=== PATIENT | female | born 1935 | race Caucasian/White ===

== ENCOUNTER → 2019-03-08 16:42 | Outpatient (CLI) | payer OTHER, SELFPAY ==
--- NOTE | ~2019-03-08 | XR_ITS ---
EXAMINATION: XR chest 2V EXAM DATE: 03/08/2019 17:31 INDICATION: Cough. TECHNIQUE: Frontal and lateral projections of the chest obtained and reviewed. Comparison is made to prior examination from 07/03/18. FINDINGS: Moderate hyperinflation. The lungs are clear. There are no pleural effusions. The cardiom ediastinal silhouette is within normal limits. There is no pneumothorax suspected. The bones and so ft tissues are unremarkable. Left breast mastectomy, implant, axillary surgical clips. There is aor tic arterial sclerosis. IMPRESSION: No acute cardiopulmonary findings. Reviewed, dictated and finalized at location A. CTOR OF MARKET ANALYSIS
== END ==
PROVIDERS: PCP Physician Assistant; Visit Provider Family Medicine
DX: J40 Bronchitis, not specified as acute or chronic (principal)
CPT/HCPCS: 71046

== ENCOUNTER 2019-05-09 11:09 | Emergency (ER) | payer OTHER, SELFPAY ==
--- NOTE | ~2019-05-09 | XR_ITS ---
XR shoulder LT min 2V 05/09/2019 13:07 Indication: Left shoulder pain post reduction Procedure: 2 views left shoulder Comparison: 05/09/2019 Findings: There is anatomic alignment of the left shoulder post reduction. No acute fracture. Mild de generative changes. There are surgical clips in the left axilla. Osteopenia. Impression: 1: Normal anatomic alignment post reduction. No fracture. Reviewed, dictated and finalized at location B. 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 No fracture.
--- NOTE | ~2019-05-09 | XR_ITS ---
XR shoulder LT min 2V 05/09/2019 12:24 Indication: Left shoulder pain. Patient unable to tolerate standard views due to pain. Procedure: 3 nonstandard views of the left shoulder Comparison: Chest dated 03/08/2019 Findings: There is a probable left anterior shoulder dislocation. No definite fractures identified. A cromioclavicular joint intact. Impression: 1: Probable left anterior shoulder dislocation. Reviewed, dictated and finalized at location B. H RUNNER Impression: 1: Probable left anterior shoulder dislocation.
[2019-05-09 11:22] VITALS: BP 117/65; PULSE 75; RESP 18; TEMP 35.9; O2SAT 99
[2019-05-09] MEDS: ONDANSETRON INJ 4 MG/2 ML VIAL IV PUSH (11:57)
[2019-05-09] MEDS: MORPHINE SULFATE 4 MG/ML INJ IV PUSH ×2 (11:57→12:51)
[2019-05-09] MEDS: SODIUM CHLORIDE 0.9% IV 1,000 ML 999 ML IV CONT (11:58)
--- NOTE | 2019-05-09 12:53 | ED.GENADULT ---
HPI - General Adult General Chief complaint: Fall Stated complaint: fall/shoulder pain Time Seen by Provider: 05/09/19 11:37 Source: patient Mode of arrival: ambulatory Limitations: no limitations History of Present Illness HPI narrative: Patient is an 83-year-old female who was brought in by EMS after a ground-level fall slipped on the stairs falling injuring the left shoulder patient notes aching pain to the left shoulder with deformity patient on arrival complains of moderate aching pain to the shoulder only denies other injuries or complaints has not had anything for her pain specifically denies syncope loss of consciousness or headache Related Data Allergies Allergy/AdvReac Type Severity Reaction Status Date / Time Penicillins Allergy Mild Unknown Verified 05/09/19 12:00 red dye Allergy Mild Unknown Verified 05/09/19 12:00 Sulfa (Sulfonamide Allergy Mild Unknown Verified 05/09/19 12:00 Antibiotics) codeine AdvReac Mild FUNNY Verified 05/09/19 12:00 FEELING meperidine AdvReac Mild Nausea and Verified 05/09/19 12:00 Vomiting Contrast Media Allergy Mild Unknown Uncoded 05/09/19 12:00 Review of Systems Review of Systems: All systems reviewed & are unremarkable except as noted in HPI and below PMFSH Social History Social History Gender identity (if verbalized by the patient): Female Exam Narrative: Exam Narrative: GENERAL: Well-appearing, well-nourished, and in no acute distress. HEAD: Normocephalic, atraumatic. EYES: PERRLA and EOMI. ENT: Nares clear, no rhinorrhea or epistaxis. Mucous membranes moist. Oropharynx without tonsillar hypertrophy exudate or other lesions. CHEST: Clear to auscultation. No respiratory distress. No wheezes rales or rhonchi HEART: Regular rate and rhythm. No murmur heard. EXTREMITIES: Deformity of the left shoulder joint with tenderness. No cervical thoracic or lumbar tenderness SKIN: Warm, dry, no rash. NEURO: No focal deficits. Alert and oriented x3. Cranial nerves II through XII grossly intact. Neurovascularly intact PSYCH: Normal mood and affect. Course Course Emergency Course: Patient in the room in no distress aware of case findings treatment plan and diagnosis agreeing to follow-up as directed or to return if symptoms worsen or concerns Vital Signs Vital signs: Vital Signs Temperature 96.7 F L 05/09/19 11:22 Pulse Rate 75 05/09/19 11:22 Respiratory Rate 18 05/09/19 11:22 Blood Pressure 117/65 05/09/19 11:22 Pulse Oximetry 99 05/09/19 11:22 Temperature 96.7 F L 05/09/19 11:22 Pulse Rate 75 05/09/19 11:22 Respiratory Rate 18 05/09/19 11:22 Blood Pressure 117/65 05/09/19 11:22 Pulse Oximetry 99 05/09/19 11:22 Procedures Orthopedic Joint Reduction Joint #1: Orthopedic Joint Reduction Date: 05/09/19 Orthopedic Joint Reduction Time: 12:58 Time Out Performed: Yes Side: left Joint Reduction Location: shoulder Analgesia: other Pre-Procedure Neuro Vascular Exam: normal Shoulder Technique Used (if applicable): external rotation Technique used: direct manipulation Post-reduction neuro exam: intact Post-reduction vascular: intact Post Reduction X-Ray Obtained: Yes Post Reduction X-Ray Results: reduced Patient Tolerated Procedure: well Medical Decision Making MDM Narrative Medical decision making narrative: Patients injury or pain is consistent with musculoskeletal etiology. No signs of neurological or vascular compromise on exam. Compartments and tisues are soft without signs of compartment syndrome. Pain is felt appropriate for further evaluation on an outpatient basis. Vital Signs Vital Signs: Vital Signs Temperature 96.7 F L 05/09/19 11:22 Pulse Rate 75 05/09/19 11:22 Respiratory Rate 18 05/09/19 11:22 Blood Pressure 117/65 05/09/19 11:22 Pulse Oximetry 99 05/09/19 11:2
== END 2019-05-09 14:30 | disposition home or self-care (01) ==
PROVIDERS: Emergency Provider Emergency Medicine; PCP Family Medicine
DX: S43.015A Anterior dislocation of left humerus, initial encounter (principal); W10.9XXA Fall (on) (from) unspecified stairs and steps, initial encounter
CPT/HCPCS: 23655; 73030; 96374; 96375; 96376; 99285; J2270; J2405; J7030

== ENCOUNTER → 2019-05-17 07:51 | Outpatient (CLI) | payer OTHER, SELFPAY ==
--- NOTE | ~2019-05-17 | XR_ITS ---
XR shoulder LT min 2V DATE: 05/17/2019 08:58 INDICATION: Left shoulder and arm pain TECHNIQUE: 4 views COMPARISON: 05/08/2022 pre-and post-reduction left shoulder FINDINGS: Surgical clips are noted in the left axillary area. Diffuse osteopenia. No fracture, dislocation, periosteal reaction or bone destruction of the left shoulder. There is an inferior acromial bony prominence. IMPRESSION: No fracture or dislocation Osteopenia Prominent inferior protuberance of acromion process Reviewed, dictated and finalized at location A.
--- NOTE | ~2019-05-17 | MR_ITS ---
EXAMINATION: MR shoulder LT wo con DATE: 05/17/2019 08:57 INDICATION: Left shoulder pain. TECHNIQUE: Magnetic resonance imaging (MRI) of the left shoulder was performed without intravenous co ntrast. Sequences included axial PD-weighted FS FSE, coronal oblique PD-weighted FS FSE and T2-weight ed FS FSE, and sagittal oblique T2-weighted FS FSE and T1-weighted FSE. COMPARISON: Left shoulder radiographs 05/17/2019 FINDINGS: Coracoacromial arch: The acromion undersurface is curved in morphology (type II). Subacromial spurring is noted. 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 There is moderate subacromial/subdeltoid bursitis. Rotator cuff: There is a full-thickness tear of supraspinatus tendon measuring 11 mm anterior to posterior by 1.8 c m proximal to distal. There is a partial thickness articular-sided tear of infraspinatus tendon. Karo s minor tendon is normal. There is severe subscapularis tendinopathy. There is a full-thickness tear of subscapularis tendon inferiorly. There are articular sided and bursal sided partial tears of subsc apularis tendon superiorly. There is mild fatty atrophy of all of the rotator cuff muscle bellies. Biceps tendon and glenoid labrum: There is a partial tear of biceps tendon, which is medially subluxed from the bicipital groove into t he subscapularis tendon tear. There is degenerative tearing of the glenoid labrum. Fluid: There is a moderate-sized glenohumeral joint effusion. Bones/cartilage: There is cartilage surface irregularity of glenoid and humeral head. There is subchondral edema of th e inferior glenoid. IMPRESSION: 1. Full-thickness rotator cuff tear and severe rotator cuff tendinopathy. 2. Mild glenohumeral joint chondrosis. 3. Moderate subacromial/subdeltoid bursitis and moderate-sized glenohumeral joint effusion. 4. Partial tear of biceps tendon, which is medially subluxed into the subscapularis tendon tear. Reviewed, dictated and finalized at location A. IMPRESSION: 1. Full-thickness rotator cuff tear and severe rotator cuff tendinopathy. 2. Mild glenohumeral joint chondrosis. 3. Moderate subacromial/subdeltoid bursitis and moderate-sized glenohumeral galdino nt effusion. 4. Partial tear of biceps tendon, which is medially subluxed into the subscapul brynn tendon tear.
== END ==
PROVIDERS: PCP Family Medicine; Visit Provider Orthopaedic Surgery
DX: M25.412 Effusion, left shoulder (principal); M85.812 Other specified disorders of bone density and structure, left shoulder
CPT/HCPCS: 73030; 73221

== ENCOUNTER → 2020-01-17 15:33 | Outpatient (CLI) | payer OTHER, SELFPAY ==
--- NOTE | ~2020-01-17 | MM_ITS ---
EXAMINATION: MM screening aarti RT w sera HISTORY: Screening right mammogram, history of left breast cancer TECHNIQUE: Craniocaudal and mediolateral oblique 3-D tomosynthesis images were obtained and synthetic 2-D images were generated. CAD analysis was submitted and interpreted. COMPARISON: 03/20/2018, 01/11/2017, 11/17/2015 BREAST PARENCHYMAL COMPOSITION: The breasts are heterogeneously dense, which may obscure small masses . FINDINGS: Scattered benign-appearing calcifications are present. There is no evidence of suspicious m ass, calcification, or architectural distortion to suggest malignancy. There has been no suspicious i nterval change. IMPRESSION: 1. No mammographic evidence of malignancy. 2. Recommend routine screening mammography while the patient remains in good health. BI-RADS Category 2: Benign finding(s). Reviewed, dictated and finalized at location A. BUILDER APPRENTICE WOOD IMPRESSION: 1. No mammographic evidence of malignancy. 2. Recommend routine screening mammography while the patient remains in good he alth. BI-RADS Category 2: Benign finding(s).
== END ==
PROVIDERS: PCP Family Medicine; Visit Provider Student in an Organized Health Care Education/Training Program
DX: Z12.31 Encounter for screening mammogram for malignant neoplasm of breast (principal)
CPT/HCPCS: 77063; 77067

== ENCOUNTER 2020-03-13 12:40 | Outpatient (CLI) | payer OTHER, SELFPAY ==
--- NOTE | 2020-03-13 17:28 | WPDPFTINT ---
PFT Interpretation This is a pulmonary function test with pre and post-bronchodilator spirometry, plethysmography and diffusing capacity. The test was performed and results interpreted in accordance with the 2019 and 2005 ATS/ERS Task Force guidelines respectively using the Tariq/Polladarius reference equations. Of note the patient had persistent coughing on the pre-bronchodilator spirometry. Findings: Spirometry: There is decreased maximal expiratory airflow at all lung volumes with a concave expiratory flow tracing. The pre-bronchodilator FVC is 1.48 L, 72% predicted. The pre-bronchodilator FEV1 is 0.78 L, 58% predicted. The FEV1:FVC ratio is 53%. The post-bronchodilator FVC is 2.04 L, representing a 39% increase. The post-bronchodilator FEV1 is 1.09 L, representing a 41% increase. Plethysmography: The total lung capacity is 5.03 L, 129% predicted. The functional residual capacity is 3.30 L, 155% predicted. The residual volume is 3.22 L, 187% predicted. Diffusing capacity: The absolute diffusing capacity is 11.6, 68% predicted. The diffusing capacity corrected for alveolar volume is 3.50, 106% predicted. Impression: There is a moderately severe obstructive abnormality with significant improvement after inhaling a single dose of albuterol. The increase in residual volume is consistent with air trapping from an obstructive abnormality. Hyperinflation is present is demonstrated by the increase in functional residual capacity and total lung capacity and is consistent with an obstructive abnormality. The absolute diffusing capacity is mildly decreased but normalizes when corrected for alveolar volume. There are no prior studies for comparison.
== END 2020-03-13 12:41 | disposition home or self-care (01) ==
LOC: ANHPFT 12:41
PROVIDERS: PCP Internal Medicine; Visit Provider Internal Medicine Critical Care Medicine
DX: J45.909 Unspecified asthma, uncomplicated (principal); R94.2 Abnormal results of pulmonary function studies
CPT/HCPCS: 94060; 94726; 94729

== ENCOUNTER 2020-03-27 10:35 | Outpatient (CLI) | payer OTHER, SELFPAY ==
[2020-03-27 11:22] LABS: Alanine Aminotransferase 17 U/L (4-35); Albumin Level 4.2 g/dL (3.5-5.1); Alkaline Phosphatase 99 U/L (38-126); Anion Gap 6 mmol/L (8-16); Aspartate Amino Transferase 31 U/L (14-36); Bilirubin,Total 0.4 mg/dL (0.2-1.3); Blood Urea Nitrogen 25 mg/dL (7-17); Calcium 9.3 mg/dL (8.4-10.2); Carbon Dioxide 27 mmol/L (22-30); Chloride 108 mmol/L (98-107); Cholesterol 208 mg/dL (0-200); Estimated Glomerular Filt Rate 47; Glucose 106 mg/dL (65-105); HDL Direct 51 mg/dL; Potassium 4.1 mmol/L (3.4-5.0); Sodium 141 mmol/L (137-145); Triglycerides 156 mg/dL (<150)
[2020-03-27 11:33] LABS: LDL Cholesterol Direct 114 mg/dL
== END 2020-03-27 10:36 | disposition home or self-care (01) ==
LOC: ANHLAB 10:36
PROVIDERS: Family Provider Family Medicine; PCP Internal Medicine; Visit Provider Nurse Practitioner
DX: E78.5 Hyperlipidemia, unspecified (principal)
CPT/HCPCS: 36415; 80053; 80061

== ENCOUNTER 2020-03-28 10:44 | Outpatient (RCR) | payer OTHER, SELFPAY ==
[2020-03-31 07:13] LABS: Alpha-1-Antitrypsin, QN 114 mg/dL (83-199)
== END 2020-06-24 23:59 | disposition home or self-care (01) ==
LOC: ANHLAB 10:44
PROVIDERS: Family Provider Family Medicine; PCP Internal Medicine; Visit Provider Nurse Practitioner Family
DX: J44.9 Chronic obstructive pulmonary disease, unspecified (principal); R09.3 Abnormal sputum
CPT/HCPCS: 36415; 82103; 82104; 87015; 87070; 87077; 87102; 87107; 87116; 87147; 87181; 87184; 87186; 87205; 87206

== ENCOUNTER → 2020-04-08 13:52 | Outpatient (CLI) | payer OTHER, SELFPAY ==
--- NOTE | ~2020-04-08 | XR_ITS ---
EXAMINATION: XR chest 2V EXAM DATE: 04/08/2020 14:12 INDICATION: R06.02 - Shortness of breath, cough, asthma, COPD. TECHNIQUE: Frontal and lateral projections of the chest obtained and reviewed. Comparison is made to prior examination from 03/08/2019. FINDINGS: Right upper lobe granuloma. The lungs are otherwise clear. There are no pleural effusions. The cardiomediastinal silhouette is within normal limits. There is no pneumothorax suspected. The bones and soft tissues are unremarkable. IMPRESSION: No acute cardiopulmonary findings. Reviewed, dictated and finalized at location B. CUTTING MACHINE SET UP OPERATOR
== END ==
PROVIDERS: PCP Internal Medicine; Visit Provider Nurse Practitioner Family
DX: R05 Cough (principal); R06.02 Shortness of breath; J45.909 Unspecified asthma, uncomplicated; J44.9 Chronic obstructive pulmonary disease, unspecified
CPT/HCPCS: 71046

== ENCOUNTER 2020-09-23 00:22 | Day surgery (SDC) | payer OTHER, SELFPAY ==
[2020-07-21 11:34] VITALS: BMI 32.7
[2020-09-10 08:55] VITALS: BMI 31.4
[2020-09-23 06:20] VITALS: BP 145/94; PULSE 50; RESP 18; TEMP 35.9; O2SAT 98
[2020-09-23] MEDS: LACTATED RINGERS 1,000 ML 150 ML IV CONT (06:26)
--- NOTE | 2020-09-23 07:17 | WPDANESEPPF ---
Anes - Initial Pre Proc Eval Procedure: Operation Date: 09/23/20 07:30 Proposed Procedures p Esophagogastroduodenoscopy & Colonoscopy - Júnior Bah MD Date/Time: 09/23/20 07:17 Surgeon: Júnior Bah MD Pre Op Diagnosis: Diarrhea, hx of colon polyps, dysphagia Patient Data Age: 84 Gender: F Height: 1.52 m Weight: 76.3 kg Last Vital Signs Temp 96.6 F L 09/23/20 06:20 Pulse 50 L 09/23/20 06:20 Resp 18 09/23/20 06:20 BP 145/94 H 09/23/20 06:20 Pulse Ox 98 09/23/20 06:20 Allergies Allergy/AdvReac Type Severity Reaction Status Date / Time red dye Allergy Severe Swelling Verified 09/23/20 06:18 of Lip/Tongue/Throat meperidine Allergy Intermediate Unknown Verified 09/23/20 06:18 Penicillins Allergy Intermediate Rash Verified 09/23/20 06:18 codeine AdvReac Mild Jittery Verified 09/23/20 06:18 Sulfa (Sulfonamide AdvReac Mild Nausea and Verified 09/23/20 06:18 Antibiotics) Vomiting Contrast Media Allergy Severe Swelling Uncoded 09/23/20 06:18 of Lip/Tongue/Throat Home Medications Medication Instructions Recorded Confirmed Type apple cider vinegar 300 mg tablet 600 mg PO BID 01/28/20 09/23/20 History aspirin 81 mg tablet,delayed 81 mg PO DAILY 01/28/20 09/23/20 History release geriatric [id number] 1 tablet PO DAILY 01/28/20 09/23/20 History mometasone-formoterol HFA 200 2 puff INHALATION BID 03/26/20 09/23/20 History mcg-5 mcg/actuation aerosol inhaler metoprolol succinate 25 mg 12.5 mg PO DAILY tablet 03/27/20 09/23/20 History tablet,extended release 24 hr albuterol sulfate 90 mcg/actuation 1 inh INHALATION Q4-6H PRN #8.5 g 07/07/20 09/23/20 Rx aerosol inhaler Cinnamon 600 mg PO BID 07/21/20 09/23/20 History Hair,Skin and Nails 6,000 unit PO DAILY 07/21/20 09/23/20 History calcium carbonate [Calcium 600] 600 mg PO DAILY 07/21/20 09/23/20 History cholecalciferol (vitamin D3) 25 mcg PO DAILY 07/21/20 09/23/20 History [Vitamin D3] furosemide 20 mg PO EVERY OTHER DAY 07/21/20 09/23/20 History montelukast 10 mg PO DAILY 07/21/20 09/23/20 History potassium chloride 10 meq PO EVERY OTHER DAY 07/21/20 09/23/20 History sertraline 50 mg PO QAM 07/21/20 09/23/20 History sertraline 100 mg PO DAILY 07/21/20 09/23/20 History vitamin A-vitamin C-vit E-min 2 tablet PO DAILY 07/21/20 09/23/20 History [Ocuvite] ezetimibe 10 mg tablet 10 mg PO DAILY #90 tablet 08/18/20 09/23/20 Rx Patient hx anesthesia problems: none Family hx anesthesia problems: none PMFSH Past Medical History Medical History (Updated 07/16/20 @ 11:28 by David Chavez DO) Adenomatous colon polyp Arthritis Asthma Chronic diarrhea Hearing loss History of colon polyps History of left breast cancer Other and unspecified hyperlipidemia Shoulder dislocation Vision loss Surgical History Surgical History History of appendectomy History of bilateral knee replacement History of cholecystectomy History of hysterectomy History of left mastectomy History of reduction surgery of right breast History of surgical removal of ganglion cyst Family History Family History Mother Rectal cancer Father Heart disease Emphysema lung Sibling COPD (chronic obstructive pulmonary disease) Social History Social History Smoking status: Never smoker Alcohol intake: current Substance use: never Substance use type: does not use Living arrangements: with family Gender identity (if verbalized by the patient): Female Spiritual care concerns: No Anes - Eval Final PreProcedure Day of Procedure 09/23/20 07:17 Patient weight: obese Heart: regular rate and rhythm Lungs: clear to auscultation Airway: Mallampati scale class II Neurological: alert and oriented Last
--- NOTE | 2020-09-23 07:40 | PM.HPGS ---
History of Present Illness History of Present Illness Consent: Risks, benefits, and alternatives have been discussed and questions answered. Patient agrees to proceed with procedure. Chief complaint: Diarrhea, hx of colon polyps, dysphagia Narrative: Randi Rodriguez is a 84 year old female with colon polyp 2016, also dysphagia Review of Systems Constitutional: Constitutional: Denies headache(s) and Denies weakness Eyes: Eyes: Denies blurry vision ENT: Reports Normal hearing present, Denies headache(s) and Denies neck pain Cardiovascular: Cardiovascular: Denies chest pain and Denies dyspnea Respiratory: Respiratory: Denies dyspnea Gastrointestinal: Gastrointestinal: Reports no additional gastrointestinal complaints Genitourinary: Genitourinary: Denies dysuria Musculoskeletal: Musculoskeletal: Denies neck pain Integumentary/Breasts: Skin/Breast: Denies dry skin Neurologic: Reports Normal hearing present, Denies headache(s) and Denies weakness Psychiatric: Psychiatric: Denies anxiety Endocrine: Endocrine: Denies change in body appearance Hematologic/Lymphatic: Hematologic/Lymphatic: Denies easy bleeding Allergic/Immunologic: Allergic/Immunologic: Denies urticaria PMFSH Past Medical History Medical History (Updated 07/16/20 @ 11:28 by David Chavez DO) Adenomatous colon polyp Arthritis Asthma Chronic diarrhea Hearing loss History of colon polyps History of left breast cancer Other and unspecified hyperlipidemia Shoulder dislocation Vision loss Surgical History Surgical History History of appendectomy History of bilateral knee replacement History of cholecystectomy History of hysterectomy History of left mastectomy History of reduction surgery of right breast History of surgical removal of ganglion cyst Family History Family History Mother Rectal cancer Father Heart disease Emphysema lung Sibling COPD (chronic obstructive pulmonary disease) Social History Social History Smoking status: Never smoker Alcohol intake: current Substance use: never Substance use type: does not use Living arrangements: with family Gender identity (if verbalized by the patient): Female Spiritual care concerns: No Meds Home Medications and Allergies Home Medications Medication Instructions Recorded Confirmed Type apple cider vinegar 300 mg tablet 600 mg PO BID 01/28/20 09/23/20 History aspirin 81 mg tablet,delayed 81 mg PO DAILY 01/28/20 09/23/20 History release geriatric [id number] 1 tablet PO DAILY 01/28/20 09/23/20 History mometasone-formoterol HFA 200 2 puff INHALATION BID 03/26/20 09/23/20 History mcg-5 mcg/actuation aerosol inhaler metoprolol succinate 25 mg 12.5 mg PO DAILY tablet 03/27/20 09/23/20 History tablet,extended release 24 hr albuterol sulfate 90 mcg/actuation 1 inh INHALATION Q4-6H PRN #8.5 g 07/07/20 09/23/20 Rx aerosol inhaler Cinnamon 600 mg PO BID 07/21/20 09/23/20 History Hair,Skin and Nails 6,000 unit PO DAILY 07/21/20 09/23/20 History calcium carbonate [Calcium 600] 600 mg PO DAILY 07/21/20 09/23/20 History cholecalciferol (vitamin D3) 25 mcg PO DAILY 07/21/20 09/23/20 History [Vitamin D3] furosemide 20 mg PO EVERY OTHER DAY 07/21/20 09/23/20 History montelukast 10 mg PO DAILY 07/21/20 09/23/20 History potassium chloride 10 meq PO EVERY OTHER DAY 07/21/20 09/23/20 History sertraline 50 mg PO QAM 07/21/20 09/23/20 History sertraline 100 mg PO DAILY 07/21/20 09/23/20 History vitamin A-vitamin C-vit E-min 2 tablet PO DAILY 07/21/20 09/23/20 History [Ocuvite] ezetimibe 10 mg tablet 10 mg PO DAILY #90 tablet 08/18/20 09/23/20 Rx Allergies Allergy/AdvReac Type Severity Reaction Status Date / Time red dye Allergy Severe Swelling Verified 09/23/20 06:
[2020-09-23 08:18] VITALS: BP 108/53; PULSE 83; RESP 22; O2SAT 99
[2020-09-23 08:28] VITALS: BP 116/65; PULSE 80; RESP 22; O2SAT 96
[2020-09-23 08:38] VITALS: BP 109/54; PULSE 77; RESP 20; O2SAT 98
== END 2020-09-23 08:57 | disposition home or self-care (01) ==
PROVIDERS: PCP Internal Medicine; Visit Provider Internal Medicine Gastroenterology
PROC: 0DJ08ZZ Inspection of Upper Intestinal Tract, Via Natural or Artificial Opening Endoscopic (ICD-10-PCS; CPT 43235; principal; 2020-09-23 07:30)
DX: Z12.11 Encounter for screening for malignant neoplasm of colon (principal); D12.2 Benign neoplasm of ascending colon; K57.30 Diverticulosis of large intestine without perforation or abscess without bleeding; K64.4 Residual hemorrhoidal skin tags; K62.89 Other specified diseases of anus and rectum; K29.50 Unspecified chronic gastritis without bleeding; K44.9 Diaphragmatic hernia without obstruction or gangrene; K21.00 Gastro-esophageal reflux disease with esophagitis, without bleeding; K22.2 Esophageal obstruction; R19.7 Diarrhea, unspecified; I10 Essential (primary) hypertension; J45.909 Unspecified asthma, uncomplicated; F41.9 Anxiety disorder, unspecified; E78.49 Other hyperlipidemia; Z85.3 Personal history of malignant neoplasm of breast; Z90.12 Acquired absence of left breast and nipple; Z96.653 Presence of artificial knee joint, bilateral; Z90.710 Acquired absence of both cervix and uterus; Z88.0 Allergy status to penicillin; Z88.2 Allergy status to sulfonamides; Z91.041 Radiographic dye allergy status; Z79.51 Long term (current) use of inhaled steroids; Z79.899 Other long term (current) drug therapy
CPT/HCPCS: 45380; 43239; 43249; 88305; 88342; C1726; J2704; J7120

== ENCOUNTER → 2021-05-18 13:58 | Outpatient (CLI) | payer OTHER, SELFPAY ==
--- NOTE | ~2021-05-18 | XR_ITS ---
EXAMINATION: XR chest 2V 05/18/2021 14:16 INDICATION: Dyspnea PROCEDURE: 2 view chest COMPARISON: 04/08/2020 FINDINGS: The lungs are clear. The cardiomediastinal silhouette is within normal limits. There are no pleural effusions. There is no pneumothorax suspected. There is a left breast implant. There are surgical clips in the left axilla. IMPRESSION: 1: NO ACUTE CARDIOPULMONARY DISEASE. Reviewed, dictated and finalized at location B.
== END ==
PROVIDERS: PCP Internal Medicine; Visit Provider Internal Medicine
DX: R06.00 Dyspnea, unspecified (principal)
CPT/HCPCS: 71046

== ENCOUNTER → 2021-06-01 13:04 | Outpatient (CLI) | payer OTHER, SELFPAY ==
--- NOTE | ~2021-06-01 | DEXA_ITS ---
Bone Density Report Name: KEVIN DOUGLASS Age: 85 Sex: Female Ethnicity: White Date of : 1935 Indication: postmenopausal; screening for osteoporosis; height loss; prior fracture; asthma or emphysema; hysterectomy; Referring Provider: Clair Montero Study: Bone densitometry was performed. Exam Date: June 01, 2021 Accession number: [id number] Bone Density: Region BMD T-score Z-score Classification AP Spine (L3, L4) 1.078 -0.2 2.8 Normal Femoral Neck (Left) 0.661 -1.7 0.8 Osteopenia Total Hip (Left) 0.875 -0.6 1.8 Normal Femoral Neck (Right) 0.707 -1.3 1.2 Osteopenia Total Hip (Right) 0.880 -0.5 1.8 Normal Total Hip Mean 0.878 -0.6 1.8 Normal World Health Organization criteria for BMD impression classify patients as: Normal (T-score at or above -1.0), Osteopenia (T-score between -1.0 and -2.5), or Osteoporosis (T-score at or below -2.5). 10-year Fracture Risk(1): Major Osteoporotic Fracture 19% Hip Fracture 4.6% Reported Risk Factors: [place] (), Neck BMD=0.661, BMI=34.2, previous fracture (1) FRAX(R) Version 3.08. Fracture probability calculated for an untreated patient. Fracture probability may be lower if the patient has received treatment. Clinical Information Provided by Patient: Has had a low trauma fracture Has used the following medications: Vitamin D, Calcium Has the following medical conditions: Asthma or Emphysema, Hysterectomy Patient maximum height was 63 Menopause Age: 43 No regular weight bearing exercise Does not regularly consume dairy products Onset of menses at age 12 Number of children 2 Impression: The patient has low bone mass, based on the Left Femoral Neck T-score. The patient has an estimated ten-year risk of hip fracture of 4.6% and an estimated ten-year risk of major fracture of 19%, based on the WHO FRAX algorithm. The patient has risk factors, including: previous fracture. Discussion: BONE DENSITY IS LOW AT ONE OR MORE SKELETAL SITES. THE PATIENT'S BMD AND CLINICAL RISK FACTORS CONTRIBUTE TO THIS PATIENT'S INCREASED RISK OF FRACTURE. This patient's lowest T-score is low at one or more skeletal sites. It meets the World Health Organization's (WHO) criteria for ?low bone mass? (T-score between -1.0 and -2.5). The patient's 10-year risk of hip fracture as calculated by FRAX exceeds the threshold where pharmacological therapy is recommended by the National Osteoporosis Foundation (NOF). However, all treatment decisions require clinical judgment and consideration of individual patient factors, including patient preferences, comorbidities, previous drug use, risk factors not captured in the FRAX model (e.g., frailty, falls, vitamin D deficiency, increased bone turnover, interval significant decline in bone density) and possible under or overestimation of
--- NOTE | ~2021-06-01 | MMUS_ITS ---
EXAMINATION: MM diagnostic aarti RT w sera, US breast RT limited HISTORY: Palpable lump in the subareolar aspect of the right breast, history of left mastectomy TECHNIQUE: Craniocaudal, mediolateral, and mediolateral oblique 3-D tomosynthesis images of the right breast were performed and synthetic 2-D images were generated. Spot compression views are also obtai jocelyne. CAD analysis was submitted and interpreted. High resolution limited right breast ultrasound was performed. COMPARISON: 01/17/2020, 03/20/2018, 01/11/2017 BREAST PARENCHYMAL COMPOSITION: The breasts are heterogeneously dense, which may obscure small masses . FINDINGS: MAMMOGRAPHIC FINDINGS: Scattered benign-appearing calcifications are present. There is no suspicious mass, calcification, or architectural distortion to suggest malignancy. There has been no suspicious interval change. No ma mmographic correlate is identified for the reported palpable abnormality of the right breast. ULTRASOUND: There is no evidence of focal abnormal solid or cystic mass in the vicinity of the reported palpable abnormality of the right breast. IMPRESSION: 1. No specific mammographic or sonographic correlate is identified for the reported palpable abnormal ity of concern. Further evaluation at this time should be based on clinical assessment. Continued fol low-up physical examination is recommended. 2. Recommend annual screening mammography while the patient remains in good health. BI-RADS Category 2: Benign finding(s). Reviewed, dictated and finalized at location A. IMPRESSION: 1. No specific mammographic or sonographic correlate is identified for the repo rted palpable abnormality of concern. Further evaluation at this time should be based on clinical assessment. Continued follow-up physical examination is nga mmended. 2. Recommend annual screening mammography while the patient remains in good hea lth. BI-RADS Category 2: Benign finding(s).
== END ==
PROVIDERS: PCP Internal Medicine; Visit Provider Nurse Practitioner
DX: Z78.0 Asymptomatic menopausal state (principal); R92.2 Inconclusive mammogram; N63.10 Unspecified lump in the right breast, unspecified quadrant; M85.852 Other specified disorders of bone density and structure, left thigh; M85.851 Other specified disorders of bone density and structure, right thigh
CPT/HCPCS: 76642; 77061; 77065; 77080; G0279

== ENCOUNTER 2021-06-15 08:18 | Inpatient (IN) | payer OTHER, SELFPAY ==
[2021-06-15] VITALS (41 sets, daily range): BP systolic 82–131; BP diastolic 53–76; PULSE 87–128; RESP 14–100; TEMP 36.1–36.9; O2SAT 20–100; BMI 34.9
--- NOTE | ~2021-06-15 | XR_ITS ---
EXAMINATION: XR chest 2V EXAM DATE: 06/15/2021 08:52 INDICATION: Cough, Wheezing,Sob, Black [id number], Hx Asthma. TECHNIQUE: Frontal and lateral projections of the chest obtained and reviewed. Comparison is made to prior examination from 05/18/2021. FINDINGS: The cardiomediastinal silhouette is prominent but magnified on this AP technique. There is patchy left basilar segmental and right basilar subsegmental atelectasis or pneumonia. Prominent pulm onary arteries, possible pulmonary arterial hypertension. There is no pneumothorax suspected. Probabl e small left pleural effusion. There are bony degenerative changes. Left-sided breast implant, axilla ry lymph node dissection. IMPRESSION: 1. Moderate amount of left basilar, smaller right basilar pneumonia and/or atelectasis. 2. Small left pleural effusion. Reviewed, dictated and finalized at location B. IMPRESSION: 1. Moderate amount of left basilar, smaller right basilar pneumonia and/or ate lectasis. 2. Small left pleural effusion.
--- NOTE | ~2021-06-15 | XR_ITS ---
EXAMINATION: XR foot RT 2V DATE: 06/18/2021 13:49 INDICATION: Right foot pain. TECHNIQUE: 2 views of right foot were obtained. COMPARISON: None. FINDINGS: There is moderate hallux valgus. No fracture. There is moderate osteoarthritis of first met atarsophalangeal joint and second proximal interphalangeal joint and mild osteoarthritis of some of t he midfoot joints and interphalangeal joints. There are is an enthesophyte at plantar aspect of calca prashant tuberosity. IMPRESSION: 1. Polyarticular osteoarthritis. 2. Moderate hallux valgus. Reviewed, dictated and finalized at location A.
--- NOTE | ~2021-06-15 | XR_ITS ---
EXAMINATION: XR chest 1V portable INDICATION: Shortness of breath TECHNIQUE: Portable AP chest at 0549 hours COMPARISON: 06/15/2021 FINDINGS: Airspace opacities of the left mid and lower lung zones persist without significant change. There is slightly improved right basilar airspace opacities. The cardiomediastinal silhouette is sta ble. There is no pleural effusion or pneumothorax. Changes of left mastectomy with implant reconstruc tion and left axillary lymph node dissection are noted. IMPRESSION: 1. Stable airspace opacities of the left mid and lower lung zones and improving right basilar airspac e opacities, consistent with pneumonia. Reviewed, dictated and finalized at location A. IMPRESSION: 1. Stable airspace opacities of the left mid and lower lung zones and improving right basilar airspace opacities, consistent with pneumonia.
--- NOTE | ~2021-06-15 | CT_ITS ---
EXAMINATION: CTA chest PE protocol DATE: 06/15/2021 10:44 INDICATION: Shortness of breath, history of breast cancer TECHNIQUE: Computed tomography angiography (CTA) of the chest was performed with 100 mL Omnipaque-350 intravenous contrast timed to evaluate the pulmonary arteries. Coronal maximum intensity projection 3D-reconstructions were created by the technologist. The dose-length product (DLP) was 575.19 mGy-cm. Automated exposure control and iterative reconstruction technique were employed. COMPARISON: 08/21/2012 FINDINGS: The pulmonary arteries are well-opacified. No pulmonary embolism is identified. There are a irspace opacities of the lower lobes, left greater than right, the lingula, and the upper lobes. Ther e is no pleural effusion or pneumothorax. The heart size is normal. There are changes of left mastect yvonne with implant reconstruction and left axillary lymph node dissection. There are no pathologically enlarged thoracic lymph nodes. There is severe thoracic spondylosis. . IMPRESSION: 1. Bilateral airspace opacities, worst in the lower lobes, consistent with pneumonia. No pulmonary em bolus identified. Reviewed, dictated and finalized at location A. IMPRESSION: 1. Bilateral airspace opacities, worst in the lower lobes, consistent with pneu monia. No pulmonary embolus identified.
--- NOTE | ~2021-06-15 | XR_ITS ---
EXAMINATION: XR chest 1V portable Exam Date/Time: 06/21/2021 14:30 CDT CLINICAL HISTORY: pneumonia SOB DYSPNEA Comparison: 06/16/2021.. RESULT: Lines, tubes, and devices: Left axillary clips. Left breast prosthesis. Lungs and pleura: Linear scar/atelectasis in the right lung base. Left angle blunting, with graded o pacity in the left mid and lower lung. Increased retrocardiac opacity. Cardiomediastinal silhouette: Stable cardiomediastinal silhouette. Other: No acute osseous or upper abdominal finding. IMPRESSION: Likely small left pleural effusion. Increasing left basilar atelectasis/consolidation. Reviewed, dictated and finalized at location K. IMPRESSION: Likely small left pleural effusion. Increasing left basilar atelectasis/consoli dation.
--- NOTE | ~2021-06-15 | XR_ITS ---
EXAMINATION: XR chest 1V portable DATE: 06/16/2021 11:56 INDICATION: Increased work of breathing. TECHNIQUE: A single frontal view of the chest was obtained. COMPARISON: Chest single view at 5:49 AM, chest CT 06/15/2021 FINDINGS: There are airspace opacities in the lower lung zones. No pleural effusion or pneumothorax. Cardiomegaly is noted. There is a left breast implant. IMPRESSION: 1. Stable airspace opacities in the lower lung zones, consistent with pneumonia. 2. Cardiomegaly. Reviewed, dictated and finalized at location A. IMPRESSION: 1. Stable airspace opacities in the lower lung zones, consistent with pneumonia . 2. Cardiomegaly.
--- NOTE | ~2021-06-15 | US_ITS ---
EXAMINATION: US renal BI EXAM DATE: 06/16/2021 09:49 INDICATION: Worsening renal function. TECHNIQUE: Multiple grayscale and Doppler images of the kidneys were obtained (by a technologist who performed the scan) and subsequently reviewed. There is no prior study for comparison. FINDINGS: Right kidney: There is normal contour and echogenicity. It measures 10.5 x 3.7 x 4.3 centimeters. T here are no focal renal lesions identified. There is no hydronephrosis. Left kidney: There is normal contour and echogenicity. It measures 11.0 x 3.8 x 5.2 centimeters. Sev eral anechoic lesions consistent with cysts measuring up to 3 cm. There is no hydronephrosis. Woody catheter within collapsed bladder. IMPRESSION: 1. Left renal cysts. Otherwise unremarkable exam. Reviewed, dictated and finalized at location B.
--- NOTE | ~2021-06-15 | NM_ITS ---
EXAMINATION: NM mora stress w perfusion DATE: 06/19/2021 10:01 INDICATION: Chest pain. Cardiomyopathy. TECHNIQUE: Rest images were obtained following intravenous administration of 11.1 mCi Tc99m tetrofosm in (Myoview). The patient was infused intravenously with Lexiscan (regadenoson). Then, 33 mCi Tc99m t etrofosmin (Myoview) was administered intravenously, and stress images were obtained. Data was recons tructed into short axis and horizontal and vertical long axis SPECT images. Gated SPECT images were a lso obtained. COMPARISON: Chest CT 06/15/2021 FINDINGS: There is a small, mild, reversible perfusion defect involving apical lateral segment of lef t ventricle, consistent with ischemia. There is no segmental wall motion abnormality. Left ventricu lar ejection fraction measures 40%. IMPRESSION: 1. Small area of mild ischemia involving apical lateral segment of left ventricle. 2. Decreased left ventricular ejection fraction measuring 40%. Reviewed, dictated and finalized at location A. IMPRESSION: 1. Small area of mild ischemia involving apical lateral segment of left ventric le. 2. Decreased left ventricular ejection fraction measuring 40%.
--- NOTE | 2021-06-15 08:23 | ECG_ITS ---
Measurements Intervals [place] Rate: 131 P: -77 NC: 153 QRS: 37 QRSD: 162 T: 81 QT: 306 QTc: 452 Interpretive Statements ATYPICAL ATRIAL FLUTTER WITH OCCASIONAL VENTRICULAR PREMATURE COMPLEXES INTRAVENTRICULAR CONDUCTION DELAY [130+ ms QRS DURATION] COMPARED TO ECG 06/03/2018 12:34:55 ATYPICAL ATRIAL FLUTTER REPLACES SINUS RHYTHM Electronically Signed On 06-15-2021 15:32:07 CDT by Gurinder Sevilla M.D.
--- NOTE | 2021-06-15 08:26 | ED.SOB ---
HPI - SOB/Dyspnea General Chief Complaint: Shortness of Breath/Dyspnea Stated Complaint: SOB Time Seen by Provider: 06/15/21 08:19 Source: patient and EMS Mode of arrival: EMS Limitations: no limitations History of Present Illness HPI Narrative: Pt presents with worsening SOB and productive cough over the last two days. Pt denies swelling or fever or CP MD elicited complaint: shortness of breath Pertinent past history: COPD Onset (ago): day(s) (2d) Timing: constant Severity: moderate Exacerbating factors: lying flat and coughing Relieving factors: rest Known history of: COPD Associated symptoms: denies other symptoms Treatment prior to arrival: oxygen Related Data Home oxygen amount: none Home Medications Medication Instructions Recorded Confirmed apple cider vinegar 300 mg tablet 600 mg PO BID 01/28/20 05/18/21 aspirin 81 mg tablet,delayed 81 mg PO DAILY 01/28/20 05/18/21 release geriatric [id number] 1 tablet PO DAILY 01/28/20 05/18/21 mometasone-formoterol HFA 200 2 puff INHALATION BID 03/26/20 05/18/21 mcg-5 mcg/actuation aerosol inhaler metoprolol succinate 25 mg 12.5 mg PO DAILY tablet 03/27/20 05/18/21 tablet,extended release 24 hr Cinnamon 600 mg PO BID 07/21/20 05/18/21 Hair,Skin and Nails 6,000 unit PO DAILY 07/21/20 05/18/21 calcium carbonate [Calcium 600] 600 mg PO DAILY 07/21/20 05/18/21 cholecalciferol (vitamin D3) 25 mcg PO DAILY 07/21/20 05/18/21 [Vitamin D3] vitamin A-vitamin C-vit E-min 2 tablet PO DAILY 07/21/20 05/18/21 [Ocuvite] Allergies Allergy/AdvReac Type Severity Reaction Status Date / Time red dye Allergy Severe Swelling Verified 05/18/21 13:02 of Lip/Tongue/Throat meperidine Allergy Intermediate Unknown Verified 05/18/21 13:02 Penicillins Allergy Intermediate Rash Verified 05/18/21 13:02 codeine AdvReac Mild Jittery Verified 05/18/21 13:02 Sulfa (Sulfonamide AdvReac Mild Nausea and Verified 05/18/21 13:02 Antibiotics) Vomiting Contrast Media Allergy Severe Swelling Uncoded 05/18/21 13:02 of Lip/Tongue/Throat Review of Systems Review of Systems: All systems reviewed & are unremarkable except as noted in HPI and below PMFSH Past Medical History Medical History Adenomatous colon polyp Arthritis Asthma Chronic diarrhea Hearing loss History of colon polyps History of left breast cancer Hx of breast cancer Obese Other and unspecified hyperlipidemia Shoulder dislocation Vision loss Surgical History Surgical History History of appendectomy History of bilateral knee replacement History of cholecystectomy History of hysterectomy History of left mastectomy History of reduction surgery of right breast History of surgical removal of ganglion cyst Family History Family History Mother Rectal cancer Father Heart disease Emphysema lung Sibling COPD (chronic obstructive pulmonary disease) Social History Social History Smoking status: Never smoker Alcohol intake: never Substance use: never Substance use type: does not use Gender identity (if verbalized by the patient): Female Spiritual care concerns: No Exam Const: General: healthy appearing, no acute distress and alert Nutritional Appearance: well nourished Orientation/consciousness: patient oriented x3 Limitations: no limitations HENMT: Head: normal to inspection Eyes: Conjunctivae: conjunctivae normal EOM: EOMs intact bilaterally Neck: Neck: normal visual inspection, no lymphadenopathy and no meningeal signs Chest: Chest palpation & inspection: normal inspection of the chest Resp: Effort & Inspection: normal respiratory effort Auscultation: clear to auscultation bilaterally Cardio: Rate: tachycardic GI:
[2021-06-15] MEDS: ALBUTEROL SULFATE NEB 2.5 MG/0.5 ML INH 5 MG INHALATION (08:31)
[2021-06-15] MEDS: IPRATROPIUM BR 0.02% INH SOLN 0.5 MG/2.5 ML VIAL INHALATION (08:31)
[2021-06-15 08:33] LABS: Basophils Percent Auto 0.2 % (0.2-1.2); Eosinophils Absolute Auto 0.1 K/mm3 (0-0.3); Eosinophils Percent Auto 0.5 % (0-4.4); Hemoglobin 11.3 g/dL (12.0-15.0); Immature Granulocyte Absolute 0.14 K/mm3 (0.00-0.031); Immature Granulocyte Percent A 0.9 % (0-0.5); Lymphocytes Absolute Auto 1.14 K/mm3 (0.9-3.2); Lymphocytes Percent Auto 7.4 % (18.3-44.2); Mean Corpuscular HGB Conc 29.7 g/dl (32-36); Mean Corpuscular Hemoglobin 26.3 pg (26-34); Mean Corpuscular Volume 88.4 fl (80-100); Mean Platelet Volume 11.6 fl (7.4-10.4); Monocytes Absolute Auto 0.5 K/mm3 (0.1-0.6); Monocytes Percent Auto 3.4 % (2.6-8.5); Neutrophils Absolute Auto 13.4 K/mm3 (1.3-6.7); Neutrophils Percent Auto 87.6 % (45.5-73.1); Platelet Count Result 163 k/mm3 (150-375); Red Cell Distribution Width 17.2 % (11.5-14.5); White Blood Count 15.3 K/mm3 (4.5-10.0)
--- NOTE | 2021-06-15 08:33 | PC.NURSE ---
RT at bedside to administer breathing treatment.
[2021-06-15 08:42] LABS: Magnesium 2.2 mg/dL (1.6-2.3)
[2021-06-15 08:43] LABS: Alanine Aminotransferase 23 U/L (4-35); Albumin Level 4.3 g/dL (3.5-5.1); Alkaline Phosphatase 89 U/L (38-126); Anion Gap 8 mmol/L (8-16); Aspartate Amino Transferase 45 U/L (14-36); Bilirubin,Total 0.8 mg/dL (0.2-1.3); Blood Urea Nitrogen 38 mg/dL (7-17); Calcium 8.6 mg/dL (8.4-10.2); Carbon Dioxide 28 mmol/L (22-30); Chloride 104 mmol/L (98-107); Estimated Glomerular Filt Rate 33; Glucose 93 mg/dL (65-110); INR 1.3; Potassium 4.2 mmol/L (3.4-5.0); Prothrombin Time 15.5 Seconds (11.1-14.7); Sodium 140 mmol/L (137-145)
[2021-06-15 08:44] LABS: Partial Thromboplastin Time 39.1 SECONDS (22.3-36.8)
--- NOTE | 2021-06-15 08:47 | PC.NURSE ---
Patient off unit to Radiology.
[2021-06-15 09:01] LABS: NT Pro B Type Natriuretic Pept 14500 pg/mL (5-100); Troponin I 0.035 ng/mL (0.000-0.034)
--- NOTE | 2021-06-15 10:38 | PC.NURSE ---
Patient off unit to Radiology for CT.
--- NOTE | 2021-06-15 11:09 | PC.NURSE ---
Patient report given to OLEGARIO Moe. All questions answered and care of patient transferred.
[2021-06-15] MEDS: cefTRIAXone 2 GM in SODIUM CHLORIDE 0.9% IV 100 ML 200 ML IVPB (11:13)
--- NOTE | 2021-06-15 11:39 | PM.IMHP ---
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 She presented to [facility] due to shortness of breath, orthopnea and a productive cough for the past 2 days. Upon arrival to the emergency department labs and imaging were obtained. Patient had a WBC of 15.3, hemoglobin 11.3, hematocrit 38.0 and platelet of 163, creatinine 1.5 (this is slightly elevated from the patient's baseline is 1.1), sodium 140, potassium 4.2 and mildly elevated troponin at 0.035, [place] [address]. Chest x-ray performed which revealed left pleural effusion and small right basilar pneumonia. CTA was performed to rule out a pulmonary embolism, no acute findings. Patient received a dose of Rocephin she has a throw myself as well as a breathing treatment. Patient will be admitted to the hospitalist service Cardiology will be consulted. Patient will be treated for community-acquired pneumonia and acute on chronic CHF exacerbation. Chief Complaint: Acute respiratory failure with hypoxia Community-acquired pneumonia Acute on chronic systolic heart failure Review of Systems Review of Systems: All systems reviewed & are unremarkable except as noted in HPI and below PMFSH Past Medical History Medical History Adenomatous colon polyp Arthritis Asthma Chronic diarrhea Hearing loss History of colon polyps History of left breast cancer Hx of breast cancer Obese Other and unspecified hyperlipidemia Shoulder dislocation Vision loss Surgical History Surgical History History of appendectomy History of bilateral knee replacement History of cholecystectomy History of hysterectomy History of left mastectomy History of reduction surgery of right breast History of surgical removal of ganglion cyst Family History Family History Mother Rectal cancer Father Heart disease Emphysema lung Sibling COPD (chronic obstructive pulmonary disease) Social History Social History Smoking status: Never smoker Alcohol intake: never Substance use: never Substance use type: does not use Gender identity (if verbalized by the patient): Female Spiritual care concerns: No Meds Home Medications and Allergies Home Medications Medication Instructions Recorded Confirmed Type apple cider vinegar 300 mg tablet 600 mg PO BID 01/28/20 05/18/21 History aspirin 81 mg tablet,delayed 81 mg PO DAILY 01/28/20 05/18/21 History release geriatric hwbbhrqv-pzxw-iwgt 1 tablet PO DAILY 01/28/20 05/18/21 History mometasone-formoterol HFA 200 2 puff INHALATION BID 03/26/20 05/18/21 History mcg-5 mcg/actuation aerosol inhaler metoprolol succinate 25 mg 12.5 mg PO DAILY tablet 03/27/20 05/18/21 History tablet,extended release 24 hr Cinnamon 600 mg PO BID 07/21/20 05/18/21 History Hair,Skin and Nails 6,000 unit PO DAILY 07/21/20 05/18/21 History calcium carbonate [Calcium 600] 600 mg PO DAILY 07/21/20 05/18/21 History cholecalciferol (vitamin D3) 25 mcg PO DAILY 07/21/20 05/18/21 History [Vitamin D3] vitamin A-vitamin C-vit E-min 2 tablet PO DAILY 07/21/20 05/18/21 History [Ocuvite] hydrocortisone 1 % topical cream 1 applic TOPICAL BID PRN #28.35 g 09/23/20 05/18/21 Rx albuterol sulfate 90 mcg/actuation 1 - 2 inh INHALATION Q4-6H PRN 10/03/20 05/18/21 Rx aerosol inhaler #8.5 g furosemide 20 mg tablet 20 mg PO EVERY OTHER DAY #90 tablet 10/13/20 05/18/21 Rx potassium chloride 10 mEq 10 meq PO EVERY OTHER DAY #90 10/13/20 05/18/21 Rx tablet,extended release tablet ez
--- NOTE | 2021-06-15 12:08 | PC.NURSE ---
patient transferred to the floor with azithromycin infusing
--- NOTE | 2021-06-15 13:08 | ADMGEN ---
This patient, Randi Rodriguez, was admitted to IMU Room 201-01. Patient/family oriented to hospital policies and general routines including ID bracelet, bed and alarms, visiting hours, pain management, procedures, bathroom and other care routines, personal items, smoking policy, room service/diet, and visiting hours. Information on how to activate the Rapid Response Team has been discussed. Patient/Family are encouraged to report perceived risks to care and to ask questions if they do not understand what they are told or what they should do.
[2021-06-15 14:44] LABS: Troponin I 0.026 ng/mL (0.000-0.034)
--- NOTE | 2021-06-15 15:11 | PM.CNCAR ---
Assessment and Plan Assessment and plan (1) Systolic and diastolic CHF, acute on chronic: Code(s): I50.43 - Acute on chronic combined systolic (congestive) and diastolic (congestive) heart failure Status: Acute Assessment and Plan: Echocardiogram 06/08/2021 showing moderate LV systolic dysfunction, EF 40% grade 1 diastolic noncompliance. Her BNP is elevated but she does not appear to be significantly volume overloaded on physical exam. Agree with IV furosemide this evening - will shift her to oral furosemide starting tomorrow. She was recently started on Entresto in addition to her metoprolol for medical therapy for her cardiomyopathy. Will hold these for now as she is somewhat hypotensive and did experience a syncopal episode earlier after getting up with therapy. Will order orthostatics-sounds like she may have orthostatic hypotension. Accurate intake and output, low-sodium diet, daily weight. (2) Pneumonia: Qualifiers: Laterality: bilateral Lung location: lower lobe of lung Pneumonia type: due to unspecified organism Qualified Code(s): J18.9 - Pneumonia, unspecified organism Code(s): J18.9 - Pneumonia, unspecified organism Status: Acute Assessment and Plan: Being treated with antibiotics. Management per hospitalist. (3) Acute and chronic respiratory failure with hypoxia: Code(s): J96.21 - Acute and chronic respiratory failure with hypoxia Status: Acute Assessment and Plan: Secondary to pneumonia, mild CHF exacerbation. Improved. Saturating well on 2 L of oxygen. (4) Aortic stenosis: Code(s): I35.0 - Nonrheumatic aortic (valve) stenosis Status: Acute Assessment and Plan: Moderate History of Present Illness History of Present Illness Consult date/time: 06/15/21 15:11 Requesting physician: Beena Oneill APRN Consult reason: congestive heart failure Reason For Visit: Pneumonia Narrative: Ms. Rodriguez is an 85 year old female who is an established patient of Dr. Ashley with a history of a mild cardiomyopathy, mild MR, and PSVT. This is a patient who was seen recently in our office because of complaints of worsening dyspnea on exertion. At that time, her complaints of dyspnea had improved with addition of a new inhaler to her medical regimen. Her primary care doctor had requested that she be seen in our office to rule out a cardiac cause of her shortness of breath. An echocardiogram was performed at that time that revealed moderate left ventricular systolic dysfunction with an EF of 40%. She also has grade 1 diastolic noncompliance. Her MR is moderate by this echocardiogram. Also has moderate aortic stenosis. She enters the hospital with complaints of ?feeling funny? since Tuesday. She explains that she has been feeling dizzy and has been having worsening shortness of breath over the past several days. She has not had any chest pain, palpitations. She does endorse orthopnea. No swelling. Her workup has been significant for WBC 15.3, creatinine 1.5, [place] [address]. Her chest x-ray does show a small left pleural effusion as well as moderate left basilar and small right basilar pneumonia and/or atelectasis. Chest CTA was negative for PE. She is currently comfortable on 2 L of oxygen per nasal cannula. Review of Systems Review of Systems: All systems reviewed & are unremarkable except as noted in HPI and below Constitutional: Constitutional: Denies fatigue, Denies lethargy and Denies weakness Eyes: Eyes: Denies blurry vision and Denies change in vision ENT: Reports Normal hearing present, Denies nasal congestion and Denies nasal discharge Cardiovascular: Cardiovascular: Denies chest pain, Denies pedal edema, Denies leg edema, Reports lightheadedness and Denies palpitations Respiratory: Respiratory: Denies chest congestion, Reports cough, Denies hemoptysis, Reports dyspnea, Reports dyspnea on exertion and Reports wheezing Gastroin
--- NOTE | 2021-06-15 15:49 | ECG_ITS ---
Measurements Intervals [place] Rate: 105 P: 62 IA: 146 QRS: 30 QRSD: 99 T: 77 QT: 362 QTc: 480 Interpretive Statements SINUS TACHYCARDIA WITH OCCASIONAL VENTRICULAR PREMATURE COMPLEXES NONSPECIFIC ST AND T-WAVE ABNORMALITY ABNORMAL ECG COMPARED TO ECG 06/15/2021 08:21:25 SINUS TACHYCARDIA NOW PRESENT Electronically Signed On 06-16-2021 17:57:25 CDT by Chris Cohen M.D.
[2021-06-15] MEDS: FUROSEMIDE INJ 40 MG/4 ML VIAL IV PUSH (17:35)
[2021-06-16] VITALS (28 sets, daily range): BP systolic 97–135; BP diastolic 50–87; PULSE 86–121; RESP 18–100; TEMP 36.5–37.2; O2SAT 20–100
[2021-06-16 06:11] LABS: Basophils Percent Auto 0.2 % (0.2-1.2); Eosinophils Absolute Auto 0.1 K/mm3 (0-0.3); Eosinophils Percent Auto 0.4 % (0-4.4); Hematocrit 31.9 % (37.0-47.0); Hemoglobin 9.7 g/dL (12.0-15.0); Immature Granulocyte Absolute 0.19 K/mm3 (0.00-0.031); Immature Granulocyte Percent A 1.6 % (0-0.5); Lymphocytes Percent Auto 7.8 % (18.3-44.2); Mean Corpuscular HGB Conc 30.4 g/dl (32-36); Mean Corpuscular Hemoglobin 26.4 pg (26-34); Mean Corpuscular Volume 86.7 fl (80-100); Monocytes Absolute Auto 0.5 K/mm3 (0.1-0.6); Monocytes Percent Auto 4.5 % (2.6-8.5); Neutrophils Absolute Auto 9.8 K/mm3 (1.3-6.7); Neutrophils Percent Auto 85.5 % (45.5-73.1); Platelet Count Result 136 k/mm3 (150-375); Red Blood Count 3.68 M/mm3 (4.2-5.4); Red Cell Distribution Width 16.8 % (11.5-14.5); White Blood Count 11.5 K/mm3 (4.5-10.0)
[2021-06-16 06:16] LABS: Alanine Aminotransferase 16 U/L (4-35); Albumin Level 3.3 g/dL (3.5-5.1); Alkaline Phosphatase 84 U/L (38-126); Anion Gap 9 mmol/L (8-16); Aspartate Amino Transferase 26 U/L (14-36); Bilirubin,Total 0.5 mg/dL (0.2-1.3); Blood Urea Nitrogen 35 mg/dL (7-17); Calcium 8.1 mg/dL (8.4-10.2); Carbon Dioxide 25 mmol/L (22-30); Chloride 102 mmol/L (98-107); Estimated Glomerular Filt Rate 29; Glucose 99 mg/dL (65-110); Potassium 3.6 mmol/L (3.4-5.0); Sodium 136 mmol/L (137-145)
[2021-06-16 08:19] LABS: NT Pro B Type Natriuretic Pept 7130 pg/mL (5-100)
[2021-06-16] MEDS: FLUTICASONE/UMECLIDIN/VILANTER 200-62.5-25 MCG ELLIPTA 1 PUFF INHALATION (08:41)
[2021-06-16] MEDS: SERTRALINE HCL 50 MG TABLET 150 MG PO (08:46)
[2021-06-16] MEDS: MONTELUKAST SODIUM 10 MG TABLET PO (08:47)
[2021-06-16] MEDS: POTASSIUM CHLORIDE 10 MEQ TABLET.ER PO (08:47)
[2021-06-16] MEDS: ASPIRIN 81 MG ENTERIC TABLET PO (08:47)
[2021-06-16] MEDS: PANTOPRAZOLE 40 MG TABLET PO (08:47)
[2021-06-16] MEDS: FUROSEMIDE 40 MG TABLET PO ×2 (08:56→18:18)
--- NOTE | 2021-06-16 09:05 | PM.PNCARD ---
Progress Note: A&P Assessment and Plan (1) Systolic and diastolic CHF, acute on chronic: Code(s): I50.43 - Acute on chronic combined systolic (congestive) and diastolic (congestive) heart failure Status: Acute Assessment and Plan: Echocardiogram 06/08/2021 showing moderate LV systolic dysfunction, EF 40% grade 1 diastolic noncompliance. Her BNP was elevated on admission but she does not appear to be significantly volume overloaded on physical exam. Her creatinine is increasing...d/c IV furosemide in favor of oral furosemide 40mg b.i.d for now. She was recently started on Entresto in addition to her metoprolol for medical therapy for her cardiomyopathy. Will hold these for now in light of her HAY and relative hypotension with syncopal episode yesterday. These should be restarted before discharge. Also consider addition of spironolactone Accurate intake and output, low-sodium diet, daily weight. Check BMP in a.m. (2) Pneumonia: Qualifiers: Laterality: bilateral Lung location: lower lobe of lung Pneumonia type: due to unspecified organism Qualified Code(s): J18.9 - Pneumonia, unspecified organism Code(s): J18.9 - Pneumonia, unspecified organism Status: Acute Assessment and Plan: Being treated with antibiotics. Management per hospitalist. (3) Acute and chronic respiratory failure with hypoxia: Code(s): J96.21 - Acute and chronic respiratory failure with hypoxia Status: Acute Assessment and Plan: Secondary to pneumonia, mild CHF exacerbation. Improved. Saturating well on 1L L of oxygen. (4) Aortic stenosis: Code(s): I35.0 - Nonrheumatic aortic (valve) stenosis Status: Acute Assessment and Plan: Moderate Subjective Date/time seen: 06/16/21 09:05 Cardiology follow up for CHF She's feeling better today. States that the heavy feeling in her chest has resolved. Very tired today - has not been sleeping well. Complaining of productive cough. Review of Systems Review of Systems: All systems reviewed & are unremarkable except as noted in HPI and below Constitutional: Constitutional: Denies excessive sweating, Denies fatigue, Denies lethargy and Denies weakness Eyes: Eyes: Denies blurry vision and Denies change in vision ENT: Reports Normal hearing present, Reports dizziness, Denies nasal congestion and Denies nasal discharge Cardiovascular: Cardiovascular: Denies chest pain, Denies pedal edema, Denies leg edema, Reports lightheadedness, Denies palpitations, Reports dyspnea and Reports dyspnea on exertion Respiratory: Respiratory: Denies chest congestion, Reports cough, Denies hemoptysis, Reports dyspnea, Reports dyspnea on exertion and Reports wheezing Gastrointestinal: Gastrointestinal: Denies nausea and Denies vomiting Genitourinary: Genitourinary: Denies dysuria, Denies urinary incontinence and Denies urinary urgency Musculoskeletal: Musculoskeletal: Denies back pain, Denies arthralgias and Denies joint swelling Integumentary/Breasts: Skin/Breast: Denies unusual bruising Neurologic: Reports Normal hearing present, Denies confusion, Reports dizziness and Denies weakness Psychiatric: Psychiatric: Denies anxiety, Denies confusion and Denies depression Endocrine: Endocrine: Denies excessive sweating, Denies fatigue, Denies flushing and Denies palpitations Hematologic/Lymphatic: Hematologic/Lymphatic: Denies easy bleeding and Denies easy bruising Allergic/Immunologic: Allergic/Immunologic: Denies no additional allergic/immunologic complaints, Denies GI upset with certain foods and Reports wheezing Exam Const: General: comfortable and no acute distress; No confusion Orientation/consciousness: No confusion HENMT: Mouth: Yes moist mucous membranes Eyes: General: appearance normal, both eyes and all related structures Pupils: Equal, round and reactive pupils present Neck: Neck: supple and no JVD Resp: Auscultation: not elizabeth
--- NOTE | 2021-06-16 09:18 | PCPTNOTE ---
physical therapy on hold today due to HR at 133 bpm at rest. RN aware and agreeable.
--- NOTE | 2021-06-16 10:14 | PM.IMPN ---
Progress Note: A&P Assessment and Plan (1) Pneumonia: Qualifiers: Laterality: bilateral Lung location: lower lobe of lung Pneumonia type: due to unspecified organism Qualified Code(s): J18.9 - Pneumonia, unspecified organism Code(s): J18.9 - Pneumonia, unspecified organism Status: Acute Assessment and Plan: Monitor vital signs, I&Os, neuro status and patient is a fall risk Follow WBC, serum electrolytes, temperature curves and cultures Send sputum cultures Oxygen via NC; wean as tolerated. Keep SpO2 greater than 88% Avoid Gentle IV fluid resuscitation, monitor patient's fluid volume status. May need to reconsider IV fluids pending patient's clinical course Levaquin 750 mg Q 48 hours, patient has a history of a penicillin allergy DuoNeb q6H and Albuterol q2H PRN P.r.n. Tylenol, Zofran, and melatonin (2) Chronic kidney disease, stage 3: Code(s): N18.30 - Chronic kidney disease, stage 3 unspecified Status: Acute Assessment and Plan: Continue to monitor renal function (3) Obese: Code(s): E66.9 - Obesity, unspecified Status: Acute Assessment and Plan: Dietary education (4) Systolic and diastolic CHF, acute on chronic: Code(s): I50.43 - Acute on chronic combined systolic (congestive) and diastolic (congestive) heart failure Status: Acute Assessment and Plan: Echocardiogram performed on 06/08/2021 revealed an LVEF of 40% with systolic and diastolic dysfunction, diastolic relaxation grade 1. Monitor vital signs, I&Os, BUN/creatinine, daily weights, neuro status and patient is a fall risk Monitor serum electrolytes, Keep serum Potassium>4 and serum Magnesium>2 and CBC Lasix 40 mg IV [id number] to cardiology Consult cardiology for further management, appreciate assistance and recommendations Insert Woody catheter for accurate I&Os (5) Acute and chronic respiratory failure with hypoxia: Code(s): J96.21 - Acute and chronic respiratory failure with hypoxia Status: Acute Assessment and Plan: Patient's SpO2 was in the 80s in the emergency department, required supplemental oxygen. Patient does not wear oxygen at baseline. Tachypnea (6) Sepsis: Code(s): A41.9 - Sepsis, unspecified organism Status: Acute Assessment and Plan: 2/2 community-acquired pneumonia Tachypnea, elevated WBC, hypotension and end-organ dysfunction (HAY ) (7) Acute kidney injury superimposed on CKD: Code(s): N17.9 - Acute kidney failure, unspecified; N18.9 - Chronic kidney disease, unspecified Status: Acute Assessment and Plan: Avoid Gentle IV fluid resuscitation, monitor patient's fluid volume status. May need to reconsider IV fluids pending patient's clinical course monitor renal function Continues to receive Lasix --- defer to cardiology Subjective Date/time seen: 06/16/21 10:14 Patient is alert and oriented this morning. Discussed patient's hemoglobin dropping and she reported that she has intermittent loose stools. She did have a minimal hemoglobin dropped during this hospitalization. Order occult stool. Patient continues to receive IV antibiotics for community-acquired pneumonia, WBC improved. Will transition to oral antibiotics on 06/17/2021. Cardiology saw the patient yesterday and suggested holding metoprolol as well as Entresto and continue furosemide IV for yesterday. Of note the patient did experience a syncopal episode in the evening on 06/15/2021. Apparently the patient stood up to use the commode in her heart rate jumped up to 140s to 150s. The patient reported she felt dizzy and lightheaded and stated that she was going to pass out and proceeded to do so. Patient was able to arouse easily without significant stimulation or a rapid response involvement. Patient had significant diuresis when administered furosemide on 06/15/21. Continue to monitor I&Os and weight. Review of Systems Review of Systems: Desmond
[2021-06-16 11:54] LABS: Alveolar/Arterial O2 Gradient 53.9 mmHg; Base Excess ABG 2.4 mEq/l (+/-2.0); Carboxyhemoglobin 0.3 % THb (0-2.0); Fractional Inspired Oxygen 28 %; HCO3 ABG 26.4 mEq/l (22.0-26.0); Methemoglobin ABG 0.2 %THb (0-1.5); Oxygen Content ABG 14.5 %vol (16.0-22.0); Oxygen Saturation ABG 97.9 % (95.0-100.0); Oxyhemoglobin 96.2 % THb (90.0-100.0); PCO2 ABG 38.4 mmHg (35.0-45.0); PO2 ABG 100.4 mmHg (80.0-100.0); PO2 FiO2 Ratio Arterial Blood 3.59 %; Reduced Hemoglobin 3.3 %THb (0-5.0); Total Hemoglobin 10.6 g/dL (12.0-18.0); pH ABG 7.455 (7.350-7.450)
[2021-06-16 11:55] LABS: Device ROOM AIR; Site Drawn RIGHT BRACHIAL
[2021-06-16 12:02] LABS: Glucose Point of Care 160 mg/dl (65-105)
--- NOTE | 2021-06-16 12:51 | PCOTNOTE ---
Supervising OT advised not to see patient this date due to increased resting HR (130).
[2021-06-16] MEDS: MELATONIN 5 MG TABLET PO (22:45)
[2021-06-17] VITALS (25 sets, daily range): BP systolic 89–118; BP diastolic 47–76; PULSE 10–124; RESP 16–20; TEMP 36.2–37.6; O2SAT 95–99
[2021-06-17] MEDS: diphenhydrAMINE HCl CAP 25 MG CAPSULE PO ×2 (02:15→23:52)
[2021-06-17] MEDS: ZOLPIDEM TARTRATE (*CRX) 5 MG TABLET PO ×2 (02:15→23:52)
[2021-06-17 05:01] LABS: Basophils Percent Auto 0.2 % (0.2-1.2); Eosinophils Absolute Auto 0.1 K/mm3 (0-0.3); Eosinophils Percent Auto 1.1 % (0-4.4); Hematocrit 32.6 % (37.0-47.0); Hemoglobin 9.7 g/dL (12.0-15.0); Immature Granulocyte Absolute 0.05 K/mm3 (0.00-0.031); Immature Granulocyte Percent A 0.6 % (0-0.5); Lymphocytes Absolute Auto 0.84 K/mm3 (0.9-3.2); Lymphocytes Percent Auto 10.1 % (18.3-44.2); Mean Corpuscular HGB Conc 29.8 g/dl (32-36); Mean Corpuscular Hemoglobin 26.3 pg (26-34); Mean Corpuscular Volume 88.3 fl (80-100); Mean Platelet Volume 11.6 fl (7.4-10.4); Monocytes Absolute Auto 0.5 K/mm3 (0.1-0.6); Monocytes Percent Auto 5.8 % (2.6-8.5); Neutrophils Absolute Auto 6.8 K/mm3 (1.3-6.7); Neutrophils Percent Auto 82.2 % (45.5-73.1); Platelet Count Result 153 k/mm3 (150-375); Red Blood Count 3.69 M/mm3 (4.2-5.4); Red Cell Distribution Width 16.7 % (11.5-14.5); White Blood Count 8.3 K/mm3 (4.5-10.0)
[2021-06-17 05:22] LABS: Alanine Aminotransferase 17 U/L (4-35); Albumin Level 3.5 g/dL (3.5-5.1); Alkaline Phosphatase 86 U/L (38-126); Anion Gap 8 mmol/L (8-16); Aspartate Amino Transferase 25 U/L (14-36); Bilirubin,Total 0.5 mg/dL (0.2-1.3); Blood Urea Nitrogen 33 mg/dL (7-17); Calcium 8.3 mg/dL (8.4-10.2); Carbon Dioxide 27 mmol/L (22-30); Chloride 104 mmol/L (98-107); Estimated Glomerular Filt Rate 31; Glucose 116 mg/dL (65-110); Potassium 3.4 mmol/L (3.4-5.0); Sodium 139 mmol/L (137-145)
[2021-06-17] MEDS: FLUTICASONE/UMECLIDIN/VILANTER 200-62.5-25 MCG ELLIPTA 1 PUFF INHALATION (07:55)
--- NOTE | 2021-06-17 09:06 | PM.IMPN ---
Progress Note: A&P Assessment and Plan (1) Pneumonia: Qualifiers: Laterality: bilateral Lung location: lower lobe of lung Pneumonia type: due to unspecified organism Qualified Code(s): J18.9 - Pneumonia, unspecified organism Code(s): J18.9 - Pneumonia, unspecified organism Status: Acute Assessment and Plan: Monitor vital signs, I&Os, neuro status and patient is a fall risk Follow WBC, serum electrolytes, temperature curves and cultures PENDING sputum cultures. no urine cultures noted. 06/15/21 Positive Blood Culture Gram Stain - ANAEROBIC bottle - Staphylococcus epidermis Staphylococcus epidermidis , from anaerobic bottle only, susceptibility test report pending. Avoid IV fluid resuscitation, monitor patient's fluid volume status, tolerating PO well, fluid restriction. Levaquin 750 mg Q 48 hours, patient has a history of a penicillin allergy Levaquin IV, started on 06/15, she has received 2 doses. 06/17/21 - WBC 8.3, no fevers or chills or cough noted. DuoNeb q6H and Albuterol q2H PRN P.r.n. Tylenol, Zofran, and melatonin encouraged her to use her incentive spirometer. Pneumonia being treated with Her hypoxia, secondary to pneumonia and mild CHF exacerbation, is slowly improving. She continues to rely on 2 L of supplemental oxygen. She does not use any home oxygen prior to this admission. Oxygen via NC; wean as tolerated, on 2 L O2 NC today 06/17. (2) Chronic kidney disease, stage 3: Code(s): N18.30 - Chronic kidney disease, stage 3 unspecified Status: Acute Assessment and Plan: Continue to monitor renal function see acute kidney injury on CKD plan noted below. (3) Obese: Code(s): E66.9 - Obesity, unspecified Status: Acute Assessment and Plan: Dietary education (4) Systolic and diastolic CHF, acute on chronic: Code(s): I50.43 - Acute on chronic combined systolic (congestive) and diastolic (congestive) heart failure Status: Acute Assessment and Plan: Echocardiogram performed on 06/08/2021 revealed LVEF=40% with systolic and diastolic dysfunction, diastolic relaxation grade 1. Monitor vital signs, I&Os, BUN/creatinine, daily weights, neuro status and patient is a fall risk Monitor serum electrolytes, Keep serum Potassium>4 and serum Magnesium>2 and CBC Lasix 40 mg IV q12H weaned by cardiology to PO lasix. Consult cardiology for further management, appreciate assistance and recommendations Insert Woody catheter for accurate I&Os Echocardiogram 06/08/2021 showing moderate LV systolic dysfunction, EF 40% grade 1 diastolic noncompliance. Her BNP was elevated on admission but she does not appear to be significantly volume overloaded on physical exam. Her creatinine is increasing...d/c IV furosemide in favor of oral furosemide 40mg b.i.d for now. She was recently started on Entresto in addition to her metoprolol for medical therapy for her cardiomyopathy. Will hold these for now in light of her HAY and relative hypotension with syncopal episode yesterday. These should be restarted before discharge. Also consider addition of spironolactone Accurate intake and output, low-sodium diet, daily weight. (5) Acute and chronic respiratory failure with hypoxia: Code(s): J96.21 - Acute and chronic respiratory failure with hypoxia Status: Acute Assessment and Plan: Patient's SpO2 was in the 80s in the emergency department, required supplemental oxygen. Patient does not wear oxygen at baseline. Saturating now well on 2L of oxygen. Tachycardic and Tachypnea with exertion and activity, such as ADLs and PT/OT sessions. Secondary to pneumonia, mild CHF exacerbation. Improving slowly. (6) Sepsis: Code(s): A41.9 - Sepsis, unspecified organism Status: Acute Assessment and Plan: 2/2 community-acquired pneumonia Tachypnea, elevated WBC, hypotension and end-organ dysfunction (HAY ) WBC 8.3 today, no fevers, no chills, improv
[2021-06-17] MEDS: MONTELUKAST SODIUM 10 MG TABLET PO (09:19)
[2021-06-17] MEDS: FUROSEMIDE 40 MG TABLET PO (09:19)
[2021-06-17] MEDS: ASPIRIN 81 MG ENTERIC TABLET PO (09:19)
[2021-06-17] MEDS: PANTOPRAZOLE 40 MG TABLET PO (09:19)
[2021-06-17] MEDS: SERTRALINE HCL 50 MG TABLET 150 MG PO (09:19)
[2021-06-17] MEDS: POTASSIUM CHLORIDE 10 MEQ TABLET.ER 20 MEQ PO (11:31)
--- NOTE | 2021-06-17 13:15 | PM.PNCARD ---
Progress Note: A&P Assessment and Plan (1) Systolic and diastolic CHF, acute on chronic: Code(s): I50.43 - Acute on chronic combined systolic (congestive) and diastolic (congestive) heart failure Status: Acute Assessment and Plan: Echocardiogram 06/08/2021 showing moderate LV systolic dysfunction, EF 40% grade 1 diastolic noncompliance. Her BNP was elevated on admission but she does not appear to be significantly volume overloaded on physical exam. Her creatinine is increasing...d/c IV furosemide. Will reduce furosemide to 40 mg p.o. daily She was recently started on Entresto in addition to her metoprolol for medical therapy for her cardiomyopathy. Will hold these for now in light of her HAY and relative hypotension with syncopal episode yesterday. These should be restarted before discharge. Also consider addition of spironolactone Accurate intake and output, low-sodium diet, daily weight. Check BMP in a.m. (2) Pneumonia: Qualifiers: Laterality: bilateral Lung location: lower lobe of lung Pneumonia type: due to unspecified organism Qualified Code(s): J18.9 - Pneumonia, unspecified organism Code(s): J18.9 - Pneumonia, unspecified organism Status: Acute Assessment and Plan: Being treated with antibiotics. Management per hospitalist. (3) Acute and chronic respiratory failure with hypoxia: Code(s): J96.21 - Acute and chronic respiratory failure with hypoxia Status: Acute Assessment and Plan: Secondary to pneumonia, mild CHF exacerbation. Improved. Saturating well on 1L L of oxygen. (4) Aortic stenosis: Code(s): I35.0 - Nonrheumatic aortic (valve) stenosis Status: Acute Assessment and Plan: Moderate (5) Hypokalemia: Code(s): E87.6 - Hypokalemia Status: Acute Assessment and Plan: KCL 40 mg p.o. x1 Subjective Date/time seen: 06/17/21 13:15 Interval history: 85-year-old admitted for CHF Date of service 06/17/2021: No chest pain. Shortness breath is better. Had sharp poking sensation earlier today while sitting in the chair which has since resolved Review of Systems Review of Systems: All systems reviewed & are unremarkable except as noted in HPI and below Constitutional: Constitutional: Denies excessive sweating, Denies fatigue, Denies lethargy and Denies weakness Eyes: Eyes: Denies blurry vision and Denies change in vision ENT: Reports Normal hearing present, Reports dizziness, Denies nasal congestion and Denies nasal discharge Cardiovascular: Cardiovascular: Denies chest pain, Denies pedal edema, Denies leg edema, Reports lightheadedness, Denies palpitations, Reports dyspnea and Reports dyspnea on exertion Respiratory: Respiratory: Denies chest congestion, Reports cough, Denies hemoptysis, Reports dyspnea, Reports dyspnea on exertion and Reports wheezing Gastrointestinal: Gastrointestinal: Denies nausea and Denies vomiting Genitourinary: Genitourinary: Denies dysuria, Denies urinary incontinence and Denies urinary urgency Musculoskeletal: Musculoskeletal: Denies back pain, Denies arthralgias and Denies joint swelling Integumentary/Breasts: Skin/Breast: Denies unusual bruising Neurologic: Reports Normal hearing present, Denies confusion, Reports dizziness and Denies weakness Psychiatric: Psychiatric: Denies anxiety, Denies confusion and Denies depression Endocrine: Endocrine: Denies excessive sweating, Denies fatigue, Denies flushing and Denies palpitations Hematologic/Lymphatic: Hematologic/Lymphatic: Denies easy bleeding and Denies easy bruising Allergic/Immunologic: Allergic/Immunologic: Denies no additional allergic/immunologic complaints, Denies GI upset with certain foods and Reports wheezing Exam Const: General: comfortable and no acute distress; No confusion Orientation/consciousness: No confusion HENMT: Mouth: Yes moist mucous membranes Eyes: General: appearance normal, both eyes and al
[2021-06-17] MEDS: POLYSACCHARIDE IRON COMPLEX 150 MG CAPSULE PO (17:31)
[2021-06-18] VITALS (23 sets, daily range): BP systolic 97–123; BP diastolic 49–84; PULSE 80–135; RESP 16–20; TEMP 36.1–37.1; O2SAT 93–99
[2021-06-18 05:00] LABS: Basophils Percent Auto 0.4 % (0.2-1.2); Eosinophils Absolute Auto 0.1 K/mm3 (0-0.3); Eosinophils Percent Auto 1.9 % (0-4.4); Hematocrit 31.1 % (37.0-47.0); Hemoglobin 9.7 g/dL (12.0-15.0); Immature Granulocyte Absolute 0.04 K/mm3 (0.00-0.031); Immature Granulocyte Percent A 0.5 % (0-0.5); Lymphocytes Absolute Auto 1.04 K/mm3 (0.9-3.2); Lymphocytes Percent Auto 14.2 % (18.3-44.2); Mean Corpuscular HGB Conc 31.2 g/dl (32-36); Mean Corpuscular Hemoglobin 26.8 pg (26-34); Mean Corpuscular Volume 85.9 fl (80-100); Mean Platelet Volume 11.3 fl (7.4-10.4); Monocytes Absolute Auto 0.6 K/mm3 (0.1-0.6); Monocytes Percent Auto 8.5 % (2.6-8.5); Neutrophils Absolute Auto 5.4 K/mm3 (1.3-6.7); Neutrophils Percent Auto 74.5 % (45.5-73.1); Platelet Count Result 170 k/mm3 (150-375); Red Blood Count 3.62 M/mm3 (4.2-5.4); Red Cell Distribution Width 16.5 % (11.5-14.5); White Blood Count 7.3 K/mm3 (4.5-10.0)
[2021-06-18 05:26] LABS: Alanine Aminotransferase 23 U/L (4-35); Albumin Level 3.5 g/dL (3.5-5.1); Alkaline Phosphatase 84 U/L (38-126); Anion Gap 8 mmol/L (8-16); Aspartate Amino Transferase 32 U/L (14-36); Bilirubin,Total 0.3 mg/dL (0.2-1.3); Blood Urea Nitrogen 43 mg/dL (7-17); Calcium 8.4 mg/dL (8.4-10.2); Carbon Dioxide 27 mmol/L (22-30); Chloride 101 mmol/L (98-107); Estimated Glomerular Filt Rate 29; Glucose 126 mg/dL (65-110); Potassium 3.8 mmol/L (3.4-5.0); Sodium 136 mmol/L (137-145)
[2021-06-18 05:51] LABS: Iron 24 ug/dL (37-170)
[2021-06-18 06:00] LABS: Percent Iron Saturation 14 % (20-50)
[2021-06-18 07:05] LABS: Appearance Urine Clear (Clear); Bilirubin Urine Negative (Negative); Blood Urine 2+ (Negative); Color Urine Yellow (Yellow); Glucose Urine UA Negative (Negative); Ketones Urine Negative (Negative); Leukocyte Esterase Ur Negative LEU/UL (NEGATIVE); Nitrate Urine Negative (Negative); Protein Urine Negative (Negative); Specific Grav Ur 1.015 (1.001-1.035); Urobilinogen Urine 0.2 mg/dL (<2.0)
[2021-06-18 07:16] LABS: Add Urine Microscopic? YES
[2021-06-18 07:26] LABS: Mucus Urine Rare /lpf; Squamous Epithelial Cell Urine Rare /hpf (Few)
--- NOTE | 2021-06-18 07:26 | PM.IMPN ---
Progress Note: A&P Assessment and Plan (1) Pneumonia: Qualifiers: Laterality: bilateral Lung location: lower lobe of lung Pneumonia type: due to unspecified organism Qualified Code(s): J18.9 - Pneumonia, unspecified organism Code(s): J18.9 - Pneumonia, unspecified organism Status: Acute Assessment and Plan: 06/15 Positive Blood Culture Gram Stain, Staphylococcus epidermis from the anaerobic bottle, which was flagged as abnormal and potentially contamination. Called lab today, who reported no results in sensitivity thus far, so we will continue with levaquin for now. 06/16 CXR showed stable airspace opacities in the lower lung zones, consistent with pneumonia, and Cardiomegaly. 06/17 preliminary sputum culture showed no organisms. WBC count has normalized, patient is afebrile, sufficient intake and output of urine. Lung physical exam was normal, with no wheezing, crackles, rales. She continues to endorse some pleuritic chest pain only with deep inspiration and coughing, orthopnea (normal for her), and shortness of breath with activity. Of note, her O2 requirements have increased to 3L, with O2 saturations 93%. - DuoNeb q6H and Albuterol q2H PRN. - Continue supplemental O2. - Continue Levaquin. - Mucinex to help with sputum. (2) Chronic kidney disease, stage 3: Code(s): N18.30 - Chronic kidney disease, stage 3 unspecified Status: Acute Assessment and Plan: Baseline Cr 1.0, currently 1.7. Renal US showed left renal cysts. Continue to monitor renal function see acute kidney injury on CKD plan noted below. (3) Systolic and diastolic CHF, acute on chronic: Code(s): I50.43 - Acute on chronic combined systolic (congestive) and diastolic (congestive) heart failure Status: Acute Assessment and Plan: Woody catheter is in place now for accurate I&Os, urine output 900mL yesterday, already 2000mL today. No weight gain today. Creatinine (1.7) incrs today from baseline of (1.0) likely due to IV lasix. Cardiology dcrs'd oral furosemide to 40mg daily for now. Exam today showed patient is euvolemic. Entresto is being held due to hypotension/ syncope. Cardiology recommended restarting carvedilol to help with sinus tachycardia that is being observed on telemetry. - Restart carvedilol 3.25mg - Vital signs/ Telemetry - I&Os - BUN/creatinine - Daily weights. - Monitor serum electrolytes (4) Acute and chronic respiratory failure with hypoxia: Code(s): J96.21 - Acute and chronic respiratory failure with hypoxia Status: Acute Assessment and Plan: Saturating at 93% on 3L O2, supplemental O2 requirements have increased today. She continues to be tachycardic and SOB with exertion and activity, such as ADLs and PT/OT sessions. - Plan as above (5) Sepsis: Code(s): A41.9 - Sepsis, unspecified organism Status: Acute Assessment and Plan: 2/ community-acquired pneumonia. WBC normalized today. Urine culture pending, UA showed 2+ blood, 6-10 RBCs and 4-6WBCs, negative leuk esterase and nitrites. - Urine culture pending (6) Acute kidney injury superimposed on CKD: Code(s): N17.9 - Acute kidney failure, unspecified; N18.9 - Chronic kidney disease, unspecified Status: Acute Assessment and Plan: Cr incrs to 1.7 today. Continues to receive Lasix, cardiology reduced Lasix from IV to 40 mg lasix p.o.daily, may need to consider further reduction. (7) Aortic stenosis: Code(s): I35.0 - Nonrheumatic aortic (valve) stenosis Status: Acute Assessment and Plan: AV area 1.09cm, Peak gradient 10.0mmHg. Moderate aortic stenosis. Patient paces herself when doing activity, does small bits of activity and pauses to rest often. Denies syncopal episodes. (8) Delirium: Code(s): R41.0 - Disorientation, unspecified Status: Acute Assessment and Plan: Nursing staff reports pa
[2021-06-18] MEDS: FLUTICASONE/UMECLIDIN/VILANTER 200-62.5-25 MCG ELLIPTA 1 PUFF INHALATION (08:16)
[2021-06-18] MEDS: PANTOPRAZOLE 40 MG TABLET PO (09:40)
[2021-06-18] MEDS: MONTELUKAST SODIUM 10 MG TABLET PO (09:40)
[2021-06-18] MEDS: FUROSEMIDE 40 MG TABLET PO (09:40)
[2021-06-18] MEDS: POTASSIUM CHLORIDE 10 MEQ TABLET.ER 20 MEQ PO (09:40)
[2021-06-18] MEDS: ASPIRIN 81 MG ENTERIC TABLET PO (09:40)
[2021-06-18] MEDS: SERTRALINE HCL 50 MG TABLET 150 MG PO (09:40)
[2021-06-18] MEDS: POLYSACCHARIDE IRON COMPLEX 150 MG CAPSULE PO ×2 (09:41→17:11)
--- NOTE | 2021-06-18 10:27 | PM.PNCARD ---
Progress Note: A&P Assessment and Plan (1) Systolic and diastolic CHF, acute on chronic: Code(s): I50.43 - Acute on chronic combined systolic (congestive) and diastolic (congestive) heart failure Status: Acute Assessment and Plan: Echocardiogram 06/08/2021 showing moderate LV systolic dysfunction, EF 40% grade 1 diastolic noncompliance. Continue furosemide 40mg p.o. daily Restart low dose coreg 3.125mg b.i.d with holding parameters Low sodium diet Daily weights Daily BMP Optimization of GDMT when able depending on BP, renal function (2) Pneumonia: Qualifiers: Laterality: bilateral Lung location: lower lobe of lung Pneumonia type: due to unspecified organism Qualified Code(s): J18.9 - Pneumonia, unspecified organism Code(s): J18.9 - Pneumonia, unspecified organism Status: Acute Assessment and Plan: Being treated with antibiotics. Management per hospitalist. (3) Acute and chronic respiratory failure with hypoxia: Code(s): J96.21 - Acute and chronic respiratory failure with hypoxia Status: Acute Assessment and Plan: Secondary to pneumonia, mild CHF exacerbation. Improved. Saturating well on 1L L of oxygen. (4) Aortic stenosis: Code(s): I35.0 - Nonrheumatic aortic (valve) stenosis Status: Acute Assessment and Plan: Moderate (5) Hypokalemia: Code(s): E87.6 - Hypokalemia Status: Acute Assessment and Plan: KCL 40 mg p.o. x1 (6) Chest pain: Code(s): R07.9 - Chest pain, unspecified Status: Acute Assessment and Plan: She is complaining of occasional episodes of sharp, stabbing pain on her left side. Does not sound like cardiac chest pain, it sounds pleuritic by her description. Nevertheless, she did have plans for an outpatient stress test due to recent complaints of worsening dyspnea and mild reduction in her EF from previous echo (50% in 2020 to 40% June 2021). Will order a lexiscan stress test for tomorrow to look for evidence of ischemia or prior infarct. Subjective Date/time seen: 06/18/21 10:27 Interval history: 85-year-old admitted for CHF Date of service 06/17/2021: No chest pain. Shortness breath is better. Had sharp poking sensation earlier today while sitting in the chair which has since resolved Date of service 06/18/2021: Feeling better today. She is complaining of a sharp, stabbing pain on her left chest that happened when she leaned forward in the chair. Resolved quickly with change in position. Denies any other chest pain. No other complaints. Review of Systems Review of Systems: All systems reviewed & are unremarkable except as noted in HPI and below Constitutional: Constitutional: Denies excessive sweating, Denies fatigue, Denies lethargy and Denies weakness Eyes: Eyes: Denies blurry vision and Denies change in vision ENT: Reports Normal hearing present, Reports dizziness, Denies nasal congestion and Denies nasal discharge Cardiovascular: Cardiovascular: Denies chest pain, Denies pedal edema, Denies leg edema, Reports lightheadedness, Denies palpitations, Reports dyspnea and Reports dyspnea on exertion Respiratory: Respiratory: Denies chest congestion, Reports cough, Denies hemoptysis, Reports dyspnea, Reports dyspnea on exertion and Reports wheezing Gastrointestinal: Gastrointestinal: Denies nausea and Denies vomiting Genitourinary: Genitourinary: Denies dysuria, Denies urinary incontinence and Denies urinary urgency Musculoskeletal: Musculoskeletal: Denies back pain, Denies arthralgias and Denies joint swelling Integumentary/Breasts: Skin/Breast: Denies unusual bruising Neurologic: Reports Normal hearing present, Denies confusion, Reports dizziness and Denies weakness Psychiatric: Psychiatric: Denies anxiety, Denies confusion and Denies depression Endocrine: Endocrine: Denies excessive sweating, Denies fatigue, Denies flushing and Denies palpitations
[2021-06-18 10:59] LABS: Folic Acid > 20.0 ng/mL (2.76->20)
[2021-06-18] MEDS: ACETAMINOPHEN 325 MG TABLET 650 MG PO (14:27)
[2021-06-18] MEDS: METOPROLOL TARTRATE 12.5 MG TABLET PO (20:48)
[2021-06-18] MEDS: diphenhydrAMINE HCl CAP 25 MG CAPSULE PO (20:49)
[2021-06-18] MEDS: guaiFENesin 12 HR 600 MG TABCR PO (20:49)
[2021-06-18] MEDS: MELATONIN 5 MG TABLET PO (20:49)
[2021-06-19] VITALS (28 sets, daily range): BP systolic 90–118; BP diastolic 46–68; PULSE 61–124; RESP 18–93; TEMP 35.8–37; O2SAT 20–100
--- NOTE | 2021-06-19 | EST_ITS ---
Patient Info Name: Randi Rodriguez Age: 85 years : 1935 Gender: Female Ht: 59 in Wt: 166 lbs BSA: 1.81 m2 Exam Date: 06/19/2021 8:31 AM Exam Location: [facility] ([place]) Stress Patient Status: Inpatient Admit Date: 06/15/2021 Staff Ordering Physician: Johana Antonio Attending Provider: Gayle Lei PA-C Exercise Technologist: Jody Foss RDCS Nurse: JOHANA ANTONIO Exam Type: CA stress mora w NM Study Info Indications - CHEST PAIN A regadenoson stress test was performed. Summary 1. Please correlate with nuclear medicine images, reported separately. 2. No abnormal ST-T wave changes with lexiscan. Protocol: Lexiscan Stress ECG Details Stage: REST Duration (min): 1 min : 49 sec HR (bpm): 92 SBP (mmHg): 105 DBP (mmHg): 59 Stage: REST Duration (min): 14 min : 57 sec HR (bpm): 94 SBP (mmHg): 105 DBP (mmHg): 59 Stage: STAGE 1 Duration (min): 1 min : 0 sec HR (bpm): 101 SBP (mmHg): 105 DBP (mmHg): 59 Stage: RECOVERY Duration (min): 1 min : 0 sec HR (bpm): 100 SBP (mmHg): 91 DBP (mmHg): 50 Stage: RECOVERY Duration (min): 2 min : 0 sec HR (bpm): 106 SBP (mmHg): 95 DBP (mmHg): 52 Stage: RECOVERY Duration (min): 3 min : 0 sec HR (bpm): 99 SBP (mmHg): 98 DBP (mmHg): 53 Stage: RECOVERY Duration (min): 4 min : 0 sec HR (bpm): 105 SBP (mmHg): 98 DBP (mmHg): 53 Stage: RECOVERY Duration (min): 5 min : 0 sec HR (bpm): 104 SBP (mmHg): 96 DBP (mmHg): 54 Stage: RECOVERY Duration (min): 6 min : 0 sec HR (bpm): 101 SBP (mmHg): 96 DBP (mmHg): 54 Stage: RECOVERY Duration (min): 6 min : 35 sec HR (bpm): 97 SBP (mmHg): 108 DBP (mmHg): 62 Rest HR: 94 bpm Peak HR: 110 bpm Rest Sys BP: 105 mmHg Peak Sys BP: 108 mmHg Max Pred HR: 136 bpm % Max Pred HR: 81 % Target HR: 116 bpm Max RPP: 11,880 bpm*mmHg BP Response: Normal blood pressure response Termination Reason: Completed protocol Cardiac Symptoms: Shortness of breath Total Time: 1 min : 0 sec Rest Mcghee BP: 59 mmHg Peak Mcghee BP: 62 mmHg Total Dose: 0.4 mg Resting ECG Sinus tachycardia. LAFB, PACs. Stress ECG No abnormal ST/T wave changes with exercise. Arrhythmias Frequent PVCs. Occasional PACs. Ventricular couplets. Report Signatures
[2021-06-19] MEDS: ACETAMINOPHEN 325 MG TABLET 650 MG PO (00:02)
[2021-06-19 06:01] LABS: Magnesium 2.2 mg/dL (1.6-2.3)
[2021-06-19 07:56] LABS: Basophils Absolute Auto 0.1 K/mm3 (0.0-0.1); Basophils Percent Auto 0.5 % (0.2-1.2); Eosinophils Absolute Auto 0.1 K/mm3 (0-0.3); Eosinophils Percent Auto 1.5 % (0-4.4); Hemoglobin 9.7 g/dL (12.0-15.0); Immature Granulocyte Absolute 0.08 K/mm3 (0.00-0.031); Immature Granulocyte Percent A 0.9 % (0-0.5); Lymphocytes Absolute Auto 0.97 K/mm3 (0.9-3.2); Lymphocytes Percent Auto 10.5 % (18.3-44.2); Mean Corpuscular HGB Conc 30.3 g/dl (32-36); Mean Corpuscular Hemoglobin 26.4 pg (26-34); Mean Corpuscular Volume 87.2 fl (80-100); Mean Platelet Volume 10.8 fl (7.4-10.4); Monocytes Absolute Auto 0.7 K/mm3 (0.1-0.6); Monocytes Percent Auto 7.5 % (2.6-8.5); Neutrophils Absolute Auto 7.3 K/mm3 (1.3-6.7); Neutrophils Percent Auto 79.1 % (45.5-73.1); Platelet Count Result 193 k/mm3 (150-375); Red Blood Count 3.67 M/mm3 (4.2-5.4); Red Cell Distribution Width 16.4 % (11.5-14.5); White Blood Count 9.2 K/mm3 (4.5-10.0)
[2021-06-19 08:09] LABS: Alanine Aminotransferase 31 U/L (4-35); Albumin Level 3.6 g/dL (3.5-5.1); Alkaline Phosphatase 101 U/L (38-126); Anion Gap 8 mmol/L (8-16); Aspartate Amino Transferase 38 U/L (14-36); Bilirubin,Total 0.3 mg/dL (0.2-1.3); Blood Urea Nitrogen 51 mg/dL (7-17); Calcium 8.8 mg/dL (8.4-10.2); Carbon Dioxide 27 mmol/L (22-30); Chloride 104 mmol/L (98-107); Estimated Glomerular Filt Rate 29; Glucose 120 mg/dL (65-110); Potassium 3.8 mmol/L (3.4-5.0); Sodium 139 mmol/L (137-145)
[2021-06-19] MEDS: FLUTICASONE/UMECLIDIN/VILANTER 200-62.5-25 MCG ELLIPTA 1 PUFF INHALATION (09:25)
[2021-06-19] MEDS: POLYSACCHARIDE IRON COMPLEX 150 MG CAPSULE PO ×2 (10:04→17:51)
[2021-06-19] MEDS: SERTRALINE HCL 50 MG TABLET 150 MG PO (10:04)
[2021-06-19] MEDS: MONTELUKAST SODIUM 10 MG TABLET PO (10:04)
[2021-06-19] MEDS: FUROSEMIDE 40 MG TABLET PO (10:04)
[2021-06-19] MEDS: ASPIRIN 81 MG ENTERIC TABLET PO (10:04)
[2021-06-19] MEDS: PANTOPRAZOLE 40 MG TABLET PO (10:04)
[2021-06-19] MEDS: POTASSIUM CHLORIDE 10 MEQ TABLET.ER 20 MEQ PO (10:05)
[2021-06-19] MEDS: guaiFENesin 12 HR 600 MG TABCR PO ×2 (10:05→21:15)
[2021-06-19 10:14] LABS: D Dimer 4.03 ug/mL (<0.48)
--- NOTE | 2021-06-19 11:51 | PM.PNCARD ---
Progress Note: A&P Assessment and Plan (1) Systolic and diastolic CHF, acute on chronic: Code(s): I50.43 - Acute on chronic combined systolic (congestive) and diastolic (congestive) heart failure Status: Acute Assessment and Plan: Echocardiogram 06/08/2021 showing moderate LV systolic dysfunction, EF 40% grade 1 diastolic noncompliance. Continue furosemide 40mg p.o. daily Restart low dose coreg 3.125mg b.i.d with holding parameters Low sodium diet Daily weights Daily BMP Optimization of GDMT when able depending on BP, renal function (2) Pneumonia: Qualifiers: Laterality: bilateral Lung location: lower lobe of lung Pneumonia type: due to unspecified organism Qualified Code(s): J18.9 - Pneumonia, unspecified organism Code(s): J18.9 - Pneumonia, unspecified organism Status: Acute Assessment and Plan: Being treated with antibiotics. Management per hospitalist. (3) Acute and chronic respiratory failure with hypoxia: Code(s): J96.21 - Acute and chronic respiratory failure with hypoxia Status: Acute Assessment and Plan: Secondary to pneumonia, mild CHF exacerbation. Improved. Saturating well on RA. (4) Aortic stenosis: Code(s): I35.0 - Nonrheumatic aortic (valve) stenosis Status: Acute Assessment and Plan: Moderate (5) Hypokalemia: Code(s): E87.6 - Hypokalemia Status: Acute Assessment and Plan: Replaced. Daily KCL supplementation. (6) Chest pain: Code(s): R07.9 - Chest pain, unspecified Status: Acute Assessment and Plan: She is complaining of occasional episodes of sharp, stabbing pain on her left side. Does not sound like cardiac chest pain, it sounds pleuritic by her description. Nevertheless, she did have plans for an outpatient stress test due to recent complaints of worsening dyspnea and mild reduction in her EF from previous echo (50% in 2020 to 40% June 2021). Underwent lexiscan stress test today that did show a small, mild, reversible perfusion defect involving apical lateral segment of left ventricle. She will need to have a LHC at some point - tentatively plan for Tuesday if her creatinine has trended down by that time. Subjective Date/time seen: 06/19/21 11:51 Interval history: 85-year-old admitted for CHF Date of service 06/17/2021: No chest pain. Shortness breath is better. Had sharp poking sensation earlier today while sitting in the chair which has since resolved Date of service 06/18/2021: Feeling better today. She is complaining of a sharp, stabbing pain on her left chest that happened when she leaned forward in the chair. Resolved quickly with change in position. Denies any other chest pain. No other complaints. Date of service 06/19/2021: Still complaining of productive cough and some shortness of breath. Otherwise feels pretty good. No chest pain or palpitations. Review of Systems Review of Systems: All systems reviewed & are unremarkable except as noted in HPI and below Constitutional: Constitutional: Denies excessive sweating, Denies fatigue, Denies lethargy and Denies weakness Eyes: Eyes: Denies blurry vision and Denies change in vision ENT: Reports Normal hearing present, Reports dizziness, Denies nasal congestion and Denies nasal discharge Cardiovascular: Cardiovascular: Denies chest pain, Denies pedal edema, Denies leg edema, Reports lightheadedness, Denies palpitations, Reports dyspnea and Reports dyspnea on exertion Respiratory: Respiratory: Denies chest congestion, Reports cough, Denies hemoptysis, Reports dyspnea, Reports dyspnea on exertion and Reports wheezing Gastrointestinal: Gastrointestinal: Denies nausea and Denies vomiting Genitourinary: Genitourinary: Denies dysuria, Denies urinary incontinence and Denies urinary urgency Musculoskeletal: Musculoskeletal: Denies back pain, Denies arthralgias and Denies joint swelling Integumentary/
--- NOTE | 2021-06-19 14:40 | PM.IMPN ---
Progress Note: A&P Assessment and Plan (1) Pneumonia: Qualifiers: Laterality: bilateral Lung location: lower lobe of lung Pneumonia type: due to unspecified organism Qualified Code(s): J18.9 - Pneumonia, unspecified organism Code(s): J18.9 - Pneumonia, unspecified organism Status: Acute Assessment and Plan: 06/15 Positive Blood Culture Gram Stain, Staphylococcus epidermis & staph hominis, likely contamination. 06/16 CXR showed stable airspace opacities in the lower lung zones, consistent with pneumonia, and Cardiomegaly. 06/17 preliminary sputum culture showed no organisms. WBC count has normalized, patient is afebrile, sufficient intake and output of urine. Lung physical exam was normal, with no wheezing, crackles, rales. She continues to endorse some pleuritic chest pain only with deep inspiration and coughing, orthopnea (normal for her), and shortness of breath with activity. She has been tapered off of oxygen and is saturating well on room air. - New blood cultures drawn today. Prior contained likely contamination. - DuoNeb q6H and Albuterol q2H PRN. - Continue to monitor O2 saturations. - Continue Levaquin, last dose this Tuesday. - Mucinex to help with sputum. (2) Chronic kidney disease, stage 3: Code(s): N18.30 - Chronic kidney disease, stage 3 unspecified Status: Acute Assessment and Plan: Baseline Cr 1.0, currently 1.7. Renal US showed left renal cysts. Continue to monitor renal function see acute kidney injury plan noted below. (3) Systolic and diastolic CHF, acute on chronic: Code(s): I50.43 - Acute on chronic combined systolic (congestive) and diastolic (congestive) heart failure Status: Acute Assessment and Plan: Exam today showed patient is euvolemic. 7 lb weight loss today. Creatinine (1.7) incrs today from baseline of (1.0) likely lasix and contrast admin in the ER w/ CTA. Cardiology recommended restarting carvedilol low-dose to help with sinus tachycardia that is being observed on telemetry. Abnormal stress test today with an area of lateral, apical reversible ischemia without wall motion abnormality. Cardiology will discuss left heart catheterization with the patient, tentatively planned for Tuesday pending renal function. - Restart carvedilol 3.25mg with holding parameters. - Vital signs/ Telemetry - I&Os - Stop furosemide - Daily weights. - Monitor serum electrolytes (4) Acute and chronic respiratory failure with hypoxia: Code(s): J96.21 - Acute and chronic respiratory failure with hypoxia Status: Acute Assessment and Plan: patient denies shortness of breaths, outside of her Lexiscan stress test today, during which she experienced significant dyspnea. She has been tapered off of supplemental O2, and is saturating well. -continue to monitor and provide supplemental O2 as needed. (5) Sepsis: Code(s): A41.9 - Sepsis, unspecified organism Status: Acute Assessment and Plan: / community-acquired pneumonia. WBC normalized. She denies fevers, chills. Urine culture showed no growth. Prior blood cultures likely contaminated, have redrawn. Pending blood cultures. -continue empiric treatment with Levaquin, last dose Tuesday. (6) Acute kidney injury superimposed on CKD: Code(s): N17.9 - Acute kidney failure, unspecified; N18.9 - Chronic kidney disease, unspecified Status: Acute Assessment and Plan: Cr incrs to 1.7 today, BUN 51. After discussion with Cardiology we are discontinuing Lasix, and removing her fluid restriction. Gentle IV fluid resuscitation if creatinine continues to trend upward over the weekend. Goal is for creatinine under 1.4 by Tuesday for possible left heart catheterization. -continue strict I&Os - DC lasix - DC fluid restriction. -Continue to trend renal functions (7) Aortic stenosis: Code(s): I35.0 - Nonrheum
--- NOTE | 2021-06-19 15:05 | PCPTNOTE ---
The patient treatment was not able to be completed on 06/19/21 due to patient refusing due to level of fatigue. RN updated on patient's complaints of pain in foot. Will plan to continue treatment per plan of care.
[2021-06-19] MEDS: carvediloL 3.125 MG TABLET PO (22:18)
[2021-06-19] MEDS: diphenhydrAMINE HCl CAP 25 MG CAPSULE PO (22:18)
[2021-06-19] MEDS: MELATONIN 5 MG TABLET PO (22:18)
[2021-06-20] VITALS (30 sets, daily range): BP systolic 101–125; BP diastolic 41–96; PULSE 61–97; RESP 14–24; TEMP 36–36.6; O2SAT 92–100
[2021-06-20 02:52] LABS: Legionella pneumophila Ag Ur Not Detected (Not Detected)
[2021-06-20 05:16] LABS: Basophils Percent Auto 0.6 % (0.2-1.2); Eosinophils Absolute Auto 0.1 K/mm3 (0-0.3); Eosinophils Percent Auto 1.7 % (0-4.4); Hematocrit 32.5 % (37.0-47.0); Hemoglobin 9.5 g/dL (12.0-15.0); Immature Granulocyte Absolute 0.09 K/mm3 (0.00-0.031); Immature Granulocyte Percent A 1.3 % (0-0.5); Lymphocytes Absolute Auto 0.98 K/mm3 (0.9-3.2); Lymphocytes Percent Auto 13.9 % (18.3-44.2); Mean Corpuscular HGB Conc 29.2 g/dl (32-36); Mean Corpuscular Hemoglobin 26.2 pg (26-34); Mean Corpuscular Volume 89.5 fl (80-100); Mean Platelet Volume 10.6 fl (7.4-10.4); Monocytes Absolute Auto 0.6 K/mm3 (0.1-0.6); Monocytes Percent Auto 7.8 % (2.6-8.5); Neutrophils Absolute Auto 5.3 K/mm3 (1.3-6.7); Neutrophils Percent Auto 74.7 % (45.5-73.1); Platelet Count Result 175 k/mm3 (150-375); Red Blood Count 3.63 M/mm3 (4.2-5.4); Red Cell Distribution Width 16.4 % (11.5-14.5)
[2021-06-20 05:30] LABS: Alanine Aminotransferase 44 U/L (4-35); Albumin Level 3.3 g/dL (3.5-5.1); Alkaline Phosphatase 93 U/L (38-126); Anion Gap 6 mmol/L (8-16); Aspartate Amino Transferase 55 U/L (14-36); Bilirubin,Total 0.3 mg/dL (0.2-1.3); Blood Urea Nitrogen 56 mg/dL (7-17); Calcium 8.6 mg/dL (8.4-10.2); Carbon Dioxide 28 mmol/L (22-30); Chloride 103 mmol/L (98-107); Estimated Glomerular Filt Rate 29; Glucose 105 mg/dL (65-110); Magnesium 2.1 mg/dL (1.6-2.3); Potassium 4.1 mmol/L (3.4-5.0); Sodium 137 mmol/L (137-145)
[2021-06-20] MEDS: FLUTICASONE/UMECLIDIN/VILANTER 200-62.5-25 MCG ELLIPTA 1 PUFF INHALATION (08:25)
--- NOTE | 2021-06-20 08:54 | PM.PNCARD ---
Progress Note: A&P Assessment and Plan (1) Systolic and diastolic CHF, acute on chronic: Code(s): I50.43 - Acute on chronic combined systolic (congestive) and diastolic (congestive) heart failure Status: Acute Assessment and Plan: Echocardiogram 06/08/2021 showing moderate LV systolic dysfunction, EF 40% grade 1 diastolic noncompliance. Continue furosemide 40mg p.o. daily Continue carvedilol. Patient is on carvedilol and metoprolol. Will DC metoprolol Low sodium diet Daily weights Daily BMP Optimization of GDMT when able depending on BP, renal function (2) Pneumonia: Qualifiers: Laterality: bilateral Lung location: lower lobe of lung Pneumonia type: due to unspecified organism Qualified Code(s): J18.9 - Pneumonia, unspecified organism Code(s): J18.9 - Pneumonia, unspecified organism Status: Acute Assessment and Plan: Being treated with antibiotics. Management per hospitalist. (3) Acute and chronic respiratory failure with hypoxia: Code(s): J96.21 - Acute and chronic respiratory failure with hypoxia Status: Acute Assessment and Plan: Secondary to pneumonia, mild CHF exacerbation. Improved. Saturating well on RA. (4) Aortic stenosis: Code(s): I35.0 - Nonrheumatic aortic (valve) stenosis Status: Acute Assessment and Plan: Moderate (5) Hypokalemia: Code(s): E87.6 - Hypokalemia Status: Acute Assessment and Plan: Replaced. Daily KCL supplementation. (6) Chest pain: Code(s): R07.9 - Chest pain, unspecified Status: Acute Assessment and Plan: She is complaining of occasional episodes of sharp, stabbing pain on her left side. Does not sound like cardiac chest pain, it sounds pleuritic by her description. Nevertheless, she did have plans for an outpatient stress test due to recent complaints of worsening dyspnea and mild reduction in her EF from previous echo (50% in 2020 to 40% June 2021). Underwent lexiscan stress test today that did show a small, mild, reversible perfusion defect involving apical lateral segment of left ventricle. She will need to have a LHC at some point - tentatively plan for Tuesday if her creatinine has trended down by that time. Subjective Date/time seen: 06/20/21 08:54 Interval history: 85-year-old admitted for CHF Date of service 06/17/2021: No chest pain. Shortness breath is better. Had sharp poking sensation earlier today while sitting in the chair which has since resolved Date of service 06/18/2021: Feeling better today. She is complaining of a sharp, stabbing pain on her left chest that happened when she leaned forward in the chair. Resolved quickly with change in position. Denies any other chest pain. No other complaints. Date of service 06/19/2021: Still complaining of productive cough and some shortness of breath. Otherwise feels pretty good. No chest pain or palpitations. Date of service 06/20/2021: Resting comfortably in bed. No chest pain or shortness of breath Review of Systems Review of Systems: All systems reviewed & are unremarkable except as noted in HPI and below Constitutional: Constitutional: Denies excessive sweating, Denies fatigue, Denies lethargy and Denies weakness Eyes: Eyes: Denies blurry vision and Denies change in vision ENT: Reports Normal hearing present, Reports dizziness, Denies nasal congestion and Denies nasal discharge Cardiovascular: Cardiovascular: Denies chest pain, Denies pedal edema, Denies leg edema, Reports lightheadedness, Denies palpitations, Reports dyspnea and Reports dyspnea on exertion Respiratory: Respiratory: Denies chest congestion, Reports cough, Denies hemoptysis, Reports dyspnea, Reports dyspnea on exertion and Reports wheezing Gastrointestinal: Gastrointestinal: Denies nausea and Denies vomiting Genitourinary: Genitourinary: Denies dysuria, Denies urinary incontinence and Denies urinary urge
[2021-06-20] MEDS: MONTELUKAST SODIUM 10 MG TABLET PO (08:59)
[2021-06-20] MEDS: ASPIRIN 81 MG ENTERIC TABLET PO (08:59)
[2021-06-20] MEDS: guaiFENesin 12 HR 600 MG TABCR PO ×2 (08:59→21:11)
[2021-06-20] MEDS: carvediloL 3.125 MG TABLET PO ×2 (08:59→21:11)
[2021-06-20] MEDS: POTASSIUM CHLORIDE 10 MEQ TABLET.ER 20 MEQ PO (08:59)
[2021-06-20] MEDS: PANTOPRAZOLE 40 MG TABLET PO (08:59)
[2021-06-20] MEDS: SERTRALINE HCL 50 MG TABLET 150 MG PO (09:00)
[2021-06-20] MEDS: POLYSACCHARIDE IRON COMPLEX 150 MG CAPSULE PO ×2 (09:54→17:35)
--- NOTE | 2021-06-20 14:19 | PM.IMPN ---
Progress Note: A&P Assessment and Plan (1) Pneumonia: Qualifiers: Laterality: bilateral Lung location: lower lobe of lung Pneumonia type: due to unspecified organism Qualified Code(s): J18.9 - Pneumonia, unspecified organism Code(s): J18.9 - Pneumonia, unspecified organism Status: Acute Assessment and Plan: 06/15 Positive Blood Culture Gram Stain, Staphylococcus epidermis & staph hominis, likely contamination. 06/16 CXR showed stable airspace opacities in the lower lung zones, consistent with pneumonia, and Cardiomegaly. 06/17 preliminary sputum culture showed no organisms. WBC count has normalized, patient is afebrile, sufficient intake and output of urine. Lung physical exam was normal, with no wheezing, crackles, rales. She does have some bronchial breath sounds. She continues to endorse orthopnea (normal for her), and shortness of breath with activity. She has been tapered off of oxygen and is saturating well on room air. She only wears oxygen at night. - New blood cultures show no growth - DuoNeb q6H and Albuterol q2H PRN. - Continue to monitor O2 saturations. - Continue empiric Levaquin therapy. - Mucinex to help with sputum. (2) Systolic and diastolic CHF, acute on chronic: Code(s): I50.43 - Acute on chronic combined systolic (congestive) and diastolic (congestive) heart failure Status: Acute Assessment and Plan: Exam today showed patient is euvolemic. No weight loss today. Creatinine remains stable at (1.7) today after discontinuing Lasix and fluid restriction. Her BUN did worsen to 56 from 51 today. Cardiology restarted carvedilol low-dose and she has been able to tolerate this, which has resolved her tachycardia. Abnormal stress test yesterday with an area of lateral, apical reversible ischemia without wall motion abnormality. Cardiology planning left heart catheterization for Tuesday pending creatinine of approximately 1.4 or less. -continue carvedilol 3.25mg with holding parameters. -begin gentle IV fluid rehydration, monitoring closely for signs of fluid overload. -continue Vital signs/ Telemetry - I&Os - Daily weights. - Monitor serum electrolytes (3) Chronic kidney disease, stage 3: Code(s): N18.30 - Chronic kidney disease, stage 3 unspecified Status: Acute Assessment and Plan: Baseline Cr 1.0, currently 1.7. Renal US showed left renal cysts. Continue to monitor renal function see acute kidney injury plan noted below. (4) Acute and chronic respiratory failure with hypoxia: Code(s): J96.21 - Acute and chronic respiratory failure with hypoxia Status: Acute Assessment and Plan: Patient denies shortness of breath, She has been tapered off of supplemental O2, and is saturating well on room air. She does report what sounds like PND or apneic episodes at night. Discussed ApneaLink test, she is willing to do that tonight. -continue to monitor and provide supplemental O2 as needed. -ApneaLink tonight (5) Sepsis: Code(s): A41.9 - Sepsis, unspecified organism Status: Acute Assessment and Plan: Blood cultures showed no growth. WBC normalized. She denies fevers, chills. Urine culture showed no growth. -continue empiric pneumonia treatment with Levaquin (6) Acute kidney injury superimposed on CKD: Code(s): N17.9 - Acute kidney failure, unspecified; N18.9 - Chronic kidney disease, unspecified Status: Acute Assessment and Plan: Cr incrs to 1.7 today, BUN 56. After discussion with Cardiology we are discontinuing Lasix, and removing her fluid restriction. Gentle IV fluid resuscitation started today. Goal is for creatinine under 1.4 by Tuesday for possible left heart catheterization. -Continue strict I&Os -Initiate gentle IV fluid rehydration -Continue to trend renal functions (7) Aortic stenosis: Code(s): I35.0 - Nonrheumatic aortic
[2021-06-20] MEDS: SODIUM CHLORIDE 0.9% IV 1,000 ML 75 ML IV CONT (17:34)
[2021-06-20] MEDS: diphenhydrAMINE HCl CAP 25 MG CAPSULE PO (21:11)
[2021-06-20] MEDS: MELATONIN 5 MG TABLET PO (21:11)
[2021-06-21] VITALS (28 sets, daily range): BP systolic 103–135; BP diastolic 54–91; PULSE 80–95; RESP 16–20; TEMP 35.7–36.7; O2SAT 91–95
[2021-06-21] MEDS: rOPINIRole HCL 1 MG TABLET PO (00:16)
[2021-06-21] MEDS: SODIUM CHLORIDE 0.9% IV 1,000 ML 75 ML IV CONT (06:35)
[2021-06-21 07:45] LABS: Basophils Percent Auto 0.3 % (0.2-1.2); Eosinophils Absolute Auto 0.1 K/mm3 (0-0.3); Eosinophils Percent Auto 1.5 % (0-4.4); Hematocrit 29.9 % (37.0-47.0); Hemoglobin 9.3 g/dL (12.0-15.0); Immature Granulocyte Absolute 0.07 K/mm3 (0.00-0.031); Immature Granulocyte Percent A 0.9 % (0-0.5); Lymphocytes Absolute Auto 1.14 K/mm3 (0.9-3.2); Lymphocytes Percent Auto 15.3 % (18.3-44.2); Mean Corpuscular HGB Conc 31.1 g/dl (32-36); Mean Corpuscular Hemoglobin 26.6 pg (26-34); Mean Corpuscular Volume 85.7 fl (80-100); Mean Platelet Volume 10.2 fl (7.4-10.4); Monocytes Absolute Auto 0.5 K/mm3 (0.1-0.6); Monocytes Percent Auto 6.9 % (2.6-8.5); Neutrophils Absolute Auto 5.6 K/mm3 (1.3-6.7); Neutrophils Percent Auto 75.1 % (45.5-73.1); Platelet Count Result 198 k/mm3 (150-375); Red Blood Count 3.49 M/mm3 (4.2-5.4); Red Cell Distribution Width 16.3 % (11.5-14.5); White Blood Count 7.4 K/mm3 (4.5-10.0)
[2021-06-21 08:10] LABS: Alanine Aminotransferase 58 U/L (4-35); Albumin Level 3.3 g/dL (3.5-5.1); Alkaline Phosphatase 101 U/L (38-126); Anion Gap 4 mmol/L (8-16); Aspartate Amino Transferase 67 U/L (14-36); Bilirubin,Total 0.2 mg/dL (0.2-1.3); Blood Urea Nitrogen 45 mg/dL (7-17); Calcium 8.8 mg/dL (8.4-10.2); Carbon Dioxide 27 mmol/L (22-30); Chloride 107 mmol/L (98-107); Estimated Glomerular Filt Rate 39; Glucose 111 mg/dL (65-110); Potassium 4.2 mmol/L (3.4-5.0); Sodium 138 mmol/L (137-145)
[2021-06-21] MEDS: FLUTICASONE/UMECLIDIN/VILANTER 200-62.5-25 MCG ELLIPTA 1 PUFF INHALATION (09:07)
--- NOTE | 2021-06-21 09:42 | PM.IMPN ---
Progress Note: A&P Assessment and Plan (1) Pneumonia: Qualifiers: Laterality: bilateral Lung location: lower lobe of lung Pneumonia type: due to unspecified organism Qualified Code(s): J18.9 - Pneumonia, unspecified organism Code(s): J18.9 - Pneumonia, unspecified organism Status: Acute Assessment and Plan: 06/15 Positive Blood Culture Gram Stain, Staphylococcus epidermis & staph hominis, likely contamination. 06/16 CXR showed stable airspace opacities in the lower lung zones, consistent with pneumonia, and Cardiomegaly. 06/17 preliminary sputum culture showed no organisms. WBC count has normalized, patient is afebrile, sufficient intake and output of urine. She had increased wheezing today on exam. She continues to endorse orthopnea (normal for her), and shortness of breath with activity. She has been tapered off of oxygen and is saturating well on room air. She felt well enough today to skip 1 of her breathing treatments. She only wears oxygen at night. - CXR - DuoNeb q6H and Albuterol q2H PRN. - Continue to monitor O2 saturations. - Continue empiric Levaquin therapy. - Mucinex to help with sputum. (2) Systolic and diastolic CHF, acute on chronic: Code(s): I50.43 - Acute on chronic combined systolic (congestive) and diastolic (congestive) heart failure Status: Acute Assessment and Plan: Exam today showed patient is euvolemic. 6 lb weight gain today. Creatinine has improved today today after discontinuing Lasix and fluid restriction. Telemetry shows normal sinus rhythm with few PVCs, Abnormal stress test. Cardiology planning left heart catheterization for tomorrow as her creatinine has improved. -continue carvedilol 3.25mg with holding parameters. - Discontinue IV fluids bowel -continue Vital signs/ Telemetry - I&Os - Daily weights. - Monitor serum electrolytes (3) Chronic kidney disease, stage 3: Code(s): N18.30 - Chronic kidney disease, stage 3 unspecified Status: Acute Assessment and Plan: Creatinine has improved to 1.3. Renal US showed left renal cysts. Continue to monitor renal function see acute kidney injury plan noted below. (4) Acute and chronic respiratory failure with hypoxia: Code(s): J96.21 - Acute and chronic respiratory failure with hypoxia Status: Acute Assessment and Plan: Patient denies shortness of breath, The she is having increased coughing today. She is saturating well on room air. apnea link test was normal. -continue to monitor and provide supplemental O2 as needed. (5) Sepsis: Code(s): A41.9 - Sepsis, unspecified organism Status: Acute Assessment and Plan: Blood cultures showed no growth. WBC normalized. She denies fevers, chills. Urine culture showed no growth. -continue empiric pneumonia treatment with Levaquin (6) Acute kidney injury superimposed on CKD: Code(s): N17.9 - Acute kidney failure, unspecified; N18.9 - Chronic kidney disease, unspecified Status: Acute Assessment and Plan: Cr Improved to 1.3 today, BUN 45. patient says she is making a concerted effort to drink her fluids. -Continue strict I&Os - discontinue IV fluids. - Continue to encourage oral rehydration -Continue to trend renal functions (7) Aortic stenosis: Code(s): I35.0 - Nonrheumatic aortic (valve) stenosis Status: Acute Assessment and Plan: AV area 1.09cm, Peak gradient 10.0mmHg. Moderate aortic stenosis. Patient paces herself when doing activity, does small bits of activity and pauses to rest often. Denies syncopal episodes. (8) Delirium: Code(s): R41.0 - Disorientation, unspecified Status: Acute Assessment and Plan: Nursing staff reports patient was becoming agitated in the evening and was not sleeping well. No further reports of evening agitation. -Continue prashant
[2021-06-21] MEDS: SERTRALINE HCL 50 MG TABLET 150 MG PO (09:46)
[2021-06-21] MEDS: carvediloL 3.125 MG TABLET PO ×2 (09:46→20:15)
[2021-06-21] MEDS: POTASSIUM CHLORIDE 10 MEQ TABLET.ER 20 MEQ PO (09:47)
[2021-06-21] MEDS: POLYSACCHARIDE IRON COMPLEX 150 MG CAPSULE PO ×2 (09:47→17:47)
[2021-06-21] MEDS: PANTOPRAZOLE 40 MG TABLET PO (09:47)
[2021-06-21] MEDS: ASPIRIN 81 MG ENTERIC TABLET PO (09:47)
[2021-06-21] MEDS: MONTELUKAST SODIUM 10 MG TABLET PO (09:47)
[2021-06-21] MEDS: guaiFENesin 12 HR 600 MG TABCR PO ×2 (09:47→20:15)
--- NOTE | 2021-06-21 10:23 | PCPTNOTE ---
Addendum entered by Rupa Escudero, SENIOR INFORMATION SECURITY CONSULTANT 06/21/21 10:32: RN notified. Original Note: The patient treatment was not able to be completed this date due to patient and her family requesting for patient not to be seen for therapy today.. Will plan to continue treatment per plan of care.
--- NOTE | 2021-06-21 11:00 | PM.PNCARD ---
Progress Note: A&P Assessment and Plan (1) Systolic and diastolic CHF, acute on chronic: Code(s): I50.43 - Acute on chronic combined systolic (congestive) and diastolic (congestive) heart failure Status: Acute Assessment and Plan: Echocardiogram 06/08/2021 showing moderate LV systolic dysfunction, EF 40% grade 1 diastolic noncompliance. Continue furosemide 40mg p.o. daily Continue carvedilol. Patient is on carvedilol and metoprolol. Low sodium diet Daily weights Daily BMP Optimization of GDMT when able depending on BP, renal function (2) Pneumonia: Qualifiers: Laterality: bilateral Lung location: lower lobe of lung Pneumonia type: due to unspecified organism Qualified Code(s): J18.9 - Pneumonia, unspecified organism Code(s): J18.9 - Pneumonia, unspecified organism Status: Acute Assessment and Plan: Being treated with antibiotics. Management per hospitalist. (3) Acute and chronic respiratory failure with hypoxia: Code(s): J96.21 - Acute and chronic respiratory failure with hypoxia Status: Acute Assessment and Plan: Secondary to pneumonia, mild CHF exacerbation. Improved. Saturating well on RA. (4) Aortic stenosis: Code(s): I35.0 - Nonrheumatic aortic (valve) stenosis Status: Acute Assessment and Plan: Moderate (5) Hypokalemia: Code(s): E87.6 - Hypokalemia Status: Acute Assessment and Plan: Replaced. Daily KCL supplementation. (6) Chest pain: Code(s): R07.9 - Chest pain, unspecified Status: Acute Assessment and Plan: She is complaining of occasional episodes of sharp, stabbing pain on her left side. Does not sound like cardiac chest pain, it sounds pleuritic by her description. Nevertheless, she did have plans for an outpatient stress test due to recent complaints of worsening dyspnea and mild reduction in her EF from previous echo (50% in 2020 to 40% June 2021). Underwent lexiscan stress test Tuesday that did show a small, mild, reversible perfusion defect involving apical lateral segment of left ventricle. Plan for coronary angiogram tomorrow. She will be kept NPO after midnight. Kidney function is better. Will give her dose of prednisone 50 mg p.o. x1 tonight because of her iodine allergy Subjective Date/time seen: 04/17/22 11:00 Interval history: 85-year-old admitted for CHF Date of service 06/17/2021: No chest pain. Shortness breath is better. Had sharp poking sensation earlier today while sitting in the chair which has since resolved Date of service 06/18/2021: Feeling better today. She is complaining of a sharp, stabbing pain on her left chest that happened when she leaned forward in the chair. Resolved quickly with change in position. Denies any other chest pain. No other complaints. Date of service 06/19/2021: Still complaining of productive cough and some shortness of breath. Otherwise feels pretty good. No chest pain or palpitations. Date of service 06/20/2021: Resting comfortably in bed. No chest pain or shortness of breath Date of service 06/21/2021: Has some left lateral mid rib pain to breathe and cough. No shortness of breath Review of Systems Review of Systems: All systems reviewed & are unremarkable except as noted in HPI and below Constitutional: Constitutional: Denies excessive sweating, Denies fatigue, Denies lethargy and Denies weakness Eyes: Eyes: Denies blurry vision and Denies change in vision ENT: Reports Normal hearing present, Reports dizziness, Denies nasal congestion and Denies nasal discharge Cardiovascular: Cardiovascular: Denies chest pain, Denies pedal edema, Denies leg edema, Reports lightheadedness, Denies palpitations, Reports dyspnea and Reports dyspnea on exertion Respiratory: Respiratory: Denies chest congestion, Reports cough, Denies hemoptysis, Reports dyspnea, Reports dyspnea on exertion and Reports wheezing Gastrointest
[2021-06-21] MEDS: predniSONE 10 MG TABLET 50 MG PO (20:14)
[2021-06-21] MEDS: diphenhydrAMINE HCl CAP 25 MG CAPSULE PO (20:14)
[2021-06-21] MEDS: MELATONIN 5 MG TABLET PO (20:14)
[2021-06-22] VITALS (32 sets, daily range): BP systolic 92–129; BP diastolic 51–105; PULSE 63–103; RESP 14–22; TEMP 36–36.7; O2SAT 88–100
[2021-06-22 05:50] LABS: Basophils Percent Auto 0.2 % (0.2-1.2); Eosinophils Percent Auto 0.1 % (0-4.4); Hematocrit 34.7 % (37.0-47.0); Hemoglobin 9.8 g/dL (12.0-15.0); Immature Granulocyte Absolute 0.11 K/mm3 (0.00-0.031); Immature Granulocyte Percent A 1.2 % (0-0.5); Lymphocytes Absolute Auto 0.72 K/mm3 (0.9-3.2); Mean Corpuscular HGB Conc 28.2 g/dl (32-36); Mean Corpuscular Hemoglobin 25.9 pg (26-34); Mean Corpuscular Volume 91.6 fl (80-100); Mean Platelet Volume 10.5 fl (7.4-10.4); Monocytes Absolute Auto 0.1 K/mm3 (0.1-0.6); Monocytes Percent Auto 1.2 % (2.6-8.5); Neutrophils Percent Auto 89.3 % (45.5-73.1); Platelet Count Result 241 k/mm3 (150-375); Red Blood Count 3.79 M/mm3 (4.2-5.4); Red Cell Distribution Width 16.4 % (11.5-14.5)
[2021-06-22 06:02] LABS: Alanine Aminotransferase 59 U/L (4-35); Albumin Level 3.4 g/dL (3.5-5.1); Alkaline Phosphatase 107 U/L (38-126); Anion Gap 6 mmol/L (8-16); Aspartate Amino Transferase 60 U/L (14-36); Bilirubin,Total 0.2 mg/dL (0.2-1.3); Blood Urea Nitrogen 37 mg/dL (7-17); Calcium 9.2 mg/dL (8.4-10.2); Carbon Dioxide 25 mmol/L (22-30); Chloride 107 mmol/L (98-107); Estimated Glomerular Filt Rate 43; Glucose 163 mg/dL (65-110); Potassium 4.9 mmol/L (3.4-5.0); Sodium 138 mmol/L (137-145)
[2021-06-22] MEDS: carvediloL 3.125 MG TABLET PO ×2 (09:48→20:19)
[2021-06-22] MEDS: POLYSACCHARIDE IRON COMPLEX 150 MG CAPSULE PO ×2 (09:48→15:55)
[2021-06-22] MEDS: PANTOPRAZOLE 40 MG TABLET PO (09:49)
[2021-06-22] MEDS: ASPIRIN 81 MG ENTERIC TABLET PO (09:49)
[2021-06-22] MEDS: SERTRALINE HCL 50 MG TABLET 150 MG PO (09:49)
[2021-06-22] MEDS: guaiFENesin 12 HR 600 MG TABCR PO ×2 (09:49→20:19)
[2021-06-22] MEDS: POTASSIUM CHLORIDE 10 MEQ TABLET.ER 20 MEQ PO (09:50)
[2021-06-22] MEDS: MONTELUKAST SODIUM 10 MG TABLET PO (09:50)
[2021-06-22] MEDS: predniSONE 10 MG TABLET 50 MG PO (10:48)
--- NOTE | 2021-06-22 12:50 | PM.IMPN ---
Progress Note: A&P Assessment and Plan (1) Pneumonia: Qualifiers: Laterality: bilateral Lung location: lower lobe of lung Pneumonia type: due to unspecified organism Qualified Code(s): J18.9 - Pneumonia, unspecified organism Code(s): J18.9 - Pneumonia, unspecified organism Status: Acute Assessment and Plan: Patient started on supplemental O2 2L after O2 saturations 88% on RA. CXR showed Likely small left pleural effusion & increasing left basilar atelectasis/consolidation. - DuoNeb q6H and Albuterol q2H PRN. - Continue to monitor O2 saturations. - Continue empiric Levaquin therapy. - Mucinex to help with sputum. - Lasix 20mg daily w/ holding parameters. - Consider CXR tomorrow. (2) Acute and chronic respiratory failure with hypoxia: Code(s): J96.21 - Acute and chronic respiratory failure with hypoxia Status: Acute Assessment and Plan: Patient is on supplemental O2 today (2L) and saturating at 98%. -Continue to monitor and provide supplemental O2 as needed. - Attempt to wean off O2 as able. - Consider repeat CXR tomorrow. (3) Systolic and diastolic CHF, acute on chronic: Code(s): I50.43 - Acute on chronic combined systolic (congestive) and diastolic (congestive) heart failure Status: Acute Assessment and Plan: Patient's CXR showed worsening atelectasis/ consolidation, which I suspect is more from her CHF than infectious etiology. Weight loss of 4 lb today. Telemetry shows normal sinus rhythm. LHCath today without any significant stenosis or intervention. Report is pending. RACHAEL protocols followed. - continue carvedilol 3.25mg with holding parameters. - Restart 20mg furosemide with holding parameters. - continue Vital signs/ Telemetry - I&Os - Daily weights. (4) Acute kidney injury superimposed on CKD: Code(s): N17.9 - Acute kidney failure, unspecified; N18.9 - Chronic kidney disease, unspecified Status: Acute Assessment and Plan: Cr improved today, though she did undergo LHC. -Continue strict I&Os -Discontinue IV fluids. -Continue to trend renal functions. (5) Chronic kidney disease, stage 3: Code(s): N18.30 - Chronic kidney disease, stage 3 unspecified Status: Acute Assessment and Plan: Creatinine has improved again today. Renal US showed left renal cysts. Continue to monitor renal function see acute kidney injury plan noted below. (6) Aortic stenosis: Code(s): I35.0 - Nonrheumatic aortic (valve) stenosis Status: Acute Assessment and Plan: AV area 1.09cm, Peak gradient 10.0mmHg. Moderate aortic stenosis. Patient paces herself when doing activity, does small bits of activity and pauses to rest often. Denies syncopal episodes. Subjective Date/time seen: 06/22/21 12:50 Examined patient at the bedside today with her daughter and granddaughter. She states this is the best she has felt all week. She denies chest pain. She endorses worsening cough, and notes they had to put her on oxygen again last night. She said her heart rate got elevated when doing her walking today in the room. She denies syncope, nausea/ vomiting. She tolerated her cath well. Review of Systems Review of Systems: All systems reviewed & are unremarkable except as noted in HPI and below Exam Narrative: GENERAL APPEARANCE: Alert and oriented x 3, in no apparent distress. Lying recumbant as she is still recovering from her [facility]. HEENT: PERRL, EOMI. Sclerae anicteric. Moist mucous membranes. NECK: Supple. No JVD or obvious carotid bruits. RESPIRATORY: Respirations are nonlabored. Significant rales throughout. Productive cough. CARDIOVASCULAR: Regular rate and rhythm with normal S1-S2. No murmurs, gallops, or rubs. GASTROINTESTINAL: Soft, flat, and benign. No mass, tenderness, guarding, or rebound. No organomegaly or hernia. Bowel sounds are prese
--- NOTE | 2021-06-22 12:58 | WPDMODSED ---
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 Present Complaint: none Procedure to be performed/Plan: Left heart catheterization and selective left and right coronary angiography with left ventriculography and hemodynamics and possible percutaneous intervention and stent implantation Allergies Allergy/AdvReac Type Severity Reaction Status Date / Time meperidine Allergy Intermediate Unknown Verified 05/18/21 13:02 Penicillins Allergy Intermediate Rash Verified 05/18/21 13:02 codeine AdvReac Mild Jittery Verified 05/18/21 13:02 Sulfa (Sulfonamide AdvReac Mild Nausea and Verified 05/18/21 13:02 Antibiotics) Vomiting Contrast Media Allergy Severe Swelling Uncoded 06/17/21 11:51 of Lip/Tongue/Throat Home Medications Medication Instructions Recorded Confirmed Type apple cider vinegar 300 mg tablet 600 mg PO BID 01/28/20 06/15/21 History aspirin 81 mg tablet,delayed 81 mg PO DAILY 01/28/20 06/15/21 History release geriatric [id number]-[id number] 1 tablet PO DAILY 01/28/20 06/15/21 History mometasone-formoterol HFA 200 2 puff INHALATION BID 03/26/20 06/15/21 History mcg-5 mcg/actuation aerosol inhaler metoprolol succinate 25 mg 12.5 mg PO DAILY tablet 03/27/20 06/15/21 History tablet,extended release 24 hr Cinnamon 600 mg PO BID 07/21/20 06/15/21 History Hair,Skin and Nails 6,000 unit PO DAILY 07/21/20 06/15/21 History calcium carbonate [Calcium 600] 600 mg PO DAILY 07/21/20 06/15/21 History cholecalciferol (vitamin D3) 25 mcg PO DAILY 07/21/20 06/15/21 History [Vitamin D3] vitamin A-vitamin C-vit E-min 2 tablet PO DAILY 07/21/20 06/15/21 History [Ocuvite] hydrocortisone 1 % topical cream 1 applic TOPICAL BID PRN #28.35 g 09/23/20 06/15/21 Rx furosemide 20 mg tablet 20 mg PO EVERY OTHER DAY #90 tablet 10/13/20 06/15/21 Rx potassium chloride 10 mEq 10 meq PO EVERY OTHER DAY #90 10/13/20 06/15/21 Rx tablet,extended release tablet ezetimibe 10 mg tablet 10 mg PO DAILY #90 tablet 02/12/21 06/15/21 Rx omeprazole 40 mg capsule,delayed 40 mg PO DAILY #30 cap 03/12/21 06/15/21 Rx release montelukast 10 mg tablet 10 mg PO DAILY #90 tablet 04/03/21 06/15/21 Rx sertraline 50 mg tablet 50 mg PO QAM #90 tablet 04/08/21 06/15/21 Rx sertraline 100 mg tablet 100 mg PO DAILY #90 tablet 04/17/21 06/15/21 Rx fluticasone fur. 200 mcg-umeclid 1 inh INHALATION DAILY #28 ea 05/18/21 06/15/21 Rx 62.5 mcg-vilant 25 mcg inhalat.powder dtvagpdwvjt-xvpqwubbw-lsccpazo 1 inh INHALATION DAILY 06/15/21 06/15/21 History [Trefaisal Velasco] Current Medications: Active Medications Acetaminophen (Acetaminophen 325 Mg Tablet) 650 mg PO Q4H PRN PRN Reason: Breakthrough Pain Last Admin: 06/19/21 00:02 Dose: 650 mg Documented by: Albuterol (Albuterol Sulfate Neb 2.5 Mg/0.5 Ml Inh) 5 mg INHALATION Q4HRT PRN PRN Reason: Shortness Of Breath Or Wheezing Aspirin (Aspirin 81 Mg Enteric Tablet) 81 mg PO DAILY [facility] Last Admin: 06/22/21 09:49 Dose: 81 mg Documented by: Carvedilol (Carvedilol 3.125 Mg Tablet) 3.125 mg PO Q12HR [facility] Last Admin: 06/22/21 09:48 Dose: 3.125 mg Documented by: Diphenhydramine HCl (Diphenhydramine Hcl Cap 25 Mg Capsule) 25 mg PO Q6H PRN PRN Reason: Itching Last Admin: 06/21/21 20:14 Dose: 25 mg Documented by: Fluticasone/Umeclidinium/Vilanterol (Fluticasone/Umeclidin/Vilanter 200-62.5-25 Mcg Ellipta) 1 puff INHALATION DAILYRT [facility] Last Admin: 06/22/21 11:51 Dose: Not Given Documented by: Guaifenesin (Guaifenesin 12 Hr 600 Mg Tabcr) 600 mg PO Q12HR [facility] Last Admin: 06/22/21 09:49 Dose: 600 mg Documented by: Levofloxacin/Dextrose (Levaquin 750 Mg/D5w 150 Ml) 750 mg in 150 mls @ 100 mls/hr IVPB Q48H [facility] Last Infusion: 06/21/21 20:32 Dose: Infused Documented by: Levalbuterol HCl (Levalbuterol Neb 1.25 Mg/0.5 Ml) 1.25 mg INHALATION Q6HRT [facility] Last Admin: 06/22/21 08:42 Dose: 1.25 mg Documented by: Melatonin (Melatonin 5 Mg Tablet)
--- NOTE | 2021-06-22 13:02 | PM.OP ---
Procedure Note - Brief Procedure Note - Brief Date of procedure: 06/22/21 Pre-op diagnosis: Pneumonia new cardiomyopathy, abnormal stress test Post-op diagnosis: Same Procedure performed: Left heart catheterization and selective left and right coronary angiography with left ventriculography and hemodynamics Description of procedure: BRIEF HISTORY OF PRESENT ILLNESS: Patient is a pleasant 85-year-old female with a past medical history significant for cardiomyopathy, aortic stenosis and mitral regurgitation, hypertension, hyperlipidemia, asthma who was admitted with worsening shortness of breath found to have community-acquired pneumonia, echocardiogram June 08, 2021 EF 40% declined from 50% 2020 and mild acute decompensated systolic and diastolic heart failure who underwent noninvasive ischemic evaluation which revealed an EF of 40% and mild apical lateral ischemia referred for coronary angiography for delineation of her coronary anatomy. Patient was pretreated with prednisone 50 mg last night and earlier today for history of contrast allergy. PROCEDURES PERFORMED: 1. Left heart catheterization 2. Selective left and right coronary angiography 3. Left ventricular hemodynamics 4. Selective Right femoral angiography 5. Moderate/conscious sedation administration CATHETERS UTILIZED: Left coronary system- 5 [place] JL4 catheter Right coronary system- 5 [place] JR4 catheter Left ventriculography and hemodynamics- 5 [place] angled pigtail catheter PROCEDURE IN DETAIL: After verbal and written informed consent was obtained the patient, risks, benefits, and alternatives explained in detail the patient agreed to proceed with the plan of care as outlined above. The patient was subsequently brought to the cardiac catheterization lab, placed on the cardiac catheterization table, and prepped and draped in the usual sterile fashion. Utilizing approximately 18cc of 1% subcutaneous Lidocaine, the right groin was then locally anesthetized. Utilizing the modified Seldinger technique, a 5 [place] arterial vascular access sheath was inserted in the right common femoral artery easily and without complications. Through this access, coronary angiography was subsequently obtained in multiple standard re-projections. Following this, a 5 [place] angled pigtail catheter was advanced retrograde across aortic valve into the cavity of the left ventricle. Left ventriculography was performed and pullback across aortic valve was subsequently recorded. The vascular access sheath and angiographic catheters were flushed before and after catheter exchanges. At the conclusion of the diagnostic portion of the procedure, all angiographic guidewires and catheters were removed and the 5 [place] arterial vascular access sheath was then pulled and satisfactory hemostasis was achieved using manual compression. There no complications noted at the conclusion of the diagnostic portion of the study. MODERATE SEDATION/ANESTHESIA ADMINISTRATION: Patient reports no prior problems with sedation/anesthesia. Please see pre-sedation noted for physical examination documentation. Sedation start time was 1328 and end time was 1357 for a total intra-service/procedure face-face time of 29 minutes. A total of 2 mg intravenous Versed and a total of 50 mcg intravenous Fentanyl in multiple divided doses was administered for moderate sedation. In in addition to patient's pre treatment regimen which included prednisone she received 50 mg intravenous Benadryl dental laboratory technician. Moderate sedation was administered by qualified/certified observer Alvarez Hensley RN under my supervision with intra-procedure [id number] observation and management throughout the entirety of the procedure. There were no other issues or complications and patient tolerated the procedure well. See post-anesthesia documentation. Anesthesia: local and other (moderate/conscious sedatoin) Surgeon: Claudio Ashley MD Estimated blood loss (mL): 10 Drains:
--- NOTE | 2021-06-22 14:02 | PCNWS ---
Weekly nutritional screen. Patient screened in for 7 day length of stay. Patient is tolerating current diet with adequate intake. No nutritional needs at this time. No nutritional interventions at this time. Agree with diet orders at this time. Will follow up in 7 days if pt has not been discharged.
--- NOTE | 2021-06-22 15:31 | SUR.PHASEII ---
report called to phil franklin rn at 1500.
[2021-06-22] MEDS: SODIUM CHLORIDE 0.9% IV 1,000 ML 150 ML IV CONT (15:53)
[2021-06-23] VITALS (27 sets, daily range): BP systolic 99–135; BP diastolic 36–77; PULSE 59–119; RESP 12–16; TEMP 36.2–36.6; O2SAT 94–100
[2021-06-23] MEDS: diphenhydrAMINE HCl CAP 25 MG CAPSULE PO (00:07)
[2021-06-23] MEDS: MELATONIN 5 MG TABLET PO ×2 (00:07→22:22)
[2021-06-23 05:10] LABS: Basophils Percent Auto 0.2 % (0.2-1.2); Eosinophils Percent Auto 0.1 % (0-4.4); Hematocrit 29.7 % (37.0-47.0); Hemoglobin 8.7 g/dL (12.0-15.0); Immature Granulocyte Absolute 0.12 K/mm3 (0.00-0.031); Immature Granulocyte Percent A 1.4 % (0-0.5); Lymphocytes Absolute Auto 1.12 K/mm3 (0.9-3.2); Lymphocytes Percent Auto 13.2 % (18.3-44.2); Mean Corpuscular HGB Conc 29.3 g/dl (32-36); Mean Corpuscular Volume 88.7 fl (80-100); Mean Platelet Volume 10.2 fl (7.4-10.4); Monocytes Absolute Auto 0.5 K/mm3 (0.1-0.6); Monocytes Percent Auto 5.5 % (2.6-8.5); Neutrophils Absolute Auto 6.8 K/mm3 (1.3-6.7); Neutrophils Percent Auto 79.6 % (45.5-73.1); Platelet Count Result 224 k/mm3 (150-375); Red Blood Count 3.35 M/mm3 (4.2-5.4); Red Cell Distribution Width 16.3 % (11.5-14.5); White Blood Count 8.5 K/mm3 (4.5-10.0)
[2021-06-23 05:20] LABS: Alanine Aminotransferase 46 U/L (4-35); Albumin Level 3.1 g/dL (3.5-5.1); Alkaline Phosphatase 88 U/L (38-126); Anion Gap 3 mmol/L (8-16); Aspartate Amino Transferase 44 U/L (14-36); Bilirubin,Total 0.2 mg/dL (0.2-1.3); Blood Urea Nitrogen 43 mg/dL (7-17); Calcium 8.8 mg/dL (8.4-10.2); Carbon Dioxide 26 mmol/L (22-30); Chloride 107 mmol/L (98-107); Estimated Glomerular Filt Rate 47; Glucose 108 mg/dL (65-110); Potassium 4.6 mmol/L (3.4-5.0); Sodium 136 mmol/L (137-145)
[2021-06-23] MEDS: FLUTICASONE/UMECLIDIN/VILANTER 200-62.5-25 MCG ELLIPTA 1 PUFF INHALATION (07:46)
[2021-06-23] MEDS: POLYSACCHARIDE IRON COMPLEX 150 MG CAPSULE PO (08:00)
[2021-06-23] MEDS: ASPIRIN 81 MG ENTERIC TABLET PO (08:32)
[2021-06-23] MEDS: carvediloL 3.125 MG TABLET PO ×2 (08:33→20:22)
[2021-06-23] MEDS: MONTELUKAST SODIUM 10 MG TABLET PO (08:34)
[2021-06-23] MEDS: PANTOPRAZOLE 40 MG TABLET PO (08:34)
[2021-06-23] MEDS: SERTRALINE HCL 50 MG TABLET 150 MG PO (08:35)
[2021-06-23] MEDS: guaiFENesin 12 HR 600 MG TABCR PO ×2 (08:36→20:22)
--- NOTE | 2021-06-23 10:21 | PM.PNCARD ---
Progress Note: A&P Assessment and Plan (1) Systolic and diastolic CHF, acute on chronic: Code(s): I50.43 - Acute on chronic combined systolic (congestive) and diastolic (congestive) heart failure Status: Acute Assessment and Plan: Echocardiogram 06/08/2021 showing moderate LV systolic dysfunction, EF 40% grade 1 diastolic noncompliance. Continue furosemide 40mg p.o. daily Continue carvedilol. Low sodium diet Daily weights Daily BMP Optimization of GDMT when able depending on BP, renal function. I would add low-dose ARB as renal function permits for supportive cardiomyopathy. Monitor BP closely. Outpatient BMP in 1 week after discharge. (2) CAD (coronary artery disease): Qualifiers: Coronary Disease-Associated Artery/Lesion type: [place] artery [place] vs. transplanted heart: [place] heart Associated angina: without angina Qualified Code(s): I25.10 - Atherosclerotic heart disease of [place] coronary artery without angina pectoris Code(s): I25.10 - Atherosclerotic heart disease of [place] coronary artery without angina pectoris Status: Acute Assessment and Plan: New diagnosis on left heart catheterization mild nonobstructive disease in circumflex and diagonal branch. LV dysfunction out of proportion to CAD. Optimize medical therapy. Continue aspirin 81 mg daily. Add rosuvastatin 10 mg daily, goal LDL less than 70. LDL May 2021 118. Counseled on side effects, risks and benefits. Patient in agreement. (3) Pneumonia: Qualifiers: Laterality: bilateral Lung location: lower lobe of lung Pneumonia type: due to unspecified organism Qualified Code(s): J18.9 - Pneumonia, unspecified organism Code(s): J18.9 - Pneumonia, unspecified organism Status: Acute Assessment and Plan: Being treated with antibiotics. Management per hospitalist. (4) Acute and chronic respiratory failure with hypoxia: Code(s): J96.21 - Acute and chronic respiratory failure with hypoxia Status: Acute Assessment and Plan: Secondary to pneumonia, mild CHF exacerbation. Improved. Saturating well on RA. (5) Aortic stenosis: Qualifiers: Cardiac valve disease etiology: nonrheumatic Qualified Code(s): I35.0 - Nonrheumatic aortic (valve) stenosis Code(s): I35.0 - Nonrheumatic aortic (valve) stenosis Status: Acute Assessment and Plan: Moderate by noninvasive evaluation, but by cardiac catheterization no evidence for hemodynamically significant aortic stenosis. (6) Hypokalemia: Code(s): E87.6 - Hypokalemia Status: Acute Assessment and Plan: Stable. Reduce potassium chloride to 10 mEq daily, Lasix 20 mg daily. May be able to discontinue potassium if ARB added. (7) Chest pain: Qualifiers: Chest pain type: other chest pain Qualified Code(s): R07.89 - Other chest pain Code(s): R07.9 - Chest pain, unspecified Status: Acute Assessment and Plan: Atypical. Nonobstructive CAD on left heart catheterization. Subjective Date/time seen: Date of service: 06/23/21 10:21 Interval history: 85-year-old seen in follow-up for CHF, cardiomyopathy, abnormal stress test, pneumonia. Date of service 06/17/2021: No chest pain. Shortness breath is better. Had sharp poking sensation earlier today while sitting in the chair which has since resolved Date of service 06/18/2021: Feeling better today. She is complaining of a sharp, stabbing pain on her left chest that happened when she leaned forward in the chair. Resolved quickly with change in position. Denies any other chest pain. No other complaints. Date of service 06/19/2021: Still complaining of productive cough and some shortness of breath. Otherwise feels pretty good. No chest pain or palpitations. Date of service 06/20/2021: Resting comfortably in bed. No chest pain or shortness of breath Date of service 06/21/2021: Has some lef
[2021-06-23] MEDS: ROSUVASTATIN 10 MG TABLET PO (10:48)
[2021-06-23] MEDS: FUROSEMIDE 20 MG TABLET PO (10:50)
[2021-06-23 12:30] LABS: Hemoglobin 10.1 g/dL (12.0-15.0)
--- NOTE | 2021-06-23 13:03 | PCOTNOTE ---
Attempted to see patient this PM again, patient refused activity out of bed. Will continue plan of care tomorrow for OT.
--- NOTE | 2021-06-23 13:47 | PM.IMPN ---
Progress Note: A&P Assessment and Plan (1) Pneumonia: Qualifiers: Laterality: bilateral Lung location: lower lobe of lung Pneumonia type: due to unspecified organism Qualified Code(s): J18.9 - Pneumonia, unspecified organism Code(s): J18.9 - Pneumonia, unspecified organism Status: Acute Assessment and Plan: Patient hypoxic on RA. CXR showed likely small left pleural effusion & increasing left basilar atelectasis/consolidation. CTA chest showing bilateral airspace opacities, worst in the lower lobes, consistent with pneumonia. She was started on Levaquin and has completed 9 day course. Weaned to room air. Change Xopenex to p.r.n. Discontinue Levaquin (2) Acute and chronic respiratory failure with hypoxia: Code(s): J96.21 - Acute and chronic respiratory failure with hypoxia Status: Acute Assessment and Plan: Patient was on supplemental O2 but able to be weaned off. [place] multifactorial from CHF and PNA. Apnea link showing AHI 4.6 and RI 5.1. Did spend 25 minutes with SpO2<88% but JENY only mildly elevated. -Continue to monitor and provide supplemental O2 as needed. (3) Systolic and diastolic CHF, acute on chronic: Code(s): I50.43 - Acute on chronic combined systolic (congestive) and diastolic (congestive) heart failure Status: Acute Assessment and Plan: Patient's CXR showed worsening atelectasis/consolidation. [facility] 06/22 showing mild nonobstructive CAD with 40-50% ostial nondominant circumflex stenosis and 40-50% proximal diagonal branch stenosis. Continue carvedilol, cozaar. Lasix resumed at 20mg daily (she takes 20mg QOD at home). Follow (4) Acute kidney injury superimposed on CKD: Code(s): N17.9 - Acute kidney failure, unspecified; N18.9 - Chronic kidney disease, unspecified Status: Acute Assessment and Plan: Cr improved today to 1.1. Continue to trend renal functions. (5) Chronic kidney disease, stage 3: Code(s): N18.30 - Chronic kidney disease, stage 3 unspecified Status: Acute Assessment and Plan: Creatinine was 1.1-1.3 prioor to admission. Renal US showed left renal cysts. Continue to monitor renal function. As above (6) Aortic stenosis: Qualifiers: Cardiac valve disease etiology: nonrheumatic Qualified Code(s): I35.0 - Nonrheumatic aortic (valve) stenosis Code(s): I35.0 - Nonrheumatic aortic (valve) stenosis Status: Acute Assessment and Plan: AV area 1.09cm, Peak gradient 10.0mmHg. Echo consistent with Moderate aortic stenosis. Denies syncopal episodes. Follow up with Cardiology for continued monitoring. Subjective Date/time seen: 06/23/21 13:47 Interval history: 85yo female with CMP, breast cancer and PSVT here for SOB. Resuming care. Chart reviewed. Patient slept poorly due to noise. She is irritated today. She denies any chest pain or shortness of breath. She is walking the room with a walker with therapy. She eating well. She denies any nausea or vomiting. Exam Narrative: AF 97.5 121/40 71 16 100% RA Gen - NARD sitting up in bed Chest - CTA bilaterally, nml RR CV - RRR S1/S2. Tele showing no significant dysrhythmias Abd - Soft, NT/ND, Positive BS Ext - Nonpitting edema Psych - Nml mood and affect Skin - Warm and dry Objective Data Vital Signs Vital Signs: Vital Signs - 24 hr 06/22/21 14:10 06/22/21 14:18 06/22/21 14:57 Temperature Pulse Rate 79 78 75 Respiratory Rate 17 19 20 Blood Pressure 122/82 119/67 120/77 Pulse Oximetry 99 98 99 06/22/21 15:00 06/22/21 15:15 06/22/21 15:30 Temperature Pulse Rate 70 71 70 Respiratory Rate 21 H 14 16 Blood Pressure 121/81 125/62 124/78 Pulse Oximetry 100 98 100 06/22/21 16:00 06/22/21 16:30 06/22/21 17:30 Temperature 97.6 F 97.8 F Pulse Rate 63 77 74 Respiratory Rate 20 22 H 20 Blood Pressure 95/73 L 126/67 111/53 L Pulse Oximetry 100 96 98 06/22/21 18:00 06/22/21
[2021-06-23] MEDS: rOPINIRole HCL 0.5 MG TABLET PO (22:22)
[2021-06-24] VITALS (11 sets, daily range): BP systolic 119–134; BP diastolic 67–83; PULSE 66–115; RESP 16; TEMP 36.2; O2SAT 96–98
[2021-06-24 04:36] LABS: Hematocrit 30.3 % (37.0-47.0); Hemoglobin 9.1 g/dL (12.0-15.0); Mean Corpuscular Hemoglobin 25.9 pg (26-34); Mean Corpuscular Volume 86.1 fl (80-100); Mean Platelet Volume 10.2 fl (7.4-10.4); Platelet Count Result 226 k/mm3 (150-375); Red Blood Count 3.52 M/mm3 (4.2-5.4); Red Cell Distribution Width 16.6 % (11.5-14.5); White Blood Count 6.9 K/mm3 (4.5-10.0)
[2021-06-24 04:42] LABS: Anion Gap 6 mmol/L (8-16); Blood Urea Nitrogen 50 mg/dL (7-17); Calcium 8.3 mg/dL (8.4-10.2); Carbon Dioxide 24 mmol/L (22-30); Chloride 107 mmol/L (98-107); Estimated Glomerular Filt Rate 39; Glucose 98 mg/dL (65-110); Magnesium 2.1 mg/dL (1.6-2.3); Potassium 4.4 mmol/L (3.4-5.0); Sodium 137 mmol/L (137-145)
[2021-06-24] MEDS: SERTRALINE HCL 50 MG TABLET 150 MG PO (07:39)
[2021-06-24] MEDS: guaiFENesin 12 HR 600 MG TABCR PO (07:40)
[2021-06-24] MEDS: carvediloL 3.125 MG TABLET PO (07:40)
[2021-06-24] MEDS: MONTELUKAST SODIUM 10 MG TABLET PO (07:40)
[2021-06-24] MEDS: POTASSIUM CHLORIDE 10 MEQ TABLET.ER PO (07:40)
[2021-06-24] MEDS: POLYSACCHARIDE IRON COMPLEX 150 MG CAPSULE PO (07:41)
[2021-06-24] MEDS: LOSARTAN POTASSIUM 12.5 MG TABLET PO (07:41)
[2021-06-24] MEDS: PANTOPRAZOLE 40 MG TABLET PO (07:41)
[2021-06-24] MEDS: FUROSEMIDE 20 MG TABLET PO (07:41)
[2021-06-24] MEDS: ASPIRIN 81 MG ENTERIC TABLET PO (07:41)
[2021-06-24] MEDS: ROSUVASTATIN 10 MG TABLET PO (07:42)
[2021-06-24] MEDS: FLUTICASONE/UMECLIDIN/VILANTER 200-62.5-25 MCG ELLIPTA 1 PUFF INHALATION (09:23)
--- NOTE | 2021-06-24 09:42 | PCPTNOTE ---
Patient refused treatment this session due to wanting to rest at this time. Patient reported she didn't get much sleep last night and would like PT to check back later.
--- NOTE | 2021-06-24 12:05 | PM.PNCARD ---
Progress Note: A&P Assessment and Plan (1) Systolic and diastolic CHF, acute on chronic: Code(s): I50.43 - Acute on chronic combined systolic (congestive) and diastolic (congestive) heart failure Status: Acute Assessment and Plan: Echocardiogram 06/08/2021 showing moderate LV systolic dysfunction, EF 40% grade 1 diastolic noncompliance. Continue furosemide 20mg p.o. daily Continue carvedilol. Low sodium diet Daily weights Daily BMP Optimization of GDMT when able depending on BP, renal function. Stable, tolerating medications. Continue losartan 12.5 mg daily. Outpatient BMP in 1 week after discharge. Stable for discharge from cardiac perspective. Outpatient follow-up within 2 weeks. (2) CAD (coronary artery disease): Qualifiers: Associated angina: without angina Coronary Disease-Associated Artery/Lesion type: [place] artery [place] vs. transplanted heart: [place] heart Qualified Code(s): I25.10 - Atherosclerotic heart disease of [place] coronary artery without angina pectoris Code(s): I25.10 - Atherosclerotic heart disease of [place] coronary artery without angina pectoris Status: Acute Assessment and Plan: New diagnosis on left heart catheterization mild nonobstructive disease in circumflex and diagonal branch. LV dysfunction out of proportion to CAD. Optimize medical therapy. Continue aspirin 81 mg daily. Add rosuvastatin 10 mg daily, goal LDL less than 70. LDL May 2021 118. Counseled on side effects, risks and benefits. Patient in agreement. (3) Pneumonia: Qualifiers: Laterality: bilateral Lung location: lower lobe of lung Pneumonia type: due to unspecified organism Qualified Code(s): J18.9 - Pneumonia, unspecified organism Code(s): J18.9 - Pneumonia, unspecified organism Status: Acute Assessment and Plan: Being treated with antibiotics. Management per hospitalist. (4) Acute and chronic respiratory failure with hypoxia: Code(s): J96.21 - Acute and chronic respiratory failure with hypoxia Status: Acute Assessment and Plan: Secondary to pneumonia, mild CHF exacerbation. Improved. Saturating well on RA. (5) Aortic stenosis: Qualifiers: Cardiac valve disease etiology: nonrheumatic Qualified Code(s): I35.0 - Nonrheumatic aortic (valve) stenosis Code(s): I35.0 - Nonrheumatic aortic (valve) stenosis Status: Acute Assessment and Plan: Moderate by noninvasive evaluation, but by cardiac catheterization no evidence for hemodynamically significant aortic stenosis. (6) Hypokalemia: Code(s): E87.6 - Hypokalemia Status: Acute Assessment and Plan: Stable. Reduce potassium chloride to 10 mEq daily, Lasix 20 mg daily. May be able to discontinue potassium if ARB added. (7) Chest pain: Qualifiers: Chest pain type: other chest pain Qualified Code(s): R07.89 - Other chest pain Code(s): R07.9 - Chest pain, unspecified Status: Acute Assessment and Plan: Atypical. Nonobstructive CAD on left heart catheterization. Subjective Date/time seen: Date of service: 06/24/21 12:05 Interval history: 85-year-old seen in follow-up for CHF, cardiomyopathy, abnormal stress test, pneumonia. Date of service 06/17/2021: No chest pain. Shortness breath is better. Had sharp poking sensation earlier today while sitting in the chair which has since resolved Date of service 06/18/2021: Feeling better today. She is complaining of a sharp, stabbing pain on her left chest that happened when she leaned forward in the chair. Resolved quickly with change in position. Denies any other chest pain. No other complaints. Date of service 06/19/2021: Still complaining of productive cough and some shortness of breath. Otherwise feels pretty good. No chest pain or palpitations. Date of service 06/20/2021: Resting comfortably in bed. No chest pain or shortness of
--- NOTE | 2021-06-24 12:07 | PM.DS ---
DS: Admitting Diagnosis Discharge Date 06/24/21 Admitting Diagnosis Shortness of breath DS: Discharge Diagnosis Discharge Diagnosis (1) Pneumonia: Qualifiers: Laterality: bilateral Lung location: lower lobe of lung Pneumonia type: due to unspecified organism Qualified Code(s): J18.9 - Pneumonia, unspecified organism Code(s): J18.9 - Pneumonia, unspecified organism Status: Acute Assessment and Plan: Patient was hypoxic on RA on admission. CXR showed likely small left pleural effusion & increasing left basilar atelectasis/consolidation. CTA chest showing bilateral airspace opacities, worst in the lower lobes, consistent with pneumonia. She was started on Levaquin and has completed a 9 day course. Cultures as mentioned below. She was weaned to room air. Resolved. Will repeat CXR in 1 month to ensure clearance. (2) Bacteremia: Code(s): R78.81 - Bacteremia Status: Acute Assessment and Plan: Blood cultures on admission grew Staph epidermidis in anaerobic bottle only and Staph hominis from anaerobic bottle only. Antibiotics were adjusted initially and blood cultures were repeated. But when final results were known and repeat blood cultures remain negative, antibiotics were adjusted just to complete treatment for pneumonia. Overall felt the initial blood culture results were contaminant and not true infection. Sputum culture was negative. Urine culture was negative. (3) Hypoxia: Code(s): R09.02 - Hypoxemia Status: Acute Assessment and Plan: Patient's SpO2 was in the 80s in the emergency department, requiring supplemental oxygen. Patient does not wear oxygen at baseline. Patient did not appear to be in respiratory distress on admission, just hypoxic. acute and chronic resp failure ruled out (4) Chest pain: Qualifiers: Chest pain type: other chest pain Qualified Code(s): R07.89 - Other chest pain Code(s): R07.9 - Chest pain, unspecified Status: Acute Assessment and Plan: Patient was complaining of occasional episodes of sharp, stabbing left sided chest pain. Troponin essentially negative. EKG showing tachycardia to 131 with sinus tach vs atypical flutter. Repeat EKG showed sinus tachycardia with nonspecific ST and T wave changes. There was plans for an outpatient stress test due to recent complaints of worsening dyspnea and mild reduction in her EF from previous echo (50% in 2020 to 40% June 2021). Lexiscan stress test performed here showing small area of mild ischemia involving apical lateral segment of left ventricle. [facility] recommended. LHCat 06/22 showing mild nonobstructive CAD with 40-50% ostial nondominant circumflex stenosis and 40-50% proximal diagonal branch stenosis. Medications adjusted. LFTs were mildly elevated but did trend down. We continued ASA, carvedilol and crestor. (5) Systolic and diastolic CHF, acute on chronic: Code(s): I50.43 - Acute on chronic combined systolic (congestive) and diastolic (congestive) heart failure Status: Acute Assessment and Plan: Patient's CXR showed worsening atelectasis/consolidation. Echo from 06/08/21 result reviewed showing EF 39% with Grade I diastolic dysfunction. BNP 18907. She was treated with Lasix IV as tolerated. We continued carvedilol and Cozaar added. She was weaned to room air and exam improved. Cumulative fluid balance was negative 4.45L. She was transitioned to oral Lasix at 20mg daily (she takes 20mg QOD at home). Discussed with Cardiology. (6) Acute kidney injury superimposed on CKD: Code(s): N17.9 - Acute kidney failure, unspecified; N18.9 - Chronic kidney disease, unspecified Status: Acute Assessment and Plan: Cr was 1.7 on admission and this improved back to her baseline values. BUN range was 30-50. Hgb mostly in the 9 range and stable. For the anemia, iron studies consistent with anemia of chronic disease. Continue to trend r
[2021-06-24 14:04] LABS: EDCOVIDSCREEN Negative (Negative)
--- NOTE | 2021-06-24 14:50 | PC.NURSE ---
1435-discharge instructions given to patient and friend. Questions answered. discharge packet for [facility] with pt upon discharge.
--- NOTE | 2021-06-24 15:08 | PC.NURSE ---
1508-pt discharged via wheelchair with family friend. discharge Information given to pt for [place]. pt belongings with pt during discharge
== END 2021-06-24 15:08 | DRG 871 ==
LOC: ANHED 11:10 → ANHIMU 11:22
PROVIDERS: Internal Medicine Cardiovascular Disease; Nurse Practitioner; Nurse Practitioner Family; Student in an Organized Health Care Education/Training Program; Admitting Provider Internal Medicine; Emergency Provider Emergency Medicine; PCP Internal Medicine; Visit Provider Internal Medicine
PROC: 4A023N7 Measurement of Cardiac Sampling and Pressure, Left Heart, Percutaneous Approach (ICD-10-PCS; CPT 93452; principal; 2021-06-22 13:00)
DX: A41.9 Sepsis, unspecified organism (principal); J18.9 Pneumonia, unspecified organism; I50.43 Acute on chronic combined systolic (congestive) and diastolic (congestive) heart failure; J96.21 Acute and chronic respiratory failure with hypoxia; N17.9 Acute kidney failure, unspecified; I42.9 Cardiomyopathy, unspecified; N18.30 Chronic kidney disease, stage 3 unspecified; E66.9 Obesity, unspecified; Z82.49 Family history of ischemic heart disease and other diseases of the circulatory system; Z83.6 Family history of other diseases of the respiratory system; Z85.3 Personal history of malignant neoplasm of breast; J45.909 Unspecified asthma, uncomplicated; Z79.899 Other long term (current) drug therapy; Z79.82 Long term (current) use of aspirin; I35.0 Nonrheumatic aortic (valve) stenosis; R41.0 Disorientation, unspecified; E87.6 Hypokalemia; I25.10 Atherosclerotic heart disease of native coronary artery without angina pectoris; R07.89 Other chest pain
CPT/HCPCS: 36415; 36600; 71045; 71046; 71275; 73620; 76775; 78452; 80048; 80053; 81001; 82375; 82746; 82805; 82948; 83050; 83540; 83550; 83735; 83880; 84100; 84443; 84484; 85014; 85018; 85025; 85027; 85380; 85610; 85730; 87040; 87070; 87077; 87086; 87186; 87205; 87426; 87449; 93005; 93017; 93458; 94640; 94762; 97110; 97162; 97165; 97530; 97535; 99285; A9270; A9502; C1887; C1894; C9803; J0456; J0696; J1200; J1644; J1940; J1956; J2250; J2785; J3010; J3370; J7030; J7040; J7512; Q9967

== ENCOUNTER 2021-07-14 09:55 | Outpatient (CLI) | payer OTHER, SELFPAY ==
[2021-07-14 10:40] LABS: Anion Gap 10 mmol/L (8-16); Blood Urea Nitrogen 45 mg/dL (7-17); Calcium 9.5 mg/dL (8.4-10.2); Carbon Dioxide 22 mmol/L (22-30); Chloride 106 mmol/L (98-107); Estimated Glomerular Filt Rate 47; Glucose 113 mg/dL (65-110); Potassium 4.4 mmol/L (3.4-5.0); Sodium 138 mmol/L (137-145)
== END 2021-07-14 09:56 | disposition home or self-care (01) ==
PROVIDERS: PCP Internal Medicine; Visit Provider Nurse Practitioner Adult Health
DX: I42.8 Other cardiomyopathies (principal)
CPT/HCPCS: 36415; 80048

== ENCOUNTER 2021-10-04 07:27 | Emergency (ER) | payer OTHER, SELFPAY ==
[2021-10-04] VITALS (21 sets, daily range): BP systolic 99–155; BP diastolic 54–103; PULSE 73–95; RESP 12–27; TEMP 36.6; O2SAT 95–100
--- NOTE | ~2021-10-04 | CT_ITS ---
EXAMINATION: CT abdomen pelvis wo con DATE: 10/04/2021 08:25 INDICATION: Abdominal pain TECHNIQUE: Computed tomography (CT) of the abdomen and pelvis was performed without intravenous contr ast. Automated exposure control and iterative reconstruction technique were employed. The dose-length product was 792.42 mGy-cm. COMPARISON: 11/03/2018 FINDINGS: Calcified right lower lobe nodule consistent with old granulomatous disease. Mild discoid atelectasis in the bilateral lower lung zones. Heart size is normal. Small amount of atherosclerotic coronary ar miguel calcific lesion. No pericardial or pleural effusion. Left breast implant likely postmastectomy. Small sliding-type hiatal hernia. 1.5 cm hepatic cyst. The common bile duct is dilated to 12 mm with mild intrahepatic biliary ductal d ilation. Gallbladder is not visualized and likely surgically absent. Pancreas, spleen, bilateral adre nal glands and right kidney are normal. A few left renal cysts the largest measuring 2.6 cm. Prominen t diverticulosis with sigmoid predominance there is focal wall thickening along the mid sigmoid colon with inflammatory stranding surrounding a diverticulum consistent with acute diverticulitis. No absc ess or free intraperitoneal gas or fluid. Small bowel and appendix are normal. Bladder is normal. The uterus is not identified and has likely been surgically resected. No free intraperitoneal gas or flu id. No pathologically enlarged abdominal or pelvic lymphadenopathy. Severe lumbar and lower thoracic spondylosis. IMPRESSION: 1. Radiographically uncomplicated sigmoid diverticulitis. 2. Mild intra and extra hepatic biliary ductal dilation likely related to prior cholecystectomy but w ould correlate with liver function tests. Reviewed, dictated and finalized at location A. IMPRESSION: 1. Radiographically uncomplicated sigmoid diverticulitis. 2. Mild intra and extra hepatic biliary ductal dilation likely related to prior cholecystectomy but would correlate with liver function tests.
--- NOTE | 2021-10-04 07:37 | ED.GENADULT ---
HPI - General Adult General Chief complaint: Abdominal Pain Stated complaint: LOWER ABD PAIN AND PAIN WITH URINATION Time Seen by Provider: 10/04/21 07:27 Source: RN notes reviewed History of Present Illness HPI narrative: Patient presents emergency department from home via EMS for abdominal pain. Patient states that symptoms began yesterday afternoon when she was shopping at [employer] she had an episode of watery diarrhea states she began to have lower abdominal pain at that time that is continued the pain is located in the bilateral lower abdomen worse on the right and described as aching in nature states she also had gone to the restroom in the middle of the night and had increased pain she denies any fever chills chest pain shortness of breath nausea vomiting or any other symptoms states she is not take anything for the pain Related Data Home Medications Medication Instructions Recorded Confirmed apple cider vinegar 300 mg tablet 600 mg PO BID 01/28/20 08/06/21 aspirin 81 mg tablet,delayed 81 mg PO DAILY 01/28/20 08/06/21 release geriatric [id number] 1 tablet PO DAILY 01/28/20 08/06/21 Cinnamon 600 mg PO BID 07/21/20 08/06/21 Hair,Skin and Nails 6,000 unit PO DAILY 07/21/20 08/06/21 calcium carbonate 600 mg calcium 600 mg PO DAILY 07/21/20 08/06/21 (1,500 mg) tablet (Calcium) cholecalciferol (vitamin D3) 25 25 mcg PO DAILY 07/21/20 08/06/21 mcg (1,000 unit) tablet (Vitamin D3) vitamin A-vitamin C-vit E-min 2 tablet PO DAILY 07/21/20 08/06/21 tablet Allergies Allergy/AdvReac Type Severity Reaction Status Date / Time Iodinated Contrast Media Allergy Severe Swelling Verified 10/04/21 07:29 of Lip/Tongue/Throat meperidine Allergy Intermediate Unknown Verified 10/04/21 07:29 Penicillins Allergy Intermediate Rash Verified 10/04/21 07:29 codeine AdvReac Mild Jittery Verified 10/04/21 07:29 Sulfa (Sulfonamide AdvReac Mild Nausea and Verified 10/04/21 07:29 Antibiotics) Vomiting Contrast Media Allergy Severe Swelling Uncoded 10/04/21 07:29 of Lip/Tongue/Throat Review of Systems Review of Systems: Gen.: Denies fevers or chills ENT: Denies congestion Respiratory: Denies shortness of breath or cough CV: Denies chest pain or palpitations GI: See HPI reports dysuria Musculoskeletal: Denies back pain or muscle pain Neuro: Denies numbness, tingling, weakness or focal weakness Skin: Denies rash Except as documented, all other systems reviewed and negative PMFSH Past Medical History Medical History Adenomatous colon polyp Arthritis Asthma Chronic diarrhea Hearing loss History of colon polyps History of left breast cancer Hx of breast cancer Obese Other and unspecified hyperlipidemia Shoulder dislocation Vision loss Surgical History Surgical History History of appendectomy History of bilateral knee replacement History of cholecystectomy History of hysterectomy History of left mastectomy History of reduction surgery of right breast History of surgical removal of ganglion cyst Family History Family History Mother Rectal cancer Father Heart disease Emphysema lung Sibling COPD (chronic obstructive pulmonary disease) Social History Social History Smoking status: Never smoker Second hand tobacco smoke exposure: No Alcohol intake: never Substance use: never Substance use type: does not use Gender identity (if verbalized by the patient): Female Spiritual care concerns: No Exam Narrative: APPEARANCE: No acute distress, nontoxic, resting in bed HEENT: Normocephalic, atraumatic, OMM RESPIRATORY: No respiratory distress, clear to auscultation bilaterally with no rhonchi wheezing or rales CARDIOVASCULAR: RRR
[2021-10-04 07:55] LABS: Basophils Absolute Auto 0.1 K/mm3 (0.0-0.1); Basophils Percent Auto 0.5 % (0.2-1.2); Eosinophils Absolute Auto 0.1 K/mm3 (0-0.3); Eosinophils Percent Auto 1.4 % (0-4.4); Hemoglobin 10.9 g/dL (12.0-15.0); Immature Granulocyte Absolute 0.04 K/mm3 (0.00-0.031); Immature Granulocyte Percent A 0.4 % (0-0.5); Lymphocytes Absolute Auto 1.61 K/mm3 (0.9-3.2); Lymphocytes Percent Auto 16.3 % (18.3-44.2); Mean Corpuscular HGB Conc 30.3 g/dl (32-36); Mean Corpuscular Hemoglobin 27.5 pg (26-34); Mean Corpuscular Volume 90.7 fl (80-100); Mean Platelet Volume 11.1 fl (7.4-10.4); Monocytes Absolute Auto 0.8 K/mm3 (0.1-0.6); Monocytes Percent Auto 8.4 % (2.6-8.5); Neutrophils Absolute Auto 7.2 K/mm3 (1.3-6.7); Platelet Count Result 149 k/mm3 (150-375); Red Blood Count 3.97 M/mm3 (4.2-5.4); Red Cell Distribution Width 16.1 % (11.5-14.5); White Blood Count 9.9 K/mm3 (4.5-10.0)
[2021-10-04 08:04] LABS: Alanine Aminotransferase 17 U/L (6-35); Albumin Level 4.7 g/dL (3.5-5.1); Alkaline Phosphatase 93 U/L (38-126); Anion Gap 7 mmol/L (8-16); Aspartate Amino Transferase 26 U/L (14-36); Bilirubin,Total 0.5 mg/dL (0.2-1.3); Blood Urea Nitrogen 36 mg/dL (7-17); Calcium 9.2 mg/dL (8.4-10.2); Carbon Dioxide 28 mmol/L (22-30); Chloride 108 mmol/L (98-107); Estimated Glomerular Filt Rate 43; Glucose 102 mg/dL (65-110); Lipase 64 U/L (23-300); Potassium 5.2 mmol/L (3.4-5.0); Sodium 143 mmol/L (137-145)
[2021-10-04 08:42] LABS: Appearance Urine Clear (Clear); Bilirubin Urine Negative (Negative); Blood Urine 1+ (Negative); Glucose Urine UA Negative (Negative); Ketones Urine Negative (Negative); Leukocyte Esterase Ur Negative LEU/UL (Negative); Nitrate Urine Negative (Negative); Protein Urine Negative (Negative); Urobilinogen Urine 0.2 mg/dL (<2.0); pH Urine 5.5 (5.0-9.0)
[2021-10-04 08:54] LABS: Add Urine Microscopic? YES; Bacteria Urine Trace /hpf; Color Urine Light Yellow (Yellow); Mucus Urine Rare /lpf; RBC Urine 0-2 /hpf (0-2)
[2021-10-04] MEDS: metroNIDAZOLE 250 MG TABLET 500 MG PO (09:12)
[2021-10-04] MEDS: CIPROFLOXACIN 500 MG TAB PO (09:12)
== END 2021-10-04 10:12 | disposition home or self-care (01) ==
PROVIDERS: Emergency Provider Emergency Medicine; PCP Internal Medicine
DX: K57.32 Diverticulitis of large intestine without perforation or abscess without bleeding (principal); J45.909 Unspecified asthma, uncomplicated; E78.5 Hyperlipidemia, unspecified; E66.9 Obesity, unspecified; Z68.33 Body mass index [BMI] 33.0-33.9, adult; Z85.3 Personal history of malignant neoplasm of breast; Z86.010 Personal history of colon polyps; Z79.84 Long term (current) use of oral hypoglycemic drugs; Z96.653 Presence of artificial knee joint, bilateral; Z90.710 Acquired absence of both cervix and uterus; Z90.12 Acquired absence of left breast and nipple
CPT/HCPCS: 36415; 51701; 74176; 80053; 81001; 83605; 83690; 85025; 96365; 99284; A9270; J0131

== ENCOUNTER 2021-10-06 09:55 | Outpatient (CLI) | payer OTHER, SELFPAY ==
--- NOTE | ~2021-10-06 | US_ITS ---
EXAMINATION: US carotid duplex BI DATE: 10/06/2021 10:30 INDICATION: Dysarthria. TECHNIQUE: Grayscale, color Doppler, and pulsed Doppler images of the cervical carotid arteries were obtained. The degree of vessel stenosis is placed in one of the following categories: normal, <50%, 5 0-69%, >=70% but less than near-occlusion, near-occlusion, or total occlusion. Note that percent sten osis relative to normal distal artery lumen diameter is indirectly measured from velocity measurement s as described by Osvaldo, et al. Radiology 2003; 229:340-346. Notes: Normal: Peak systolic velocity <125 centimeters/sec and no plaque <50%. Peak systolic velocity <125 ( EDV <40; ICA/CCA PSV ratio <2.0; used these factors only a tandem lesions or low cardiac output or co ntralateral disease) 50-69 %: PSV 125-230 (EDV 40-100; ratio 2-4) >= 70% but less than near occlusion: PSV greater than 230 (EDV > 100; ratio> 4.0) Near Occlusion: PSV that is variable; markedly narrowed lumen Occlusion: Absent flow on color/spectral Doppler and no lumen on mcdonald scale. COMPARISON: None. FINDINGS: RIGHT: The right common carotid artery (CCA) peak systolic velocity (PSV) is 59 cm/s. The right internal car otid artery (ICA) PSV is 60 cm/s. The right ICA end-diastolic velocity (EDV) is 24 cm/s. The right IC A/CCA PSV ratio is 1.0. The external carotid artery (ECA) PSV is 46 cm/s. There is antegrade flow in the right vertebral artery. LEFT: The left CCA PSV is 55 cm/s. The left ICA PSV is 89 cm/s. The left ICA EDV is 31 cm/s. The left ICA/C CA PSV ratio is 1.6. The ECA PSV is 59 cm/s. There is antegrade flow in the left vertebral artery. IMPRESSION: 1. Less than 50% stenosis in the right internal carotid artery by sonographic criteria. 2. Less than 50% stenosis in the left internal carotid artery by sonographic criteria. Reviewed, dictated and finalized at location A. IMPRESSION: 1. Less than 50% stenosis in the right internal carotid artery by sonographic c louis. 2. Less than 50% stenosis in the left internal carotid artery by sonographic rolo gordon.
== END 2021-10-06 09:56 | disposition home or self-care (01) ==
PROVIDERS: PCP Internal Medicine; Visit Provider Nurse Practitioner Adult Health
DX: R47.1 Dysarthria and anarthria (principal); I65.23 Occlusion and stenosis of bilateral carotid arteries
CPT/HCPCS: 93880

== ENCOUNTER 2021-10-07 14:14 | Outpatient (CLI) | payer OTHER, SELFPAY ==
[2021-10-07 15:38] LABS: Alanine Aminotransferase 27 U/L (6-35); Albumin Level 4.5 g/dL (3.5-5.1); Alkaline Phosphatase 105 U/L (38-126); Anion Gap 11 mmol/L (8-16); Aspartate Amino Transferase 59 U/L (14-36); Bilirubin,Total 0.4 mg/dL (0.2-1.3); Blood Urea Nitrogen 31 mg/dL (7-17); Calcium 9.5 mg/dL (8.4-10.2); Carbon Dioxide 21 mmol/L (22-30); Chloride 106 mmol/L (98-107); Estimated Glomerular Filt Rate 43; Glucose 111 mg/dL (65-110); Potassium 4.3 mmol/L (3.4-5.0); Sodium 138 mmol/L (137-145)
== END 2021-10-07 14:15 | disposition home or self-care (01) ==
LOC: ANHLAB 14:17
PROVIDERS: PCP Internal Medicine; Visit Provider Nurse Practitioner
DX: E87.5 Hyperkalemia (principal)
CPT/HCPCS: 36415; 80053

== ENCOUNTER 2021-10-21 13:16 | Outpatient (CLI) | payer OTHER, SELFPAY ==
[2021-10-21 14:01] LABS: Anion Gap 10 mmol/L (8-16); Blood Urea Nitrogen 30 mg/dL (7-17); Calcium 9.3 mg/dL (8.4-10.2); Carbon Dioxide 19 mmol/L (22-30); Chloride 106 mmol/L (98-107); Estimated Glomerular Filt Rate 53; Glucose 99 mg/dL (65-110); Potassium 5.1 mmol/L (3.4-5.0); Sodium 135 mmol/L (137-145)
== END 2021-10-21 13:17 | disposition home or self-care (01) ==
LOC: ANHLAB 13:19
PROVIDERS: PCP Internal Medicine; Visit Provider Nurse Practitioner
DX: E87.5 Hyperkalemia (principal)
CPT/HCPCS: 36415; 80048

== ENCOUNTER 2022-02-17 08:45 | Inpatient (IN) | payer OTHER, SELFPAY ==
[2022-02-17] VITALS (33 sets, daily range): BP systolic 97–128; BP diastolic 46–93; PULSE 74–102; RESP 10–200; TEMP 36.3–37.1; O2SAT 93–100; BMI 32.3
--- NOTE | ~2022-02-17 | XR_ITS ---
EXAMINATION: XR chest 1V portable DATE: 02/17/2022 09:25 INDICATION: Weakness. TECHNIQUE: A single frontal view of the chest was obtained. COMPARISON: Chest single view 06/21/2021, CT abdomen and pelvis 10/04/2021 FINDINGS: There is a mass in right upper lobe. There is mild atelectasis in the lower lung zones. No pleural effusion or pneumothorax. The heart size is normal. There is a left breast implant. IMPRESSION: 1. Mass in right upper lobe suspicious for pneumonia or malignancy. Chest CT with contrast is recomme nded. Reviewed, dictated and finalized at location A. TER OPERATOR IMPRESSION: 1. Mass in right upper lobe suspicious for pneumonia or malignancy. Chest CT wi th contrast is recommended.
--- NOTE | ~2022-02-17 | CT_ITS ---
EXAMINATION: CTA chest DATE: 02/18/2022 10:45 INDICATION: Lung mass. Syncope. TECHNIQUE: Computed tomographic angiography (CTA) of the chest was performed with 75 mL Omnipaque-350 intravenous contrast. Automated exposure control and iterative reconstruction technique were employe d. The dose-length product was 478.47 mGy-cm. Maximum intensity projection 3D-reconstructions of the aorta and other arteries were constructed by the technologist on a separate workstation. COMPARISON: Chest CT 06/15/2021, chest radiograph 02/17/2022 FINDINGS: A calcified right lung nodule is consistent with old granulomatous disease. There is mild a telectasis in the lungs. There is mucous plugging in right lower lobe. No pleural effusion. Cardiomeg dafne is noted. There are coronary artery calcifications. No pericardial effusion. There is mild aortic atherosclerosis. No aneurysm or dissection. There is no pulmonary embolus. Partially visualized is a 2.6 cm cyst in left kidney. There is a left breast implant. There is severe cervical and thoracic sp ondylosis. IMPRESSION: 1. No abnormal correlate for the chest radiograph finding. 2. Mild aortic atherosclerosis. No aneurysm or dissection. 3. No pulmonary embolus. 4. Cardiomegaly. Reviewed, dictated and finalized at location A. PROCESSING OPERATOR
--- NOTE | ~2022-02-17 | CT_ITS ---
EXAMINATION: CTA brain carotid DATE: 02/18/2022 10:45 INDICATION: Syncope. TECHNIQUE: Computed tomographic angiography (CTA) of the head was performed without and with 100 mL O mnipaque-350 intravenous contrast. CTA of the neck was performed with intravenous contrast. Automated exposure control and iterative reconstruction technique were employed. The dose-length product was 1 574.68 mGy-cm. Maximum intensity projection and volume rendered 3D-reconstructions were created by marietta galarza technologist on a separate workstation. COMPARISON: Head CT 08/24/2012, cervical spine CT 03/07/12 FINDINGS: HEAD CTA: There is no intracranial hemorrhage, acute infarction, or abnormal intracranial mass lesion . There are scattered areas of low attenuation in the cerebral white matter, which is within normal l imits for the patient's age. The ventricles are normal in size. There is mucosal thickening in the pa ranasal sinuses. The mastoid air cells are normal. The vertebral arteries are codominant. There is no significant stenosis of basilar artery or the posterior cerebral arteries. There is no significant s tenosis of the intracranial internal carotid arteries or anterior or middle cerebral arteries. Anteri or communicating artery is normal. 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 Posterior communicating arteries are not identified. NECK CTA: Partially visualized is a left breast implant. There are no pathologically enlarged lymph n odes. There is an 11 mm hyperenhancing mass in right mandibular gland. There is no significant stenos is of the vertebral arteries. There is plaque in the proximal internal carotid arteries. There is 0% stenosis of the proximal right internal carotid artery relative to normal distal artery lumen diamete r (NASCET criteria). There is 0% stenosis of the proximal left internal carotid artery relative to no rmal distal artery lumen diameter. There is severe cervical spondylosis. IMPRESSION: 1. Normal aging brain. 2. 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 3. 0% stenosis of the proximal internal carotid arteries relative to normal distal artery lumen diame ters (NASCET criteria). 4. 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 Reviewed, dictated and finalized at location A. GER ECONOMIC IMPRESSION: 1. Normal aging brain. 2. 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 3. 0% stenosis of the proximal internal carotid arteries relative to normal dis leon artery lumen diameters (NASCET criteria). 4. 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
--- NOTE | 2022-02-17 09:00 | ECG_ITS ---
Measurements Intervals Errol Rate: 80 P: 70 UT: 156 QRS: 5 QRSD: 94 T: 79 QT: 392 QTc: 455 Interpretive Statements SINUS RHYTHM COMPARED TO ECG 06/15/2021 15:58:40 SINUS RHYTHM NOW PRESENT Electronically Signed On 02-17-2022 13:21:15 SENIOR SYSTEMS ADMINISTRATOR by Litzy Zazueta M.D.
[2022-02-17 09:18] LABS: Basophils Percent Auto 0.3 % (0.2-1.2); Eosinophils Absolute Auto 0.1 K/mm3 (0-0.3); Eosinophils Percent Auto 0.9 % (0-4.4); Hematocrit 38.5 % (37.0-47.0); Hemoglobin 11.7 g/dL (12.0-15.0); Immature Granulocyte Absolute 0.01 K/mm3 (0.00-0.031); Immature Granulocyte Percent A 0.2 % (0-0.5); Lymphocytes Percent Auto 22.9 % (18.3-44.2); Mean Corpuscular HGB Conc 30.4 g/dl (32-36); Mean Corpuscular Hemoglobin 27.9 pg (26-34); Mean Corpuscular Volume 91.9 fl (80-100); Mean Platelet Volume 10.9 fl (7.4-10.4); Monocytes Absolute Auto 0.6 K/mm3 (0.1-0.6); Monocytes Percent Auto 9.3 % (2.6-8.5); Neutrophils Absolute Auto 4.3 K/mm3 (1.3-6.7); Neutrophils Percent Auto 66.4 % (45.5-73.1); Platelet Count Result 139 k/mm3 (150-375); Red Blood Count 4.19 M/mm3 (4.2-5.4); Red Cell Distribution Width 14.7 % (11.5-14.5); White Blood Count 6.5 K/mm3 (4.5-10.0)
[2022-02-17 09:26] LABS: Lactic Acid Reflex 1.5 mmol/L (0.7-2.0)
[2022-02-17 09:28] LABS: Alanine Aminotransferase 27 U/L (6-35); Albumin Level 4.3 g/dL (3.5-5.1); Alkaline Phosphatase 94 U/L (38-126); Anion Gap 6 mmol/L (8-16); Aspartate Amino Transferase 41 U/L (14-36); Bilirubin,Total 0.4 mg/dL (0.2-1.3); Blood Urea Nitrogen 29 mg/dL (7-17); Calcium 8.6 mg/dL (8.4-10.2); Carbon Dioxide 25 mmol/L (22-30); Chloride 105 mmol/L (98-107); Estimated CRCL calculation 31 ml/min; Estimated Glomerular Filt Rate 47; Glucose 109 mg/dL (65-110); Potassium 4.7 mmol/L (3.4-5.0); Sodium 136 mmol/L (137-145)
--- NOTE | 2022-02-17 09:51 | ED.GENADULT ---
HPI - General Adult General Chief complaint: Weakness Stated complaint: weakness Time Seen by Provider: 02/17/22 08:47 History of Present Illness HPI narrative: 86-year-old female presenting to the emergency department for evaluation of generalized weakness that has been worsening over the course of the past week. Patient states she was at breakfast today and had a near syncopal episode during which she needed to lay down. Patient states she has had decreased p.o. intake due to decreased appetite. Patient does have history of asthma, high cholesterol and congestive heart failure. Patient lives at home on her own and feels she cannot take care of herself. Related Data Home Medications Medication Instructions Recorded Confirmed apple cider vinegar 300 mg tablet 600 mg PO BID 01/28/20 02/17/22 aspirin 81 mg tablet,delayed 81 mg PO DAILY 01/28/20 02/17/22 release geriatric [id number] 1 tablet PO DAILY 01/28/20 02/17/22 Hair,Skin and Nails 6,000 unit PO DAILY 07/21/20 02/17/22 cholecalciferol (vitamin D3) 25 25 mcg PO DAILY 07/21/20 02/17/22 mcg (1,000 unit) tablet (Vitamin D3) vitamins A,C,K-jxll-iprcwv 14,320 1 cap PO BID 10/07/21 02/17/22 unit-226 mg-200 unit capsule (PreserVision AREDS) buspirone 7.5 mg tablet 7.5 mg 02/17/22 Allergies Allergy/AdvReac Type Severity Reaction Status Date / Time Iodinated Contrast Media Allergy Severe Swelling Verified 02/17/22 09:00 of Lip/Tongue/Throat meperidine Allergy Intermediate Unknown Verified 02/17/22 09:00 Penicillins Allergy Intermediate Rash Verified 02/17/22 09:00 codeine AdvReac Mild Jittery Verified 02/17/22 09:00 Sulfa (Sulfonamide AdvReac Mild Nausea and Verified 02/17/22 09:00 Antibiotics) Vomiting Contrast Media Allergy Severe Swelling Uncoded 12/31/21 07:51 of Lip/Tongue/Throat Review of Systems Review of Systems: CONSTITUTIONAL: Near syncopal episode EYES: Denies visual changes, redness, or discharge. ENT: Denies rhinorrhea, congestion, sore throat, or otalgia. CARDIOVASCULAR: Denies chest pain, palpitations, or edema. RESPIRATORY: Shortness of breath GASTROINTESTINAL: Denies abdominal pain, nausea, vomiting, or diarrhea. GENITOURINARY: Denies dysuria or hematuria. SKIN: Denies rash or itching. MUSCULOSKELETAL: Denies back pain, joint pain, or myalgia. NEUROLOGIC: Denies headache, numbness, or weakness. [facility] Past Medical History Medical History Acute and chronic respiratory failure with hypoxia Acute kidney injury superimposed on CKD Acute respiratory failure Adenomatous colon polyp Aortic stenosis Arthritis Bacteremia CAD (coronary artery disease) Chronic diarrhea Depression Diverticulitis GERD with esophagitis Hx of breast cancer Macular degeneration Obese Pneumonia Sepsis Systolic and diastolic CHF, chronic Vitamin D deficiency, unspecified Surgical History Surgical History History of appendectomy History of bilateral knee replacement History of cholecystectomy History of hysterectomy History of left mastectomy History of reduction surgery of right breast History of surgical removal of ganglion cyst Family History Family History Mother Rectal cancer Father Heart disease Emphysema lung Sibling COPD (chronic obstructive pulmonary disease) Social History Social History Social History: Patient lives by herself and is very active in the community. She does lots of volunteer work and likes to green party with her friends. She wants to be a full code, and her POA is her granddaughter Cori Encarnacion. Smoking status: Never smoker Second hand tobacco smoke exposure: No Alcohol intake: never Substance use: never Substance use type: does not use
[2022-02-17 09:54] LABS: Influenza A QL RT-PCR Negative (Negative); Influenza B QL RT-PCR Negative (Negative); RSV RNA, RT-PCR Negative (Negative); SARS-CoV-2 RNA PCR Positive
--- NOTE | 2022-02-17 11:13 | PC.NURSE ---
unable to obtain labs for blood culture, awaiting phlebotomy for help
--- NOTE | 2022-02-17 11:15 | PC.NURSE ---
antibx delayed due to delay in blood cx not being drawn
--- NOTE | 2022-02-17 11:18 | PC.NURSE ---
Patient report received from OLEGARIO Acuna. All questions answered and care of patient assumed. Patient resting comfortably in stretcher with call-light in reach. NAD noted. VSS. Awaiting phlebotomy to assist with blood cultures so antibiotics delayed. Awaiting available inpatient bed assignment. Will continue to address needs as they arise.
[2022-02-17 11:29] LABS: Add Urine Microscopic? YES; Appearance Urine Clear (Clear); Bilirubin Urine Negative (Negative); Blood Urine Negative (Negative); Color Urine Yellow (Yellow); Glucose Urine UA Negative (Negative); Ketones Urine Negative (Negative); Leukocyte Esterase Ur Negative LEU/UL (Negative); Nitrate Urine Negative (Negative); Protein Urine Trace mg/dL (Negative); Specific Grav Ur 1.025 (1.001-1.035); Urobilinogen Urine 0.2 mg/dL (<2.0); pH Urine 5.5 (5.0-9.0)
[2022-02-17 11:43] LABS: Mucus Urine Rare /lpf; RBC Urine 0-2 /hpf (0-2); WBC Urine 0-3 /hpf
--- NOTE | 2022-02-17 12:07 | PC.NURSE ---
Hospitalist at bedside to see patient. States he will provide update to family.
--- NOTE | 2022-02-17 12:16 | PM.IMHP ---
H&P: HPI History of Present Illness Date/Time: 02/17/22 12:16 Chief Complaint: Weakness, syncope Narrative: Patient is an 86-year-old female with a past medical history of breast cancer with left-sided mastectomy, asthma, arthritis, hyperlipidemia who presented to the ED with complaints of weakness. Patient states that she plays bingo most days of the week and she also volunteers a lot within the community. She stated that today her and her friends decided to go to [employer] for breakfast when she got up to go and order her food she became very weak and had to lay down within the both. She stated that she does not feel like she lost any consciousness however she stated that she remembers them saying that they need to call an ambulance. She denies any dizziness or lightheadedness within the entire event. She also stated that she for the past couple days has not felt very good however she thought it was more just fatigue. She stated that she kept on going however and it was not affecting her. She denies any chest pain, sweats, fevers, chills, nausea, vomiting, abdominal pain, and urinary problems including frequency, urgency, retention, burning, pain. Patient did state that she does have some shortness of breath however she does have asthma and her shortness of breath is nothing out of the ordinary. She also stated that she has a cough however she does not feel like that is new either or worse than her normal. She did state that she feels a little weak however she states that she feels like she can get up and walk if she needs to. She is also concerned that they did find a lung mass however CT of the chest has been ordered for further investigation. She claims her last BM was today. I did speak with her daughter's who were in the waiting room and gave him an update. Patient is currently on room air. White blood cell count is 6.5. Renal function is stable at this time. Patient is being admitted to the hospitalist service under observation. Review of Systems Review of Systems: All systems reviewed & are unremarkable except as noted in HPI and below PMFSH Past Medical History Medical History Acute and chronic respiratory failure with hypoxia Acute kidney injury superimposed on CKD Acute respiratory failure Adenomatous colon polyp Aortic stenosis Arthritis Bacteremia CAD (coronary artery disease) Chronic diarrhea Depression Diverticulitis GERD with esophagitis Hx of breast cancer Macular degeneration Obese Pneumonia Sepsis Systolic and diastolic CHF, chronic Vitamin D deficiency, unspecified Surgical History Surgical History History of appendectomy History of bilateral knee replacement History of cholecystectomy History of hysterectomy History of left mastectomy History of reduction surgery of right breast History of surgical removal of ganglion cyst Family History Family History Mother Rectal cancer Father Heart disease Emphysema lung Sibling COPD (chronic obstructive pulmonary disease) Social History Social History Social History: Patient lives by herself and is very active in the community. She does lots of volunteer work and likes to libertarian with her friends. She wants to be a full code, and her POA is her granddaughter Cori Encarnacion. Smoking status: Never smoker Second hand tobacco smoke exposure: No Alcohol intake: never Substance use: never Substance use type: does not use Lack of Transportation: No Lack of Food: Never True Current Housing: I Have Housing Concerned About Future Housing: No Difficulty Paying Gas/Electric Bills: No Difficulty Paying for Meds: No Currently Unemployed: No Education: High School Diploma/GED Difficulty w/ Ch
--- NOTE | 2022-02-17 12:42 | PC.NURSE ---
This patient, Randi Rodriguez, was admitted to [facility] Surg Room 319-01. Patient/family oriented to hospital policies and general routines including ID bracelet, bed and alarms, visiting hours, pain management, procedures, bathroom and other care routines, personal items, smoking policy, room service/diet, and visiting hours. Information on how to activate the Rapid Response Team has been discussed. Patient/Family are encouraged to report perceived risks to care and to ask questions if they do not understand what they are told or what they should do.
[2022-02-17] MEDS: ESCITALOPRAM OXALATE 10 MG TABLET PO (17:02)
[2022-02-17] MEDS: predniSONE 40 MG, predniSONE 10 MG 50 MG PO (21:06)
[2022-02-17] MEDS: carvediloL 3.125 MG TABLET PO (21:06)
[2022-02-17] MEDS: busPIRone HCL 2.5 MG, busPIRone HCL 5 MG 7.5 MG PO (21:07)
[2022-02-18] VITALS: BP 151/96; PULSE 100; RESP 16; TEMP 36.6; O2SAT 94
[2022-02-18 03:45] VITALS: BP 136/45; PULSE 86; RESP 16; TEMP 36.4; O2SAT 96
[2022-02-18] MEDS: predniSONE 40 MG, predniSONE 10 MG 50 MG PO ×2 (03:45→08:40)
[2022-02-18 07:38] LABS: Hematocrit 36.2 % (37.0-47.0); Hemoglobin 11.1 g/dL (12.0-15.0); Immature Granulocyte Absolute 0.02 K/mm3 (0.00-0.031); Immature Granulocyte Percent A 0.4 % (0-0.5); Immature Platelet Fraction Pct 5.1 % (0.9-11.2); Lymphocytes Absolute Auto 0.74 K/mm3 (0.9-3.2); Mean Corpuscular HGB Conc 30.7 g/dl (32-36); Mean Corpuscular Hemoglobin 27.4 pg (26-34); Mean Corpuscular Volume 89.4 fl (80-100); Mean Platelet Volume 11.3 fl (7.4-10.4); Monocytes Absolute Auto 0.1 K/mm3 (0.1-0.6); Monocytes Percent Auto 1.3 % (2.6-8.5); Neutrophils Absolute Auto 3.8 K/mm3 (1.3-6.7); Neutrophils Percent Auto 82.3 % (45.5-73.1); Platelet Count Result 133 k/mm3 (150-375); Red Blood Count 4.05 M/mm3 (4.2-5.4); Red Cell Distribution Width 14.3 % (11.5-14.5); White Blood Count 4.6 K/mm3 (4.5-10.0)
[2022-02-18 08:09] LABS: Alanine Aminotransferase 34 U/L (6-35); Albumin Level 4.3 g/dL (3.5-5.1); Alkaline Phosphatase 111 U/L (38-126); Anion Gap 9 mmol/L (8-16); Aspartate Amino Transferase 42 U/L (14-36); Bilirubin,Total 0.3 mg/dL (0.2-1.3); Blood Urea Nitrogen 30 mg/dL (7-17); Calcium 8.8 mg/dL (8.4-10.2); Carbon Dioxide 23 mmol/L (22-30); Chloride 107 mmol/L (98-107); Cholesterol 129 mg/dL (0-200); Estimated CRCL calculation 26 ml/min; Estimated Glomerular Filt Rate 39; Glucose 161 mg/dL (65-110); HDL Direct 44 mg/dL; Potassium 4.7 mmol/L (3.4-5.0); Sodium 139 mmol/L (137-145); Triglycerides 82 mg/dL (<150)
[2022-02-18 08:20] LABS: LDL Cholesterol Direct 48 mg/dL
[2022-02-18] MEDS: diphenhydrAMINE HCl CAP 25 MG CAPSULE 50 MG PO (08:41)
[2022-02-18] MEDS: carvediloL 3.125 MG TABLET PO (08:41)
[2022-02-18] MEDS: EZETIMIBE 10 MG TABLET PO (08:42)
[2022-02-18] MEDS: ROSUVASTATIN 10 MG TABLET PO (08:42)
[2022-02-18] MEDS: FUROSEMIDE 20 MG TABLET PO (08:42)
[2022-02-18] MEDS: MONTELUKAST SODIUM 10 MG TABLET PO (08:42)
[2022-02-18] MEDS: ASPIRIN 81 MG ENTERIC TABLET PO (08:42)
[2022-02-18] MEDS: busPIRone HCL 2.5 MG, busPIRone HCL 5 MG 7.5 MG PO (08:43)
[2022-02-18] MEDS: LOSARTAN POTASSIUM 12.5 MG TABLET PO (08:43)
[2022-02-18] MEDS: ENOXAPARIN 40 MG/0.4 ML SYRINGE SUB-Q (08:43)
--- NOTE | 2022-02-18 09:45 | PM.DS ---
DS: Admitting Diagnosis Discharge Date 02/18/22 0945 Admitting Diagnosis New onset COVID 19 DS: Discharge Diagnosis Discharge Diagnosis (1) COVID: Code(s): U07.1 - COVID-19 Status: Acute Assessment and Plan: patient tested positive for COVID on 02/17/2022 chest x-ray does show suspicious mass could be pneumonia versus malignancy no complaints of shortness of breath however does have chronic shortness of breath and a cough due to asthma no oxygen supplementation needed WBC 6.5 supportive care (2) Lung mass: Code(s): R91.8 - Other nonspecific abnormal finding of lung field Status: Acute Assessment and Plan: seen on the chest x-ray will get CT of the chest, following allergy protocol CT showed old granuloma disease pneumonia versus malignancy versus COVID Continue IV Levaquin for now (3) Syncope: Code(s): R55 - Syncope and collapse Status: Acute Assessment and Plan: denies any loss of consciousness head and neck CT showed 0% stenosis bilateral carotid artery orthostatic blood pressures negative for hypotension PT and OT (4) Chronic kidney disease, stage 3: Code(s): N18.30 - Chronic kidney disease, stage 3 unspecified Status: Acute Assessment and Plan: BUN creatinine slightly elevated 29/1.10 baseline creatinine looks to be 1.1-1.3 avoid nephrotoxic medications trend labs chronic but stable within her baseline (5) Asthma: Qualifiers: Asthma complication type: unspecified Asthma persistence: unspecified Asthma severity: unspecified severity Qualified Code(s): J45.909 - Unspecified asthma, uncomplicated Code(s): J45.909 - Unspecified asthma, uncomplicated Status: Acute Assessment and Plan: continue home Trelegy albuterol inhaler p.r.n. for shortness of breath stable at this time no supplemental oxygen needs (6) Systolic and diastolic CHF, chronic: Code(s): I50.42 - Chronic combined systolic (congestive) and diastolic (congestive) heart failure Status: Acute Assessment and Plan: chronic combined systolic and diastolic heart failure not in acute exacerbation continue home furosemide trend urine output daily weights adjust therapy as indicated (7) Hyperlipemia: Code(s): E78.5 - Hyperlipidemia, unspecified Status: Acute Assessment and Plan: continue rosuvastatin lipid panel in the a.m. DS: Summary Hospital Course Hospital Course: Patient is an 86-year-old female with a past medical history of breast cancer with left-sided mastectomy, asthma, arthritis, hyperlipidemia who presented to the ED with complaints of weakness.? Patient states that she plays bingo most days of the week and she also volunteers a lot within the community.? She stated that yesterday her and her friends decided to go to [employer] for breakfast when she got up to go and order her food she became very weak and had to lay down within the both.? brain and carotid CTA did not show any abnormalities and showed 0% stenosis bilaterally. It also showed the patient had a old mass from 2012 that has not changed any size is or distribution. CT of the chest to rule out any further cancer or pneumonia of the lung mass found on the x-ray showed calcification. Labs and vital signs are stable at this time. Orthostatic blood pressures were negative. Patient denies any chest pain, shortness a breath, nausea, vomiting, diarrhea, constipation, weakness or fatigue. Patient has been upon her feet and walking around doing well. Labs and vital signs remained stable today. Patient is ready to be discharged at this time and has no further complaints. Patient did test positive for COVID and COVID precautions has been given to the patient and educated. Patient will
--- NOTE | 2022-02-18 09:45 | P.DS_ITS ---
DS: Admitting Diagnosis Discharge Date 02/18/22 0945 Admitting Diagnosis New onset COVID 19 DS: Discharge Diagnosis Discharge Diagnosis (1) COVID: Code(s): U07.1 - COVID-19 Status: Acute Assessment and Plan: * patient tested positive for COVID on 02/17/2022 * chest x-ray does show suspicious mass could be pneumonia versus malignancy * no complaints of shortness of breath however does have chronic shortness of breath and a cough due to asthma * no oxygen supplementation needed * WBC 6.5 * supportive care (2) Lung mass: Code(s): R91.8 - Other nonspecific abnormal finding of lung field Status: Acute Assessment and Plan: * seen on the chest x-ray * will get CT of the chest, following allergy protocol * CT showed old granuloma disease * pneumonia versus malignancy versus COVID * Continue IV Levaquin for now (3) Syncope: Code(s): R55 - Syncope and collapse Status: Acute Assessment and Plan: * denies any loss of consciousness * head and neck CT showed 0% stenosis bilateral carotid artery * orthostatic blood pressures negative for hypotension * PT and OT (4) Chronic kidney disease, stage 3: Code(s): N18.30 - Chronic kidney disease, stage 3 unspecified Status: Acute Assessment and Plan: * BUN creatinine slightly elevated 29/1.10 * baseline creatinine looks to be 1.1-1.3 * avoid nephrotoxic medications * trend labs * chronic but stable within her baseline (5) Asthma: Qualifiers: Asthma complication type: unspecified Asthma persistence: unspecified Asthma severity: unspecified severity Qualified Code(s): J45.909 - Unspecified asthma, uncomplicated Code(s): J45.909 - Unspecified asthma, uncomplicated Status: Acute Assessment and Plan: * continue home Trelegy * albuterol inhaler p.r.n. for shortness of breath * stable at this time * no supplemental oxygen needs (6) Systolic and diastolic CHF, chronic: Code(s): I50.42 - Chronic combined systolic (congestive) and diastolic (congestive) heart failure Status: Acute Assessment and Plan: * chronic combined systolic and diastolic heart failure not in acute exacerbation * continue home furosemide * trend urine output * daily weights * adjust therapy as indicated (7) Hyperlipemia: Code(s): E78.5 - Hyperlipidemia, unspecified Status: Acute Assessment and Plan: * continue rosuvastatin * lipid panel in the a.m. DS: Summary Hospital Course Hospital Course: Patient is an 86-year-old female with a past medical history of breast cancer with left-sided mastectomy, asthma, arthritis, hyperlipidemia who presented to the ED with complaints of weakness.? Patient states that she plays bingo most days of the week and she also volunteers a lot within the community.? She stated that yesterday her and her friends decided to go to [employer] for breakfast when she got up to go and order her food she became very weak and had to lay down within the both.? brain and carotid CTA did not show any abnormalities and showed 0% stenosis bilaterally. It also showed the patient had a old mass from 2012 that has not changed any size is or distribution. CT of the
[2022-02-18] MEDS: CHOLECALCIFEROL 1,000 UNITS TABLET 1000 UNITS PO (11:09)
== END 2022-02-18 14:50 | disposition home or self-care (01) | DRG 178 ==
LOC: ANHED 10:47 → ANH3MEDSUR 11:53
PROVIDERS: Admitting Provider Family Medicine; Emergency Provider Emergency Medicine; PCP Internal Medicine; Visit Provider Nurse Practitioner
DX: U07.1 COVID-19 (principal); I50.42 Chronic combined systolic (congestive) and diastolic (congestive) heart failure; R55 Syncope and collapse; R91.8 Other nonspecific abnormal finding of lung field; J45.909 Unspecified asthma, uncomplicated; E78.5 Hyperlipidemia, unspecified; I35.0 Nonrheumatic aortic (valve) stenosis; N18.30 Chronic kidney disease, stage 3 unspecified; I25.10 Atherosclerotic heart disease of native coronary artery without angina pectoris; M19.90 Unspecified osteoarthritis, unspecified site; F32.A Depression, unspecified; K21.00 Gastro-esophageal reflux disease with esophagitis, without bleeding; H35.30 Unspecified macular degeneration; E66.9 Obesity, unspecified; E55.9 Vitamin D deficiency, unspecified; Z96.653 Presence of artificial knee joint, bilateral; Z85.3 Personal history of malignant neoplasm of breast; Z68.33 Body mass index [BMI] 33.0-33.9, adult; Z90.49 Acquired absence of other specified parts of digestive tract; Z90.710 Acquired absence of both cervix and uterus; Z79.82 Long term (current) use of aspirin
CPT/HCPCS: 36415; 70496; 70498; 71045; 71275; 80053; 80061; 81001; 83605; 85025; 85055; 87040; 87637; 93005; 96365; 96372; 99285; A9270; G0378; J1650; J1956; J7512; Q9967

== ENCOUNTER 2022-06-10 15:10 | Observation (INO) | payer OTHER, SELFPAY ==
[2022-06-10] VITALS (48 sets, daily range): BP systolic 96–133; BP diastolic 62–103; PULSE 71–110; RESP 10–26; TEMP 36.4–37; O2SAT 86–100
--- NOTE | ~2022-06-10 | XR_ITS ---
EXAMINATION: XR chest 1V portable DATE: 06/10/2022 15:29 INDICATION: Chest pain. TECHNIQUE: A single frontal view of the chest was obtained. COMPARISON: Chest single view 02/17/2022, CT abdomen and pelvis 10/04/2021, chest CT 02/18/2022 FINDINGS: The chest demonstrates clear lungs without pneumonia, pleural effusion, or pneumothorax. Ca rdiomegaly is noted. The central pulmonary arteries are enlarged, consistent with pulmonary arterial hypertension. There is a left breast implant. IMPRESSION: 1. Cardiomegaly. Reviewed, dictated and finalized at location A. IMPRESSION: 1. Cardiomegaly.
--- NOTE | 2022-06-10 15:12 | ECG_ITS ---
Measurements Intervals [place] Rate: 81 P: 63 [place]: 154 QRS: 30 QRSD: 100 T: 78 QT: 373 QTc: 433 Interpretive Statements SINUS RHYTHM NONSPECIFIC T-WAVE ABNORMALITY BORDERLINE ECG COMPARED TO ECG 02/17/2022 09:12:43 NO SIGNIFICANT CHANGES Electronically Signed On 06-11-2022 7:41:25 CDT by Gurinder Sevilla M.D.
[2022-06-10 16:59] LABS: Basophils Percent Auto 0.3 % (0.2-1.2); Eosinophils Absolute Auto 0.1 K/mm3 (0-0.3); Eosinophils Percent Auto 0.9 % (0-4.4); Hematocrit 40.7 % (37.0-47.0); Hemoglobin 12.7 g/dL (12.0-15.0); Immature Granulocyte Absolute 0.08 K/mm3 (0.00-0.031); Immature Granulocyte Percent A 0.7 % (0-0.5); Lymphocytes Absolute Auto 2.26 K/mm3 (0.9-3.2); Lymphocytes Percent Auto 19.9 % (18.3-44.2); Mean Corpuscular HGB Conc 31.2 g/dl (32-36); Mean Corpuscular Hemoglobin 28.3 pg (26-34); Mean Corpuscular Volume 90.8 fl (80-100); Mean Platelet Volume 10.6 fl (7.4-10.4); Monocytes Absolute Auto 0.9 K/mm3 (0.1-0.6); Monocytes Percent Auto 8.1 % (2.6-8.5); Neutrophils Percent Auto 70.1 % (45.5-73.1); Platelet Count Result 201 k/mm3 (150-375); Red Blood Count 4.48 M/mm3 (4.2-5.4); Red Cell Distribution Width 14.6 % (11.5-14.5); White Blood Count 11.4 K/mm3 (4.5-10.0)
[2022-06-10 17:02] LABS: Alanine Aminotransferase 37 U/L (6-35); Alkaline Phosphatase 90 U/L (38-126); Anion Gap 5 mmol/L (8-16); Aspartate Amino Transferase 36 U/L (14-36); Bilirubin,Total 0.5 mg/dL (0.2-1.3); Blood Urea Nitrogen 49 mg/dL (7-17); Carbon Dioxide 28 mmol/L (22-30); Chloride 107 mmol/L (98-107); Estimated Glomerular Filt Rate 36; Glucose 104 mg/dL (65-110); Lipase 229 U/L (23-300); Potassium 3.9 mmol/L (3.4-5.0); Prothrombin Time 13.2 Seconds (11.1-14.7); Sodium 140 mmol/L (137-145)
[2022-06-10 17:03] LABS: Partial Thromboplastin Time 27.1 SECONDS (22.3-36.8)
[2022-06-10 17:14] LABS: Troponin I < 0.012 ng/mL (0.000-0.034)
--- NOTE | 2022-06-10 19:50 | ED.GENADULT ---
HPI - General Adult General Chief complaint: Dizziness Stated complaint: lightheadedness Time Seen by Provider: 06/10/22 19:02 History of Present Illness HPI narrative: this is a very pleasant 86-year-old female presenting ED with chief complaint of presyncope. Patient was treated for a COPD exacerbation approximately 1 week ago. After she finished her course of prednisone 2 days ago she was walking through the grocery store and started to experience an achy pain in the left side of her chest radiated to her left arm and head. It was associated with lightheadedness and she felt like she was going to pass out.It improved over the day and was better Tuesday but then became worse today. She has never experienced this before. It is worse with exertion and there are no alleviating factors. It is associated with shortness of breath. Patient was seen by her cup trimming machine operator Dr. Heard earlier today and she recommended coming to the hospital. patient denies fever, chills, nausea, vomiting or diarrhea. He does have a history of COPD and CHF. She received stress test but it was several years ago. Related Data Home Medications Medication Instructions Recorded Confirmed apple cider vinegar 300 mg tablet 600 mg PO BID 01/28/20 06/01/22 aspirin 81 mg tablet,delayed 81 mg PO DAILY 01/28/20 06/01/22 release geriatric [id number] 1 tablet PO DAILY 01/28/20 06/01/22 Hair,Skin and Nails 6,000 unit PO DAILY 07/21/20 06/01/22 cholecalciferol (vitamin D3) 25 25 mcg PO DAILY 07/21/20 06/01/22 mcg (1,000 unit) tablet (Vitamin D3) vitamins A,C,X-gisc-mfiqwx 4,296 1 cap PO BID 10/07/21 06/01/22 mcg-226 mg-90 mg capsule (PreserVision AREDS) Allergies Allergy/AdvReac Type Severity Reaction Status Date / Time Iodinated Contrast Media Allergy Severe Swelling Verified 06/10/22 16:36 of Lip/Tongue/Throat meperidine Allergy Intermediate Unknown Verified 06/10/22 16:36 Penicillins Allergy Intermediate Rash Verified 06/10/22 16:36 codeine AdvReac Mild Jittery Verified 06/10/22 16:36 Sulfa (Sulfonamide AdvReac Mild Nausea and Verified 06/10/22 16:36 Antibiotics) Vomiting Contrast Media Allergy Severe Swelling Uncoded 06/10/22 16:36 of Lip/Tongue/Throat PMFSH Past Medical History Medical History Acute and chronic respiratory failure with hypoxia Acute kidney injury superimposed on CKD Acute respiratory failure Adenomatous colon polyp Aortic stenosis Arthritis Bacteremia CAD (coronary artery disease) Chronic diarrhea Depression Diverticulitis GERD with esophagitis Hx of breast cancer Macular degeneration Obese Pneumonia Sepsis Systolic and diastolic CHF, chronic Vitamin D deficiency, unspecified Surgical History Surgical History History of appendectomy History of bilateral knee replacement History of cholecystectomy History of hysterectomy History of left mastectomy History of reduction surgery of right breast History of surgical removal of ganglion cyst Family History Family History Mother Rectal cancer Father Heart disease Emphysema lung Sibling COPD (chronic obstructive pulmonary disease) Social History Social History Social History: Patient lives by herself and is very active in the community. She does lots of volunteer work and likes to libertarian with her friends. She wants to be a full code, and her POA is her granddaughter Cori Encarnacion. Smoking status: Never smoker Second hand tobacco smoke exposure: No Alcohol intake: never Substance use: never Substance use type: does not use Lack of Transportation: No Lack of Food: Never True Current Housing: I Have Housing Concerned About Future Housing: No Difficulty Paying Gas/Electric Bills:
[2022-06-10] MEDS: ALBUTEROL SULFATE NEB 2.5 MG/3 ML INH 7.5 MG INHALATION (20:10)
[2022-06-10] MEDS: IPRATROPIUM BR 0.02% INH SOLN 0.5 MG/2.5 ML VIAL 1.5 MG INHALATION (20:10)
[2022-06-10 20:15] LABS: Troponin I < 0.012 ng/mL (0.000-0.034)
--- NOTE | 2022-06-10 20:41 | ECG_ITS ---
Measurements Intervals [place] Rate: 103 P: [place]: 0 QRS: 36 QRSD: 101 T: 78 QT: 336 QTc: 441 Interpretive Statements SINUS TACHYCARDIA WITH PACS NONSPECIFIC T-WAVE ABNORMALITY ABNORMAL RHYTHM ECG COMPARED TO ECG 06/10/2022 15:13:30 HEART RATE IS INCREASED AND ATRIAL ECTOPIC ACTIVITY IS OBSERVED Electronically Signed On 06-11-2022 7:51:35 CDT by Gurinder Sevilla M.D.
[2022-06-10 20:44] LABS: NT Pro B Type Natriuretic Pept 1600 pg/mL (19.9-100)
[2022-06-10] MEDS: methylPREDNISolone SOD SUCC 125 MG VIAL IV PUSH (20:44)
[2022-06-10] MEDS: MAGNESIUM SULF 2 GM/WATER 50ML 2 GM/50 ML BAG IVPB (20:45)
--- NOTE | 2022-06-10 21:57 | PM.IMHP ---
H&P: HPI History of Present Illness Date/Time: 06/10/22 21:57 Chief Complaint: Near-syncope Narrative: This is an 86-year-old female with past medical history significant for COPD/asthma, type 2 diabetes mellitus, hypertension, coronary artery disease, chronic diarrhea, GERD, breast CA, systolic and diastolic chronic congestive heart failure. Patient presented to the emergency room after she was advised by her aquatic facility manager due to near syncopal episode patient concluded recently course of antibiotics and oral steroids for 1 week has been having near syncopal episode, dizziness, denies diaphoresis, nausea, vomiting, abdominal pain, denies chest pain, has persistent dry cough, no palpitations, no fevers no rigors no chills. Preliminary workup was significant for BUN 49 creatinine 1.4 brain natriuretic peptide 1600 a chest x-ray was reported as: FINDINGS: The chest demonstrates clear lungs without pneumonia, pleural effusion, or pneumothorax. Cardiomegaly is noted. The central pulmonary arteries are enlarged, consistent with pulmonary arterial hypertension. There is a left breast implant. IMPRESSION: 1. Cardiomegaly. Review of Systems Review of Systems: Dizziness, near-syncope, shortness of breath at exertion. Constitutional: Constitutional: Denies chills, Denies fatigue, Denies fever(s), Denies lethargy, Denies malaise, Denies night sweats, Denies poor appetite and Denies weakness Eyes: Eyes: Denies change in vision ENT: Denies dysphagia and Denies odynophagia Cardiovascular: Cardiovascular: Denies chest pain, Reports lightheadedness, Denies radiating jaw, neck or arm pain, Denies palpitations and Reports other (Near-syncope) Respiratory: Respiratory: Denies chest congestion, Reports cough, Denies excessive phlegm production, Reports dyspnea and Denies wheezing Gastrointestinal: Gastrointestinal: Denies abdominal pain, Denies dyspepsia, Denies heartburn, Denies diarrhea, Denies nausea and Denies vomiting Genitourinary: Genitourinary: Denies dysuria Musculoskeletal: Musculoskeletal: Denies back pain, Denies myalgias and Denies muscle weakness Integumentary/Breasts: Skin/Breast: Denies rash Neurologic: Denies focal weakness and Denies Sensory deficit (Neuro) Psychiatric: Psychiatric: Reports no additional psychiatric complaints and Reports as per HPI Endocrine: Endocrine: Denies cold intolerance, Denies flushing, Denies heat intolerance, Denies polyphagia, Denies polydipsia and Denies palpitations Hematologic/Lymphatic: Hematologic/Lymphatic: Reports no additional hematologic/lymphatic complaints and Reports as per HPI Allergic/Immunologic: Allergic/Immunologic: Reports no additional allergic/immunologic complaints and Reports as per HPI PMFSH Past Medical History Medical History Acute and chronic respiratory failure with hypoxia Acute kidney injury superimposed on CKD Acute respiratory failure Adenomatous colon polyp Aortic stenosis Arthritis Bacteremia CAD (coronary artery disease) Chronic diarrhea Depression Diverticulitis GERD with esophagitis Hx of breast cancer Macular degeneration Obese Pneumonia Sepsis Systolic and diastolic CHF, chronic Vitamin D deficiency, unspecified Surgical History Surgical History History of appendectomy History of bilateral knee replacement History of cholecystectomy History of hysterectomy History of left mastectomy History of reduction surgery of right breast History of surgical removal of ganglion cyst Family History Family History (Updated 06/10/22 @ 23:10 by Melba Meade RN) Mother Rectal cancer Schizophrenia Father Heart disease Emphysema lung Sibling COPD (chronic obstructive pulmonary disease) Social History Social History Social History: Patient lives by herself and is very
[2022-06-10 22:49] LABS: Troponin I < 0.012 ng/mL (0.000-0.034)
--- NOTE | 2022-06-10 23:01 | ADMGEN ---
This patient, Randi Rodriguez, was admitted to Medical Room 243-. Patient/family oriented to hospital policies and general routines including ID bracelet, bed and alarms, visiting hours, pain management, procedures, bathroom and other care routines, personal items, smoking policy, room service/diet, and visiting hours. Information on how to activate the Rapid Response Team has been discussed. Patient/Family are encouraged to report perceived risks to care and to ask questions if they do not understand what they are told or what they should do.
[2022-06-10] MEDS: SODIUM CHLORIDE 0.9% IV 250 ML IV CONT (23:45)
[2022-06-11] VITALS (11 sets, daily range): BP systolic 115–131; BP diastolic 61–71; PULSE 77–115; RESP 16–18; TEMP 36.5–36.6; O2SAT 96–100
--- NOTE | 2022-06-11 | ECHO_ITS ---
Patient Info Name: Randi Rodriguez Age: 86 years : 1935 Gender: Female Ht: 59 in Wt: 158 lbs BSA: 1.76 m2 HR: 100 bpm BP: 115 / 64 mmHg Heart Rhythm: Sinus Rhythm Technical Quality: Fair Exam Date: 06/11/2022 9:23 AM Exam Location: [facility] Pulmonary Patient Status: Outpatient Admit Date: 06/10/2022 Staff Ordering Physician: Bebe Farmer MD Entry Level Chemist: Jeimy Jensen RDCS Attending Provider: Bebe Farmer MD Referring Physician: Darian BENNETT; Exam Type: CA echo doppler color flow Study Info Indications - dizziness Complete two-dimensional, color flow and Doppler transthoracic echocardiogram is performed. Summary 1. Complete two-dimensional, color flow and Doppler transthoracic echocardiogram is performed. 2. Mild left ventricular enlargement with systolic dysfunction ejection fraction visually estimated at 35 to 40%. 3. Left atrial enlargement. 4. Thickened mitral valve without stenosis or regurgitation. 5. Sclerotic aortic valve without stenosis. 6. Normal sinus rhythm. Left Ventricle Left ventricular chamber dimension is mildly enlarged. Left ventricular systolic function is mildly reduced, estimated at 35-40%. The left ventricular diastolic function is grade I diastolic dysfunction. Right Ventricle Right ventricular chamber dimension is normal. Left Atria Left atrial chamber dimension is moderately enlarged. Right Atria Right atrial chamber dimension is normal. Aortic Valve The aortic valve is trileaflet. There is moderate aortic valve sclerosis. There is no aortic valve stenosis. Pulmonic Valve The pulmonic valve is not well visualized. Mitral Valve The mitral valve has normal leaflets. Tricuspid Valve The tricuspid valve leaflets are normal. Pericardium/Pleural The pericardium appears normal. Aorta The aortic root size at the sinus of Valsalva is normal. Left Ventricular Outflow Tract Name Value Normal LVOT 2D LVOT Diameter 1.9 cm LVOT Doppler LVOT Peak Gradient 2 mmHg LVOT Mean Gradient 1 mmHg LVOT VTI 14 cm LVOT VTI/AV VTI Ratio 0.5 LVOT Stroke Volume 38 ml LVOT CO 2.8 l/min LVOT CI 1.6 l/min/m2 Pulmonic Valve Name Value Normal RVOT Doppler RVOT Peak Gradient 2 mmHg PV Doppler PV Peak Gradient 5 mmHg Mitral Valve Name Value Normal MV Doppler
[2022-06-11 04:56] LABS: Basophils Percent Auto 0.1 % (0.2-1.2); Hematocrit 39.2 % (37.0-47.0); Hemoglobin 12.3 g/dL (12.0-15.0); Immature Granulocyte Absolute 0.08 K/mm3 (0.00-0.031); Immature Granulocyte Percent A 0.8 % (0-0.5); Lymphocytes Absolute Auto 0.74 K/mm3 (0.9-3.2); Lymphocytes Percent Auto 7.5 % (18.3-44.2); Mean Corpuscular HGB Conc 31.4 g/dl (32-36); Mean Corpuscular Hemoglobin 28.4 pg (26-34); Mean Corpuscular Volume 90.5 fl (80-100); Mean Platelet Volume 10.8 fl (7.4-10.4); Monocytes Absolute Auto 0.1 K/mm3 (0.1-0.6); Monocytes Percent Auto 0.5 % (2.6-8.5); Neutrophils Percent Auto 91.1 % (45.5-73.1); Platelet Count Result 183 k/mm3 (150-375); Red Blood Count 4.33 M/mm3 (4.2-5.4); Red Cell Distribution Width 14.5 % (11.5-14.5); White Blood Count 9.9 K/mm3 (4.5-10.0)
[2022-06-11 05:05] LABS: Anion Gap 9 mmol/L (8-16); Blood Urea Nitrogen 43 mg/dL (7-17); Calcium 8.9 mg/dL (8.4-10.2); Carbon Dioxide 25 mmol/L (22-30); Chloride 107 mmol/L (98-107); Estimated Glomerular Filt Rate 39; Glucose 249 mg/dL (65-110); Magnesium 2.8 mg/dL (1.6-2.3); Potassium 4.6 mmol/L (3.4-5.0); Sodium 141 mmol/L (137-145)
[2022-06-11 05:46] LABS: Cortisol Random 6.95 ug/dL
[2022-06-11] MEDS: FLUTICASONE/UMECLIDIN/VILANTER 200-62.5-25 MCG ELLIPTA 1 PUFF INHALATION (08:04)
[2022-06-11] MEDS: ALBUTEROL SULFATE (*SP) AEROSOL 1 PUFF INHALATION (08:06)
[2022-06-11] MEDS: ASPIRIN 81 MG ENTERIC TABLET PO (08:37)
[2022-06-11] MEDS: carvediloL 3.125 MG TABLET PO (08:37)
[2022-06-11] MEDS: LOSARTAN POTASSIUM 12.5 MG TABLET PO (08:38)
[2022-06-11] MEDS: DORZOLAMIDE/TIMOLOL OPHTH SOL 10 ML BOTTLE 1 DROP RIGHT EYE (08:38)
[2022-06-11] MEDS: MONTELUKAST SODIUM 10 MG TABLET PO (08:38)
[2022-06-11] MEDS: OPTI-GEN TAB 1 TABLET PO (08:39)
[2022-06-11] MEDS: CHOLESTYRAMINE (W/ SUGAR) 4 GM POWD.PACK PO (10:31)
--- NOTE | 2022-06-11 11:31 | PM.IMPN ---
Progress Note: A&P Assessment and Plan (1) Near syncope: Code(s): R55 - Syncope and collapse Status: Acute Assessment and Plan: Admit to med tele Up with assistance Echocardiogram in a.m. Cardiology consult Unclear etiology Patient recently concluded 1 week of p.o. steroids Morning cortisol level in a.m. (2) Aortic stenosis: Qualifiers: Cardiac valve disease etiology: nonrheumatic Qualified Code(s): I35.0 - Nonrheumatic aortic (valve) stenosis Code(s): I35.0 - Nonrheumatic aortic (valve) stenosis Status: Acute Assessment and Plan: Will obtain echocardiogram in a.m. Continue to monitor (3) CAD (coronary artery disease): Qualifiers: Coronary Disease-Associated Artery/Lesion type: [place] artery [place] vs. transplanted heart: [place] heart Associated angina: without angina Qualified Code(s): I25.10 - Atherosclerotic heart disease of [place] coronary artery without angina pectoris Code(s): I25.10 - Atherosclerotic heart disease of [place] coronary artery without angina pectoris Status: Acute Assessment and Plan: Chest pain-free (4) Systolic and diastolic CHF, chronic: Code(s): I50.42 - Chronic combined systolic (congestive) and diastolic (congestive) heart failure Status: Acute Assessment and Plan: Patient appears euvolemic Chest x-ray is clear However elevated BNP 1600 (5) COPD (chronic obstructive pulmonary disease): Code(s): J44.9 - Chronic obstructive pulmonary disease, unspecified Status: Acute Assessment and Plan: Continue home meds Not actively wheezing Continue to monitor (6) Chronic kidney disease, stage 3: Code(s): N18.30 - Chronic kidney disease, stage 3 unspecified Status: Acute Assessment and Plan: BUN and creatinine within patient's usual Continue to monitor Daily basic metabolic profile (7) 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: Code(s): I13.0 - Hypertensive heart and chronic kidney disease with heart failure and stage 1 through stage 4 chronic kidney disease, or unspecified chronic kidney disease; N18.30 - Chronic kidney disease, stage 3 unspecified Status: Acute Assessment and Plan: Continue home meds Continue to monitor (8) Chronic diarrhea: Code(s): K52.9 - Noninfective gastroenteritis and colitis, unspecified Status: Acute Assessment and Plan: Unchanged Subjective Date/time seen: 06/11/22 11:31 No new complaints Exam Narrative: Patient is sitting semi upright position in a stretcher Const: General: comfortable, no acute distress, well developed, alert, awake and average body habitus Nutritional Appearance: average body habitus Orientation/consciousness: patient oriented x3 Other: Well-appearing HENMT: Head: normal to inspection, normocephalic and atraumatic Ears: hearing grossly normal bilaterally Face/Nose/Sinus: normal facial exam Face and sinus: normal facial exam Eyes: General: appearance normal, both eyes and all related structures Pupils: Equal, round and reactive pupils present EOM: EOMs intact bilaterally Neck: Neck: full ROM, no lymphadenopathy and no JVD Thyroid: thyroid normal Lymphatic: no lymphadenopathy noted Resp: Effort & Inspection: normal respiratory effort and able to speak in complete sentences Auscultation: clear to auscultation bilaterally Cardio: Jugular venous distension: no JVD Rate: regular rate Rhythm: regular rhythm Heart sounds: S1 normal heart sound present and S2 normal heart sound present : General: Yes deferred Skin: Rashes: no rashes Wounds: no wounds Neuro: General: patient oriented x3, CN's II-XI intact bilaterally and Unable to assess gait Cranial nerves: Yes CN's II-XII intact bilaterally and Yes Equal, round and reactive pupils present Cognition (Neuro): normal cognition Speech: normal speech Gait exam (N
--- NOTE | 2022-06-11 11:43 | PC.NURSE ---
On 06/11/22, the student, [Cassius Soliman], provided care and completed [facility] documentation on this patient. I have reviewed the student's documentation and agree with the findings.
[2022-06-11 12:04] LABS: Appearance Urine Clear (Clear); Bilirubin Urine Negative (Negative); Blood Urine Negative (Negative); Color Urine Yellow (Yellow); Glucose Urine UA Trace mg/dL (Negative); Ketones Urine Negative (Negative); Leukocyte Esterase Ur Negative LEU/UL (Negative); Nitrate Urine Negative (Negative); Protein Urine Negative (Negative); Urobilinogen Urine 0.2 mg/dL (<2.0)
[2022-06-11 12:11] LABS: Add Urine Microscopic? NO
--- NOTE | 2022-06-11 12:47 | PC.NURSE ---
On 06/11/22, the student, [Leana Galvin], provided care and completed [facility] documentation on this patient. I have reviewed the student's documentation and agree with the findings.
--- NOTE | 2022-06-11 13:56 | PM.CNCAR ---
Assessment and Plan Assessment and plan (1) Near syncope: Code(s): R55 - Syncope and collapse Status: Acute Plan 86-year-old lady who has nonischemic LV systolic dysfunction as was well worked up previously last year at this hospital and in the office. For this she has been on modest dose of carvedilol losartan and furosemide and has clinically been stable. She was sent to the hospital yesterday with extreme weakness that was noticed in the office. She does not have any obvious cardiac decompensation in terms of heart failure hypotension or arrhythmias. She had an echocardiogram this morning that does not show any sick potential changes in comparison to previous stated that is in her chart. There is no evidence of an acute coronary syndrome. At this point I would simply resume her previous regimen for LV systolic dysfunction which I believe is already been done. This included modest doses of furosemide losartan and carvedilol. From my perspective she can be discharged for follow-up with my partner/Dr. Ashley in the office. The symptoms of wheezing and generalized weakness that she has recently I do not believe are cardiac in nature. Gurinder Sevilla MD [facility] History of Present Illness History of Present Illness Consult date/time: 06/11/22 13:56 Reason For Visit: Pre-syncope Narrative: This is an 86-year-old woman who is unknown to me prior to this encounter. I am seeing at the request of the hospitalist because of near syncope. The patient has a history of mild nonischemic LV dysfunction and modest valvular heart disease and follows in a my office with my partner, Dr. Ashley. She was seen yesterday in the office have by the nurse practitioner and was sent to the emergency room because of symptoms of severe weakness and the sense that she was in danger of having a syncopal episode while she was in the office. The patient was feeling poorly with symptoms like this for the last several days. She was offered an appointment in the office to the see the nurse practitioner yesterday. According to what I was told we in the examination room in the office the patient was sitting in the chair was looking pale and reporting that she was extremely weak and unable to even stand up. With that reason she was sent to the emergency room. She was brought to the ER on a stretcher which the patient states was enjoyable and actually was smiling and having a good time while she was riding to the emergency room. This sounded very strange to me. She states that he had no specific cardiac symptoms such as chest pain air hunger palpitations shortness of breath orthopnea PND or edema. She states she was just feeling extremely weak. She reports that she recently treated by her PCP as an outpatient for will was felt to be bronchitis or some sort of seated OPD exacerbation with steroids and antibiotics. In this setting she was seen in the emergency room and admitted to the hospital. When she was in the office despite the symptoms her vital signs and cardiac rhythm as well as her oxygenation was essentially normal. There was no significant instability of her vital signs in the emergency department. This afternoon upon the floor she seems to be feeling relatively well she states she is scheduled to undergo a carotid Doppler exam after this she is hopeful that she will be able to go home. She did have an echocardiogram done earlier today which shows mild LV systolic dysfunction with an ejection fraction in the vicinity of 35-40% with mild LV enlargement. There is no significant valvular dysfunction. 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 Her coronary biomarkers are negative her electrocardiogram does not show any acute ischemic changes. This is a patient that follows in our office with Dr. Ashley with a history of mild hype
[2022-06-11 16:44] LABS: Glucose Point of Care 144 mg/dl (65-105)
--- NOTE | 2022-06-11 16:45 | PM.DS ---
DS: Admitting Diagnosis Discharge Date 06/11/22 Admitting Diagnosis TIA DS: Discharge Diagnosis Discharge Diagnosis (1) Near syncope: Code(s): R55 - Syncope and collapse Status: Acute Assessment and Plan: Admit to med tele Up with assistance Echocardiogram in a.m. Cardiology consult Unclear etiology Patient recently concluded 1 week of p.o. steroids Morning cortisol level in a.m. (2) Aortic stenosis: Qualifiers: Cardiac valve disease etiology: nonrheumatic Qualified Code(s): I35.0 - Nonrheumatic aortic (valve) stenosis Code(s): I35.0 - Nonrheumatic aortic (valve) stenosis Status: Acute Assessment and Plan: Will obtain echocardiogram in a.m. Continue to monitor (3) CAD (coronary artery disease): Qualifiers: Coronary Disease-Associated Artery/Lesion type: [place] artery [place] vs. transplanted heart: [place] heart Associated angina: without angina Qualified Code(s): I25.10 - Atherosclerotic heart disease of [place] coronary artery without angina pectoris Code(s): I25.10 - Atherosclerotic heart disease of [place] coronary artery without angina pectoris Status: Acute Assessment and Plan: Chest pain-free (4) Systolic and diastolic CHF, chronic: Code(s): I50.42 - Chronic combined systolic (congestive) and diastolic (congestive) heart failure Status: Acute Assessment and Plan: Patient appears euvolemic Chest x-ray is clear However elevated BNP 1600 (5) COPD (chronic obstructive pulmonary disease): Code(s): J44.9 - Chronic obstructive pulmonary disease, unspecified Status: Acute Assessment and Plan: Continue home meds Not actively wheezing Continue to monitor (6) Chronic kidney disease, stage 3: Code(s): N18.30 - Chronic kidney disease, stage 3 unspecified Status: Acute Assessment and Plan: BUN and creatinine within patient's usual Continue to monitor Daily basic metabolic profile (7) 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 symptoms resolved, follow up with neurology as outpatient. Time Spent with Patient Time attestation: Total time spent providing and/or coordinating discharge services: Exam Narrative: Patient is sitting semi upright position in a stretcher Const: General: comfortable, no acute distress, well developed, alert, awake and average body habitus Nutritional Appearance: average body habitus Orientation/consciousness: patient oriented x3 Other: Well-appearing HENMT: Head: normal to inspection, normocephalic and atraumatic Ears: hearing grossly normal bilaterally Face/Nose/Sinus: normal facial exam Face and sinus: normal facial exam Eyes: General: appearance normal, both eyes and all related structures Pupils: Equal, round and reactive pupils present EOM: EOMs intact bilaterally Neck: Neck: full ROM, no lymphadenopathy and no JVD Thyroid: thyroid normal Lymphatic: no lymphadenopathy noted Resp: Effort & Inspection: normal respiratory effort and able to speak in complete sentences Auscultation: clear to auscultation bilaterally Cardio: Jugular venous distension: no JVD Rate: regular rate Rhythm: regular rhythm Heart sounds: S1 normal heart sound present and S2 normal heart sound present : General: Yes deferred Skin: Rashes: no rashes Wounds: no wounds
== END 2022-06-11 18:58 | disposition home or self-care (01) ==
LOC: ANHED 21:42 → ANH2MED 06-11 10:08
PROVIDERS: Preventive Medicine Aerospace Medicine; Admitting Provider Internal Medicine; Emergency Provider Emergency Medicine; PCP Internal Medicine; Visit Provider Chiropractor
DX: R55 Syncope and collapse (principal); J44.9 Chronic obstructive pulmonary disease, unspecified; J96.21 Acute and chronic respiratory failure with hypoxia; I13.0 Hypertensive heart and chronic kidney disease with heart failure and stage 1 through stage 4 chronic kidney disease, or unspecified chronic kidney disease; I50.42 Chronic combined systolic (congestive) and diastolic (congestive) heart failure; N18.30 Chronic kidney disease, stage 3 unspecified; N17.9 Acute kidney failure, unspecified; K52.9 Noninfective gastroenteritis and colitis, unspecified; I70.0 Atherosclerosis of aorta; I25.10 Atherosclerotic heart disease of native coronary artery without angina pectoris; R07.9 Chest pain, unspecified; R94.31 Abnormal electrocardiogram [ECG] [EKG]; Z79.82 Long term (current) use of aspirin; Z79.51 Long term (current) use of inhaled steroids; Z79.899 Other long term (current) drug therapy
CPT/HCPCS: 36415; 71045; 80048; 80053; 81003; 82533; 82948; 83690; 83735; 83880; 84484; 85025; 85610; 85730; 93005; 93306; 94640; 96361; 96365; 96375; 99285; A9270; G0378; J2930; J3475; J7050

== ENCOUNTER 2022-08-13 14:25 | Outpatient (CLI) | payer OTHER, SELFPAY ==
--- NOTE | 2022-08-16 09:24 | P.PCNPFT_ITS ---
PFT Procedure Performed PFT Procedure Performed Plethysmography (Lung Vol) Diffusing Cap (DLCO) Flow Vol Loop Spirometry w/o Bronchodil PFT Interpretation Lung volumes were measured with the body plethysmography method. Lung volumes are unremarkable. Spirometry showed diminished expiratory flow rates and a d iminished FEV1 to FVC ratio of 60% consistent with obstructive airway disease. No post bronchodilator study carried out. Lung diffusion capacity is moderately reduced at 54% predicted. The flow-volume loop is consistent with obstructive airway disease. Impression: Mild obstructive airway disease. Moderately reduced lung diffusion capacity.
== END 2022-08-13 14:26 | disposition home or self-care (01) ==
PROVIDERS: PCP Family Medicine; Visit Provider Internal Medicine Pulmonary Disease
DX: R06.02 Shortness of breath (principal); R94.2 Abnormal results of pulmonary function studies
CPT/HCPCS: 94375; 94726; 94729

== ENCOUNTER 2022-12-08 01:22 | Day surgery (SDC) | payer OTHER, SELFPAY ==
[2022-12-07 16:46] VITALS: BMI 34.4
[2022-12-08] VITALS (9 sets, daily range): BP systolic 129–151; BP diastolic 87–98; PULSE 105–110; RESP 16–24; TEMP 37; O2SAT 94–97; BMI 32.9
[2022-12-08 08:01] LABS: Basophils Percent Auto 0.3 % (0.2-1.2); Eosinophils Percent Auto 0.2 % (0-4.4); Hematocrit 36.1 % (37.0-47.0); Hemoglobin 10.9 g/dL (12.0-15.0); Immature Granulocyte Absolute 0.04 K/mm3 (0.00-0.031); Immature Granulocyte Percent A 0.7 % (0-0.5); Lymphocytes Absolute Auto 1.09 K/mm3 (0.9-3.2); Lymphocytes Percent Auto 18.9 % (18.3-44.2); Mean Corpuscular HGB Conc 30.2 g/dl (32-36); Mean Corpuscular Hemoglobin 28.2 pg (26-34); Mean Corpuscular Volume 93.5 fl (80-100); Mean Platelet Volume 10.6 fl (7.4-10.4); Monocytes Percent Auto 0.5 % (2.6-8.5); Neutrophils Absolute Auto 4.6 K/mm3 (1.3-6.7); Neutrophils Percent Auto 79.4 % (45.5-73.1); Platelet Count Result 190 k/mm3 (150-375); Red Blood Count 3.86 M/mm3 (4.2-5.4); White Blood Count 5.8 K/mm3 (4.5-10.0)
[2022-12-08 08:10] LABS: Anion Gap 9 mmol/L (8-16); Blood Urea Nitrogen 24 mg/dL (7-17); Calcium 9.5 mg/dL (8.4-10.2); Carbon Dioxide 25 mmol/L (22-30); Chloride 105 mmol/L (98-107); Estimated Glomerular Filt Rate 39; Glucose 167 mg/dL (65-110); Potassium 4.2 mmol/L (3.4-5.0); Sodium 139 mmol/L (137-145)
--- NOTE | 2022-12-08 08:55 | WPDHPUPDATE1 ---
History and Physical Update Update Date/Time: 12/08/22 08:55 History and Physical has been reviewed, including an updated exam of the patient. There are NO changes in the patient's condition. Risks, benefits, and alternatives have been discussed and questions answered. Patient agrees to proceed with procedure.
--- NOTE | 2022-12-08 08:56 | WPDMODSED ---
Moderate Sedation Note-Pt Data Patient Data Diagnosis: Coronary artery disease Present Complaint: Coronary artery disease Procedure to be performed/Plan: Coronary angiography, left heart cath, +/- percutaneous coronary intervention Allergies Allergy/AdvReac Type Severity Reaction Status Date / Time Iodinated Contrast Media Allergy Severe Swelling Verified 12/08/22 07:34 of Lip/Tongue/Throat meperidine Allergy Intermediate Unknown Verified 12/08/22 07:34 Penicillins Allergy Intermediate Rash Verified 12/08/22 07:34 codeine AdvReac Mild Jittery Verified 12/08/22 07:34 Sulfa (Sulfonamide AdvReac Mild Nausea and Verified 12/08/22 07:34 Antibiotics) Vomiting Contrast Media Allergy Severe Swelling Uncoded 12/08/22 07:34 of Lip/Tongue/Throat Home Medications Medication Instructions Recorded Confirmed Type aspirin 81 mg tablet,delayed 81 mg PO DAILY 01/28/20 12/08/22 History release geriatric [id number] 1 tablet PO DAILY 01/28/20 12/07/22 History Hair,Skin and Nails 6,000 unit PO DAILY 07/21/20 12/07/22 History cholecalciferol (vitamin D3) 25 25 mcg PO DAILY 07/21/20 12/07/22 History mcg (1,000 unit) tablet (Vitamin D3) carvedilol 3.125 mg tablet (Coreg) 3.125 mg PO Q12HR #60 tabs 06/24/21 12/08/22 Rx losartan 25 mg tablet 12.5 mg PO DAILY #15 tabs 06/24/21 12/08/22 Rx potassium chloride 10 mEq 10 meq PO DAILY #90 tabs 07/09/21 12/08/22 Rx tablet,extended release vitamins A,C,E-exei-gtvxsv 4,296 1 cap PO BID 10/07/21 12/07/22 History mcg-226 mg-90 mg capsule (PreserVision AREDS) montelukast 10 mg tablet 10 mg PO DAILY #90 tabs 04/06/22 12/07/22 Rx escitalopram oxalate 10 mg tablet 10 mg PO DAILY #30 tabs 07/01/22 12/07/22 Rx (Lexapro) trazodone 50 mg tablet 50 mg PO QHS #30 tabs 07/15/22 12/07/22 Rx albuterol sulfate 90 mcg/actuation 1 inh inhalation Q8H PRN shortness 07/25/22 12/08/22 Rx aerosol inhaler (Ventolin HFA) of breath or wheezing #8.5 grams cholestyramine (with sugar) 4 gram 4 g PO DAILY 12/07/22 12/07/22 History oral powder (Questran) ezetimibe 10 mg tablet 10 mg PO DAILY 12/07/22 12/08/22 History furosemide 20 mg tablet 20 mg PO DAILY 12/07/22 12/07/22 History Current Medications: Active Medications Sodium Chloride (Normal Saline Iv) 500 mls @ 100 mls/hr IV CONT .Q5H IVONE Sedation/Anesthesia: No previous sedation/anesthesia problems (including family history). COUNT INCLUDES THE [facility] Past Medical History Medical History Acute and chronic respiratory failure with hypoxia Acute kidney injury superimposed on CKD Acute respiratory failure Adenomatous colon polyp Aortic stenosis Arthritis Bacteremia CAD (coronary artery disease) Chronic diarrhea Depression Diverticulitis GERD with esophagitis Hx of breast cancer Macular degeneration Obese Pneumonia Sepsis Systolic and diastolic CHF, chronic Vitamin D deficiency, unspecified Surgical History Surgical History History of appendectomy History of bilateral knee replacement History of cholecystectomy History of hysterectomy History of left mastectomy History of reduction surgery of right breast History of surgical removal of ganglion cyst Family History Family History Mother Rectal cancer Schizophrenia Father Heart disease Emphysema lung Sibling COPD (chronic obstructive pulmonary disease) Social History Social History Social History: Patient lives by herself and is very active in the community. She does lots of volunteer work and likes to democrat with her friends. She wants to be a full code, and her POA is her granddaughter Cori Encarnacion. Smoking status: Never smoker Second hand tobacco smoke exposure: Yes Alcohol intake: never Substance use: current Substan
--- NOTE | 2022-12-08 08:57 | WPDCARDPROC ---
Cardiac Cath Procedure Note Date of procedure:: 12/08/22 Performing physician:: CATHETERIZATION LABORATORY REPORT Procedure Date: 12/08/2022 Dairy Products Maker: Litzy Zazueta M.D., [facility]? Referring Physician: Gurinder Ashley M.D. ? Anesthesia: Versed and Fentanyl were ordered and given in my presence at 09:08, procedure ended at 09:30. Supervision of nurse monitored moderate sedation with Versed and Fentanyl was provided for 22 minutes. Total of Versed 1mg and Fentanyl 25mcg were administered by the Vacuum Applicator Operator RN Linda Bejarano. Pre-op Diagnosis: Coronary artery disease Post-op Diagnosis: 1. Mild non-obstructive coronary artery disease 2. Left ventricular end-diastolic pressure of 20mmHg Procedure(s): 1. Moderate sedation 2. Ultrasound-guided access of the right common femoral artery 3. Coronary angiography 4. Left heart cath 5. Angioseal closure of the right common femoral artery Access Site: Right common femoral artery Brief History and Clinical Indications: Patient is an 87 year old female with coronary artery disease, heart failure with reduced ejection fraction who is referred for [facility] for ischemic evaluation. All risks, benefits and alternatives to left heart catheterization with or without percutaneous coronary intervention was discussed at length with the patient. Risk of complications including but not limited to bleeding, infection, arrhythmia, stroke, worsening kidney function, blood loss, groin hematoma, limb loss, emergency coronary artery bypass grafting, and even were discussed with the patient and all questions were answered. The patient understood and wished to proceed. Time out called, patient name, date of , medical record number, allergies, procedure performed, identify Dairy Products Maker, patient and staff member concurred with accurate data, procedure carried on. Findings: LEFT HEART CATHETERIZATION FINDINGS: 1. Left main: Large caliber vessel. The proximal portion has mild 20-30% disease. The left main is patent without any significant obstructive angiographic disease. 2. Left anterior descending: Large caliber vessel. The proximal LAD has mild 10-20% disease. Remainder of the LAD has luminal irregularities without any significant obstructive angiographic disease. The first diagonal branch has mild luminal irregularities without any significant obstructive angiographic disease. 3. Left circumflex: Large caliber vessel. The ostium of the left circumflex has mild 20-30% stenosis. The AV groove circumflex is a small caliber vessel without obstructive disease. The LCX continues on into a large caliber OM vessel that has mild 20-30% disease in its mid portion. 4. Right coronary artery: Large caliber vessel. The RCA is the dominant vessel. The proximal portion has luminal irregularities. The mid portion has mild diffuse disease. The distal portion has luminal irregularities. The RDPA is a large caliber vessel with luminal irregularities. The RPLV is a medium caliber vessel with luminal irregularities. 5. Left ventricle: A. End-diastolic pressure 20mmHg. B. LV gram deferred. C. No significant gradient across aortic valve on catheter pullback. Description of Procedure: Informed consent signed and placed in the chart. Patient transferred to wood preserving plant laborer room. Prepped and draped in usual sterile fashion. 2% lidocaine in right groin area. Micropuncture needle used to access right common femoral artery under ultrasound guidance. J wire advanced, micropuncture cannula placed. Right iliofemoral angiogram performed, access confirmed and micropuncture cannula exchanged for 5-FR sheath. 5F FL 4 diagnostic catheter engaged Left Main Coronary Artery. 5F FR 4 diagnostic catheter engaged Right Coronary Artery. Multiple orthogonal angiogram obtained and reviewed 5F Pigtail diagnostic catheter crossed aortic valve to obtain LVEDP, LV angiogram deferred. Hemostasis was achieved by 6F Angioseal. ? Assessment: 1
== END 2022-12-08 12:33 | disposition home or self-care (01) ==
PROVIDERS: PCP Family Medicine; Visit Provider Internal Medicine
PROC: 4A023N7 Measurement of Cardiac Sampling and Pressure, Left Heart, Percutaneous Approach (ICD-10-PCS; CPT 93452; principal; 2022-12-08 08:30)
DX: I25.118 Atherosclerotic heart disease of native coronary artery with other forms of angina pectoris (principal); I42.9 Cardiomyopathy, unspecified; I50.42 Chronic combined systolic (congestive) and diastolic (congestive) heart failure; R94.39 Abnormal result of other cardiovascular function study; J96.21 Acute and chronic respiratory failure with hypoxia; N18.9 Chronic kidney disease, unspecified; K21.9 Gastro-esophageal reflux disease without esophagitis; J44.9 Chronic obstructive pulmonary disease, unspecified; E55.9 Vitamin D deficiency, unspecified; F32.A Depression, unspecified; Z85.3 Personal history of malignant neoplasm of breast; E66.9 Obesity, unspecified; Z68.33 Body mass index [BMI] 33.0-33.9, adult; Z79.82 Long term (current) use of aspirin; Z15.01 Genetic susceptibility to malignant neoplasm of breast; Z79.51 Long term (current) use of inhaled steroids
CPT/HCPCS: 36415; 80048; 85025; 93458; A9270; C1760; C1887; C1894; G0269; J1644; J2250; J3010; J7040

== ENCOUNTER 2023-02-14 09:49 | Outpatient (CLI) | payer OTHER, SELFPAY ==
[2023-02-14 10:37] LABS: Anion Gap 3 mmol/L (8-16); Blood Urea Nitrogen 25 mg/dL (7-17); Calcium 9.4 mg/dL (8.4-10.2); Carbon Dioxide 22 mmol/L (22-30); Chloride 115 mmol/L (98-107); Estimated Glomerular Filt Rate 39; Glucose 100 mg/dL (65-110); Potassium 5.2 mmol/L (3.4-5.0); Sodium 140 mmol/L (137-145)
== END 2023-02-14 09:50 | disposition home or self-care (01) ==
PROVIDERS: Visit Provider Nurse Practitioner Adult Health
DX: I50.20 Unspecified systolic (congestive) heart failure (principal)
CPT/HCPCS: 36415; 80048

== ENCOUNTER 2023-06-03 10:53 | Outpatient (CLI) | payer OTHER, SELFPAY ==
[2023-06-03 12:02] LABS: Anion Gap 8 mmol/L (4-12); Blood Urea Nitrogen 37 mg/dL (7-17); Calcium 9.6 mg/dL (8.4-10.2); Carbon Dioxide 24 mmol/L (22-30); Chloride 108 mmol/L (98-107); Estimated Glomerular Filt Rate 43; Glucose 98 mg/dL (65-110); Potassium 4.4 mmol/L (3.4-5.0); Sodium 140 mmol/L (137-145)
== END 2023-06-03 10:54 | disposition home or self-care (01) ==
LOC: ANHLAB 10:56
PROVIDERS: PCP Family Medicine; Visit Provider Internal Medicine Cardiovascular Disease
DX: I42.8 Other cardiomyopathies (principal)
CPT/HCPCS: 36415; 80048

== ENCOUNTER 2023-06-06 13:41 | Outpatient (CLI) | payer OTHER, SELFPAY ==
--- NOTE | ~2023-06-06 | MM_ITS ---
EXAMINATION: MM screening aarti RT w sera HISTORY: Screening TECHNIQUE: Craniocaudal and mediolateral oblique 3-D tomosynthesis images were obtained and synthetic 2-D images were generated. CAD analysis was submitted and interpreted. COMPARISON: Comparison to multiple prior studies sequentially, with oldest reviewed study dated 01/05. BREAST PARENCHYMAL COMPOSITION: Dense: The breasts are extremely dense, which lowers the sensitivity of mammography. FINDINGS: There is no evidence of suspicious mass, calcification, or architectural distortion to sugg est malignancy in right breast breast. There has been no suspicious interval change. IMPRESSION: 1. No mammographic evidence of malignancy. 2. Recommend routine screening mammography in one year. BI-RADS Category 1: Negative Reviewed, dictated and finalized at location A.
== END 2023-06-06 13:42 ==
PROVIDERS: PCP Obstetrics & Gynecology; Visit Provider Obstetrics & Gynecology
DX: Z12.31 Encounter for screening mammogram for malignant neoplasm of breast (principal)
CPT/HCPCS: 77063; 77067

== ENCOUNTER 2023-06-24 10:36 | Emergency (ER) | payer OTHER, SELFPAY ==
--- NOTE | ~2023-06-24 | XR_ITS ---
Right Knee Technique: AP, lateral, and oblique views were obtained. Clinical History: Pain Findings: No fracture or dislocation is seen. Right knee arthroplasty in place. Soft tissues are unre markable. No joint effusion is seen. Impression: No acute abnormality. Right knee arthroplasty in place. Reviewed, dictated and finalized at location . Impression: No acute abnormality. Right knee arthroplasty in place.
--- NOTE | ~2023-06-24 | CT_ITS ---
EXAMINATION: CT brain wo con DATE: 06/24/2023 11:48 INDICATION: Fall with head injury TECHNIQUE: Computed tomography (CT) of the head was performed without intravenous contrast. Sagittal and coronal reconstructions were performed. The mA was adjusted according to patient size. Iterative reconstruction technique was employed. The dose-length product was 681.00 mGy-cm. COMPARISON: None FINDINGS: Subcutaneous hematoma at the right malar region along the lateral rim of the right orbit. Globes appe ar intact with changes of bilateral intraocular lens replacement. No post septal inflammation trace s tranding. No fracture. No acute intracranial hemorrhage, acute infarction or abnormal extra axial flu id collection. There is mild scattered white matter hypoattenuation consistent with chronic small ves scottie ischemic disease. Symmetric prominence of the sulci consistent with mild age-appropriate diffuse cerebral volume loss. Ventricles are normal and symmetric. No mass/mass effect. Mild mucosal thickeni ng the bilateral ethmoid sinuses. Mastoid air cells and middle ear cavities are clear. IMPRESSION: 1. Right malar and periorbital subcutaneous hematoma. No fracture or acute intracranial process. 2. Age-related changes the brain including mild diffuse volume loss and mild scattered white matter h ypoattenuation consistent with chronic small vessel ischemic disease. Reviewed, dictated and finalized at location A. IMPRESSION: 1. Right malar and periorbital subcutaneous hematoma. No fracture or acute intr acranial process. 2. Age-related changes the brain including mild diffuse volume loss and mild sc attered white matter hypoattenuation consistent with chronic small vessel ische gurjit disease.
--- NOTE | ~2023-06-24 | CT_ITS ---
EXAMINATION: 1. CT facial & cervical spine wo DATE: 06/24/2023 11:49 INDICATION: Fall with head injury TECHNIQUE: 1. Computed tomography (CT) of the maxillofacial region and of the cervical spine were performed with out intravenous contrast. Sagittal and coronal reconstructions of both regions were obtained. Automat ed exposure control and iterative reconstruction technique were employed. The dose-length product was 327.92 mGy-cm. COMPARISON: None. FINDINGS: Maxillofacial CT: Subcutaneous hematoma the right malar region and extending along the lateral right orbital rim. Globe s appear intact bilaterally with changes of bilateral intraocular lens replacement. No post septal in flammatory stranding. No maxillofacial fractures. Specifically the nasal bones, zygomatic arches, man dible and mohan of the orbits and paranasal sinuses are intact. Temporomandibular joints are normal a lignment with mild osteoarthritis. Mild mucosal thickening in the anterior bilateral ethmoid sinuses. Mastoid air cells and middle ear cavities are clear. Cervical spine CT: 2 mm anterolisthesis C3 on C4. Mild cervical dextrocurvature. There is eccentric positioning of the o dontoid process with respect to the ring of C1 which is likely chronic given the juxtaposed degenerat joanne changes along the right anterior aspect of the odontoid process and the immediately adjacent wall of the ring of C1. There is also some heterotopic ossification extending medially from the left side of the ring of C1 and inferior clivus which could represent sequela of chronic ligamentous injury. V ertebral body heights are normal. No fractures. Severe disc height loss with degenerative endplate ch anges and severe uncovertebral osteoarthritis at C4-C5, C5-C6 and C6-C7. Mild disc height loss at C2- C3, C3-C4 and C7-T1. Disc bulges and posterior disc osteophyte complexes resulting in multilevel cent ral canal stenosis from C2-C3 through C6-C7. Severe facet osteoarthritis on the right at C2-C3 and on the left at C3-C4 and C4-C5. Mild to moderate facet osteoarthritis throughout the remainder of the c ervical spine. This contributes to multilevel bilateral mild neural foraminal stenosis throughout the cervical spine. Mild left apical pleural-parenchymal scarring. Small amount of atherosclerotic calci fic a cyst at the bilateral carotid bulbs. Visualized superior mediastinum and cervical soft tissues are unremarkable. IMPRESSION: 1. No maxillofacial fractures. 2. Severe cervical spondylosis. No fracture. Reviewed, dictated and finalized at location A.
[2023-06-24 10:39] VITALS: BP 152/86; PULSE 83; RESP 18; TEMP 36.4; O2SAT 98
--- NOTE | 2023-06-24 11:47 | ED.FALL ---
HPI - Fall General Chief Complaint: Fall Stated Complaint: fall, facial injury Time Seen by Provider: 06/24/23 11:24 History of Present Illness HPI Narrative: 87-year-old female presents with her granddaughter at bedside for evaluation after a mechanical fall that occurred prior to arrival. Patient states she was stepping out of her car when she tripped and fell, landing on the right side of her face. She denies LOC, vision changes, focal numbness or weakness, upper extremity pain, chest pain, shortness of breath, neck pain or back pain, or abdominal pain. She is reporting associated right knee pain since the fall. She is on daily aspirin but is not anticoagulated. Tdap is up-to-date per patient. Related Data Home Medications Medication Instructions Recorded Confirmed aspirin 81 mg tablet,delayed 81 mg PO DAILY 01/28/20 01/25/23 release geriatric zoxkljmm-tdiv-ckhc 1 tablet PO DAILY 01/28/20 01/25/23 Hair,Skin and Nails 6,000 unit PO DAILY 07/21/20 01/25/23 cholecalciferol (vitamin D3) 25 25 mcg PO DAILY 07/21/20 01/25/23 mcg (1,000 unit) tablet (Vitamin D3) vitamins A,C,B-iich-zbyzcu 4,296 1 cap PO BID 10/07/21 01/25/23 mcg-226 mg-90 mg capsule (PreserVision AREDS) cholestyramine (with sugar) 4 gram 4 g PO DAILY 12/07/22 01/25/23 oral powder (Questran) furosemide 20 mg tablet 20 mg PO DAILY 12/07/22 01/25/23 Allergies Allergy/AdvReac Type Severity Reaction Status Date / Time Iodinated Contrast Media Allergy Severe Swelling Verified 06/24/23 10:46 of Lip/Tongue/Throat meperidine Allergy Intermediate Unknown Verified 06/24/23 10:46 Penicillins Allergy Intermediate Rash Verified 06/24/23 10:46 codeine AdvReac Mild Jittery Verified 06/24/23 10:46 Sulfa (Sulfonamide AdvReac Mild Nausea and Verified 06/24/23 10:46 Antibiotics) Vomiting Contrast Media Allergy Severe Swelling Uncoded 01/05/23 12:52 of Lip/Tongue/Throat Review of Systems Review of Systems: CONSTITUTIONAL: Denies fever, chills, or sweats. EYES: Denies visual changes, redness, or discharge. ENT: Denies rhinorrhea, congestion, sore throat, or otalgia. CARDIOVASCULAR: Denies chest pain, palpitations, or edema. RESPIRATORY: Denies cough or dyspnea. GASTROINTESTINAL: Denies abdominal pain, nausea, vomiting, or diarrhea. GENITOURINARY: Denies dysuria or hematuria. SKIN: See HPI MUSCULOSKELETAL: See HPI NEUROLOGIC: Denies headache, numbness, or weakness. PSYCHIATRIC: Denies anxiety or depression. [facility] Past Medical History Medical History Acute and chronic respiratory failure with hypoxia Acute kidney injury superimposed on CKD Acute respiratory failure Adenomatous colon polyp Aortic stenosis Arthritis Bacteremia CAD (coronary artery disease) Chronic diarrhea Depression Diverticulitis GERD with esophagitis Hx of breast cancer Macular degeneration Obese Pneumonia Sepsis Systolic and diastolic CHF, chronic Vitamin D deficiency, unspecified Surgical History Surgical History History of appendectomy History of bilateral knee replacement History of cholecystectomy History of hysterectomy History of left mastectomy History of reduction surgery of right breast History of surgical removal of ganglion cyst Family History Family History Mother Rectal cancer Schizophrenia Father Heart disease Emphysema lung Sibling COPD (chronic obstructive pulmonary disease) Social History Social History Social History: Patient lives by herself and is very active in the community. She does lots of volunteer work and likes to alliance party with her friends. She wants to be a full code, and her POA is her granddaughter Cori Encarnacion. Smoking status: Never smoker Second hand t
== END 2023-06-24 13:32 | disposition home or self-care (01) ==
PROVIDERS: Emergency Provider Physician Assistant; PCP Nurse Practitioner Family
DX: S00.531A Contusion of lip, initial encounter (principal); S00.11XA Contusion of right eyelid and periocular area, initial encounter; S05.11XA Contusion of eyeball and orbital tissues, right eye, initial encounter; J96.11 Chronic respiratory failure with hypoxia; N18.9 Chronic kidney disease, unspecified; I50.42 Chronic combined systolic (congestive) and diastolic (congestive) heart failure; I35.0 Nonrheumatic aortic (valve) stenosis; K21.00 Gastro-esophageal reflux disease with esophagitis, without bleeding; H35.30 Unspecified macular degeneration; E55.9 Vitamin D deficiency, unspecified; M19.90 Unspecified osteoarthritis, unspecified site; Z96.653 Presence of artificial knee joint, bilateral; Z86.010 Personal history of colon polyps; Z85.3 Personal history of malignant neoplasm of breast; Z87.01 Personal history of pneumonia (recurrent); Z90.49 Acquired absence of other specified parts of digestive tract; Z90.710 Acquired absence of both cervix and uterus; Z90.12 Acquired absence of left breast and nipple; Z77.22 Contact with and (suspected) exposure to environmental tobacco smoke (acute) (chronic); Z79.82 Long term (current) use of aspirin; W01.0XXA Fall on same level from slipping, tripping and stumbling without subsequent striking against object, initial encounter
CPT/HCPCS: 70450; 70486; 72125; 73564; 99284

== ENCOUNTER 2023-11-24 10:47 | Outpatient (CLI) | payer OTHER, SELFPAY ==
--- NOTE | ~2023-11-24 | XR_ITS ---
EXAMINATION: XR chest 2V DATE: 11/24/2023 10:59 INDICATION: Cough and shortness of breath TECHNIQUE: frontal view of the chest was obtained. COMPARISON: Chest radiograph dated 06/10/2022 FINDINGS: Mild patchy airspace opacities in the left mid and lower lung zones. Right lung is clear. No pulmonar y edema, pleural effusion or pneumothorax. Arch size is normal. Enlargement of the central pulmonary arteries consistent with pulmonary arterial hypertension. Left breast implant. IMPRESSION: 1. Mild opacities in the left mid and lower lung zone which could represent atelectasis or pneumonia. 2. Enlargement of the central pulmonary arteries consistent with pulmonary arterial hypertension. Reviewed, dictated and finalized at location B. IMPRESSION: 1. Mild opacities in the left mid and lower lung zone which could represent ate lectasis or pneumonia. 2. Enlargement of the central pulmonary arteries consistent with pulmonary orly rial hypertension.
== END 2023-11-24 10:48 | disposition home or self-care (01) ==
LOC: MICIMG 10:49
PROVIDERS: PCP Nurse Practitioner Family; Visit Provider Nurse Practitioner Family
DX: R05.9 Cough, unspecified (principal)
CPT/HCPCS: 71046

== ENCOUNTER 2023-12-03 10:59 | Observation (INO) | payer OTHER, SELFPAY ==
[2023-12-03] VITALS (8 sets, daily range): BP systolic 105–155; BP diastolic 50–93; PULSE 60–97; RESP 12–19; TEMP 36.6–36.9; O2SAT 95–100; BMI 35.4
--- NOTE | ~2023-12-03 | XR_ITS ---
XR chest 1V portable 12/03/2023 13:44 Indication: Recent pneumonia Procedure: AP portable chest Comparison: Comparison to multiple prior studies sequentially, with oldest reviewed study dated 06/21. Findings: There is focal airspace disease left mid lung, likely residual pneumonia. Heart size upper normal. No pleural effusion, edema or pneumothorax. Impression: 1: Focal airspace disease left mid lung, consistent with residual pneumonia. Reviewed, dictated and finalized at location B. Impression: 1: Focal airspace disease left mid lung, consistent with residual pneumonia.
--- NOTE | ~2023-12-03 | XR_ITS ---
EXAMINATION: XR retrograde pyelo w/stent LT DATE: 12/04/2023 10:32 INDICATION: Left internal ureteral stent placement TECHNIQUE: Fluoroscopic images from a left internal ureteral stent placement are submitted for review . 7 seconds of fluoroscopy time. FINDINGS: There is a left internal ureteral stent projecting in expected position. There is contrast in the lef t renal collecting system and ureter. No filling defect is seen.. IMPRESSION: 1. Left internal ureteral stent placement. Please refer to real-time procedural findings for detail s. Reviewed, dictated and finalized at location B. IMPRESSION: 1. Left internal ureteral stent placement. Please refer to real-time procedur al findings for details.
--- NOTE | ~2023-12-03 | CT_ITS ---
CT abdomen pelvis wo con Ordering provider: Angelic Jorge History: 88 years Female with . LEFT LOWER QUADRANT PAIN . Comparison: October 04, 2021 Technique: CT abdomen and pelvis without IV and without oral contrast. Automated exposure control and iterative reconstruction technique were employed. The dose-length product was 822.53 mGy-cm. Findings: Left breast implant. VISUALIZED LOWER CHEST: Area of atelectasis versus pneumonia in the right lower lobe. 6 mm nodule in the left lower lobe laterally. UPPER ABDOMINAL ORGANS: Liver: Normal. Gallbladder: Normal. Spleen: Normal. Stomach/duodenum: Sliding hiatus hernia. Pancreas: Minimal fat stranding around the head of the pancreas is noted which may indicate pancreati tis. Clinical correlation advised. Adrenals: Normal. Kidneys: Multiple cysts in the left kidney stone is seen in the left ureterovesical junction measurin g 3 mm on the left hydronephrotic changes. Small cysts in the right kidney. PELVIC ORGANS: The bladder is underfilled. BOWEL AND MESENTERY: Colon: Mild sigmoid diverticulosis without diverticulitis. Normal appendix. Small Bowel: Normal. No obstruction. Peritoneum/mesentery: No free air or free fluid. No mesenteric lymphadenopathy. RETROPERITONEUM: Mild atheromatous disease of the abdominal aorta. No retroperitoneal lymphadenopat hy. MUSCULOSKELETAL: Superficial soft tissues: The superficial soft tissues are normal. Bones: Age appropriate degenerative changes of the spine. Minimal anterolisthesis at the level of L4- L5. Pubic symphysitis. IMPRESSION: 1. Stone at the left ureterovesical junction with left hydronephrotic changes. 2. Possible minimal fat stranding around the head of the pancreas. Evaluation for pancreatitis clini leoncio is advised. 3. Bilateral renal cysts. 4. Sliding hiatus hernia. Reviewed, dictated and finalized at location A. IMPRESSION: 1. Stone at the left ureterovesical junction with left hydronephrotic changes. 2. Possible minimal fat stranding around the head of the pancreas. Evaluation for pancreatitis clinically is advised. 3. Bilateral renal cysts. 4. Sliding hiatus hernia.
--- NOTE | ~2023-12-03 | XR_ITS ---
XR abdomen/kub 1V Ordering provider: Angelic Jorge MD History: . KIDNEY STONE . Comparison: January 27, 2011 FINDINGS: BOWEL: Small bowel loops are distended with gas is seen in the mid abdomen. Follow-up advised. Nonobs tructive bowel gas pattern. ORGANOMEGALY: None. SIGNIFICANT PATHOLOGIC CALCIFICATIONS: Gases are overlapping the kidneys. No definite stones. OTHER: No free air is seen under the diaphragm. Degenerative changes of the spine. IMPRESSION: NO ACUTE ABDOMINAL FINDINGS. Small bowel loops are distended with gas in the mid abdomen. No definite evidence of obstruction. Fol low-up advised. Reviewed, dictated and finalized at location A. IMPRESSION: NO ACUTE ABDOMINAL FINDINGS. Small bowel loops are distended with gas in the mid abdomen. No definite eviden ce of obstruction. Follow-up advised.
--- NOTE | 2023-12-03 13:00 | PC.NURSE ---
Pt reports to triage nurse that she is feeling lightheaded. Pt brought into triage and vitals taken.
--- NOTE | 2023-12-03 13:23 | ED.ABDPAIN ---
HPI - Abdominal Pain General Chief Complaint: Abdominal Pain Stated Complaint: left flank pain Time Seen by Provider: 12/03/23 13:22 Source: patient Mode of arrival: ambulatory History of Present Illness HPI narrative: 88 YEARS OLD WHITE FEMALE CAME FROM HOME BY AMBULANCE COMPLAINING OF WAKING UP WITH LEFT LOWER QUADRANT PAIN, STEADY, NO AGGRAVATING OR RELIEVING FACTORS, DENIES ANY FEVER, CHILLS, NAUSEA, VOMITING, DIARRHEA, CONSTIPATION, URINARY SYMPTOMS. HISTORY OF CHOLECYSTECTOMY, APPENDECTOMY, HYSTERECTOMY LOW BLOOD PRESSURE AND CONGESTIVE HEART FAILURE. PATIENT IS TELLING ME THAT SHE IS GETTING OVER PNEUMONIA. SHE DECLINED TO TAKE ANY PAIN MEDICATION IN THE ED. Related Data Home Medications Medication Instructions Recorded Confirmed aspirin 81 mg tablet,delayed 81 mg PO DAILY 01/28/20 11/24/23 release geriatric evmuhtnc-lqsf-dqaa 1 tablet PO DAILY 01/28/20 11/24/23 Hair,Skin and Nails 6,000 unit PO DAILY 07/21/20 11/24/23 cholecalciferol (vitamin D3) 25 25 mcg PO DAILY 07/21/20 11/24/23 mcg (1,000 unit) tablet (Vitamin D3) vitamins A,C,T-ztcf-awmdvj 4,296 1 cap PO BID 10/07/21 11/24/23 mcg-226 mg-90 mg capsule (PreserVision AREDS) Allergies Allergy/AdvReac Type Severity Reaction Status Date / Time Iodinated Contrast Media Allergy Severe Swelling Verified 12/03/23 11:00 of Lip/Tongue/Throat meperidine Allergy Intermediate Unknown Verified 12/03/23 11:00 Penicillins Allergy Intermediate Rash Verified 12/03/23 11:00 codeine AdvReac Mild Jittery Verified 12/03/23 11:00 Sulfa (Sulfonamide AdvReac Mild Nausea and Verified 12/03/23 11:00 Antibiotics) Vomiting Contrast Media Allergy Severe Swelling Uncoded 12/03/23 11:00 of Lip/Tongue/Throat Review of Systems Review of Systems: All systems reviewed & are unremarkable except as noted in HPI and below PMFSH Past Medical History Medical History Acute and chronic respiratory failure with hypoxia Acute kidney injury superimposed on CKD Acute respiratory failure Adenomatous colon polyp Aortic stenosis Arthritis Bacteremia CAD (coronary artery disease) Chronic diarrhea COPD (chronic obstructive pulmonary disease) Depression Diverticulitis GERD with esophagitis Hx of breast cancer Macular degeneration Obese Pneumonia Sepsis Systolic and diastolic CHF, chronic Vitamin D deficiency, unspecified Surgical History Surgical History History of appendectomy History of bilateral knee replacement History of cholecystectomy History of hysterectomy History of left mastectomy History of reduction surgery of right breast History of surgical removal of ganglion cyst Family History Family History Mother Rectal cancer Schizophrenia Father Heart disease Emphysema lung Sibling COPD (chronic obstructive pulmonary disease) Social History Social History Social History: Patient lives by herself and is very active in the community. She does lots of volunteer work and likes to democrat with her friends. She wants to be a full code, and her POA is her granddaughter Cori Encarnacion. 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
[2023-12-03 14:12] LABS: Basophils Absolute Auto 0.1 K/mm3 (0.0-0.1); Basophils Percent Auto 0.5 % (0.2-1.2); Eosinophils Absolute Auto 0.2 K/mm3 (0-0.3); Eosinophils Percent Auto 1.6 % (0-4.4); Hematocrit 38.1 % (37.0-47.0); Hemoglobin 11.6 g/dL (12.0-15.0); Immature Granulocyte Absolute 0.06 K/mm3 (0.00-0.031); Immature Granulocyte Percent A 0.6 % (0-0.5); Lymphocytes Absolute Auto 1.62 K/mm3 (0.9-3.2); Lymphocytes Percent Auto 15.3 % (18.3-44.2); Mean Corpuscular HGB Conc 30.4 g/dl (32-36); Mean Corpuscular Hemoglobin 27.7 pg (26-34); Mean Corpuscular Volume 90.9 fl (80-100); Monocytes Absolute Auto 0.6 K/mm3 (0.1-0.6); Monocytes Percent Auto 5.9 % (2.6-8.5); Neutrophils Absolute Auto 8.1 K/mm3 (1.3-6.7); Neutrophils Percent Auto 76.1 % (45.5-73.1); Platelet Count Result 183 k/mm3 (150-375); Red Blood Count 4.19 M/mm3 (4.2-5.4); Red Cell Distribution Width 16.3 % (11.5-14.5); White Blood Count 10.6 K/mm3 (4.5-10.0)
[2023-12-03 14:24] LABS: Add Urine Microscopic? YES; Appearance Urine Clear (Clear); Bacteria Urine None Seen /hpf; Bilirubin Urine Negative (Negative); Blood Urine 3+ (Negative); Color Urine Yellow (Yellow); Glucose Urine UA Negative (Negative); Ketones Urine Negative (Negative); Leukocyte Esterase Ur 1+ LEU/UL (Negative); Nitrate Urine Negative (Negative); Non Pathogenic Casts 0-2; Protein Urine 1+ mg/dL (Negative); RBC Urine 21-50 /hpf (0-2); Squamous Epithelial Cell Urine None Seen /hpf (Few); Urobilinogen Urine 0.2 mg/dL (<2.0)
[2023-12-03] MEDS: MORPHINE SULFATE (*CRX) 2 MG/ML INJ IV PUSH (14:25)
[2023-12-03] MEDS: ONDANSETRON INJ 4 MG/2 ML VIAL IV PUSH (14:25)
[2023-12-03] MEDS: SODIUM CHLORIDE 0.9% IV 1,000 ML 500 ML IV CONT (14:25)
[2023-12-03 14:28] LABS: Alanine Aminotransferase 18 U/L (6-35); Albumin Level 3.7 g/dL (3.5-5.1); Alkaline Phosphatase 105 U/L (38-126); Anion Gap 5 mmol/L (4-12); Aspartate Amino Transferase 25 U/L (14-36); Bilirubin,Total 0.4 mg/dL (0.2-1.3); Blood Urea Nitrogen 23 mg/dL (7-17); Calcium 9.1 mg/dL (8.4-10.2); Carbon Dioxide 25 mmol/L (22-30); Chloride 110 mmol/L (98-107); Estimated Glomerular Filt Rate 42; Glucose 110 mg/dL (65-110); Lactic Acid Reflex 0.8 mmol/L (0.7-2.0); Lipase 60 U/L (23-300); Potassium 4.2 mmol/L (3.4-5.0); Sodium 140 mmol/L (137-145)
[2023-12-03] MEDS: HYDROmorphone HCL INJ (*CRX) 1 MG/ML SYR 0.25 MG IV PUSH (16:20)
[2023-12-03] MEDS: KETOROLAC 15 MG/ML VIAL (*BKC) IV PUSH (16:22)
[2023-12-03] MEDS: TAMSULOSIN HCL 0.4 MG CAPSULE PO (16:25)
[2023-12-03] MEDS: SODIUM CHLORIDE 0.9% IV 1,000 ML 75 ML IV CONT (17:50)
--- NOTE | 2023-12-03 20:05 | PM.IMHP ---
H&P: HPI History of Present Illness Date/Time: 12/03/23 20:05 Chief Complaint: Left flank pain. Narrative: This is an 88-year-old female with remote history of kidney stones, recent left-sided pneumonia for which she completed a course of antibiotics, heart failure with reduced ejection fraction, nonobstructing coronary artery disease on cardiac catheterization in December 2022, hypertension, chronic kidney disease, and asthma presented to the emergency department via EMS for evaluation of left flank pain. The patient provides the following history. She was diagnosed with left-sided pneumonia about a week and half ago for which she has completed a course of antibiotics. She feels better in that regard but does continue to have a cough. Upon waking this morning she had some discomfort in the left side which intensified as the day went on. She describes sharp and shooting pain which sounds to be colicky in nature. She denies aggravating or alleviating factors. She also denies fever, chills, sweats, nausea, vomiting, dysuria, hematuria, abdominal pain, and diarrhea. In the ED: She was afebrile on arrival stable vital signs. Labs were significant for WBC count of 10.6, hemoglobin 11.6, BUN 23, creatinine 1.20, lactic acid 0.8. Urine was positive for 1+ protein, 3+ blood, 1+ leukocyte esterase, 21 to 50 RBC, [address] of the abdomen pelvis showed a stone at the left ureterovesicular junction with left hydronephrotic changes. She received pain medications and 1 g ceftriaxone and is being admitted in this setting for pain control. At the time my evaluation she has no complain after receiving ketorolac and morphine in the ED. Review of Systems Review of Systems: 12 systems were reviewed and are negative except for as per HPI. [facility] Past Medical History Medical History (Updated 12/03/23 @ 22:35 by Jewell Kay PA-C) Adenomatous colon polyp Aortic stenosis Arthritis Breast cancer Chronic diarrhea Chronic kidney disease, stage 3 Coronary artery disease Depression Diverticulitis GERD with esophagitis Heart failure with reduced ejection fraction Hypertension Macular degeneration Vitamin D deficiency, unspecified Surgical History Surgical History History of appendectomy History of bilateral knee replacement History of cholecystectomy History of hysterectomy History of left mastectomy History of reduction surgery of right breast History of surgical removal of ganglion cyst Family History Family History Mother Rectal cancer Schizophrenia Father Heart disease Emphysema lung Sibling COPD (chronic obstructive pulmonary disease) Social History Social History (Updated 12/03/23 @ 22:33 by Jewell Kay PA-C) Social History: Surrogate decision maker: Karina Bautista, daughter. Status: Full code. Smoking status: Never smoker Second hand tobacco smoke exposure: Yes Alcohol intake: never Substance use: never Substance use type: does not use Do You Feel Safe in your Home?: Yes Lack of Transportation: No Lack of Food: Never True Current Housing: I Have Housing Concerned About Future Housing: No Difficulty Paying Gas/Electric Bills: No Difficulty Paying for Meds: No Currently Unemployed: No Education: Grade School Difficulty w/ Childcare or Family Care: No Living arrangements: alone Occupation/Education: retired Spiritual care concerns: No Agree to blood products: Yes Meds Home Medications and Allergies Home Medications Medication Instructions Recorded Confirmed Type aspirin 81 mg tablet,delayed 81 mg PO DAILY 01/28/20 12/03/23 History release geriatric wocpeyxz-fovy-tnml 1 tablet PO DAILY 01/28/20 12/03/23 History Hair,Skin and Nails 6,000 unit PO DAILY 07/21/20 12/03/23 History cholecalciferol (vitamin D3) 25 25 mcg PO DAILY 07/05
[2023-12-03] MEDS: traZODone HCL 50 MG TABLET BY MOUTH (23:01)
[2023-12-03] MEDS: ESCITALOPRAM OXALATE 10 MG TABLET BY MOUTH (23:01)
[2023-12-04] VITALS (8 sets, daily range): BP systolic 114–128; BP diastolic 58–72; PULSE 87–115; RESP 16–20; TEMP 36.2–36.7; O2SAT 97–100
[2023-12-04 06:42] LABS: Hematocrit 35.9 % (37.0-47.0); Hemoglobin 9.6 g/dL (12.0-15.0); Mean Corpuscular HGB Conc 26.7 g/dl (32-36); Mean Corpuscular Hemoglobin 27.2 pg (26-34); Mean Corpuscular Volume 101.7 fl (80-100); Mean Platelet Volume 11.1 fl (7.4-10.4); Platelet Count Result 131 k/mm3 (150-375); Red Blood Count 3.53 M/mm3 (4.2-5.4); Red Cell Distribution Width 16.6 % (11.5-14.5); White Blood Count 6.7 K/mm3 (4.5-10.0)
[2023-12-04 06:52] LABS: Anion Gap 7 mmol/L (4-12); Blood Urea Nitrogen 28 mg/dL (7-17); Calcium 8.1 mg/dL (8.4-10.2); Carbon Dioxide 19 mmol/L (22-30); Chloride 115 mmol/L (98-107); Estimated Glomerular Filt Rate 36; Glucose 91 mg/dL (65-110); Potassium 3.9 mmol/L (3.4-5.0); Sodium 141 mmol/L (137-145)
[2023-12-04] MEDS: SODIUM CHLORIDE 0.9% IV 1,000 ML 75 ML IV CONT (07:41)
--- NOTE | 2023-12-04 09:55 | WPDURCON ---
Assessment and Plan Assessment and plan (1) Left ureteral stone: Code(s): N20.1 - Calculus of ureter Status: Acute Assessment and Plan: Proceed with cysto, left retrograde stone extraction stent placement Urology Consult Note HPI Date Seen: 12/04/23 Time Seen: 09:55 Requesting Physician: Kendy Montalvo APRN Primary Care Provider: Anita Hawk APRN Consult Narrative Reason for consult: Distal left ureteral calculus Narrative: Randi Rodriguez is a 88 year old female who presented emergency room with left lower quadrant pain. She was found have a distal obstructing stone. They could not get her pain under control she was admitted for further management. Denies any fevers. Review of Systems Review of Systems: All systems reviewed & are unremarkable except as noted in HPI and below PMFSH Past Medical History Medical History Adenomatous colon polyp Aortic stenosis Arthritis Breast cancer Chronic diarrhea Chronic kidney disease, stage 3 Coronary artery disease Depression Diverticulitis GERD with esophagitis Heart failure with reduced ejection fraction Hypertension Macular degeneration Vitamin D deficiency, unspecified Surgical History Surgical History History of appendectomy History of bilateral knee replacement History of cholecystectomy History of hysterectomy History of left mastectomy History of reduction surgery of right breast History of surgical removal of ganglion cyst Family History Family History Mother Rectal cancer Schizophrenia Father Heart disease Emphysema lung Sibling COPD (chronic obstructive pulmonary disease) Social History Social History Social History: Surrogate decision maker: Karina Bautista, daughter. Status: Full code. Smoking status: Never smoker Second hand tobacco smoke exposure: Yes Alcohol intake: never Substance use: never Substance use type: does not use Do You Feel Safe in your Home?: Yes Lack of Transportation: No Lack of Food: Never True Current Housing: I Have Housing Concerned About Future Housing: No Difficulty Paying Gas/Electric Bills: No Difficulty Paying for Meds: No Currently Unemployed: No Education: Grade School Difficulty w/ Childcare or Family Care: No Living arrangements: alone Occupation/Education: retired Spiritual care concerns: No Agree to blood products: Yes Meds Home Medications and Allergies Home Medications Medication Instructions Recorded Confirmed Type aspirin 81 mg tablet,delayed 81 mg PO DAILY 01/28/20 12/03/23 History release geriatric khslfotp-rjgz-acml 1 tablet PO DAILY 01/28/20 12/03/23 History Hair,Skin and Nails 6,000 unit PO DAILY 07/21/20 12/03/23 History cholecalciferol (vitamin D3) 25 25 mcg PO DAILY 07/21/20 12/03/23 History mcg (1,000 unit) tablet (Vitamin D3) carvedilol 3.125 mg tablet (Coreg) 3.125 mg PO Q12HR #60 tabs 06/24/21 12/03/23 Rx potassium chloride 10 mEq 10 meq PO DAILY #90 tabs 07/09/21 12/03/23 Rx tablet,extended release vitamins A,C,I-uhio-lnmlzg 4,296 1 cap PO BID 10/07/21 12/03/23 History mcg-226 mg-90 mg capsule (PreserVision AREDS) fluticasone fur. 200 mcg-umeclid 1 inh inhalation DAILY #28 ea 12/16/22 12/03/23 Rx 62.5 mcg-vilant 25 mcg inhalat.powder (Trelegy Ellipta) albuterol sulfate 90 mcg/actuation 1 inh inhalation Q8H PRN shortness 03/24/23 12/03/23 Rx aerosol inhaler (Ventolin HFA) of breath or wheezing #8.5 grams montelukast 10 mg tablet 10 mg PO DAILY #90 tabs 06/07/23 12/03/23 Rx escitalopram oxalate 10 mg tablet See Rx Instructions .Route 06/17/23 12/03/23 Rx .COMPLEX #90 tabs ezetimibe 10 mg tablet 10 mg PO DAILY #90 tabs 07/0
--- NOTE | 2023-12-04 09:58 | WPDANESEPPF ---
Anes - Initial Pre Proc Eval Procedure: Operation Date: 12/04/23 11:00 Proposed Procedures p Cysto, RPG, Stone Ext, Stent Placement(Left) - Santi Rendon MD Date/Time: 12/04/23 09:58 Surgeon: Kendy Montalvo APRN Pre Op Diagnosis: LEFT-SIDED KIDNEY STONE Patient Data Age: 88 Gender: F Height: 1.5 m Weight: 79.5 kg Last Vital Signs Temp 36.6 C 12/04/23 05:06 Pulse 93 12/04/23 05:06 Resp 16 12/04/23 05:06 BP 127/62 12/04/23 05:06 Pulse Ox 97 12/04/23 05:06 O2 Del Method Room Air 12/03/23 11:15 Allergies Allergy/AdvReac Type Severity Reaction Status Date / Time Iodinated Contrast Media Allergy Severe Swelling Verified 12/03/23 17:52 of Lip/Tongue/Throat meperidine Allergy Intermediate Unknown Verified 12/03/23 17:52 Penicillins Allergy Intermediate Rash Verified 12/03/23 17:52 codeine AdvReac Mild Jittery Verified 12/03/23 17:52 Sulfa (Sulfonamide AdvReac Mild Nausea and Verified 12/03/23 17:52 Antibiotics) Vomiting Contrast Media Allergy Severe Swelling Uncoded 12/03/23 11:00 of Lip/Tongue/Throat Home Medications Medication Instructions Recorded Confirmed Type aspirin 81 mg tablet,delayed 81 mg PO DAILY 01/28/20 12/03/23 History release geriatric fumayqvn-rhak-vdkj 1 tablet PO DAILY 01/28/20 12/03/23 History Hair,Skin and Nails 6,000 unit PO DAILY 07/21/20 12/03/23 History cholecalciferol (vitamin D3) 25 25 mcg PO DAILY 07/21/20 12/03/23 History mcg (1,000 unit) tablet (Vitamin D3) carvedilol 3.125 mg tablet (Coreg) 3.125 mg PO Q12HR #60 tabs 06/24/21 12/03/23 Rx potassium chloride 10 mEq 10 meq PO DAILY #90 tabs 07/09/21 12/03/23 Rx tablet,extended release vitamins A,C,P-mwrp-owqzxs 4,296 1 cap PO BID 10/07/21 12/03/23 History mcg-226 mg-90 mg capsule (PreserVision AREDS) fluticasone fur. 200 mcg-umeclid 1 inh inhalation DAILY #28 ea 12/16/22 12/03/23 Rx 62.5 mcg-vilant 25 mcg inhalat.powder (Trelegy Ellipta) albuterol sulfate 90 mcg/actuation 1 inh inhalation Q8H PRN shortness 03/24/23 12/03/23 Rx aerosol inhaler (Ventolin HFA) of breath or wheezing #8.5 grams montelukast 10 mg tablet 10 mg PO DAILY #90 tabs 06/07/23 12/03/23 Rx escitalopram oxalate 10 mg tablet See Rx Instructions .Route 06/17/23 12/03/23 Rx .COMPLEX #90 tabs ezetimibe 10 mg tablet 10 mg PO DAILY #90 tabs 09/06/23 12/03/23 Rx cholestyramine (with sugar) 4 gram 4 g PO DAILY #1,134 grams 09/29/23 12/03/23 Rx oral powder (Questran) furosemide 20 mg tablet See Rx Instructions .Route 10/07/23 12/03/23 Rx .COMPLEX #90 tabs trazodone 50 mg tablet See Rx Instructions .Route 10/07/23 12/03/23 Rx .COMPLEX #90 tabs albuterol 90 mcg-budesonide 80 90-80 mcg/actuation Hfa Aerosol 11/24/23 12/03/23 Sample mcg/actuation HFA aerosol inhaler Inhaler#1 Samples (Airsupra) dextromethorphan-guaifenesin 30 See Rx Instructions PO Q12H PRN 11/24/23 12/03/23 Rx mg-600 mg tablet extended cough #60 tabs hr (Mucinex DM) Laboratory Tests 12/03/23 12/03/23 12/04/23 14:05 14:16 06:22 WBC 10.6 H K/mm3 6.7 K/mm3 (4.5-10.0) (4.5-10.0) RBC 4.19 L M/mm3 3.53 L M/mm3 (4.2-5.4) (4.2-5.4) Hgb 11.6 L g/dL 9.6 L g/dL (12.0-15.0) (12.0-15.0) Hct 38.1 % 35.9 L % (37.0-47.0) (37.0-47.0) MCV 90.9 fl 101.7 H D fl (80-100) (80-100) MCH 27.7 pg 27.2 pg (26-34) (26-34) MCHC 30.4 L g/dl 26.7 L g/dl (32-36) (32-36) RDW 16.3 H % 16.6 H % (11.5-14.5) (11.5-14.5) Plt Count 183 k/mm3 131 L k/mm3 (150-375) (150-375) MPV 11.0 H fl 11.1 H fl (7.4-10.4) (7.4-10.4) Immature Gran % (Auto) 0.6 H % (0-0.5) Neut % (Auto) 76.1 H % (45.5-73.1) Lymph % (Auto) 15.3 L % (18.3-44.2) Hayes % (Auto) 5.9 % (2.6-8.5) Eos % (Auto) 1.6 % (0-4.4) Baso % (Auto) 0.5 % (0.2-1.2) Lymph #
--- NOTE | 2023-12-04 10:30 | P.OP_ITS ---
Procedure Note - Detailed Date of Procedure 12/04/23 Pre-op Diagnosis Left ureteral yjydmyqb-5-4 mm Post-op Diagnosis Same Procedure Performed Cystoscopy, left retrograde pyelogram, left ureteroscopy with stone extraction, left ureteral stent placement 4.8 Sammarinese contour Surgeon Santi Rendon MD Anesthesia General Description of Procedure Patient is taken the operative suite correctly identified. Once anesthesia was obtained she was placed in dorsal lithotomy position and prepped and draped usual sterile fashion. Twenty-two Sammarinese scope was inserted in the bladder. There were no tumors noted. The stone was visualized impacted in the orifice. Using a Sensor wire were able to push the stone back. I then dilated the orifice with an 8/10 dilator. Rigid ureteral scope was inserted. The stone was visualized. Using escape basket it was retrieved in its entirety. Pyelogram was then performed to confirm placement of the stent. 4.8 Sammarinese contour stent was placed with the proximal end coiled in the renal pelvis and the distal in the bladder. Bladder was drained. Patient is taken recovery stable condition. She will follow-up in a week's time for stent removal. She could be discharged home from Urology standpoint. This completes dictation please send a copy of op note to my office Urine Output 250 Drains Yes Packing No Pathology Yes Complications No immediate complications Condition Stable Disposition PACU
[2023-12-04] MEDS: LACTATED RINGERS 1,000 ML 30 ML IV CONT (10:36)
[2023-12-04] MEDS: guaiFENesin 12 HR 600 MG TABCR 1200 MG PO (11:49)
[2023-12-04] MEDS: EZETIMIBE 10 MG TABLET PO (11:49)
[2023-12-04] MEDS: OPTI-GEN TAB 1 TABLET PO (11:49)
[2023-12-04] MEDS: TAMSULOSIN HCL 0.4 MG CAPSULE PO (11:50)
[2023-12-04] MEDS: CHOLECALCIFEROL 1,000 UNITS TABLET 1000 UNITS PO (11:50)
[2023-12-04] MEDS: MONTELUKAST SODIUM 10 MG TABLET PO (11:50)
[2023-12-04] MEDS: POTASSIUM CHLORIDE 10 MEQ ER TABLET PO (11:51)
[2023-12-04] MEDS: ASPIRIN 81 MG ENTERIC TABLET PO (11:51)
[2023-12-04] MEDS: carvediloL 3.125 MG TABLET PO (11:51)
[2023-12-04] MEDS: CHOLESTYRAMINE (W/ SUGAR) 4 GM POWD.PACK PO (12:20)
[2023-12-04] MEDS: FUROSEMIDE 20 MG TABLET BY MOUTH (12:20)
[2023-12-04] MEDS: MULTIVITAMIN HEMATINIC (*BKC) TABLET 1 TABLET PO (12:20)
--- NOTE | 2023-12-04 14:14 | PM.DS ---
DS: Admitting Diagnosis Discharge Date 12/04/2023 Admitting Diagnosis Left ureter obstructing stone DS: Discharge Diagnosis Discharge Diagnosis (1) Hydronephrosis of left kidney: Code(s): N13.30 - Unspecified hydronephrosis Status: Acute (2) Left ureteral stone: Code(s): N20.1 - Calculus of ureter Status: Acute Plan Disposition: Patient was discharged home following Cystoscopy, left retrograde pyelogram, left ureteroscopy with stone extraction, left ureteral stent placement will have follow-up in 1 week for stent removal. DS: Summary Hospital Course Reason for hospitalization: Left ureter obstructing stone Hospital Course: Patient was an 88-year-old female who had been admitted to medical unit due to left ureter stone she was started on Rocephin and placed NPO after midnight urology had been consulted and took patient to OR for stenting patient tolerated procedure well denied any chest pain, shortness breath, nausea, vomiting bilateral flank pain or dizziness after procedure. Your already cleared patient for discharge no other acute issues other than patient does have some difficulty swallowing certain foods reports she has had her esophagus dilated plans to follow-up for possible EGD and dilation was able to tolerate some oral intake. Patient was discharged home to have follow-up in 1 week with Urology for stent removal. Status at Discharge Functional status at discharge: independent ambulation Time Spent with Patient Time attestation: Total time spent providing and/or coordinating discharge services: Time spent: Greater than 30 minutes Exam Narrative: Physical Exam: GENERAL: Alert and oriented x 3. No acute distress. EYES: PERRLA. HEENT: Moist mucous membranes. LUNGS: Clear to auscultation bilaterally. No accessory muscle use. CARDIOVASCULAR: Regular rate and rhythm. No murmur. No JVD. S1-S2 ABDOMEN: Soft, non tenderness and non-distended. No palpable masses. EXTREMITIES: No edema. Non-tender SKIN: No rashes or lesions. Skin warm, dry. NEUROLOGIC: No focal neurological deficits. CN II-XII grossly intact PSYCHIATRIC: Appropriate mood and affect. Good judgement and insight. DS: Data Data Completed and Pending Pending studies at discharge: Pending at discharge 12/04/23 10:27 Surgical [PTH] Routine Labs on day of discharge: Labs from last 24 hours 12/04/23 12/03/23 12/03/23 06:22 14:16 14:05 WBC 6.7 RBC 3.53 L Hgb 9.6 L Hct 35.9 L MCV 101.7 H D MCH 27.2 MCHC 26.7 L RDW 16.6 H Plt Count 131 L MPV 11.1 H Sodium 141 140 Potassium 3.9 4.2 Chloride 115 H 110 H Carbon Dioxide 19 L 25 Anion Gap 7 5 BUN 28 H 23 H D Creatinine 1.40 H 1.20 H Estim Creat Clear Calc Not Reportable Not Reportable Estimated GFR 36 L 42 L Glucose 91 110 Lactic Acid 0.8 Calcium 8.1 L 9.1 Magnesium 2.0 Total Bilirubin 0.4 AST 25 ALT 18 Alkaline Phosphatase 105 Total Protein 7.0 Albumin 3.7 Lipase 60 Urine Color Yellow Urine Appearance Clear Urine pH 5.0 Ur Specific [place] 1.020 Urine Protein 1+ H Urine Glucose (UA) Negative Urine Ketones Negative Ur Blood (Man) 3+ H Urine Nitrate Negative Urine Bilirubin Negative Urine Urobilinogen 0.2 Leukocyte Esterase Rfl 1+ H Urine RBC 21-50 H Urine WBC 11-20 H Ur Squamous Epith Cells None seen Urine Bacteria None seen Urine Casts 0-2 Imaging Radiologist's impression: CT ABD IMPRESSION: 1. Stone at the left ureterovesical junction with left hydronephrotic changes. 2. Possible minimal fat stranding around the head of the pancreas. Evaluation for pancreatitis clinically is advised. 3. Bilateral renal cysts. 4. Sliding hiatus hernia. Discharge Plan Discharge Attending physician on discharge: Deon Marroquin Consulting providers: Joy
== END 2023-12-04 15:09 | disposition home or self-care (01) ==
LOC: ANHED 15:58 → ANH2MED 17:01
PROVIDERS: Physician Assistant; Urology; Admitting Provider General Practice; Emergency Provider Emergency Medicine; PCP Nurse Practitioner Family; Visit Provider Nurse Practitioner Family
PROC: (CPT 52352; principal; 2023-12-04 11:00)
DX: N13.2 Hydronephrosis with renal and ureteral calculous obstruction (principal); I13.0 Hypertensive heart and chronic kidney disease with heart failure and stage 1 through stage 4 chronic kidney disease, or unspecified chronic kidney disease; I50.20 Unspecified systolic (congestive) heart failure; N18.30 Chronic kidney disease, stage 3 unspecified; I25.10 Atherosclerotic heart disease of native coronary artery without angina pectoris; J45.909 Unspecified asthma, uncomplicated; E66.9 Obesity, unspecified; Z68.35 Body mass index [BMI] 35.0-35.9, adult; Z79.82 Long term (current) use of aspirin
CPT/HCPCS: 52332; 52352; 36415; 71045; 74018; 74176; 74420; 80048; 80053; 81001; 82365; 83605; 83690; 83735; 85025; 85027; 87086; 88300; 96361; 96365; 96375; 99285; A9270; C1758; C1769; C2617; G0378; J0696; J1100; J1170; J1885; J2270; J2405; J2704; J3010; J7030; J7120; Q9966

== ENCOUNTER 2023-12-13 14:27 | Outpatient (CLI) | payer OTHER, SELFPAY ==
--- NOTE | ~2023-12-13 | CT_ITS ---
EXAMINATION:CT diagnostic chest wo con DATE: 12/13/2023 14:49 INDICATION: Pneumonia, unspecified organism. TECHNIQUE: Computed tomography (CT) of the chest was performed without intravenous contrast. Automate d exposure control and iterative reconstruction technique were employed. The dose-length product (DLP ) was 139.70 mGy-cm. COMPARISON: Chest CT 02/18/2022 FINDINGS: There is mild emphysema. Calcified pulmonary nodules are consistent with old granulomatous disease. There are patchy airspace opacities in the left upper lobe and the lower lobes, consistent w ith pneumonia. No pleural effusion. There is left atrial enlargement of the heart. There are coronary artery calcifications. No pericardial effusion. There is a small sliding hiatal hernia. There is a 1 .4 cm cyst in the liver. There are cysts in the kidneys measuring up to 2.5 cm on the left. There is a left breast implant. There is severe thoracic and cervical spondylosis. IMPRESSION: 1. Mild airspace opacities in left upper lobe and the lower lobes, consistent with pneumonia. 2. Mild emphysema. 3. Small sliding hiatal hernia. Reviewed, dictated and finalized at location A. IMPRESSION: 1. Mild airspace opacities in left upper lobe and the lower lobes, consistent w ith pneumonia. 2. Mild emphysema. 3. Small sliding hiatal hernia.
--- NOTE | ~2023-12-13 | CT_ITS ---
EXAMINATION: CT brain wo con DATE: 12/13/2023 14:49 INDICATION: Dizziness and giddiness. TECHNIQUE: Computed tomography (CT) of the head was performed without intravenous contrast. The mA wa s adjusted according to patient size. Iterative reconstruction technique was employed. The dose-lengt h product was 605.33 mGy-cm. COMPARISON: Head CT 06/24/2023 FINDINGS: There are scattered areas of low attenuation in the cerebral white matter, which is within normal limits for the patient's age. There is no intracranial hemorrhage, acute infarction, or abnorm al intracranial mass lesion. The ventricles are normal in size. There is mucosal thickening in the pa ranasal sinuses. The mastoid air cells are normal. There are likely changes of ocular lens replacemen t surgeries. IMPRESSION: 1. Normal aging brain. Reviewed, dictated and finalized at location A. IMPRESSION: 1. Normal aging brain.
== END 2023-12-13 14:28 | disposition home or self-care (01) ==
PROVIDERS: PCP Nurse Practitioner Family; Visit Provider Nurse Practitioner Family
DX: R42 Dizziness and giddiness (principal); J18.9 Pneumonia, unspecified organism; R06.02 Shortness of breath; K43.9 Ventral hernia without obstruction or gangrene; K44.9 Diaphragmatic hernia without obstruction or gangrene; R91.8 Other nonspecific abnormal finding of lung field
CPT/HCPCS: 70450; 71250

== ENCOUNTER 2024-01-04 12:14 | Outpatient (CLI) | payer OTHER, SELFPAY ==
--- NOTE | ~2024-01-04 | XR_ITS ---
Clinical Indication: Shortness of breath, recurring pneumonia PA and lateral views of the chest: Comparison: 12/03/2023 Findings: The lungs are clear, without evidence of focal consolidation or pleural effusion. COPD day[place]. Cardiomediastinal silhouette is within normal limits. Bones and soft tissues are unremarkable. Impression: Clear lungs. COPD. Reviewed, dictated and finalized at location . Impression: Clear lungs. COPD.
== END 2024-01-04 12:15 | disposition home or self-care (01) ==
LOC: ANHIMG 12:17
PROVIDERS: PCP Nurse Practitioner Family; Visit Provider Nurse Practitioner Family
DX: J18.9 Pneumonia, unspecified organism (principal); J44.9 Chronic obstructive pulmonary disease, unspecified
CPT/HCPCS: 71046

== ENCOUNTER 2024-01-17 19:30 | Emergency (ER) | payer OTHER, SELFPAY ==
[2024-01-17] VITALS (7 sets, daily range): BP systolic 135–138; BP diastolic 71–78; PULSE 100–109; RESP 16–24; TEMP 36.3–36.6; O2SAT 97–100
--- NOTE | ~2024-01-17 | XR_ITS ---
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 COMPARISON: 01/04/2024 TECHNIQUE: Single portable view of the chest. FINDINGS The cardiomediastinal silhouette is unremarkable. Peribronchial thickening is redemonstrated, more prominent within the right hilum. The lungs are otherwise clear. IMPRESSION: Peribronchial thickening, without focal infiltrate or effusion. Reviewed, dictated and finalized at location A. TEST MECHANIC
--- NOTE | 2024-01-17 19:35 | ECG_ITS ---
Test Date: 2024-01-17 19:39:37 Measurements Intervals [place] Rate: 107 P: -48 [place]: 84 QRS: 11 QRSD: 102 T: 89 QT: 340 QTc: 455 Interpretive Statements SINUS TACHYCARDIA WITH SHORT [place] INTERVAL CANNOT R/O SEPTAL INFARCT, AGE INDETERMINATE BORDERLINE ST-T WAVE ABNORMALITY- HIGH LATERAL LEADS BASELINE ARTIFACT- I, II, III, AVR, AVL, AVF ABNORMAL ECG No previous ECG available for comparison Electronically Signed On 01-17-2024 20:28:59 [employer]APH[employer]ODUCTION SPECIALIST by Harsha Rossi D.O.
[2024-01-17] MEDS: IPRATROPIUM 0.5 MG/ALBUTEROL SULFATE 2.5 MG AMPUL.NEB 3 ML INHALATION ×3 (19:48→19:49)
[2024-01-17] MEDS: MAGNESIUM SULF 2 GM/WATER 50ML 2 GM/50 ML BAG IVPB (19:58)
[2024-01-17] MEDS: methylPREDNISolone SOD SUCC 125 MG VIAL IV PUSH (19:58)
[2024-01-17 20:01] LABS: Basophils Percent Auto 0.5 % (0.2-1.2); Eosinophils Absolute Auto 0.3 K/mm3 (0-0.3); Eosinophils Percent Auto 3.4 % (0-4.4); Hematocrit 40.1 % (37.0-47.0); Hemoglobin 12.4 g/dL (12.0-15.0); Immature Granulocyte Absolute 0.01 K/mm3 (0.00-0.031); Immature Granulocyte Percent A 0.1 % (0-0.5); Lymphocytes Absolute Auto 2.14 K/mm3 (0.9-3.2); Lymphocytes Percent Auto 27.1 % (18.3-44.2); Mean Corpuscular HGB Conc 30.9 g/dl (32-36); Mean Corpuscular Hemoglobin 27.9 pg (26-34); Mean Corpuscular Volume 90.3 fl (80-100); Monocytes Absolute Auto 0.6 K/mm3 (0.1-0.6); Monocytes Percent Auto 7.6 % (2.6-8.5); Neutrophils Absolute Auto 4.8 K/mm3 (1.3-6.7); Neutrophils Percent Auto 61.3 % (45.5-73.1); Platelet Count Result 186 k/mm3 (150-375); Red Blood Count 4.44 M/mm3 (4.2-5.4); Red Cell Distribution Width 16.3 % (11.5-14.5); White Blood Count 7.9 K/mm3 (4.5-10.0)
[2024-01-17 20:10] LABS: Base Excess ABG -0.7 mEq/l (+/-2.0); Fractional Inspired Oxygen 21 %; HCO3 ABG 25.6 mEq/l (22.0-26.0); PCO2 ABG 49.2 mmHg (35.0-45.0); Total Hemoglobin 11.6 g/dL (12.0-18.0); pH ABG 7.334 (7.350-7.450)
[2024-01-17 20:11] LABS: PO2 ABG < 27.0 mmHg (80.0-100.0)
[2024-01-17 20:12] LABS: Device ROOM AIR; Modified Allen's Test Pass; Oxyhemoglobin 26.7 % THb (90.0-100.0); Site Drawn LEFT BRACHIAL
[2024-01-17 20:37] LABS: INR 0.9; Prothrombin Time 12.3 Seconds (11.1-14.7)
[2024-01-17 20:38] LABS: Partial Thromboplastin Time 28.4 Seconds (22.3-36.8)
[2024-01-17 20:44] LABS: Influenza A QL RT-PCR Negative (Negative); Influenza B QL RT-PCR Negative (Negative); RSV RNA, RT-PCR Negative (Negative); SARS-CoV-2 RNA PCR Negative (Negative)
[2024-01-17 21:23] LABS: Alanine Aminotransferase 15 U/L (6-35); Albumin Level 4.4 g/dL (3.5-5.1); Alkaline Phosphatase 88 U/L (38-126); Anion Gap 7 mmol/L (4-12); Aspartate Amino Transferase 30 U/L (14-36); Bilirubin,Total 0.4 mg/dL (0.2-1.3); Blood Urea Nitrogen 35 mg/dL (7-17); Calcium 9.2 mg/dL (8.4-10.2); Carbon Dioxide 28 mmol/L (22-30); Chloride 104 mmol/L (98-107); Estimated Glomerular Filt Rate 36; Glucose 111 mg/dL (65-110); Magnesium 2.9 mg/dL (1.6-2.3); Potassium 4.7 mmol/L (3.4-5.0); Sodium 139 mmol/L (137-145)
[2024-01-17 21:34] LABS: NT Pro B Type Natriuretic Pept 3050 pg/mL (19.9-100); Troponin I 0.019 ng/mL (0.000-0.034)
--- NOTE | 2024-01-17 21:50 | ED_ITS ---
HPI - SOB/Dyspnea General Chief Complaint: Shortness of Breath/Dyspnea Stated Complaint: ASTHMA/CHF/SOB Time Seen by Provider: 01/17/24 19:34 History of Present Illness HPI Narrative: 88-year-old female with history of CAD, CKD stage 3, aortic stenosis, CHF, hyperlipidemia presents to the emergency department via EMS for an asthma attack. Patient states she has felt somewhat short of breath over the past day but today will be treated she began feeling significantly more short of breath. EMS was contacted the patient was transferred to the ED on a CPAP with an in- line DuoNeb. Upon arrival patient is audibly wheezing. She denies cough or congestion, chest pain, lower extremity edema. States she was taking her albuterol inhaler with minimal improvement. Patient's foamite mixer above [facility]. Last time was 2 weeks ago and reportedly good. Related Data Home Medications Medication Instructions Recorded Confirmed aspirin 81 mg tablet,delayed 81 mg PO DAILY 01/28/20 12/13/23 release geriatric hmeuwtmz-lsam-zvoh 1 tablet PO DAILY 01/28/20 12/13/23 Hair,Skin and Nails 6,000 unit PO DAILY 07/21/20 12/13/23 cholecalciferol (vitamin D3) 25 25 mcg PO DAILY 07/21/20 12/13/23 mcg (1,000 unit) tablet (Vitamin D3) vitamins A,C,X-tjum-dscucu 4,296 1 cap PO BID 10/07/21 12/13/23 mcg-226 mg-90 mg capsule (PreserVision AREDS) Allergies Allergy/AdvReac Type Severity Reaction Status Date / Time Iodinated Contrast Media Allergy Severe Swelling Verified 01/04/24 11:43 of Lip/Tongue/Throat meperidine Allergy Intermediate Unknown Verified 01/04/24 11:43 Penicillins Allergy Intermediate Rash Verified 01/04/24 11:43 codeine AdvReac Mild Jittery Verified 01/04/24 11:43 Sulfa (Sulfonamide AdvReac Mild Nausea and Verified 01/04/24 11:43 Antibiotics) Vomiting Contrast Media Allergy Severe Swelling Uncoded 01/03/24 12:36 of Lip/Tongue/Throat Review of Systems Review of Systems: All systems reviewed & are unremarkable except as noted in HPI and below PMFSH Past Medical History Medical History Adenomatous colon polyp Aortic stenosis Arthritis Breast cancer Chronic diarrhea Chronic kidney disease, stage 3 Coronary artery disease Depression Diverticulitis GERD with esophagitis Heart failure with reduced ejection fraction Hypertension Macular degeneration Vitamin D deficiency, unspecified Surgical History Surgical History History of appendectomy History of bilateral knee replacement History of cholecystectomy History of hysterectomy History of left mastectomy History of reduction surgery of right breast History of surgical removal of ganglion cyst Family History Family History Mother Rectal cancer Schizophrenia Father Heart disease Emphysema lung Sibling COPD (chronic obstructive pulmonary disease) Social History Social History Social History: Surrogate decision maker: Karina Bautista, daughter. Status: Full code. Smoking status: Never smoker Second hand tobacco smoke exposure: Yes Alcohol intake: never Substance use: never Substance use type: does not use Do You Feel Safe in your Home?: Yes Lack of Transportation: No Lack of Food: Never True Current Housing: I Have Housing Concerned About Future Housing: No Difficulty Paying Gas/Electric Bills: No Difficulty Paying for Meds: No Currently Unemployed: No Education: Grade School Difficulty w/ Childcare or Family Care: No Living arrangements: alone Occupation/Education: retired Spiritual care concerns: No Agree to blood products: Yes Exam Narrative: GENERAL: Well-appearing, well-nourished, and in no acute distress. HEAD: Normocephalic, atraumatic. EYES:EOMI. ENT: Nares clear, no rhinorrhea or epistaxis. Mucous membranes moist. NECK: Supple. CHEST: Expiratory wheezing and rhonchi in all lung alexis, no rales. Patient satting 97% on room air with mildly labored breathing. DuoNeb ongoing HEART: Regular rate and rhythm. No murmur heard. Normal peripheral pulses. ABDOMEN: Soft, nontender, nondistended, normal active bowel sounds. EXTREMITIES: Normal range of motion. No edema. SKIN: Warm, dry, no rash. NEURO: No focal deficits. Alert and oriented x3 Course Vital Signs Vital signs: Vital Signs Temperature 97.4 F L 01/17/24 19:28 Pulse Rate 108 H 01/17/24 19:28 Respiratory Rate 16 01/17/24 19:28 Blood Pressure 138/78 01/17/24 19:28 Pulse Oximetry 99 01/17/24 19:28 Oxygen Delivery Room Air 01/17/24 19:28 Temperature 97.9 F 01/17/24 21:40 Pulse Rate 106 H 01/17/24 21:43 Respiratory Rate 20 01/17/24 21:43 Blood Pressure 135/71 01/17/24 21:40 Pulse Oximetry 97 01/17/24 21:40 Oxygen Delivery Room Air 01/17/24 21:40 MDM - SOB/Dyspnea MDM Narrative Medical decision making narrative: 88-year-old female presents to the emergency department via EMS for shortness of breath and wheezing. Triage vitals with tachycardia of 108, otherwise unremar kable. She is afebrile nontoxic appearing. She is satting 98% on room air with mildly labored breathing. DuoNeb is ongoing. Lung sounds significant for expiratory wheezing and rhonchi in all lung alexis. CBC shows no leukocytosis or anemia. Chemistries are significant for baseline creatinine of 1.4 BUN of 35. BNP is elevated at 3050. COVID flu RSV are negative. EKG shows sinus tachycardia rate of 107, short CT interval of 84, normal QRS duration, normal QTC, Q-waves in the anterior septal leads, no ST elevations or depressions. Troponin within normal limits. Chest x-ray shows peribronchial thickening without focal infiltrate or effusion. Patient updated on workup. She received an hour long DuoNeb, 2 g of IV magnesium and 125 mg of Solu-Medrol. Upon re-evaluation she feels much better is requesting to go home. Repeat lung sounds are clear with resolution of wheezing. Her oxygen saturations are 97% on room air with no distress. Feel she is safe to be discharged home with a refill on her albuterol inhaler and steroids. I encouraged close follow-up with her foamite mixer and PCP discussed strict ED return precautions. She is agreeable to plan verbalized understanding. Discharged in stable condition. Family is at bedside who agrees. Lab Data 01/17/24 19:55 01/17/24 20:59 Labs: Lab Results 01/17/24 01/17/24 01/17/24 Range/Units 19:55 20:00 20:59 WBC 7.9 (4.5-10.0) K/mm3 RBC 4.44 (4.2-5.4) M/mm3 Hgb 12.4 (12.0-15.0) g/dL Hct 40.1 (37.0-47.0) % MCV 90.3 (80-100) fl MCH 27.9 (26-34) pg MCHC 30.9 L (32-36) g/dl RDW 16.3 H (11.5-14.5) % Plt Count 186 (150-375) k/mm3 MPV 11.0 H (7.4-10.4) fl Immature Gran % (Auto) 0.1 (0-0.5) % Neut % (Auto) 61.3 (45.5-73.1) % Lymph % (Auto) 27.1 (18.3-44.2) % [place] % (Auto) 7.6 (2.6-8.5) % Eos % (Auto) 3.4 (0-4.4) % Baso % (Auto) 0.5 (0.2-1.2) % Lymph # (Auto) 2.14 (0.9-3.2) K/mm3 [place] # (Auto) 0.6 (0.1-0.6) K/mm3 Eos # (Auto) 0.3 (0-0.3) K/mm3 Baso # (Auto) 0.0 (0.0-0.1) K/mm3 Abs Immat Gran (auto) 0.01 (0.00-0.031) K/mm3 Absolute Neuts (auto) 4.8 (1.3-6.7) K/mm3 Absolute Nucleated RBC 0.000 (0.0-0.012) K/mm3 Nucleated RBC % 0.0 (0.0-0.2) % PT 12.3 (11.1-14.7) Seconds INR 0.9 APTT 28.4 (22.3-36.8) Seconds Sodium Cancelled 139 Potassium Cancelled 4.7 Chloride Cancelled 104 Carbon Dioxide Cancelled 28 Anion Gap Cancelled 7 BUN Cancelled 35 H Creatinine Cancelled 1.40 H Estim Creat Clear Calc Cancelled Not Reportable Estimated GFR Cancelled 36 L Glucose Cancelled 111 H Calcium Cancelled 9.2 Magnesium 2.9 H (1.6-2.3) mg/dL Total Bilirubin Cancelled 0.4 AST Cancelled 30 ALT Cancelled 15 Alkaline Phosphatase Cancelled 88 Troponin I 0.019 (0.000-0.034) ng/mL NT-Pro-B Natriuret Pep Cancelled 3050 H Total Protein Cancelled 7.0 Albumin Cancelled 4.4 Influenza A (RT-PCR) Negative (Negative) Influenza B (RT-PCR) Negative (Negative) RSV (RT-PCR) Negative (Negative) SARS-CoV-2 RNA (RT-PCR) Negative (Negative) ABG Data ABG results: 01/17/24 19:48 Puncture Site Left brachial ABG pH 7.334 L ABG pCO2 49.2 H ABG pO2 < 27.0 L* ABG HCO3 25.6 ABG Base Excess -0.7 Oxyhemoglobin 26.7 L* Total Hemoglobin 11.6 L O2 Delivery Device Room air FiO2 21 Discharge Plan Discharge Clinical Impression: Asthma exacerbation Qualifiers: Asthma severity: unspecified severity Asthma persistence: unspecified Qualified Code(s): J45.901 - Unspecified asthma with (acute) exacerbation Patient Disposition: Home, Self-Care Condition: Stable Instructions: Antibiotic Form, Asthma (ED) Additional Instructions: You were evaluated in the emergency department for wheezing and difficulty breathing. Your presentation is consistent with an asthma exacerbation. He received steroids and inhalers with improvement. Please use the inhaler and steroids as directed at home and follow-up closely with her primary care provider and foamite mixer. Return to the emergency department if you develop a fever of 100.4 or greater, difficulty breathing, chest pain, or other concerning symptoms. Prescriptions: New prednisone 20 mg tablet 40 mg PO DAILY Qty: 10 0RF albuterol sulfate 90 mcg/actuation HFA aerosol inhaler 1 inh inhalation QID PRN (Reason: shortness of breath or wheezing) Qty: 6.7 0RF No Action aspirin 81 mg tablet,delayed release (DR/EC) 81 mg PO DAILY geriatric djrzoxqr-rmvo-draf Tablet 1 tablet PO DAILY PreserVision AREDS 14,320-226-200 zerc-nk-vvrx capsule 1 cap PO BID Mucinex DM 30-600 mg tablet extended release 12 hr See Rx Instructions PO Q12H PRN (Reason: cough) Qty: 60 0RF Rx Instructions: 1-2 tablest orally every 12 hours PRN; potassium chloride 10 mEq tablet extended release 10 meq PO DAILY Qty: 90 1RF Hold Instructions: Patient Condition ezetimibe 10 mg tablet 10 mg PO DAILY Qty: 90 1RF escitalopram oxalate 20 mg tablet 20 mg PO DAILY Qty: 90 1RF ipratropium-albuterol 0.5 mg-3 mg(2.5 mg base)/3 mL solution for nebulization 3 ml inhalation Q6H PRN (Reason: shortness of breath or wheezing) Qty: 180 1RF (DME) nebulizers [facility] See Rx Instructions .Route Qty: 1 0RF Rx Instructions: As directed (DME) nebulizer accessories Kit See Rx Instructions .Route Qty: 1 0RF Rx Instructions: As directed cholecalciferol (vitamin D3) [Vitamin D3] 25 mcg (1,000 unit) Tablet 25 mcg PO DAILY Hair,Skin and Nails 6,000 unit PO DAILY carvedilol [Coreg] 3.125 mg Tablet 3.125 mg PO Q12HR Qty: 60 0RF Trelegy Ellipta 200-62.5-25 mcg blister with device 1 inh inhalation DAILY Qty: 28 4RF cholestyramine (with sugar) [Questran] 4 gram powder 4 g PO DAILY Qty: 1134 0RF Rx Instructions: administer w/meal; avoid other meds within 1hr before or 4-6hr after dose furosemide 20 mg tablet See Rx Instructions .ROUTE .COMPLEX Qty: 90 1RF Dose Instruction: TAKE 1 TABLET BY MOUTH EVERY DAY Rx Instructions: TAKE 1 TABLET BY MOUTH EVERY DAY trazodone 50 mg tablet See Rx Instructions .ROUTE .COMPLEX Qty: 90 1RF Dose Instruction: TAKE 1 TABLET BY MOUTH EVERYDAY AT BEDTIME Rx Instructions: TAKE 1 TABLET BY MOUTH EVERYDAY AT BEDTIME montelukast 10 mg tablet 10 mg PO DAILY Qty: 90 1RF Rx Instructions: TAKE 1 TABLET BY MOUTH EVERY DAY albuterol sulfate [Ventolin HFA] 90 mcg/actuation HFA aerosol inhaler 1 inh inhalation Q8H PRN (Reason: shortness of breath or wheezing) Qty: 8.5 1RF Follow-up/Referrals: Anita Hawk APRN [Primary Care Provider] -
== END 2024-01-17 22:18 | disposition home or self-care (01) ==
PROVIDERS: Emergency Provider Physician Assistant; PCP Nurse Practitioner Family
DX: J45.901 Unspecified asthma with (acute) exacerbation (principal); Z20.822 Contact with and (suspected) exposure to COVID-19; M19.90 Unspecified osteoarthritis, unspecified site; Z85.3 Personal history of malignant neoplasm of breast; I13.0 Hypertensive heart and chronic kidney disease with heart failure and stage 1 through stage 4 chronic kidney disease, or unspecified chronic kidney disease; N18.30 Chronic kidney disease, stage 3 unspecified; I25.10 Atherosclerotic heart disease of native coronary artery without angina pectoris; F32.A Depression, unspecified; K21.9 Gastro-esophageal reflux disease without esophagitis; R00.0 Tachycardia, unspecified; I35.0 Nonrheumatic aortic (valve) stenosis; R06.02 Shortness of breath
CPT/HCPCS: 36415; 36600; 71045; 80053; 82805; 83735; 83880; 84484; 85018; 85025; 85610; 85730; 87637; 93005; 94640; 96374; 96375; 99284; J2919; J3475

== ENCOUNTER 2024-07-25 16:02 | Outpatient (CLI) | payer OTHER, SELFPAY ==
--- OUTSIDE RECORDS SUMMARY | 2024-07-25 16:06 | XMS_ITS ---
Author Name Auto Generated, Auto Generated Organization [employer] [facility] ices Address [address] [place] [address] Phone [phone] Care Team Providers Care Security Police Name Role Phone Ronnell Bansal Gerardo Unavailable EfrenGurinder Unavailable Functional Status No Results Mental Status No Results Allergies and Intolerances Name Onset Date Reaction Severity Sulfa (Sulfonamide Antibiotics) (Allergy) Tue 17:33:00 EDT 2021 codeine (Allergy) TueJun 24 17:33:00 EDT 2021 penicillin (Allergy) TueJun 24 17:33:00 EDT 2 meperidine (Allergy) TueJun 24 17:33:00 EDT 2 Iodinated Contrast Media (Allergy) TueJun 24 17 :33:00 EDT 2021 Medications Medication Directions Start Date End Date traZODone 50 mg tablet 50mg TABLET Oral 1 Time Daily Insomnia TueJun 30 14:00:00 ED2021Jul 04:00:00 ED2021 cholecalciferol (vitamin D3) 125 mcg (5,000 unit) tablet 1 tablet TABLET Oral 1 Time Daily TueJun 29 15:00:00 EDT 2021Jul 04 01:00:00 EDT 2021 traZODone 50 mg tablet 25mg TABLET Oral 1 Time Daily TueJun 29 15:00:00 ED2021Jun 30 14:46:00 ED2021 Banophen 25 mg capsule 1-2 tabs CAPSULE Oral PRN 1 Time Daily TueJun 24 01:00:00 ED2021Jul 04 01:00:00 EDT 2021 TUBErsoL 5 tub. unit/0.1 mL intradermal injection solution 0.1 ml VIAL (ML) Intradermal 1 Time Weekly for 2 Weeks Risa Jun 25 14:00:00 ED2021Jul 04 01:00:00 ED2021 TUBErsoL 5 tub. unit/0.1 mL intradermal injection solution Read Results VIAL (ML) Other 1 Time Weekly for 2 Weeks TueJun 25 14:00:00 ED2021Jul 04 01:00:00 ED2021 Mucus Relief ER 600 mg tablet, extended release 1 TAB TABLET, EXTENDED RELEASE 12 HR Oral Every 12 Hours DX COUGH TueJun 24 18:00:00 ED2021Jul 04:00: ED2021 levalbuteroL 1.25 mg/3 mL solution for nebulization 3 ML NEB VIAL, NEBULIZER (ML) Nebulization PRN Every 6 Hours DX WHEEZING / SOB TueJun 24 18:00:00 ED2021Jul 04:00:00 ED2021 polysaccharide iron complex 150 mg iron capsule 1 CAP CAPSULE Oral 2 Times Daily DX SUPPLEMENT TAKE WITH MEALS TueJun 24 18:00:00 ED2021Jun 29 23:49:00 EDT 2021 rOPINIRole 0.5 mg tablet 1 TAB TABLET Or al PRN Hour Of Sleep DX RESTLESS LEG TueJun 24 18:00:00 ED2021Jul 04:00:00 ED2021 rosuvastatin 10 mg tablet 1 TAB TABLET O ral 1 Time Daily DX HIGH CHOLESTEROL TueJun 24 18:00:00 ED2021Jul 04:00:00 ED2021 losartan 25 mg tablet 0.5 TAB TABLET Ora l 1 Time Daily DX HYPERTENSION 0.5 TAB= 12.5 MG TueJun 24 18:00:00 ED2021Jul 04:00:00 ED2021 acetaminophen 325 mg tablet 2 TABS TABLE T Oral PRN Every 4 Hours *DO NOT EXCEED 3GM/DAY APAP FROM ALL SOURCES*2 TABS= 650 MGDX: BREAKTHROUGH PAIN TueJun 24 18:00:00 ED2021Jul 04:00:00 ED2021 carvediloL 3.125 mg tablet 1 TAB TABLET Oral Every 12 Hours DX HYPERTENSION TueJun 24 17:30:00 ED2021Jul 04:00:00 ED2021 furosemide 20 mg tablet 1 TAB TABLET Ora l 1 Time Daily DX EDEMA TueJun 24 17:30:00 ED2021Jul 04 01:00:00 EDT 2021 melatonin 5 mg tablet 1 TAB TABLET Oral PRN Hour Of Sleep DX FOR SLEEP TueJun 24 18:00:00 ED2021Jul 04 01:00:00 ED2021 aspirin 81 mg tablet,delayed release 1 TAB TABLET, DELAYED RELEASE (ENTERIC COATED) Oral 1 Time Daily DX CLOT / STROKE PREVENTION TueJun 24 18:00:00 ED2021Jul 04 01:00:00 ED2021 Centravites 50 Plus tablet 1 TAB TABLET Oral 1 Time Daily DX SUPPLEMENT TueJun 24 18:00:00 ED2021Jul 04 01:00:00 ED2021 apple cider vinegar 600 mg capsule 1 CAP CAPSULE Oral 2 Times Daily DX SUPPLEMENT TueJun 24 18:00:00 ED2021 Risa Jun 25 17:12:00 ED2021 cholecalciferol (vitamin D3) 25 mcg (1,000 unit) tablet 1 TAB TABLET Oral 1 Time Daily DX SUPPLEMENT TueJun 24 18:00:00 ED2021Jun 29 15:10:00 EDT 2021 Hair,Skin and Nails tablet 6,000 UNIT TA BLET Oral 1 Time Daily DX SUPPLEMENT TueJun 24 18:00:00 ED2021Jun 29 23:48:00 EDT 2021 calcium carbonate 600 mg calcium (1,500 mg) tablet 1 TAB TABLET Oral 1 Time Daily DX SUPPLEMENT TueJun 24 18:00:00 ED2021Jul 04 01:00:00 ED2021 cinnamon bark 500 mg capsule 1 CAP CAPSU LE Oral [address] OF 600 MG TueJun 24 18:00:00 ED2021Jul 04 01:00:00 ED2021 hydrocortisone 1 % topical cream 1 APPLICATION CREAM (GRAM) Topical PRN 2 Times Daily DX ITCHING TueJun 24 18:00:00 ED2021Jul 04 01:00:00 ED2021 potassium chloride ER 10 mEq tablet,extended release 1 TAB TABLET, EXTENDED RELEASE Oral Every 2 Days DX SUPPLEMENT TueJun 24 18:00:00 ED2021Jul 04 01:00:00 ED2021 omeprazole 40 mg capsule,delayed release 1 CAP CAPSULE,DELAYED RELEASE (ENTERIC COATED) Oral 1 Time Daily DX GERD TueJun 24 18:00:2021Jul 04 01:00:00 ED2021 montelukast 10 mg tablet 1 TAB TABLET Or al 1 Time Daily TueJun 24 18:00:00 2021Jul 04:00:00 2021 sertraline 50 mg tablet 1 TAB TABLET Ora l 1 Time Daily DX DEPRESSION TueJun 24 18:00:00 2021Jul 04 01:00:00 ED2021 sertraline 100 mg tablet 1 TAB TABLET Or al 1 Time Daily 1 TAB WITH 50 MG TAB FOR A TOTAL DOSE OF 150 MGDX DEPRESSION TueJun 24 18:00:00 2021Jul 04:00:00 2021 Trelegy Ellipta 100 mcg-62.5 mcg-25 mcg powder for inhalation 1 PUFF BLISTER, WITH INHALATION DEVICE Inhalation 1 Time Daily DX COPD TueJun 24 18:00:00 2021Jul 04:00:00 2021 Hair,Skin and Nails (folic acid-biotin) 66.7 mcg-1,666.7 mcg tablet 1 tablet Oral 1 Time Daily Supplement TueJun 30 07:00:00 2021Jul 04 01:00:00 2021 Hair,Skin and Nails (folic acid-biotin) 66.7 mcg-1,666.7 mcg tablet 1 Oral Continuous TueJun 24 08:00:00 2021Jun 30 08:45:00 2021 Hair,Skin and Nails (folic acid-biotin) 66.7 mcg-1,666.7 mcg tablet 1 Oral Continuous TueJun 24 08:00:00 2021Jun 30 08:46:00 2021 Hair,Skin and Nails (folic acid-biotin) 66.7 mcg-1,666.7 mcg tablet 1 Oral Continuous TueJun 24 11:00:00 2021Jun 30 08:46:00 2021 Ferrex 150 Plus 150 mg-50 mg-50 mg capsule 1 capsule Oral 2 Times Daily Supplement TueJun 30 07:00:00 2021Jul 04 01:00:00 2021 Ferrex 150 Plus 150 mg-50 mg-50 mg capsule 1 Oral Continuous TueJun 24 08:00:00 2021Jun 30 08:42:00 EDT 2021 Ferrex 150 Plus 150 mg-50 mg-50 mg capsule 1 Oral Continuous TueJun 24 08:00:00 EDT 2021Jun 30 08:43:00 EDT 2021 Ferrex 150 Plus 150 mg-50 mg-50 mg capsule 1 Oral Continuous TueJun 24 08:00:00 EDT 2021Jun 30 08:43:00 EDT 2021 Problems Active Concerns * Pneumonia, unspecified organism* Code: * Start Date: TueJun 24 00:00:00 EDT 2021 * End Date: * Text: * Personal history of malignant neoplasm of breast* Code: * Start Date: TueJun 24 00:00:00 EDT 2021 * End Date: * Text: * Unspecified osteoarthritis, unspecified site* Code: * Start Date: TueJun 24 00:00:00 EDT 2021 * End Date: * Text: * Unspecified asthma, uncomplicated* Code: * Start Date: TueJun 24 00:00:00 EDT 2021 * End Date: * Text: * Diarrhea, unspecified* Code: * Start Date: TueJun 24 00:00:00 EDT 2021 * End Date: * Text: * Unspecified hearing loss, bilateral* Code: * Start Date: TueJun 24 00:00:00 EDT 2021 * End Date: * Text: * Presence of artificial knee joint, bilateral* Code: * Start Date: TueJun 24 00:00:00 EDT 2021 * End Date: * Text: * Acquired absence of left breast and nipple* Code: * Start Date: TueJun 24 00:00:00 EDT 2021 * End Date: * Text: * Obesity, unspecified* Code: * Start Date: TueJun 24 00:00:00 EDT 2021 * End Date: * Text: * Acute and chronic respiratory failure with hypoxia* Code: * Start Date: TueJun 24 00:00:00 EDT 2021 * End Date: * Text: * Sepsis, unspecified organism* Code: * Start Date: TueJun 24 00:00:00 EDT 2021 * End Date: * Text: * Hypertensive heart and chronic kidney disease with heart failure and stage 1 through stage 4 chronic kidney disease, or unspecified chronic kidney disease * Code: * Start Date: TueJun 24 00:00:00 EDT 2021 * End Date: * Text: * Pleural effusion in other conditions classified elsewhere* Code: * Start Date: TueJun 24 00:00:00 EDT 2021 * End Date: * Text: * Chronic kidney disease, stage 3b* Code: * Start Date: TueJun 24 00:00:00 EDT 2021 * End Date: * Text: * Acute on chronic combined systolic (congestive) and diastolic (congestive) heart failure* Code: * Start Date: TueJun 24 00:00:00 EDT 2021 * End Date: * Text: * Major depressive disorder, single episode, unspecified* Code: * Start Date: TueJun 24 00:00:00 EDT 2021 * End Date: * Text: * Generalized anxiety disorder* Code: * Start Date: TueJun 24 00:00:00 EDT 2021 * End Date: * Text: * Insomnia due to other mental disorder* Code: * Start Date: TueJun 24 00:00:00 EDT 2021 * End Date: * Text: * Vitamin D deficiency, unspecified* Code: * Start Date: TueJun 24 00:00:00 EDT 2021 * End Date: * Text: * Mixed hyperlipidemia* Code: * Start Date: TueJun 24 00:00:00 EDT 2021 * End Date: * Text: * Gastro-esophageal reflux disease without esophagitis* Code: * Start Date: TueJun 24 00:00:00 EDT 2021 * End Date: * Text: * Personal history of colonic polyps* Code: * Start Date: TueJun 24 00:00:00 EDT 2021 * End Date: * Text: * Restless legs syndrome* Code: * Start Date: TueJun 24 00:00:00 EDT 2021 * End Date: * Text: * 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
--- OUTSIDE RECORDS SUMMARY | 2024-07-25 16:06 | XMS_ITS | Encounter Summary ---
Author Organization [facility] Facility Care Team Providers Care Culinary Manager Name Role Phone Giorgio Hogue MD Primary Care Provider [phone] Doug Fong MD Primary Care Provider [phone] Yony Flores MD Primary Care Provider [phone] Encounter Details Date Type Department Care Team (Latest Contact Info) Description 03/04/2016 Orders Only [facility]INCONV Provider, MD Delmer [address] [place] [id number] Social History Tobacco Use Types Packs/Day Years Used Date Smoking Tobacco: Never Assessed Comments Unknown Sex and Gender Information Value Date Recorded Sex Assigned at Not on file Legal Sex Female 8:30 PM SCIENTIFIC DATABASE CURATOR Gender Identity Not on file Sexual Orientation Not on file documented as of this encounter Plan of Treatment Not on file documented as of this encounter Procedures Procedure Name Priority Date/Time Associated Diagnosis Comments CARDIOLOGY REPORT 03/04/2016 12: 00 AM SCIENTIFIC DATABASE CURATOR documented in this encounter Results * CARDIOLOGY REPORT (03/04/2016 12:00 AM SCIENTIFIC DATABASE CURATOR) Anatomical Region Laterality Modality Other Narrative 03/04/2016 12:00 AM SCIENTIFIC DATABASE CURATOR Ordered by an unspecified provider. Historical Provider [facility] Final Result documented in this encounter Visit Diagnoses Not on filedocumented in this encounter Care Teams Culinary Manager Relationship Specialty Start Date End Date Giorgio Hogue MD [address] [place] [address] PCP - General 07/08/16 05/27/20 Doug Fong MD [address] [place] [address] PCP - General Internal Medicine 06/10/22 09/16/22 Yony Flores MD [address] [place] [address] PCP - General Family Practice 09/17/22 documented as of this encounter
--- OUTSIDE RECORDS SUMMARY | 2024-07-25 16:06 | XMS_ITS | Continuity of Care Document ---
Author Organization [facility] Address [address] [place] [address] Phone Care Team Providers Care Open Pit Quarry Supervisor Name Role Phone Byron VALLE, Derek Unavailable Unavailable Allergies, Adverse Reactions, Alerts Substance Reaction Status Criticality codeine Active No Information IODINE Active No Information Sulfa (Sulfonamide Antibiotics) Active No Information penicillin G Other Active No Information Medications Medication Instructions Dosage Effective Dates (start - stop) Status Comments ADVAIR 250-50 DISKUS INHALE ONE PUFF TWI CE DAILY ( EVERY MORNING AND EVERY EVENING APPROXIMATELY 12 HOURS APART) - Active Spiriva with HandiHaler 18 mcg & inhalation capsules inhale 1 capsule (18MCG) by inhalation route every day - Active fluticasone 50 mcg/actuation Nasal [place], Susp spray 2 spray (100MCG) by intranasal route every day in each nostril 100 MCG - Active Advair HFA 115 mcg-21 mcg/actuation Aerosol Inhaler inhale 2 puff by inhalation route 2 times every day in the morning and evening 2.00 puff - Active VENTOLIN HFA 90 MCG INHALER inhale 2 puff by inhalation route 4 - 6 hours as needed - Active RANITIDINE 150 MG TABLET 1 BID - Active pantoprazole 40 mg tablet,delayed release take 1 tablet (40MG) by oral route one hour before a meal every day - Active sertraline 100 mg tablet take 1 tablet (100MG) by oral route every day 100 MG - Active ropinirole 1 mg tablet - Active Enablex 15 mg tablet,extended release take 1 tablet (15MG) by oral route every day - Active Cinnamon 500 mg capsule - Active aspirin 81 mg tablet,delayed release take 1 tablet (81MG) by oral route every day 81 MG - Active Advance Directives Directive Yes / No Effective Date File Name No Information Encounters Encounter Description Practice Location Reason(s) For Visit Diagnoses Date Provider Providers Copied on Encounter [facility], [address], [place], [place], [id number] , tel: [phone] [facility] No Information 3 Byron Reed. [address], [id number] , . tel: [phone] [facility], [address], [place], [place], [address] , tel: [phone] [facility] CHRONIC OBSTRUCTIVE ASTHMA, WITH (ACUTE) EXACERBATIONNASAL & SINUS DIS NECEsophageal reflux 2 Byron Reed. [address], [id number] , . tel: [phone] Referring Provider: Giorgio Hogue, [address] [place] [address], [place], [address]. tel:[phone] [facility], [address], [place], [place], [address] , tel: [phone] [facility] CHRONIC OBSTRUCTIVE ASTHMA, UNSPECIFIEDNASAL & SINUS DIS NECEsophageal reflux 2 Byron Reed. [address], [id number] , . tel: [phone] Referring Provider: Derek Matthews, [address] [place] [address], [address] . tel:[phone] [facility], [address], [place], [place], [address] , [place] tel: [phone] [facility] No Information 2 Byron Reed. [address], [id number] , . tel: [phone] [facility], [address] [place] [address], [id number] , tel: [phone] [facility] CHRONIC OBSTRUCTIVE ASTHMA, UNSPECIFIEDNASAL & SINUS DIS NECEsophageal reflux 2 Byron Reed. [address], [id number] , . tel: [phone] Referring Provider: Giorgio Hogue, [address] [place] [address], [place], [address]. tel:[phone] [facility], [address], [place], [place], [address] , tel: [phone] [facility] NASAL & SINUS DIS NEC 1 Byron Reed. [address], [id number] , . tel: [phone] Referring Provider: Giorgio Hogue, [address] [facility], [place], [address]. tel:[phone] [facility], [address], [place], [place], [address] , tel: [phone] [facility] CHRONIC OBSTRUCTIVE ASTHMA, UNSPECIFIEDAllergic rhinitis due to pollenEsophageal reflux 1 Byron Reed. [address], [id number] , . tel: [phone] Referring Provider: Giorgio Hogeu, [address] [place] [address], [place], [address]. tel:[phone] [facility], [address], [place], [place], [address] , tel: [phone] [facility] No Information 1 Byron Reed. [address], [id number] , [place]. tel: [phone] [facility], [address], [place], [place], [address] , [place] tel: [phone] [facility] NASAL & SINUS DIS NECCHRONIC OBST ASTHMA NOSESOPHAGEAL REFLUX 0 Byron Reed. [address] [place] [address], [id number] , . tel: [phone] [facility], [address], [place], [place], [address] , tel: [phone] [facility] ACUTE SINUSITIS NOSRHINITIS DUE TO POLLEN 7 Byron Reed. [address] [place] [address], [id number] , . tel: [phone] [facility], [address], [place], [place], [address] , tel: [phone] [facility] VACCIN FOR INFLUENZA 6 Byron Reed. [address] [place] [address], [id number] , . tel: [phone] [facility], [address], [place], [place], [address] , tel: [phone] [facility] CH OBST ASTH W (AC) EXAC 6 Byron Reed. [address] [place] [address], [id number] , . tel: [phone] [facility], [address], [place], [place], [address] , tel: [phone] [facility] ACUTE BRONCHITIS 5 Byron Reed. [address] [place] [address], [id number] , . tel: [phone] Family History Family Member Type Diagnosis Age At Onset No Information Immunizations Vaccine Date Status Comments 92265 - Influenza administered Source: So urce Unspecified Payers Payer name Insurance type Covered green party ID Authoriza tion(s) MEDICARE [place] [id number] [facility] [id number] Social History Type Description Quantity Date Captured Comments Sex Female Smoking Status No Information Chief Complaint And Reason For Visit No Information Reason For Referral Reason For Referral No Information History Of Present Illness Encounter Date Complaint History Of Prese nt Illness No Information Functional Status Date Functional Assessmen t No Information Instructions Date Instruction Additional Infor mation No Information Assessments Type Assessment Date No Information Patient Care Teams Name Effective Dates (start - stop) Status Members No Information
--- OUTSIDE RECORDS SUMMARY | 2024-07-25 16:06 | XMS_ITS | Encounter Summary ---
Author Organization [facility] Facility Care Team Providers Care Venereal Disease Investigator Name Role Phone Giorgio Hogue MD Primary Care Provider [phone] Doug Fong MD Primary Care Provider [phone] Yony Flores MD Primary Care Provider [phone] Encounter Details Date Type Department Care Team (Latest Contact Info) Description 05/05/2016 Orders Only [facility] Provider, MD Delmer [address] [place] [address] Social History Tobacco Use Types Packs/Day Years Used Date Smoking Tobacco: Never Comments Unknown Sex and Gender Information Value Date Recorded Sex Assigned at Not on file Legal Sex Female 8:30 PM GAUGER DELIVERY Gender Identity Not on file Sexual Orientation Not on file documented as of this encounter Plan of Treatment Not on file documented as of this encounter Procedures Procedure Name Priority Date/Time Associated Diagnosis Comments SCAN - LABS 05/05/2016 12:00 AM GAUGER DELIVERY documented in this encounter Results * SCAN - LABS (05/05/2016 12:00 AM GAUGER DELIVERY) Narrative 05/05/2016 12:00 AM GAUGER DELIVERY Ordered by an unspecified provider. Historical Provider Final Res ult documented in this encounter Visit Diagnoses Not on filedocumented in this encounter Care Teams Venereal Disease Investigator Relationship Specialty Start Date End Date Giorgio Hogue MD [address] [place] [address] PCP - General 07/08/16 05/27/20 Doug Fong MD [address] [place] [address] PCP - General Internal Medicine 06/10/22 09/16/22 Yony Flores MD [address] [place] [address] PCP - General Family Practice 09/17/22 documented as of this encounter
--- OUTSIDE RECORDS SUMMARY | 2024-07-25 16:07 | XMS_ITS | Clinical Summary ---
Author Organization [facility] Address [address] [place] [address] [address] [place] [address] Phone Care Team Providers Care Septic Tank Setter Name Role Phone Giorgio Hogue MD Primary Care Provider [phone] Robert Nguyen DO Unavailable [phone] Allergies Active Allergy Reactions Criticality Noted Date Comments Lorazepam Unknown 04/28/2015 Codeine Sulfate Unknown Meperidine Unknown Iodinated Contrast Media Unknown Latex Unknown Other Unknown Sulfa drugs Penicillins Hives 02/06/2015 Medications ALPRAZolam 0.5 MG TABLET SR 24 HR Active Aspirin 81 MG Tablet Active Cinnamon ([facility] CINNAMON) 500 MG Capsule Active furosemide (LASIX) 20 MG Tablet 20 mg 2 times daily. Active pantoprazole (PROTONIX) 40 MG Tablet Delayed Response Active rOPINIRole (REQUIP) 1 MG Tablet Active sertraline (ZOLOFT) 100 MG Tablet Active cholestyramine (QUESTRAN) 4 GM Pack Take 1 Packet by mouth 2 times daily (with meals). 180 Packet 3 5 Active polyethylene glycol (MIRALAX) Powder Mix the entire bottle with 64 oz of a clear liquid. Use as directed by the office for colonoscopy prep. 255 g 0 6 Active Mometasone Furo-Formoterol Fum (DULERA IN) take by inhalation 2 times daily. Active clobetasol (TEMOVATE) 0.05 % Cream Apply 3 times daily. Active hydrocortisone 2.5 % Cream Apply 3 times daily. Apply to affected area(s) as directed. Active Ferrous Sulfate (IRON) 325 (65 FE) MG Tablet Take by mouth 2 times daily. Active Multiple Vitamins-Minera ls (EYE VITAMINS PO) Take by mouth 2 times daily. Active Eluxadoline (VIBERZI) 100 MG Tablet Take 100 mg by mouth 2 times daily. 60 Tab 2 6 Active rifaximin (XIFAXAN) 550 MG Tablet Take 1 Tab by mouth 3 times daily. 30 Tab 0 6 Active Active Problems Problem Noted Date Diagnosed Date GERD (gastroesophageal reflux disease) Irritable bowel syndrome Diarrhea Immunizations Immunization Administration Dates Next Due Covid-19, Mrna, Lnp-s, Pf, 30 Mcg/0.3 Ml Dose (P fizer) 06/09/2020,05/18/2020 Family History Medical History Relation Name Comments Colon Cancer Other Relation Name Status Comments Other Social History Tobacco Use Types Packs/Day Years Used Date Smoking Tobacco: Never Smokeless Tobacco: Never Alcohol Use Standard Drinks/Week Comments No 0 (1 standard drink = 0.6 oz pur e alcohol) Comments No Sex and Gender Information Value Date Recorded Sex Assigned at Not on file Legal Sex Female 12:35 AM CDT Gender Identity Not on file Sexual Orientation Not on file Occupation Industry Job Start Date Job End Date retired Not on file Not on file Not on file Last Filed Vital Signs Vital Sign Reading Time Taken Comments Blood Pressure 128/80 02/06/2015 1:10 PM HYDROCHLORIC ACID OPERATOR Pulse - - Temperature - - Respiratory Rate - - Oxygen Saturation - - Inhaled Oxygen Concentration - - Weight 86.5 kg (190 lb 9.6 oz) 02/06/2015 1:10 P M HYDROCHLORIC ACID OPERATOR Height 154.9 cm (5' 1 ) 02/06/2015 1:10 PM HYDROCHLORIC ACID OPERATOR Body Mass Index 36.01 02/06/2015 1:10 PM HYDROCHLORIC ACID OPERATOR Plan of Treatment Health Maintenance Due Date Last Done Comments DEXA Bone Density 1936 Hepatitis C Virus (HCV) Screening 1935 TdaP Immunization 1935 Mammogram 1946 Respiratory Syncytial Virus (RSV) Immunization (Adult) (1 - 1-dose 75+ series) 10/05/2011 Zoster Immunization (2 of 3) 04/27/2013 03/02/2013 Pneumococcal Immunization (50+ years) (2 of 2 - PPSV23) 12/26/2020 12/27/2019 Influenza Immunization (#1) 11/06/202310/07, 12/27/2019, 12/19/2013 SARS-COV-2 Immunization (3 - season) 2023 06/09/2020, 05/18/2020 Pneumococcal Immunization Combined Discontinued 12/27/2019 Hepatitis B Immunization Aged Out No longer eligible based on patient's age to complete this topic Meningococcal Immunization (ACWY) Aged Out No longer eligible based on patient's age to complete this topic Rotavirus Immunization Aged Out No lo nger eligible based on patient's age to complete this topic Insurance MEDICARE C GENERIC Care Teams Septic Tank Setter Relationship Specialty Start Date End Date Giorgio Hogue MD [address] [place] [address] PCP - General Family Medicine 02/06/15 Robert Nguyen DO [address] [place] [address] Gastroenterology 05/01/15
--- OUTSIDE RECORDS SUMMARY | 2024-07-25 16:07 | XMS_ITS | Continuity of Care Document ---
Author Organization [facility] Address [address] [facility] [place] [address] Phone Care Team Providers Care Biztalk Consultant Name Role Phone Jaydon Mireles Unavailable Unavailable Procedures Procedure Date Eye Exam & Treatment Dilated Macular Exam Performed 10 Counseling For Antioxidant Supplements J Refraction Eye Exam Established Pt Dilated Macular Exam Performed 08 Ophthalmoscopy, Subsequent Ophthalmoscopy, Subsequent Office Consultation Visual Functional Status Assessed AREDS Formula Prescribed/Recommended Feb Dilated Macular Exam Performed 07 Ophthalmoscopy Ophthalmoscopy Eye Exam Established Pt Visual Functional Status Assessed AREDS Formula Prescribed/Recommended Jan Dilated Macular Exam Performed 07 Advance Directives Directive Yes / No Effective Date File Name No Information Encounters Encounter Description Practice Location Reason(s) For Visit Diagnoses Date Provider Providers Copied on Encounter [facility], [address], [place], [place], [id number], [place] tel:[phone] [facility] No Information [address]. [address], [place], [address], [place]. tel:[phone] [facility], [address], [place], [place], [address], [place] tel:[phone] [facility] No Information Mar-2 7-200 8 Leyid Anderson. [address] [place], [address], [place]. tel:[phone] Referring Provider: Sabrina Ferrer OD, [address], [place], [address]. tel:[phone] Office Consultation [facility], [address], [place], [place], [address], [place] tel:[phone] [facility] No Information 0 [address]. [address] [place], [address], [place]. tel:[phone] Referring Provider: Jaydon Soliman, [address], [place], [place], [facility]. tel:[phone] [facility], [address], [place], [place], [address], [place] tel:[phone] [facility] No Information [address] , [address], [place], [address], [place]. tel:[phone] Referring Provider: Sabrina Ferrer OD, [address], [place], [address]. tel:[phone] Family History Family Member Type Diagnosis Age At Onset No Information Payers Payer name Insurance type Covered democrat ID Authoriza tion(s) [place] [id number] [place] Commercial CI [id number] Social History Type Description Quantity Date Captured [...]
--- OUTSIDE RECORDS SUMMARY | 2024-07-25 16:07 | XMS_ITS | Referral Summary ---
Author Organization [facility] Address [address] [place] [address] Care Team Providers Care Special Loan Officer Name Role Phone Yony Flores MD Primary Care Provider [phone] Encounters Date Type Department Care Team Description 05/11/2024 Telephone [facility] [address] [place] [address] [address] [place] [address] Arina Payne MA 05/03/2024 Telephone [facility] [address] [place] [address] Arina Payne MA from Last 3 Months Allergies Active Allergy Reactions Criticality Noted Date Comments Codeine Cortisone Iodinated Contrast Media Iodine Meperidine Penicillins Sulfa (Sulfonamide Antibiotics) Tramadol Medications furosemide (LASIX) 20 mg tablet Take 1 tablet (20 mg total) by mouth daily Active montelukast (SINGULAIR) 10 mg tablet Take 1 tablet (10 mg total) by mouth nightly Active multivitamin capsule Take 1 capsule by mouth daily Active albuterol HFA (PROVENTIL HFA,VENTOLIN HFA,PROAIR HFA) 90 mcg/actuation inhaler Inhale 2 puffs every 6 (six) hours as needed for wheezing Active aspirin 81 mg enteric coated tablet Take 1 tablet (81 mg total) by mouth daily Active vit D3-vit V-intrqqfbc-hbu s [phone] ocjl-ltc-nl-mg tablet Take by mouth Active acetaminophen (TYLENOL) 325 mg tablet Take 2 tablets (650 mg total) by mouth every 6 (six) hours as needed for pain Active cholecalciferol (VITAMIN D-3) 1,000 unit Take 1 tablet/capsule (1,000 Units total) by mouth daily Active ezetimibe (ZETIA) 10 mg tablet 2 Active cholestyramine (QUESTRAN) 4 gram powder 3 Active escitalopram (LEXAPRO) 10 mg tablet Take 2 tablets (20 mg total) by mouth daily Active traZODone (DESYREL) 50 mg tablet Take 1 tablet (50 mg total) by mouth nightly 3 Active guaiFENesin ER (MUCINEX) 600 mg 12 hr tabletIndicatio ns:Shortness of breath Take 1 tablet (600 mg total) by mouth 2 (two) times a day 60 tablet 3 3 02/08/20 25 Active diphenhydrAMINE (BENADRYL) 50 mg capsule Take 1 capsule 1 hour prior to procedure 1 capsule 3 Active rosuvastatin (CRESTOR) 10 mg tabletIndicatio ns:Coronary artery disease involving [place] coronary artery of [place] heart without angina pectoris TAKE 1 TABLET BY MOUTH EVERY DAY 90 tablet 3 4 Active Additional Information Patient not taking.Reported on 02/08/2024 sacubitriL-vals ashanti (ENTRESTO) 24-26 mg tabletIndicatio ns:chronic heart failure Take 1 tablet by mouth 2 (two) times a day 60 tablet 4 Active levoFLOXacin (LEVAQUIN) 750 mg tablet TAKE 1 TABLET BY MOUTH EVERY 48 HOURS 4 Active ipratropium-alb uteroL (DUO-NEB) 0.5-2.5 mg/3 mL nebulizer solution INHALE 3 ML INHALED EVERY 6 HOURS NEEDED FOR SHORTNESS OF BREATH OR WHEEZING 4 Active potassium chloride ER 10 mEq CR tablet Take 1 tablet/capsule (10 mEq total) by mouth daily Active fluticasone/ume clidin/vilanter (TRELEGY ELLIPTA INHAL) Inhale Activ e carvediloL (COREG) 6.25 mg tablet TAKE 1 TABLET BY MOUTH TWICE A DAY WITH MEALS 180 tablet 5 Active Active Problems Problem Noted Date Diagnosed Date Primary hypertension 02/08/2024 Mild intermittent asthma without complication Assessment & Plan (08/18/2022 9:26 AM CDT): The patient had a recent asthma exacerbation related to a probable bacterial bronchitis. Her symptoms have resolved. I did tell her that she could stop using the Mucinex at this time but continue with p.r.n. albuterol MDI and Trelegy 1 puff daily. I will check an IgE level and a CBC with differential to determine the eosinophil count. She will follow-up with me in 4 months. 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 I will check a chest x-ray, full PFTs at [facility] and sputum culture. I will give her 7 days of doxycycline to use 100 mg p.o. b.i.d. as well as Mucinex 600 mg p.o. b.i.d.. I instructed her to continue on the Trelegy 1 puff daily and p.r.n. use of albuterol and she will follow-up with me in 2 weeks. Precordial pain 04/29/2011 Resolved Problems Problem Noted Date Diagnosed Date Resolved Date Heart failure with reduced ejection fraction 3 02/08/2024 Mild intermittent asthma without complication 08/19/19 23 08/18/2022 H/O cardiomyopathy 07/06/2019 3 COPD (chronic obstructive pulmonary disease) 9 08/18/2022 Chronic anticoagulation 08/22/201809/04 Social History Tobacco Use Types Packs/Day Years Used Date Smoking Tobacco: Never Smokeless Tobacco: Never Tobacco Cessation:Counseling Given: Not Answered Alcohol Use Standard Drinks/Week Comments Not Currently 0 (1 standard drink = 0.6 oz pur e alcohol) Comments Unknown Sex and Gender Information Value Date Recorded Sex Assigned at Not on file Legal Sex Female 8:30 PM RADIOLOGIC TECHNOLOGIST MAMMOGRAM Gender Identity Not on file Sexual Orientation Not on file Last Filed Vital Signs Vital Sign Reading Time Taken Comments Blood Pressure 120/84 02/08/2024 10:19 AM RADIOLOGIC TECHNOLOGIST MAMMOGRAM Pulse 78 02/08/2024 10:19 AM RADIOLOGIC TECHNOLOGIST MAMMOGRAM Temperature 36.2 C (97.2 F) 01/09/2024 10:03 AM RADIOLOGIC TECHNOLOGIST MAMMOGRAM Respiratory Rate 18 01/09/2024 10:03 AM RADIOLOGIC TECHNOLOGIST MAMMOGRAM Oxygen Saturation 95% 02/08/2024 10:19 AM RADIOLOGIC TECHNOLOGIST MAMMOGRAM Inhaled Oxygen Concentration - - Weight 78.9 kg (174 lb) 02/08/2024 10:19 AM RADIOLOGIC TECHNOLOGIST MAMMOGRAM Height 149.9 cm (4' 11 ) 02/08/2024 10:19 AM RADIOLOGIC TECHNOLOGIST MAMMOGRAM Body Mass Index 35.14 02/08/2024 10:19 AM RADIOLOGIC TECHNOLOGIST MAMMOGRAM Plan of Treatment Not on file Insurance [facility] Care Teams Special Loan Officer Relationship Specialty Start Date End Date Yony Flores MD PCP - General Family Practice 09/17/22
--- OUTSIDE RECORDS SUMMARY | 2024-07-25 16:07 | XMS_ITS ---
Author Name Auto Generated, Auto Generated Organization [facility] [facility] Address [address] [place] [address] Phone [phone] Care Team Providers Care Xm1 Tank Driver Name Role Phone Ronnell Bansal Gerardo Unavailable [...] 2021 * End Date: * Text: * moth exterminator (current) use of aspirin* Code: * Start Date: TueJun 24 00:00:00 EDT 2021 * End Date: * Text: Reason for Referral Past Medical History
--- OUTSIDE RECORDS SUMMARY | 2024-07-25 16:07 | XMS_ITS | Clinical Summary ---
Author Organization [facility] Address [facility] [place] [address] Care Team Providers Care Ground Operations Crew Member Name Role Phone Yony Flores MD Primary Care Provider [phone] [phone] Allergies Active Allergy Reactions Criticality Noted Date [...] total) by mouth daily Active vit D3-vit X-qbmifqhcp-wnu s [id number] wvhc-fmz-wa-mg tablet Take by mouth Active acetaminophen (TYLENOL) [...] 10 mg tabletIndicatio ns:Coronary artery disease involving [place] coronary artery of [place] heart without angina pectoris TAKE 1 TABLET [...] 4 months. Coronary artery disease invo lving [place] coronary artery of [place] heart without angina pectoris 05/18/2022 Mixed hyperlipidemia [...] check a chest x-ray, full PFTs at [facility] and sputum culture. I will give her [...] pulmonary disease) 9 08/18/2022 Chronic anticoagulation 08/22/201809/04 Encounters Date Type Department Care Team Description 05/11/2024 Telephone [facility] Pulmonology [address] [place] [id number] Arina Payne MA 05/03/2024 Telephone [facility] Pulmonology [address] [place] [address] Arina Payne MA from Last 3 Months Surgical History Surgery Date Site/Laterality Comments CHOLECYSTECTOMY APPENDECTOMY HYSTERECTOMY BREAST BIOPSY REPLACEMENT TOTAL KNEE Medical History Medical History Date Comments Cancer (HCC) breast COPD (chronic obstructive pulmonary disease) (HC C) Family History Medical History Relation Name Comments Heart disease Father Cancer Mother Relation Name Status Comments Father Mother Social History Tobacco Use Types Packs/Day Years Used Date Smoking Tobacco: Never Smokeless Tobacco: Never Tobacco Cessation:Counseling Given: Not Answered Alcohol Use Standard Drinks/Week Comments Not Currently 0 (1 standard drink = 0.6 oz pur e alcohol) Comments Unknown Sex and Gender Information Value Date Recorded Sex Assigned at Not on file Legal Sex Female 8:30 PM HOSE SUSPENDER CUTTER Gender Identity Not on file Sexual Orientation Not on file Obstetrics History Last Filed Vital Signs Vital Sign Reading Time Taken Comments Blood Pressure 120/84 02/08/2024 10:19 AM HOSE SUSPENDER CUTTER Pulse 78 02/08/2024 10:19 AM HOSE SUSPENDER CUTTER Temperature 36.2 C (97.2 F) 01/09/2024 10:03 AM HOSE SUSPENDER CUTTER Respiratory Rate 18 01/09/2024 10:03 AM HOSE SUSPENDER CUTTER Oxygen Saturation 95% 02/08/2024 10:19 AM HOSE SUSPENDER CUTTER Inhaled Oxygen Concentration - - Weight 78.9 kg (174 lb) 02/08/2024 10:19 AM HOSE SUSPENDER CUTTER Height 149.9 cm (4' 11 ) 02/08/2024 10:19 AM HOSE SUSPENDER CUTTER Body Mass Index 35.14 02/08/2024 10:19 AM HOSE SUSPENDER CUTTER Plan of Treatment Health Maintenance Due Date Last Done Comments Depression Screening 1936 Fall Risk Assessment 1936 DTaP/Tdap/Td Vaccine (1 - Tdap) 10/05/1947 Hepatitis B Screening 1954 Well Visit 65+ 2001 Zoster Vaccine (2 of 3) 04/27/2013 03/02/2013 Pneumococcal vaccine 65+ (2 of 2 - PCV) 04/13/2014 0 04/13/2013 Covid-19 Vaccine (3 - season) 11/06/202307/2020, 05/18/2020 Influenza Vaccine (Season Ended) 2024 12/20/[address] [facility] [place] [id number] Care Teams Ground Operations Crew Member Relationship Specialty Start Date End Date Yony Flores MD PCP - General Family Practice 09/17/22
[2024-07-25 17:26] LABS: Hemoglobin A1C 5.4 % (<5.7)
[2024-07-25 19:09] LABS: Alanine Aminotransferase 21 U/L (6-35); Albumin Level 4.3 g/dL (3.5-5.1); Alkaline Phosphatase 81 U/L (38-126); Anion Gap 7 mmol/L (4-12); Aspartate Amino Transferase 34 U/L (14-36); Bilirubin,Total 0.6 mg/dL (0.2-1.3); Blood Urea Nitrogen 26 mg/dL (7-17); Calcium 9.3 mg/dL (8.4-10.2); Carbon Dioxide 22 mmol/L (22-30); Chloride 111 mmol/L (98-107); Cholesterol 170 mg/dL (0-200); Estimated Glomerular Filt Rate 43; Glucose 96 mg/dL (65-110); HDL Direct 64 mg/dL; Magnesium 1.9 mg/dL (1.6-2.3); Potassium 5.2 mmol/L (3.4-5.0); Sodium 140 mmol/L (137-145); Triglycerides 178 mg/dL (<150)
[2024-07-25 19:21] LABS: LDL Cholesterol Direct 68 mg/dL
[2024-07-25 19:35] LABS: Iron 78 ug/dL (37-170)
[2024-07-25 19:38] LABS: Free T4 Free Thyroxine 0.97 ng/dL (0.78-2.19); Vitamin D 25 Hydroxy 24.9 ng/mL
[2024-07-25 19:40] LABS: Thyroid Stimulating Hormone 0.874 uIU/mL (0.465-4.680)
[2024-07-25 19:45] LABS: Percent Iron Saturation 32 % (20-50)
[2024-07-25 19:51] LABS: Free T3 3.18 pg/mL (2.34-5.61)
[2024-07-25 20:15] LABS: Folic Acid 12.7 ng/mL (2.76->20)
[2024-07-26 11:39] LABS: Add Urine Microscopic? YES; Appearance Urine Clear (Clear); Bacteria Urine None Seen /hpf; Bilirubin Urine Negative (Negative); Blood Urine Negative (Negative); Color Urine Yellow (Yellow); Glucose Urine UA Negative (Negative); Ketones Urine Negative (Negative); Leukocyte Esterase Ur 1+ LEU/UL (Negative); Nitrate Urine Negative (Negative); Non Pathogenic Casts 0-2; Protein Urine Negative (Negative); RBC Urine 0-2 /hpf (0-2); Specific Grav Ur 1.015 (1.001-1.035); Squamous Epithelial Cell Urine None Seen /hpf (Few); Urobilinogen Urine 0.2 mg/dL (<2.0)
== END 2024-07-25 16:03 | disposition home or self-care (01) ==
PROVIDERS: PCP Nurse Practitioner Family; Visit Provider Nurse Practitioner Family
DX: I13.0 Hypertensive heart and chronic kidney disease with heart failure and stage 1 through stage 4 chronic kidney disease, or unspecified chronic kidney disease (principal); N18.30 Chronic kidney disease, stage 3 unspecified; I50.42 Chronic combined systolic (congestive) and diastolic (congestive) heart failure; I50.9 Heart failure, unspecified; E78.5 Hyperlipidemia, unspecified; H35.30 Unspecified macular degeneration; R55 Syncope and collapse; R73.01 Impaired fasting glucose; R39.9 Unspecified symptoms and signs involving the genitourinary system
CPT/HCPCS: 36415; 80053; 80061; 81001; 82306; 82607; 82728; 82746; 83036; 83540; 83550; 83735; 84439; 84443; 84480; 84481; 87086

== ENCOUNTER 2024-12-14 01:01 | Emergency (ER) | payer OTHER, SELFPAY ==
[2024-12-14] VITALS (23 sets, daily range): BP systolic 111–151; BP diastolic 63–90; PULSE 62–76; RESP 8–26; TEMP 36.5; O2SAT 94–100
--- NOTE | ~2024-12-14 | XR_ITS ---
Examination: XR chest 2V Clinical History: cp LEFT SIDE Comparison: Chest x-ray 01/17/2024 Technique: PA and Lateral Findings: Cardiomediastinal silhouette normal size and configuration. Lungs clear. Except minimal bibasilar atelectasis and/or scarring. No acute bony abnormality. Left breast implant capsular calcification. Left axillary surgical clips. IMPRESSION: 1. No acute cardiopulmonary findings. Reviewed, dictated and finalized at location R.
--- NOTE | 2024-12-14 01:26 | ECG_ITS ---
Test Date: 2024-12-14 01:48:32 Measurements Intervals [place] Rate: 64 P: 62 ID: [id number] QRS: -3 QRSD: 102 T: 75 QT: 440 QTc: 457 Interpretive Statements SINUS RHYTHM WITH OCCASIONAL VENTRICULAR PREMATURE COMPLEXES POSSIBLE LEFT ATRIAL ENLARGEMENT CANNOT R/O SEPTAL INFARCT, AGE INDETERMINATE BORDERLINE ST-T WAVE ABNORMALITY- HIGH LATERAL LEADS BASELINE ARTIFACT- I, II, III, AVR, AVL, V2, V4 ABNORMAL ECG Compared to ECG 01/17/2024 19:39:37 HEART RATE HAS DECREASED Electronically Signed On 12-14-2024 06:28:06 CDT by Harsha Rossi D.O.
--- OUTSIDE RECORDS SUMMARY | 2024-12-14 01:29 | XMS_ITS | Clinical Summary ---
Author Organization [facility] Address [facility] [address] [place] [address] [address] [place] [address] Phone Care Team Providers Care Reeling Machine Operator Name Role Phone Giorgio Hogue MD Primary Care Provider [phone] Robert Nguyen DO Unavailable [phone] Allergies Active Allergy Reactions Criticality Noted [...] Comments Blood Pressure 128/80 02/06/2015 1:10 PM BLOCK CABLEMAN Pulse - - Temperature - - Respiratory Rate - - Oxygen Saturation - - Inhaled Oxygen Concentration - - Weight 86.5 kg (190 lb 9.6 oz) 02/06/2015 1:10 P M BLOCK CABLEMAN Height 154.9 cm (5' 1) 02/06/2015 1:10 PM BLOCK CABLEMAN Body Mass Index 36.01 02/06/2015 1:10 PM BLOCK CABLEMAN Plan of Treatment Health Maintenance Due Date Last Done Comments Hepatitis C Virus (HCV) Screening 1935 TdaP Immunization 1935 Mammogram 1946 Respiratory Syncytial Virus (RSV) Immunization (Adult) (1 - 1-dose 75+ series) 10/05/2011 Zoster Immunization (2 of 3) 04/27/2013 03/02/2013 Medicare Initial AWV [id number] 03/07/2015 Pneumococcal Immunization (5 0+ years) (2 of 2 - PCV20 or PCV21) 12/26/2020 12/27/2019 Influenza Immunization (#1) 2024 08/03/2020, 12/27/2019, 12/19/2013 SARS-COV-2 Immunization (3 - season) 2024 06/09/2020, 05/18/2020 Pneumococcal Immunization Combined Discontinued 12/27/2019 Hepatitis B Immunization Aged Out No longer eligible based on patient's age to complete this topic Human Papillomavirus (HPV) Immunization Aged Out No longer eligible based on patient's age to complete this topic Meningococcal Immunization (ACWY) Aged Out No longer eligible based on patient's age to complete this topic Rotavirus Immunization Aged Out No lo nger eligible based on patient's age to complete this topic Insurance Member Subscriber Plan / Payer (Ef fective 2014-Present) Name:Randi Rodriguez Relation to Subscriber:Self Name:Randi Rodriguez Payer ID:[id number] Group ID:Not on file Type:Not on file Address: [address] [address] Care Teams Reeling Machine Operator Relationship Specialty Start Date End Date Giorgio Hogue MD [address] [place] [id number] PCP - General Family Medicine 02/06/15 Robert Nguyen DO [address] [place] [id number] Gastroenterology 05/01/15
--- OUTSIDE RECORDS SUMMARY | 2024-12-14 01:29 | XMS_ITS | Clinical Summary ---
Author Organization [facility] Address [address] [place] [address] Care Team Providers Care Spray Ii Painter Name Role Phone Unavailable Primary Care Provider Unavailabl e Social History Tobacco Use Types Packs/Day Years Used Date Smoking Tobacco: Never Assessed Comments Unknown Sex and Gender Information Value Date Recorded Sex Assigned at Not on file Legal Sex Female 8:31 PM CDT Gender Identity Not on file Sexual Orientation Not on file Plan of Treatment Health Maintenance Due Date Last Done Comments DTaP, Tdap and Td Vaccines ( 1 - Tdap) 10/05/1955 Pneumococcal Vaccine: 50+ Ye ars (1 of 1 - PCV) 1986 Zoster Vaccines (1 of 2) 1986 RSV Immunization or 60+ Years (1 - 1-dose 75+ series) 10/05/2011 COVID-19 Vaccine ( - 2023-2 5 season) 2024 Influenza Adult (#1) 2024 Meningococcal B Vaccine Aged Out No l onger eligible based on patient's age to complete this topic Meningococcal Vaccine Aged Out No azucena miguel eligible based on patient's age to complete this topic RSV Immunizations Under 20 Months Aged Out No longer eligible based on patient's age to complete this topic
--- OUTSIDE RECORDS SUMMARY | 2024-12-14 01:29 | XMS_ITS | Encounter Summary ---
Author Organization [facility] Facility Care Team Providers Care Flat Clothier Name Role Phone Giorgio Hogue MD Primary Care Provider [phone] Doug Fong MD Primary Care Provider [phone] Yony Flores MD Primary Care Provider [phone] Encounter Details Date Type Department Care Team (Latest Contact Info) Description 03/04/2016 Orders Only [facility] CLINCONV Provider, MD Delmer [address] [place] [address] Social History Tobacco Use Types Packs/Day Years Used Date Smoking Tobacco: Never Assessed Comments Unknown Sex and Gender Information Value Date Recorded Sex Assigned at Not on file Legal Sex Female 8:30 PM STONE SETTER Gender Identity Not on file Sexual Orientation Not on file documented as of this encounter Plan of Treatment Not on file documented as of this encounter Procedures Procedure Name Priority Date/Time Associated Diagnosis Comments CARDIOLOGY REPORT 03/04/2016 12: 00 AM STONE SETTER documented in this encounter Results * CARDIOLOGY REPORT (03/04/2016 12:00 AM STONE SETTER) Anatomical Region Laterality Modality Other Narrative 03/04/2016 12:00 AM STONE SETTER Ordered by an unspecified provider. Historical Provider [facility] Final Result documented in this encounter Visit Diagnoses Not on filedocumented in this encounter Care Teams Flat Clothier Relationship Specialty Start Date End Date Giorgio Hogue MD [address] [place] [address] PCP - General 07/08/16 05/27/20 Doug Fong MD [address] [place] [address] PCP - General Internal Medicine 06/10/22 09/16/22 Yony Flores MD [address] [place] [address] PCP - General Family Practice 09/17/22 documented as of this encounter
--- OUTSIDE RECORDS SUMMARY | 2024-12-14 01:29 | XMS_ITS | Clinical Summary ---
Author Organization [facility] Address [facility] [place] [address] Care Team Providers Care Dental Resident Name Role Phone Yony Flores MD Primary Care Provider [phone] Allergies Active Allergy Reactions Criticality Noted Date [...] total) by mouth daily Active vit D3-vit I-yhwrtypqf-dz ps [id number] xqqp-jcf-jg-mg tablet Take by mouth Active acetaminophen (TYLENOL) 325 mg tablet Take 2 tablets (650 mg total) by mouth every 6 (six) hours as needed for pain Active cholecalcifero l (VITAMIN D-3) 1,000 unit Take 1 tablet/capsul e (1,000 Units total) by mouth daily Active ezetimibe (ZETIA) 10 mg tablet 09/11/19 22 Active cholestyramine (QUESTRAN) 4 gram powder 05/06/19 23 Active escitalopram (LEXAPRO) 10 mg tablet Take 2 tablets (20 mg total) by mouth daily Active traZODone (DESYREL) 50 mg tablet Take 1 tablet (50 mg total) by mouth nightly 07/17/19 23 Active guaiFENesin ER (MUCINEX) 600 mg 12 hr tabletIndicati ons:Shortness of breath Take 1 tablet (600 mg total) by mouth 2 (two) times a day 60 tablet 3 07/31/19 23 025 Active diphenhydrAMIN E (BENADRYL) 50 mg capsule Take 1 capsule 1 hour prior to procedure 1 capsule 11/23/19 23 Active rosuvastatin (CRESTOR) 10 mg tabletIndicati ons:Coronary artery disease involving [place] coronary artery of [place] heart without angina pectoris TAKE 1 TABLET BY MOUTH EVERY DAY 90 tablet 3 06/17/19 24 Active sacubitriL-greg sartan (ENTRESTO) 24-26 mg tabletIndicati ons:chronic heart failure Take 1 tablet by mouth 2 (two) times a day 60 tablet 12/16/19 24 Active ipratropium-al buteroL (DUO-NEB) 0.5-2.5 mg/3 mL nebulizer solution INHALE 3 ML INHALED EVERY 6 HOURS NEEDED FOR SHORTNESS OF BREATH OR WHEEZING 12/13/19 24 Active potassium chloride ER 10 mEq CR tablet Take 1 tablet/capsul e (10 mEq total) by mouth daily Active fluticasone/um eclidin/vilant er (TRELEGY ELLIPTA INHAL) Inhale Activ e carvediloL (COREG) 6.25 mg tablet TAKE 1 TABLET BY MOUTH TWICE A DAY WITH MEALS 180 tablet 1 11/27/19 25 Active carvediloL (COREG) 6.25 mg tablet TAKE 1 TABLET BY MOUTH TWICE A DAY WITH MEALS 180 tablet 08/21/19 25 025 Discontinued Active Problems Problem Noted Date Diagnosed Date [...] 4 months. Coronary artery disease invo lving [place] coronary artery of [place] heart without angina pectoris 05/18/2022 Mixed hyperlipidemia [...] check a chest x-ray, full PFTs at [facility] and sputum culture. I will give her [...] Encounters Date Type Department Care Team Description 10/25/2024 3:30 PM CDT Office Visit [facility] Cardiology [address] [place] [address] Dilcia Aguilar NP Chronic heart failure with reduced ejection fraction (HFrEF, <= 40%) (HCC) (Primary Dx); Nonischemic cardiomyopathy (HCC); Coronary artery disease of [place] artery of [place] heart with stable angina pectoris from Last 3 Months Surgical History Surgery Date Site/Laterality Comments CHOLECYSTECTOMY APPENDECTOMY HYSTERECTOMY BREAST BIOPSY REPLACEMENT TOTAL KNEE Medical History Medical History Date Comments Cancer (HCC) breast COPD (chronic obstructive pulmonary disease) Family History Medical History Relation Name Comments [...] on file Legal Sex Female 8:30 PM CAT SCAN TECHNOLOGIST Gender Identity Not on file Sexual Orientation Not on file Obstetrics History Last Filed Vital Signs Vital Sign Reading Time Taken Comments Blood Pressure 128/72 10/25/2024 3:23 PM CDT Pulse 88 10/25/2024 3:23 PM CDT Temperature 36.2 C (97.2 F) 01/09/2024 10:03 AM CAT SCAN TECHNOLOGIST Respiratory Rate 18 01/09/2024 10:03 AM CAT SCAN TECHNOLOGIST Oxygen Saturation 97% 10/25/2024 3:23 PM CDT Inhaled Oxygen Concentration - - Weight 79.4 kg (175 lb) 10/25/2024 3:23 PM CDT Height 149.9 cm (4' 11) 10/25/2024 3:23 PM CDT Body Mass Index 35.35 10/25/2024 3:23 PM CDT Plan of Treatment Health Maintenance Due Date Last Done Comments Depression Screening 1936 Fall Risk Assessment 1936 Osteoporosis Screening-Bone Density Scan 1936 DTaP/Tdap/Td Vaccine (1 - Tdap) 10/05/1947 Hepatitis B Screening 1954 Well Visit 65+ 2001 Zoster Vaccine (2 of 3) 04/27/2013 03/02/2013 Covid-19 Vaccine (3 - season) 11/05/202407/2020, 05/18/2020 Influenza Vaccine (#1) 2024 12/19/2013 Pneumococcal vaccine 65+ Completed 12/27/2019, 09/2013 Procedures Procedure Name Priority Date/Time Associated Diagnosis Comments ELECTROCARDIOGRAM REPORT Routine 025 4:24 PM CDT Chronic heart failure with reduced ejection fraction (HFrEF, <= 40%) (HCC) Coronary artery disease of [place] artery of [place] heart with stable angina pectoris from Last 3 Months Results * Electrocardiogram Report (10/25/2024 4:24 PM CDT) Dilcia Aguilar NP ECG ORDERABLES Final Res ult from Last 3 Months Insurance [facility] Care Teams Dental Resident Relationship Specialty Start Date End Date Yony Flores MD PCP - General Family Practice 09/17/22
--- OUTSIDE RECORDS SUMMARY | 2024-12-14 01:29 | XMS_ITS | Encounter Summary ---
Author Organization [facility] Facility Care Team Providers Care Physical Therapy Aide Name Role Phone Giorgio Hogue MD Primary Care Provider [phone] Doug Fong MD Primary Care Provider [phone] Yony Flores MD Primary Care Provider [phone] Encounter Details Date Type Department Care Team (Latest Contact Info) Description 05/05/2016 Orders Only [facility] CLINCONV Provider, MD Delmer [address] [place] [address] Social History Tobacco Use Types Packs/Day Years Used Date Smoking Tobacco: Never Comments Unknown Sex and Gender Information Value Date Recorded Sex Assigned at Not on file Legal Sex Female 8:30 PM TAIL DOGGER Gender Identity Not on file Sexual Orientation Not on file documented as of this encounter Plan of Treatment Not on file documented as of this encounter Procedures Procedure Name Priority Date/Time Associated Diagnosis Comments SCAN - LABS 05/05/2016 12:00 AM TAIL DOGGER documented in this encounter Results * SCAN - LABS (05/05/2016 12:00 AM TAIL DOGGER) Narrative 05/05/2016 12:00 AM TAIL DOGGER Ordered by an unspecified provider. Historical Provider Final Res ult documented in this encounter Visit Diagnoses Not on filedocumented in this encounter Care Teams Physical Therapy Aide Relationship Specialty Start Date End Date Giorgio Hogue MD [address] [place] [address] PCP - General 07/08/16 05/27/20 Doug Fong MD [address] [place] [address] PCP - General Internal Medicine 06/10/22 09/16/22 Yony Flores MD [address] [place] [address] PCP - General Family Practice 09/17/22 documented as of this encounter
[2024-12-14 01:43] LABS: Hematocrit 39.5 % (37.0-47.0); Hemoglobin 12.4 g/dL (12.0-15.0); Immature Granulocyte Percent A 0.6 % (0-0.5); Lymphocytes Absolute Auto 1.66 K/mm3 (0.9-3.2); Mean Corpuscular HGB Conc 31.4 g/dl (32-36); Mean Corpuscular Hemoglobin 27.4 pg (26-34); Mean Corpuscular Volume 87.4 fl (80-100); Nucleated Red Blood Cells Absolute Auto 0.000 K/mm3 (0.0-0.012); Nucleated Red Blood Cells Perc 0.0 % (0.0-0.2); Platelet Count Result 194 k/mm3 (150-375); Red Blood Count 4.52 M/mm3 (4.2-5.4); White Blood Count 8.8 K/mm3 (4.5-10.0)
[2024-12-14 01:54] LABS: INR 0.9; Prothrombin Time 12.5 Seconds (11.1-14.7)
[2024-12-14 01:55] LABS: Partial Thromboplastin Time 24.0 Seconds (22.3-36.8)
[2024-12-14 01:56] LABS: Alanine Aminotransferase 22 U/L (6-35); Albumin Level 4.2 g/dL (3.5-5.1); Alkaline Phosphatase 101 U/L (38-126); Anion Gap 8 mmol/L (4-12); Aspartate Amino Transferase 46 U/L (14-36); Bilirubin,Total 0.4 mg/dL (0.2-1.3); Blood Urea Nitrogen 38 mg/dL (7-17); Calcium 9.7 mg/dL (8.4-10.2); Carbon Dioxide 28 mmol/L (22-30); Chloride 101 mmol/L (98-107); Estimated Glomerular Filt Rate 37; Glucose 106 mg/dL (65-110); Lipase 66 U/L (23-300); Potassium 3.8 mmol/L (3.4-5.0); Sodium 137 mmol/L (137-145); Total Protein 7.2 g/dL (6.3-8.2)
--- NOTE | 2024-12-14 01:58 | ED_ITS ---
HPI - Chest Pain General Chief Complaint: Chest Pain Stated Complaint: SUBSTERNAL CP Time Seen by Provider: 12/14/24 01:17 Source: patient and family Mode of arrival: EMS Limitations: no limitations History of Present Illness HPI narrative: Patient is an 89-year-old female presents to the emergency department via EMS complaining of chest pain. Patient notes this started around midnight a she was resting and lying down, lasted about and 1-1.5 hours, has since resolved and not returned. Patient notes that she has this chest pain occasionally, comes and goes, feels like it is related to anxiety, sees a heart doctor next as an appointment with a verifying specialist in the morning at 9:00 a.m.. Patient notes that the pain is in the left side of her chest, sharp, nonradiating, had no significant it better or worse. Patient denies cough, difficulty breathing, history of blood clots, unilateral lower extremity swelling, nausea, vomiting, diarrhea, focal weakness, numbness. Related Data Home Medications ?Medication ?Instructions ?Recorded ?Confirmed ?Last Taken ?Type aspirin 81 mg tablet,delayed 81 mg PO DAILY 01/28/20 0 11/20/24 12/08/22 History release geriatric [id number]-kydd-hpxh 1 tablet PO DAILY 0 11/20/24 12/07/22 History Hair,Skin and Nails 6,000 unit PO DAILY 07/21/20 11/20/24 12/07/22 History cholecalciferol (vitamin D3) 25 25 mcg PO DAILY 11/20/24 12/07/22 History mcg (1,000 unit) tablet (Vitamin D3) vitamins A,C,N-kvid-aumqiu 4,296 1 cap PO BID 10/07/21 11/20/24 12/07/22 History mcg-226 mg-90 mg capsule (PreserVision AREDS) Allergies Allergy/AdvReac Type Severity Reaction Status Date / Time Iodinated Contrast Media Allergy Severe Swelling Verified 11/20/24 13:37 of Lip/Tongue/Throat meperidine Allergy Intermediate Unknown Verified 11/20/24 13:37 Penicillins Allergy Intermediate Rash Verified 11/20/24 13:37 codeine AdvReac Mild Jittery Verified 11/20/24 13:37 Sulfa (Sulfonamide AdvReac Mild Nausea and Verified 11/20/24 13:37 Antibiotics) Vomiting Contrast Media Allergy Severe Swelling Uncoded 11/20/24 13:37 of Lip/Tongue/Throat Review of Systems 2 Review of Systems: A 10 system review of systems was completed on the patient and is negative except for what is stated in the HPI. Nursing and ancillary documentation was reviewed. [facility] Past Medical History Medical History Dementia Hypertension Chronic kidney disease, stage 3 Breast cancer Heart failure with reduced ejection fraction Coronary artery disease Depression Diverticulitis Aortic stenosis GERD with esophagitis Vitamin D deficiency, unspecified Macular degeneration Chronic diarrhea Adenomatous colon polyp Arthritis Surgical History Surgical History History of reduction surgery of right breast History of left mastectomy History of bilateral knee replacement History of surgical removal of ganglion cyst History of hysterectomy History of appendectomy History of cholecystectomy Family History Family History Mother Rectal cancer Schizophrenia Father Heart disease Emphysema lung Sibling COPD (chronic obstructive pulmonary disease) Social History Social History Social History: Surrogate decision maker: Karina Bautista, daughter. Status: Full code. Smoking status: Never smoker Second hand tobacco smoke exposure: Yes Alcohol intake: never Substance use: never Substance use type: does not use Do You Feel Safe in your Home?: Yes Lack of Transportation: No Lack of Food: Never True Current Housing: I Have Housing Concerned About Future Housing: No Difficulty Paying Gas/Electric Bills: No Difficulty Paying for Meds: No Currently Unemployed: No Education: High School Diploma/GED Difficulty w/ Childcare or Family Care: No Living arrangements: alone Occupation/Education: retired Gender identity (if verbalized by the patient): Female Sexual Orientation (if Verbalized by the Patient): Straight or Heterosexual Spiritual care concerns: No Agree to blood products: Yes Exam 2 Narrative: CONST: No acute distress. Well nourished. HENMT: Head is normocephalic and atraumatic. Moist mucous membranes. No posterior oropharynx erythema. EYES: No scleral icterus. No conjunctival injection or pallor. PERRL. NECK: No meningeal signs. RESP: Able to speak in full sentences. Normal respiratory effort. CTAB. CARDIO: Regular rate. Regular rhythm. 2+ DP and radial pulses bilaterally. GI: Nondistended. No tenderness to palpation. Soft. : No CVA tenderness to palpation. SKIN: No rashes or lesions noted on exposed skin. NEURO: Oriented x3. Moves all extremities. EXTREM/MSK/BACK: No pedal edema. PSYCH: Normal affect. Course Vital Signs Vital signs: Vital Signs Temperature 97.7 F 12/14/24 01:01 Pulse Rate 64 12/14/24 01:01 Respiratory Rate 10 L 12/14/24 01:01 Blood Pressure 143/70 H 12/14/24 01:01 Pulse Oximetry 96 12/14/24 01:01 Oxygen Delivery Room Air 12/14/24 01:01 Temperature 97.7 F 12/14/24 01:01 Pulse Rate 69 12/14/24 04:45 Respiratory Rate 24 H 12/14/24 04:45 Blood Pressure 123/63 12/14/24 04:31 Pulse Oximetry 98 12/14/24 04:31 Oxygen Delivery Room Air 12/14/24 01:01 MDM - Chest Pain MDM Narrative Medical decision making narrative: Patient presents with the above complaint. Initial vitals are remarkable for no significant abnormalities. Physical examination as noted above. Differential diagnosis includes was not limited to: ACS, pulmonary embolism, GERD, costochondritis, pericarditis, myocarditis, dysrhythmia, pancreatitis. Plan discussed: Aspirin, EKG, chest x-ray, laboratory analysis, continues cardiac monitoring, continuous pulse oximetry. Repeat EKG shows a sinus rhythm with possible left atrial enlargement, nonspecific T-wave abnormality, no ST elevation or depressions. CBC is without any significant abnormalities. D-dimer 0.47. Coags are within normal limits. Comprehensive metabolic panel reveals a creatinine 1.36, BUN of 38, AST of 46. Troponin is 0.013 and repeat troponin 0.013. Lipase 66. No acute cardiopulmonary abnormality appreciated on chest x-ray. Patient was reassessed at the bedside. No changes in physical exam. Patient is in no acute distress. Patient denies any current complaints, no chest pain, feels well at this time is ready go home. The patient has remained stable throughout the entire ED visit. Counseled patient regarding diagnostic results and potential diagnosis. Anticipatory guidance provided. Patient instructed to follow up with Cardiology today as planned. Patient counseled on: false reassurance from an emergency department evaluation; no current evidence of a medical emergency; return immediately for any new, recurrent, worsening, concerning, or refractory symptoms. Medications discussed with patient. Additional verbal and printed discharge instructions were given and discussed with the patient. Patient verbally acknowledges understanding of condition and discharge instructions. All questions were answered to the patient's satisfaction. Patient is in agreement with the plan of care. The patient is stable for discharge and was discharged without incident. Medical Records Data Attestation: I reviewed the patient's medical records. Lab Data Attestation: I reviewed the patient's lab results. 12/14/24 01:37 12/14/24 01:37 Labs: Lab Results 12/14/24 12/14/24 Range/Units 01:37 04:52 WBC 8.8 (4.5-10.0) K/mm3 RBC 4.52 (4.2-5.4) M/mm3 Hgb 12.4 (12.0-15.0) g/dL Hct 39.5 (37.0-47.0) % MCV 87.4 (80-100) fl MCH 27.4 (26-34) pg MCHC 31.4 L (32-36) g/dl RDW 14.6 H (11.5-14.5) % Plt Count 194 (150-375) k/mm3 MPV 10.6 H (7.4-10.4) fl Immature Gran % (Auto) 0.6 H (0-0.5) % Neut % (Auto) 70.8 (45.5-73.1) % Lymph % (Auto) 18.9 (18.3-44.2) % [place] % (Auto) 7.2 (2.6-8.5) % Eos % (Auto) 1.8 (0-4.4) % Baso % (Auto) 0.7 (0.2-1.2) % Lymph # (Auto) 1.66 (0.9-3.2) K/mm3 [place] # (Auto) 0.6 (0.1-0.6) K/mm3 Eos # (Auto) 0.2 (0-0.3) K/mm3 Baso # (Auto) 0.1 (0.0-0.1) K/mm3 Abs Immat Gran (auto) 0.05 H (0.00-0.031) K/mm3 Absolute Neuts (auto) 6.2 (1.3-6.7) K/mm3 Absolute Nucleated RBC 0.000 (0.0-0.012) K/mm3 Nucleated RBC % 0.0 (0.0-0.2) % PT 12.5 (11.1-14.7) Seconds INR 0.9 APTT 24.0 (22.3-36.8) Seconds D-Dimer 0.47 (<0.48) ug/mL Sodium 137 (137-145) mmol/L Potassium 3.8 (3.4-5.0) mmol/L Chloride 101 (98-107) mmol/L Carbon Dioxide 28 (22-30) mmol/L Anion Gap 8 (4-12) mmol/L BUN 38 H D (7-17) mg/dL Creatinine 1.36 H (0.7-1.0) mg/dL Estim Creat Clear Calc Not Reportable Estimated GFR 37 L (59 - ) Glucose 106 (65-110) mg/dL Calcium 9.7 (8.4-10.2) mg/dL Total Bilirubin 0.4 (0.2-1.3) mg/dL AST 46 H (14-36) U/L ALT 22 (6-35) U/L Alkaline Phosphatase 101 (38-126) U/L Troponin I 0.013 0.013 (0.000-0.034) ng/mL Total Protein 7.2 (6.3-8.2) g/dL Albumin 4.2 (3.5-5.1) g/dL Lipase 66 (23-300) U/L Imaging Data Attestation: I personally reviewed and interpreted this imaging study as follows: ECG Data EKG #1: Attestation: I personally reviewed and interpreted this ECG as follows: ECG completion date: 12/14/24 ECG completion time: 01:48 Interpretation: Rate of 64, rhythm is sinus rhythm with increase in no premature ventricular complexes no ST elevations depressions, no T-wave abnormalities, Q-waves present in leads V1 and V2, QTC interval of 450 milliseconds, QRS duration 100 milliseconds, W[place] interval of 174 millisecond. Discharge Plan Discharge Clinical Impression: Chest pain Qualifiers: Chest pain type: unspecified Qualified Code(s): R07.9 - Chest pain, unspecified Patient Disposition: Home Condition: Stable Instructions: Antibiotic Form, Chest Pain (ED) Additional Instructions: Follow-up as planned with Cardiology, return immediately to the emergency department for any new or concerning symptoms especially any emergent concerns for life, limb, eyesight. Patient Language: Khmer Prescriptions: No Action aspirin 81 mg tablet,delayed release (DR/EC) 81 mg PO DAILY geriatric [id number]-uvyu-oalt Tablet 1 tablet PO DAILY PreserVision AREDS [id number] xjke-eh-zupj capsule 1 cap PO BID albuterol sulfate [Ventolin HFA] 90 mcg/actuation HFA aerosol inhaler 1 inh inhalation Q8H PRN (Reason: shortness of breath or wheezing) Qty: 25.5 3RF (DME) Aerochamber MV Spacer See Rx Instructions .Route Qty: 1 0RF Rx Instructions: As directed Trelegy Ellipta 200-62.5-25 mcg blister with device 1 inh inhalation DAILY Qty: 28 5RF potassium chloride 10 mEq tablet extended release 10 meq PO DAILY Qty: 90 1RF ezetimibe 10 mg tablet 10 mg PO DAILY Qty: 90 1RF ipratropium-albuterol 0.5 mg-3 mg(2.5 mg base)/3 mL solution for nebulization 3 ml inhalation Q6H PRN (Reason: shortness of breath or wheezing) Qty: 180 1RF (DME) nebulizers Misc See Rx Instructions .Route Qty: 1 0RF Rx Instructions: As directed (DME) nebulizer accessories Kit See Rx Instructions .Route Qty: 1 0RF Rx Instructions: As directed memantine [Namenda] 5 mg tablet 10 mg PO BID Qty: 180 1RF donepezil [Aricept] 5 mg tablet 5 mg PO DAILY Qty: 90 1RF Rx Instructions: after 1 month increase to 2 tablets daily. May be taken the morning cholecalciferol (vitamin D3) [Vitamin D3] 25 mcg (1,000 unit) Tablet 25 mcg PO DAILY Hair,Skin and Nails 6,000 unit PO DAILY carvedilol [Coreg] 3.125 mg Tablet 3.125 mg PO Q12HR Qty: 60 0RF cholestyramine (with sugar) [Questran] 4 gram powder 4 g PO DAILY Qty: 1134 0RF Rx Instructions: administer w/meal; avoid other meds within 1hr before or 4-6hr after dose montelukast 10 mg tablet 10 mg PO DAILY Qty: 90 1RF Rx Instructions: TAKE 1 TABLET BY MOUTH EVERY DAY trazodone 50 mg tablet See Rx Instructions .ROUTE .COMPLEX Qty: 90 1RF Dose Instruction: TAKE 1 TABLET BY MOUTH EVERYDAY AT BEDTIME Rx Instructions: TAKE 1 TABLET BY MOUTH EVERYDAY AT BEDTIME furosemide 20 mg tablet See Rx Instructions .ROUTE .COMPLEX Qty: 90 1RF Dose Instruction: TAKE 1 TABLET BY MOUTH EVERY DAY Rx Instructions: TAKE 1 TABLET BY MOUTH EVERY DAY escitalopram oxalate 20 mg tablet 20 mg PO DAILY Qty: 90 1RF Follow-up/Referrals: Anita Hawk APRN [Primary Care Provider, Internal Medicine] - 2 Days Time of Disposition: 05:44
[2024-12-14 02:07] LABS: Troponin I 0.013 ng/mL (0.000-0.034)
--- NOTE | 2024-12-14 04:37 | ECG_ITS ---
Test Date: 2024-12-14 04:28:27 Measurements Intervals [place] Rate: 65 P: 69 [place]: 172 QRS: -6 QRSD: 102 T: 78 QT: 434 QTc: 453 Interpretive Statements SINUS RHYTHM POSSIBLE LEFT ATRIAL ENLARGEMENT CANNOT R/O SEPTAL INFARCT, AGE INDETERMINATE BORDERLINE ST-T WAVE ABNORMALITY- HIGH LATERAL LEADS BASELINE ARTIFACT- I, II, III, AVR, AVL, AVF, V2, V5-V6 ABNORMAL ECG Compared to ECG 12/14/2024 01:48:32 NO SIGNIFICANT CHANGE Electronically Signed On 12-14-2024 06:30:51 CDT by Harsha Rossi D.O.
[2024-12-14 05:22] LABS: Troponin I 0.013 ng/mL (0.000-0.034)
== END 2024-12-14 06:00 | disposition home or self-care (01) ==
PROVIDERS: Emergency Provider Student in an Organized Health Care Education/Training Program; PCP Nurse Practitioner Family
DX: R07.9 Chest pain, unspecified (principal); F03.90 Unspecified dementia, unspecified severity, without behavioral disturbance, psychotic disturbance, mood disturbance, and anxiety; N18.30 Chronic kidney disease, stage 3 unspecified; I50.9 Heart failure, unspecified; I25.10 Atherosclerotic heart disease of native coronary artery without angina pectoris; I35.0 Nonrheumatic aortic (valve) stenosis; E55.9 Vitamin D deficiency, unspecified; K21.00 Gastro-esophageal reflux disease with esophagitis, without bleeding; H35.30 Unspecified macular degeneration; M19.90 Unspecified osteoarthritis, unspecified site; F32.A Depression, unspecified; Z96.653 Presence of artificial knee joint, bilateral; Z86.0101 Personal history of adenomatous and serrated colon polyps; Z85.3 Personal history of malignant neoplasm of breast; Z90.12 Acquired absence of left breast and nipple; Z90.710 Acquired absence of both cervix and uterus; Z90.49 Acquired absence of other specified parts of digestive tract; Z77.22 Contact with and (suspected) exposure to environmental tobacco smoke (acute) (chronic); Z79.82 Long term (current) use of aspirin; Z79.899 Other long term (current) drug therapy; R94.31 Abnormal electrocardiogram [ECG] [EKG]; I49.3 Ventricular premature depolarization
CPT/HCPCS: 36415; 71046; 80053; 83690; 84484; 85025; 85380; 85610; 85730; 93005; 99284

== ENCOUNTER 2025-01-29 12:07 | Observation (INO) | payer OTHER, SELFPAY ==
[2025-01-29] VITALS (25 sets, daily range): BP systolic 117–143; BP diastolic 57–89; PULSE 76–107; RESP 12–24; TEMP 36.2–36.7; O2SAT 96–100; BMI 35.8
--- NOTE | ~2025-01-29 | XR_ITS ---
EXAMINATION: XR chest 2V 01/29/2025 12:44 INDICATION: Syncope PROCEDURE: 2 view chest COMPARISON: Comparison to multiple prior studies sequentially, with oldest reviewed study dated 12/03/2023. FINDINGS: The lungs are clear. The lungs are hyperinflated which is consistent with, but not diagnostic of chronic obstructive pulmonary disease. There is atherosclerosis of the aorta. There is a left breast implant. The cardiomediastinal silhouette is within normal limits. There are no pleural effusions. There is no pneumothorax suspected. IMPRESSION: 1: NO ACUTE CARDIOPULMONARY DISEASE. Reviewed, dictated and finalized at location [facility]. 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
--- NOTE | 2025-01-29 12:14 | ECG_ITS ---
Test Date: 2025-01-29 12:26:13 Measurements Intervals [place] Rate: 86 P: 73 [place]: 153 QRS: 30 QRSD: 100 T: 72 QT: 405 QTc: 487 Interpretive Statements SINUS RHYTHM CANNOT RULE OUT SEPTAL INFARCTION POSSIBLE LEFT ATRIAL ENLARGEMENT [-0.1mV P WAVE IN V1/V2] BORDERLINE ECG Compared to ECG 12/14/2024 04:28:27 NO SIGNIFICANT CHANGE Electronically Signed On 01-29-2025 17:32:57 COMPUTER SECURITY COORDINATOR by Gurinder Sevilla M.D.
--- NOTE | 2025-01-29 12:30 | PC.NURSE ---
Pt came by EMS with IV in left hand. Pt has had left sided mastectomy. IV removed by this RN and new IV placed in Right AC.
[2025-01-29 12:39] LABS: Hematocrit 42.6 % (37.0-47.0); Hemoglobin 12.9 g/dL (12.0-15.0); Immature Granulocyte Percent A 0.4 % (0-0.5); Lymphocytes Absolute Auto 1.39 K/mm3 (0.9-3.2); Mean Corpuscular HGB Conc 30.3 g/dl (32-36); Mean Corpuscular Hemoglobin 27.4 pg (26-34); Mean Corpuscular Volume 90.4 fl (80-100); Nucleated Red Blood Cells Absolute Auto 0.000 K/mm3 (0.0-0.012); Nucleated Red Blood Cells Perc 0.0 % (0.0-0.2); Platelet Count Result 217 k/mm3 (150-375); Red Blood Count 4.71 M/mm3 (4.2-5.4); White Blood Count 8.3 K/mm3 (4.5-10.0)
--- NOTE | 2025-01-29 12:45 | ED.GENADULT ---
HPI - General Adult General Chief complaint: Syncope Stated complaint: syncopal Time Seen by Provider: 01/29/25 12:24 History of Present Illness HPI narrative: Patient is a 89-year-old female presents emergency department chief complaint of syncopal episode. Patient was at [facility] reports that she has been feeling short of breath patient states that she got up to go to the bathroom felt lightheaded and thinks she came close to passing out but did not pass out ulnar bystanders stated she may have briefly passed patient states that she has no chest pain reports no abdominal pain reports that she does feel short of breath currently Related Data Home Medications ?Medication ?Instructions ?Recorded ?Confirmed ?Last Taken ?Type aspirin 81 mg tablet,delayed 81 mg PO DAILY 01/28/20 11/20/24 12/08/22 History release geriatric qkidzyks-esbh-pbgw 1 tablet PO DAILY 01/28/20 11/20/24 12/07/22 History Hair,Skin and Nails 6,000 unit PO DAILY 07/21/20 11/20/24 12/07/22 History cholecalciferol (vitamin D3) 25 25 mcg PO DAILY 07/21/20 11/20/24 12/07/22 History mcg (1,000 unit) tablet (Vitamin D3) vitamins A,C,Z-gojt-tktjhr 4,296 1 cap PO BID 10/07/21 11/20/24 12/07/22 History mcg-226 mg-90 mg capsule (PreserVision AREDS) Allergies Allergy/AdvReac Type Severity Reaction Status Date / Time Iodinated Contrast Media Allergy Severe Swelling Verified 01/29/25 12:30 of Lip/Tongue/Throat meperidine Allergy Intermediate Unknown Verified 01/29/25 12:30 Penicillins Allergy Intermediate Rash Verified 01/29/25 12:30 codeine AdvReac Mild Jittery Verified 01/29/25 12:30 Sulfa (Sulfonamide AdvReac Mild Nausea and Verified 01/29/25 12:30 Antibiotics) Vomiting Contrast Media Allergy Severe Swelling Uncoded 11/20/24 13:37 of Lip/Tongue/Throat Review of Systems Review of Systems: A 10 system review of systems was completed on the patient and is negative except for what is stated in the HPI. Nursing and ancillary documentation was reviewed. [facility] Past Medical History Medical History Dementia Hypertension Chronic kidney disease, stage 3 Breast cancer Heart failure with reduced ejection fraction Coronary artery disease Depression Diverticulitis Aortic stenosis GERD with esophagitis Vitamin D deficiency, unspecified Macular degeneration Chronic diarrhea Adenomatous colon polyp Arthritis Surgical History Surgical History History of reduction surgery of right breast History of left mastectomy History of bilateral knee replacement History of surgical removal of ganglion cyst History of hysterectomy History of appendectomy History of cholecystectomy Family History Family History Mother Rectal cancer Schizophrenia Father Heart disease Emphysema lung Sibling COPD (chronic obstructive pulmonary disease) Social History Social History Social History: Surrogate decision maker: Karina Bautista, daughter. Status: Full code. Smoking status: Never smoker Second hand tobacco smoke exposure: Yes Alcohol intake: never Substance use: never Substance use type: does not use Do You Feel Safe in your Home?: Yes Lack of Transportation: No Lack of Food: Never True Current Housing: I Have Housing Concerned About Future Housing: No Difficulty Paying Gas/Electric Bills: No Difficulty Paying for Meds: No Currently Unemployed: No Education: High School Diploma/GED Difficulty w/ Childcare or Family Care: No Living arrangements: alone Occupation/Education: retired Gender identity (if verbalized by the patient): Female Sexual Orientation (if Verbalized by the Patient): Straight or Heterosexual Spiritual care concerns: No Agree to blood products: Yes Exam Narrative: GENERAL: Well-appearing, well-nourished, and in no acute distress. HEAD: Normocephalic, atraumatic. EYES: PERRLA and EOMI. ENT: Nares clear, no rhinorrhea or epistaxis. Mucous membranes moist. NECK: Supple. CHEST: Scattered wheezes to auscultation. No respiratory distress. HEART: Regular rate and rhythm. No murmur heard. Normal peripheral pulses. ABDOMEN: Soft, nontender, nondistended, normal active bowel sounds. EXTREMITIES: Normal range of motion. No edema. SKIN: Warm, dry, no rash. NEURO: No focal deficits. Alert and oriented x3. PSYCH: Normal mood and affect. Course Vital Signs Vital signs: Vital Signs Temperature 36.2 C L 01/29/25 12:07 Pulse Rate 88 01/29/25 12:07 Respiratory Rate 16 01/29/25 12:07 Blood Pressure 122/89 01/29/25 12:07 Pulse Oximetry 99 01/29/25 12:07 Oxygen Delivery Room Air 01/29/25 12:07 Temperature 36.2 C L 01/29/25 12:07 Pulse Rate 105 H 01/29/25 13:35 Respiratory Rate 16 01/29/25 12:07 Blood Pressure 138/85 01/29/25 13:35 Pulse Oximetry 99 01/29/25 12:07 Oxygen Delivery Room Air 01/29/25 12:07 Medical Decision Making MDM Narrative Medical decision making narrative: Differential diagnosis includes acute kidney injury, dehydration, UTI, vasovagal syncope, dysrhythmia, Laboratory studies were obtained on the patient which showed a creatinine of 2.26 the patient 1 month ago had a creatinine of approximately 1.2 urinalysis showed 2+ leukocyte esterase 1+ bacteria and 6-10 white blood cells patient also had a BNP of 3090 due to this the patient was gently hydrated case was discussed with the hospitalist Vital Signs Vital Signs: Vital Signs Temperature 36.2 C L 01/29/25 12:07 Pulse Rate 88 01/29/25 12:07 Respiratory Rate 16 01/29/25 12:07 Blood Pressure 122/89 01/29/25 12:07 Pulse Oximetry 99 01/29/25 12:07 Oxygen Delivery Room Air 01/29/25 12:07 Temperature 36.2 C L 01/29/25 12:07 Pulse Rate 105 H 01/29/25 13:35 Respiratory Rate 16 01/29/25 12:07 Blood Pressure 138/85 01/29/25 13:35 Pulse Oximetry 99 01/29/25 12:07 Oxygen Delivery Room Air 01/29/25 12:07 Lab Data 01/29/25 12:25 01/29/25 12:25 Labs: Lab Results 01/29/25 01/29/25 01/29/25 Range/Units 12:25 12:47 13:31 WBC 8.3 (4.5-10.0) K/mm3 RBC 4.71 (4.2-5.4) M/mm3 Hgb 12.9 (12.0-15.0) g/dL Hct 42.6 (37.0-47.0) % MCV 90.4 (80-100) fl MCH 27.4 (26-34) pg MCHC 30.3 L (32-36) g/dl RDW 15.4 H (11.5-14.5) % Plt Count 217 (150-375) k/mm3 MPV 10.7 H (7.4-10.4) fl Immature Gran % (Auto) 0.4 (0-0.5) % Neut % (Auto) 70.3 (45.5-73.1) % Lymph % (Auto) 16.8 L (18.3-44.2) % Motley % (Auto) 7.1 (2.6-8.5) % Eos % (Auto) 4.6 H (0-4.4) % Baso % (Auto) 0.8 (0.2-1.2) % Lymph # (Auto) 1.39 (0.9-3.2) K/mm3 Motley # (Auto) 0.6 (0.1-0.6) K/mm3 Eos # (Auto) 0.4 H (0-0.3) K/mm3 Baso # (Auto) 0.1 (0.0-0.1) K/mm3 Abs Immat Gran (auto) 0.03 (0.00-0.031) K/mm3 Absolute Neuts (auto) 5.8 (1.3-6.7) K/mm3 Absolute Nucleated RBC 0.000 (0.0-0.012) K/mm3 Nucleated RBC % 0.0 (0.0-0.2) % PT 12.9 (11.1-14.7) Seconds INR 1.0 APTT 27.8 (22.3-36.8) Seconds Sodium 140 (137-145) mmol/L Potassium 4.5 (3.4-5.0) mmol/L Chloride 106 (98-107) mmol/L Carbon Dioxide 28 (22-30) mmol/L Anion Gap 6 (4-12) mmol/L BUN 37 H (7-17) mg/dL Creatinine 2.26 H (0.7-1.0) mg/dL Estim Creat Clear Calc Not Reportable Estimated GFR 20 L (59 - ) Glucose 92 (65-110) mg/dL Lactic Acid 1.2 (0.7-2.0) mmol/L Calcium 9.9 (8.4-10.2) mg/dL Magnesium 2.1 (1.6-2.3) mg/dL Total Bilirubin 0.5 (0.2-1.3) mg/dL AST 31 (14-36) U/L ALT 19 (6-35) U/L Alkaline Phosphatase 97 (38-126) U/L Troponin I 0.013 (0.000-0.034) ng/mL NT-Pro-B Natriuret Pep 3090 H (19.9-100) pg/mL Total Protein 7.5 (6.3-8.2) g/dL Albumin 4.4 (3.5-5.1) g/dL Urine Color Yellow (Yellow) Urine Appearance Cloudy H (Clear) Urine pH 5.0 (5.0-9.0) Ur Specific Herman 1.021 (1.001-1.035) Urine Protein Negative (Negative) mg/dL Urine Glucose (UA) Negative (Negative) mg/dL Urine Ketones Negative (Negative) mg/dL Ur Blood (Man) Trace (Negative) Urine Nitrate Negative (Negative) Urine Bilirubin Negative (Negative) Urine Urobilinogen 0.2 (<2.0) mg/dL Leukocyte Esterase Rfl 2+ H (Negative) ANETTE/UL Urine RBC 6-10 H (0-2) /hpf Urine WBC 6-10 H (0-3) /hpf Ur Squamous Epith Cells None seen (Few) /hpf Urine Bacteria 1+ H /hpf Urine Casts 0-2 Influenza A (RT-PCR) Negative (Negative) Influenza B (RT-PCR) Negative (Negative) RSV (RT-PCR) Negative (Negative) SARS-CoV-2 RNA (RT-PCR) Negative (Negative) ABG Data ABG results: 01/29/25 13:45 O2 Delivery Device Not Reportable O2 Liters/Min Not Reportable Discharge Plan Discharge Clinical Impression: Syncope, Acute kidney injury, Abnormal urinalysis Patient Disposition: Still a Patient Condition: Stable Patient Language: Cypriot Prescriptions: No Action aspirin 81 mg tablet,delayed release (DR/EC) 81 mg PO DAILY geriatric oueynftt-iyha-kcnk Tablet 1 tablet PO DAILY PreserVision AREDS 14,320226-200 hkvr-mz-paqs capsule 1 cap PO BID albuterol sulfate [Ventolin HFA] 90 mcg/actuation HFA aerosol inhaler 1 inh inhalation Q8H PRN (Reason: shortness of breath or wheezing) Qty: 25.5 3RF (DME) Aerochamber MV Spacer See Rx Instructions .Route Qty: 1 0RF Rx Instructions: As directed Trelegy Ellipta 200-62.5-25 mcg blister with device 1 inh inhalation DAILY Qty: 28 5RF potassium chloride 10 mEq tablet extended release 10 meq PO DAILY Qty: 90 1RF ezetimibe 10 mg tablet 10 mg PO DAILY Qty: 90 1RF ipratropium-albuterol 0.5 mg-3 mg(2.5 mg base)/3 mL solution for nebulization 3 ml inhalation Q6H PRN (Reason: shortness of breath or wheezing) Qty: 180 1RF (DME) nebulizers Misc See Rx Instructions .Route Qty: 1 0RF Rx Instructions: As directed (DME) nebulizer accessories Kit See Rx Instructions .Route Qty: 1 0RF Rx Instructions: As directed donepezil [Aricept] 5 mg tablet 5 mg PO DAILY Qty: 90 1RF Rx Instructions: after 1 month increase to 2 tablets daily. May be taken the morning cholecalciferol (vitamin D3) [Vitamin D3] 25 mcg (1,000 unit) Tablet 25 mcg PO DAILY Hair,Skin and Nails 6,000 unit PO DAILY carvedilol [Coreg] 3.125 mg Tablet 3.125 mg PO Q12HR Qty: 60 0RF cholestyramine (with sugar) [Questran] 4 gram powder 4 g PO DAILY Qty: 1134 0RF Rx Instructions: administer w/meal; avoid other meds within 1hr before or 4-6hr after dose montelukast 10 mg tablet 10 mg PO DAILY Qty: 90 1RF Rx Instructions: TAKE 1 TABLET BY MOUTH EVERY DAY furosemide 20 mg tablet See Rx Instructions .ROUTE .COMPLEX Qty: 90 1RF Dose Instruction: TAKE 1 TABLET BY MOUTH EVERY DAY Rx Instructions: TAKE 1 TABLET BY MOUTH EVERY DAY escitalopram oxalate 20 mg tablet 20 mg PO DAILY Qty: 90 1RF trazodone 50 mg tablet See Rx Instructions .ROUTE .COMPLEX Qty: 90 1RF Dose Instruction: TAKE 1 TABLET BY MOUTH EVERYDAY AT BEDTIME Rx Instructions: TAKE 1 TABLET BY MOUTH EVERYDAY AT BEDTIME memantine [Namenda] 10 mg tablet 10 mg PO BID Qty: 180 3RF Follow-up/Referrals: Anita Hawk APRN [Primary Care Provider, Internal Medicine] Time of Disposition: 14:11
[2025-01-29] MEDS: SODIUM CHLORIDE 0.9% IV 1,000 ML 999 ML IV CONT (12:49)
[2025-01-29 13:01] LABS: Alanine Aminotransferase 19 U/L (6-35); Albumin Level 4.4 g/dL (3.5-5.1); Alkaline Phosphatase 97 U/L (38-126); Anion Gap 6 mmol/L (4-12); Aspartate Amino Transferase 31 U/L (14-36); Bilirubin,Total 0.5 mg/dL (0.2-1.3); Blood Urea Nitrogen 37 mg/dL (7-17); Calcium 9.9 mg/dL (8.4-10.2); Carbon Dioxide 28 mmol/L (22-30); Chloride 106 mmol/L (98-107); Glucose 92 mg/dL (65-110); INR 1.0; Magnesium 2.1 mg/dL (1.6-2.3); Partial Thromboplastin Time 27.8 Seconds (22.3-36.8); Potassium 4.5 mmol/L (3.4-5.0); Prothrombin Time 12.9 Seconds (11.1-14.7); Sodium 140 mmol/L (137-145); Total Protein 7.5 g/dL (6.3-8.2)
[2025-01-29 13:11] LABS: NT Pro B Type Natriuretic Pept 3090 pg/mL (19.9-100); Troponin I 0.013 ng/mL (0.000-0.034)
[2025-01-29 13:12] LABS: Estimated Glomerular Filt Rate 20
[2025-01-29 13:29] LABS: Influenza A QL RT-PCR Negative (Negative); Influenza B QL RT-PCR Negative (Negative); RSV RNA, RT-PCR Negative (Negative); SARS-CoV-2 RNA PCR Negative (Negative)
[2025-01-29 13:41] LABS: Add Urine Microscopic? YES; Appearance Urine Cloudy (Clear); Glucose Urine UA Negative (Negative); Leukocyte Esterase Ur 2+ LEU/UL (Negative); Nitrate Urine Negative (Negative); Non Pathogenic Casts 0-2; Specific Grav Ur 1.021 (1.001-1.035)
[2025-01-29] MEDS: IPRATROPIUM 0.5 MG/ALBUTEROL SULFATE 2.5 MG (BASE) AMPUL.NEB 3 ML INHALATION ×2 (13:43→20:08)
--- OUTSIDE RECORDS SUMMARY | 2025-01-29 13:48 | XMS_ITS | Clinical Summary ---
Author Organization [facility] Address [address] [place] [id number] Care Team Providers Care Hot Box Spotter Name Role Phone Unavailable Primary Care Provider [...] 75+ series) 10/05/2011 COVID-19 Vaccine ( - 2024-2 6 season) 2024 Influenza Adult (#1) 2024 Hepatitis A Vaccines Aged Out No long er eligible based on patient's age to complete this topic Meningococcal B Vaccine Aged Out No l onger eligible based on patient's age to complete this topic Meningococcal Vaccine Aged Out No azucena miguel eligible based on patient's age to complete this topic RSV Immunizations Under 20 Months Aged Out No longer eligible based on patient's age to complete this topic
--- OUTSIDE RECORDS SUMMARY | 2025-01-29 13:48 | XMS_ITS | Clinical Summary ---
Author Organization [facility] Address [address] [place] [address] [address] [place] [address] Phone Care Team Providers Care Tobacco Prevention Health Educator Name Role Phone Giorgio Hogue MD Primary Care Provider [phone] Robert Nguyen DO Unavailable [phone] Allergies Active Allergy Reactions Criticality Noted [...] Comments Blood Pressure 128/80 02/06/2015 1:10 PM HOB MACHINE OPERATOR Pulse - - Temperature - - Respiratory Rate - - Oxygen Saturation - - Inhaled Oxygen Concentration - - Weight 86.5 kg (190 lb 9.6 oz) 02/06/2015 1:10 P M HOB MACHINE OPERATOR Height 154.9 cm (5' 1) 02/06/2015 1:10 PM HOB MACHINE OPERATOR Body Mass Index 36.01 02/06/2015 1:10 PM HOB MACHINE OPERATOR Plan of Treatment Health Maintenance Due [...] ID:Not on file Type:Not on file Address: [address] [address] Care Teams Tobacco Prevention Health Educator Relationship Specialty Start Date End Date Giorgio Hogue MD [address] [place] [address] PCP - General Family Medicine 02/06/15 Robert Nguyen DO [address] [place] [address] Gastroenterology 05/01/15
--- OUTSIDE RECORDS SUMMARY | 2025-01-29 13:48 | XMS_ITS | Clinical Summary ---
Author Organization [facility] Address [facility] [place] [address] Care Team Providers Care Senior Technical Program Manager Name Role Phone Yony Flores MD Primary Care Provider [phone] Allergies Active Allergy Reactions Criticality Noted Date [...] total) by mouth daily Active vit D3-vit E-kzgrufewv-fhs s [id number] mabb-gdc-ho-mg tablet Take by mouth Active acetaminophen (TYLENOL) 325 mg tablet Take 2 tablets (650 mg total) by mouth every 6 (six) hours as needed for pain Active cholecalciferol (VITAMIN D-3) 1,000 unit Take 1 tablet/capsule (1,000 Units total) by mouth daily Active cholestyramine (QUESTRAN) 4 gram powder 3 [...] 10 mg tabletIndicatio ns:Coronary artery disease involving [place] coronary artery of [place] heart without angina pectoris TAKE 1 TABLET BY MOUTH EVERY DAY 90 tablet 3 4 Active ipratropium-alb uteroL (DUO-NEB) 0.5-2.5 mg/3 mL nebulizer solution INHALE 3 ML INHALED EVERY 6 HOURS NEEDED FOR SHORTNESS OF BREATH OR WHEEZING 4 Active fluticasone/ume clidin/vilanter (TRELEGY ELLIPTA INHAL) Inhale Activ e carvediloL (COREG) 6.25 mg tablet TAKE 1 TABLET BY MOUTH TWICE A DAY WITH MEALS 180 tablet 1 5 Active sacubitriL-vals ashanti (ENTRESTO) 24-26 mg tabletIndicatio ns:chronic heart failure Take 1 tablet by mouth 2 (two) times a day 180 tablet 3 5 Active Active Problems Problem Noted Date [...] 4 months. Coronary artery disease invo lving [place] coronary artery of [place] heart without angina pectoris 05/18/2022 Mixed hyperlipidemia [...] check a chest x-ray, full PFTs at [facility] and sputum culture. 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 Months Surgical History Surgery [...] on file Legal Sex Female 8:30 PM FRAME SAMPLE AND PATTERN SUPERVISOR Gender Identity Not on file Sexual Orientation Not on file Last Filed Vital Signs Vital Sign Reading Time Taken Comments Blood Pressure 116/64 12/18/2024 2:11 PM CDT Pulse 96 12/18/2024 2:11 PM CDT Temperature 36.2 C (97.2 F) 01/09/2024 10:03 AM FRAME SAMPLE AND PATTERN SUPERVISOR Respiratory Rate 18 01/09/2024 10:03 AM FRAME SAMPLE AND PATTERN SUPERVISOR Oxygen Saturation 96% 12/18/2024 2:11 PM CDT Inhaled Oxygen Concentration - - Weight 78.5 kg (173 lb) 12/18/2024 2:11 PM CDT Height 149.9 cm (4' 11) 12/18/2024 2:11 PM CDT Body Mass Index 34.94 12/18/2024 2:11 PM CDT Plan of Treatment Health Maintenance Due Date Last Done Comments Depression Screening 1936 Fall Risk Assessment 1936 Osteoporosis Screening-Bone Density Scan 1936 DTaP/Tdap/Td Vaccine (1 - Tdap) 10/05/1947 Hepatitis B Screening 1954 Well Visit 65+ 2001 Zoster Vaccine (2 of 3) 04/27/2013 03/02/2013 Covid-19 Vaccine (3 - season) 11/05/202407/2020, 05/18/2020 Influenza Vaccine (#1) 2024 12/19/2013 Pneumococcal vaccine 65+ Completed 12/27/2019, 0209/2013 Procedures Procedure Name Priority Date/Time Associated Diagnosis Comments POCT LIPID PANEL Routine 12/18/2024 2:10 PM CDT Nonobstructive atherosclerosis of coronary artery from Last 3 Months Results * (ABNORMAL) POCT lipid panel (12/18/2024 2:10 PM CDT) Cholesterol, POC 215 <200 MG/DL HDL, POC 44 >=40 mg/dL Triglycerides, POC 185(A) <=149 mg/dL LDL Cholesterol POC 133(A) <=129 mg/dL Chol/HDL Ratio, POC 3.0 NONE Non-HDL Cholesterol, POC 170 NONE mg/dL Cholesterol Total, POC 215(A) 30 - 199 mg/dL Capillary blood 12/18/2024 2 :10 PM CDT Dilcia Aguilar NP POINT OF CARE TEST ORDERA BLES Final Result from Last [address] [facility] Care Teams Senior Technical Program Manager Relationship Specialty Start Date End Date Yony Flores MD PCP - General Family Practice 09/17/22
--- OUTSIDE RECORDS SUMMARY | 2025-01-29 13:48 | XMS_ITS | Encounter Summary ---
Author Organization [facility] Care Team Providers Care Ocean Lifeguard Name Role Phone Giorgio Hogue MD Primary Care Provider [phone] Doug Fong MD Primary Care Provider [phone] Yony Flores MD Primary Care Provider [phone] Encounter Details Date Type Department Care Team (Latest Contact Info) Description 05/05/2016 Orders Only [facility] ProviderDelmer MD [address] [place] [address] Social History Tobacco Use Types Packs/Day Years Used Date Smoking Tobacco: Never Comments Unknown Sex and Gender Information Value Date Recorded Sex Assigned at Not on file Legal Sex Female 8:30 PM PROMOTIONS OFFICER Gender Identity Not on file Sexual Orientation Not on file documented as of this encounter Functional Status documented as of this encounter Plan of Treatment Not on file documented as of this encounter Procedures Procedure Name Priority Date/Time Associated Diagnosis Comments SCAN - LABS 05/05/2016 12:00 AM PROMOTIONS OFFICER documented in this encounter Results * SCAN - LABS (05/05/2016 12:00 AM PROMOTIONS OFFICER) Narrative 05/05/2016 12:00 AM PROMOTIONS OFFICER Ordered by an unspecified provider. Historical Provider Final Res ult documented in this encounter Visit Diagnoses Not on filedocumented in this encounter Care Teams Ocean Lifeguard Relationship Specialty Start Date End Date Giorgio Hogue MD [address] [place] [address] PCP - General 07/08/16 05/27/20 Doug Fong MD [address] [place] [address] PCP - General Internal Medicine 06/10/22 09/16/22 Yony Flores MD [address] [place] [address] PCP - General Family Practice 09/17/22 documented as of this encounter
--- OUTSIDE RECORDS SUMMARY | 2025-01-29 13:48 | XMS_ITS | Encounter Summary ---
Author Organization [facility] Care Team Providers Care Conductor Pullman Name Role Phone Giorgio Hogue MD Primary Care Provider [phone] Doug Fong MD Primary Care Provider [phone] Yony Flores MD Primary Care Provider [phone] Encounter Details Date Type Department Care Team (Latest Contact Info) Description 03/04/2016 Orders Only [facility] CLINCONV ProviderDelmer MD [address] [place] [address] Social History Tobacco Use Types Packs/Day Years Used Date Smoking Tobacco: Never Assessed Comments Unknown Sex and Gender Information Value Date Recorded Sex Assigned at Not on file Legal Sex Female 8:30 PM NURSING OFFICER Gender Identity Not on file Sexual Orientation Not on file documented as of this encounter Functional Status documented as of this encounter Plan of Treatment Not on file documented as of this encounter Procedures Procedure Name Priority Date/Time Associated Diagnosis Comments CARDIOLOGY REPORT 03/04/2016 12: 00 AM NURSING OFFICER documented in this encounter Results * CARDIOLOGY REPORT (03/04/2016 12:00 AM NURSING OFFICER) Anatomical Region Laterality Modality Other Narrative 03/04/2016 12:00 AM NURSING OFFICER Ordered by an unspecified provider. us Historical Provider [facility] Final Result documented in this encounter Visit Diagnoses Not on filedocumented in this encounter Care Teams Conductor Pullman Relationship Specialty Start Date End Date Giorgio Hogue MD [address] [place] [address] PCP - General 07/08/16 05/27/20 Doug Fong MD [address] [place] [address] PCP - General Internal Medicine 06/10/22 09/16/22 Yony Flores MD [address] [place] [address] PCP - General Family Practice 09/17/22 documented as of this encounter
[2025-01-29 13:51] LABS: Alveolar/Arterial O2 Gradient 21.7 mmHg; Fractional Inspired Oxygen 21 %; HCO3 ABG 21.5 mEq/l (22.0-26.0); Oxygen Content ABG 16.4 %vol (16.0-22.0); Oxygen Saturation ABG 95.4 % (95.0-100.0); PCO2 ABG 39.7 mmHg (35.0-45.0); PO2 ABG 80.5 mmHg (80.0-100.0); PO2 FiO2 Ratio Arterial Blood 3.83 %
[2025-01-29 13:54] LABS: Modified Allen's Test Pass; Site Drawn RIGHT RADIAL
[2025-01-29] MEDS: cefTRIAXone 1 GM in SODIUM CHLORIDE 0.9% IV 50 ML 100 ML IVPB (14:23)
--- NOTE | 2025-01-29 15:23 | WPCEDHO ---
ED Hand Off Checklist All vitals saved:yes IV Site documented:yes All med administrations documented:yes Triage Note Triage Note Pt to ED from [facility] when she went 01/29/25 12:07 to get up to use the restroom and became lightheaded. She states she did not pass out but bystanders say she did. Pt did take a mew medication this morning but is unsure what it was called. Allergies Iodinated Contrast Media Allergy (Severe, Verified 01/29/25 12:30) Swelling of Lip/Tongue/Throat UNCODED meperidine Allergy (Intermediate, Verified 01/29/25 12:30) Unknown Penicillins Allergy (Intermediate, Verified 01/29/25 12:30) Rash codeine Adverse Reaction (Mild, Verified 01/29/25 12:30) Jittery Sulfa (Sulfonamide Antibiotics) Adverse Reaction (Mild, Verified 01/29/25 12:30) Nausea and Vomiting Contrast Media Allergy (Severe, Uncoded 11/20/24 13:37) Swelling of Lip/Tongue/Throat SOB- pt reports anyphylaxis Family History (Last Reviewed 01/29/25 @ 12:46 by Elier Palomo MD) Mother Rectal cancer Schizophrenia Father Heart disease Emphysema lung Sibling COPD (chronic obstructive pulmonary disease) Administered/Completed Medications Discontinued Medications Albuterol/Ipratropium (Ipratropium 0.5 Mg/Albuterol Sulfate 2.5 Mg (Base) Ampul.Neb 3 Ml) 3 ml INHALATION ONCE STA Stop: 01/29/25 12:37 Last Admin: 01/29/25 13:43 Dose: 3 ml Documented By: LATOYA Sodium Chloride (Normal Saline Iv) 1,000 mls @ 999 mls/hr IV CONT .Q1H1M STA Stop: 01/29/25 13:27 Last Infusion: 01/29/25 13:53 Dose: Infused Documented By: Admin: 01/29/25 12:49 Dose: 999 mls/hr Documented By: KAIN Ceftriaxone Sodium 1 gm/ (Sodium Chloride) 50 mls @ 100 mls/hr IVPB ONCE STA Stop: 01/29/25 14:33 Last Infusion: 01/29/25 14:50 Dose: Infused Documented By: Admin: 01/29/25 14:23 Dose: 100 mls/hr Documented By: KNW Notes 01/29/25 12:30 Nurse Note by Mleinda Meade Pt came by EMS with IV in left hand. Pt has had left sided mastectomy. IV removed by this RN and new IV placed in Right AC. Initialized on 01/29/25 12:30 - END OF NOTE Interventions/Assessments IV / Saline Lock, Insert Start: 01/29/25 12:14 Freq: STAT Status: Active Protocol: Document 01/29/25 12:29 KLM (Rec: 01/29/25 12:29 KLM [id number]) IV Assessment Peripheral Access Right Antecubital IV Catheter Access Initiated IV Insertion Date 01/29/25 IV Insertion Time 12:29 Catheter Gauge 18 IV Insertion 1 Attempts IV Site Assessment WNL IV Care and WNL Maintenance PA: Neurological Assessment Start: 01/29/25 11:54 Freq: Status: Active Protocol: Document 01/29/25 12:30 KLM (Rec: 01/29/25 12:30 KLM [id number]) Neurological Assessment Level of Alert,Awake Consciousness Arousable to Verbal Orientation Oriented to Person,Oriented to Place,Oriented to Time Neurological Weakness, General Symptoms Hallucination Type None Behavior Anxious,Cooperative Memory Description Intact,Tight Cooper Intact,Short Term Intact Last Vital Signs Temperature 97.2 F L 01/29/25 12:07 Pulse Rate 86 01/29/25 15:00 Respiratory Rate 12 01/29/25 15:00 Pulse Oximetry 100 01/29/25 15:00 Blood Pressure 138/85 01/29/25 13:35 Blood Pressure Mean 103 01/29/25 13:23 Blood Pressure Position Standing 01/29/25 13:35 Oxygen Delivery Room Air 01/29/25 12:07 Weight 80.4 kg 01/29/25 12:07 Last Result - Abnormals Only MCHC 30.3 g/dl (32-36) L 01/29/25 12:25 RDW 15.4 % (11.5-14.5) H 01/29/25 12:25 MPV 10.7 fl (7.4-10.4) H 01/29/25 12:25 Lymph % (Auto) 16.8 % (18.3-44.2) L 01/29/25 12:25 Eos % (Auto) 4.6 % (0-4.4) H 01/29/25 12:25 Eos # (Auto) 0.4 K/mm3 (0-0.3) H 01/29/25 12:25 BUN 37 mg/dL (7-17) H 01/29/25 12:25 Creatinine 2.26 mg/dL (0.7-1.0) H 01/29/25 12:25 Estimated GFR 20 (59-) L 01/29/25 12:25 NT-Pro-B Natriuret Pep 3090 pg/mL (19.9-100) H 01/29/25 12:25 Urine Appearance Cloudy (Clear) H 01/29/25 13:31 Leukocyte Esterase Rfl 2+ ANETTE/UL (Negative) H 01/29/25 13:31 Urine RBC 6-10 /hpf (0-2) H 01/29/25 13:31 Urine WBC 6-10 /hpf (0-3) H 01/29/25 13:31 Urine Bacteria 1+ /hpf H 01/29/25 13:31 Most Recent Suicide Severity Rating Suicide Severity Rating NO RISK INDICATED 01/29/25 12:07
--- NOTE | 2025-01-29 15:30 | ECG_ITS ---
Test Date: 2025-01-29 15:33:35 Measurements Intervals [place] Rate: 81 P: 61 [place]: 167 QRS: 2 QRSD: 101 T: 65 QT: 404 QTc: 471 Interpretive Statements SINUS RHYTHM CONSIDER PREVIOUSSEPTAL MYOCARDIAL INFARCTION , OF INDETERMINATE AGE [40+ ms Q WAVE IN V1/V2] BORDERLINE ECG Compared to ECG 01/29/2025 12:26:13 No significant changes Electronically Signed On 01-29-2025 17:36:33 [employer] by Gurinder Sevilla M.D.
--- NOTE | 2025-01-29 15:49 | ADMGEN ---
This patient, Randi Rodriguez, was admitted to [facility] Surg Room 326-01. Patient/family oriented to hospital policies and general routines including ID bracelet, bed and alarms, visiting hours, pain management, procedures, bathroom and other care routines, personal items, smoking policy, room service/diet, and visiting hours. Information on how to activate the Rapid Response Team has been discussed. Patient/Family are encouraged to report perceived risks to care and to ask questions if they do not understand what they are told or what they should do.
[2025-01-29 17:06] LABS: Troponin I 0.013 ng/mL (0.000-0.034)
--- NOTE | 2025-01-29 18:05 | PM.IMHP ---
H&P: HPI History of Present Illness Date/Time: 01/29/25 18:05 Chief Complaint: Syncopal/near syncopal episode. Narrative: 89-year-old female the past medical history of asthma, HFrEF, dementia, CKD 3, HTN, breast cancer, CAD, GERD presents to the ED on 01/29/2025 with complaints of a syncopal episode. Patient was at the [facility] [place] when she got up to use the bathroom. Upon returning, she mentioned out loud that she felt lightheaded which prompted those around her to come to her aid. She states she feels like she came close to passing out but did not. However, bystanders stated that she may have briefly lost consciousness. Patient denies shortness of breath, cough, chest pain, fever. No abdominal pain. Of note, patient was in the ED on 12/14/2024 with complaints of substernal chest pain. At that time, patient is stated that the chest pain occurs occasionally and she felt it was related to anxiety. Workup was negative and patient was discharged home. Patient has a history of dementia and follows neurology outpatient. Lives at home alone and is independent in her care. Patient currently denies any symptoms in states she does not feel she needs to be here. Initial vital signs 122/89, HR 88, respirations 16, afebrile and 99% on room air. Labs unremarkable with the exception of BUN 37, creatinine 2.26 with GFR of 20. BNP 3090. Troponin negative. UA with 2+ leukocyte esterase, 6-10 RBC, 6-10 WBC, 1+ bacteria. Viral panel negative EKG sinus rhythm. No change compared to most recent. Chest x-ray no acute cardiopulmonary disease. Review of Systems Review of Systems: All systems reviewed & are unremarkable except as noted in HPI and below [facility] Past Medical History Medical History (Updated 01/30/25 @ 02:05 by Nuvia Armendariz APRN) Dementia Hypertension Chronic kidney disease, stage 3 Breast cancer Heart failure with reduced ejection fraction Coronary artery disease Depression Diverticulitis Aortic stenosis GERD with esophagitis Vitamin D deficiency, unspecified Macular degeneration Chronic diarrhea Adenomatous colon polyp Arthritis Surgical History Surgical History History of reduction surgery of right breast History of left mastectomy History of bilateral knee replacement History of surgical removal of ganglion cyst History of hysterectomy History of appendectomy History of cholecystectomy Family History Family History Mother Rectal cancer Schizophrenia Father Heart disease Emphysema lung Sibling COPD (chronic obstructive pulmonary disease) Social History Social History Social History: Surrogate decision maker: Karina Bautista, daughter. Status: Full code. Smoking status: Never smoker Second hand tobacco smoke exposure: No Alcohol intake: never Substance use: never Substance use type: does not use Do You Feel Safe in your Home?: Yes Lack of Transportation: No Lack of Food: Never True Current Housing: I Have Housing Concerned About Future Housing: No Difficulty Paying Gas/Electric Bills: No Difficulty Paying for Meds: No Currently Unemployed: No Education: Decline to Answer Difficulty w/ Childcare or Family Care: No Living arrangements: alone Occupation/Education: retired Gender identity (if verbalized by the patient): Female Sexual Orientation (if Verbalized by the Patient): Straight or Heterosexual Spiritual care concerns: No Agree to blood products: Yes Meds Home Medications and Allergies Home Medications ?Medication ?Instructions ?Recorded ?Confirmed ?Type aspirin 81 mg tablet,delayed 81 mg PO DAILY 01/28/20 01/29/25 History release geriatric adicsafz-mbdw-dant 1 tablet PO DAILY 01/28/20 01/29/25 History Hair,Skin and Nails 6,000 unit PO DAILY 07/21/20 01/29/25 History cholecalciferol (vitamin D3) 25 25 mcg PO DAILY 07/21/20 01/29/25 History mcg (1,000 unit) tablet (Vitamin D3) carvedilol 3.125 mg tablet (Coreg) 3.125 mg PO Q12HR #60 tabs 06/24/21 01/29/25 Rx potassium chloride 10 mEq 10 meq PO DAILY #90 tabs 07/09/21 01/29/25 Rx tablet,extended release vitamins A,C,R-otfg-kjzqqt 4,296 1 cap PO BID 10/07/21 01/29/25 History mcg-226 mg-90 mg capsule (PreserVision AREDS) ezetimibe 10 mg tablet 10 mg PO DAILY #90 tabs 09/06/23 01/29/25 Rx cholestyramine (with sugar) 4 gram 4 g PO DAILY #1,134 grams 09/29/23 01/29/25 Rx oral powder (Questran) montelukast 10 mg tablet 10 mg PO DAILY #90 tabs 12/12/23 01/29/25 Rx ipratropium 0.5 mg-albuterol 3 mg 3 ml inhalation Q6H PRN shortness 12/13/23 01/29/25 Rx (2.5 mg base)/3 mL nebulization of breath or wheezing #180 mL soln nebulizer accessories #1 ea 12/13/23 01/29/25 Rx nebulizers #1 ea 12/13/23 01/29/25 Rx albuterol sulfate 90 mcg/actuation 1 inh inhalation Q8H PRN shortness 07/25/24 01/29/25 Rx aerosol inhaler (Ventolin HFA) of breath or wheezing #25.5 grams fluticasone fur. 200 mcg-umeclid 1 inh inhalation DAILY #28 ea 07/25/24 01/29/25 Rx 62.5 mcg-vilant 25 mcg inhalat.powder (Trelegy Ellipta) inhalational spacing device #1 ea 07/25/24 01/29/25 Rx (Aerochamber MV spacer) donepezil 5 mg tablet (Aricept) 5 mg PO DAILY #90 tabs 11/20/24 01/29/25 Rx furosemide 20 mg tablet See Rx Instructions .Route 11/26/24 01/29/25 Rx .COMPLEX #90 tabs escitalopram oxalate 20 mg tablet 20 mg PO DAILY #90 tabs 12/11/24 01/29/25 Rx trazodone 50 mg tablet See Rx Instructions .Route 12/14/24 01/29/25 Rx .COMPLEX #90 tabs memantine 10 mg tablet (Namenda) 10 mg PO BID #180 tabs 01/28/25 01/29/25 Rx Allergies Allergy/AdvReac Type Severity Reaction Status Date / Time Iodinated Contrast Media Allergy Severe Swelling Verified 01/29/25 16:03 of Lip/Tongue/Throat meperidine Allergy Intermediate Unknown Verified 01/29/25 16:03 Penicillins Allergy Intermediate Rash Verified 01/29/25 16:03 codeine AdvReac Mild Jittery Verified 01/29/25 16:03 Sulfa (Sulfonamide AdvReac Mild Nausea and Verified 01/29/25 16:03 Antibiotics) Vomiting Contrast Media Allergy Severe Swelling Uncoded 11/20/24 13:37 of Lip/Tongue/Throat Vital Signs Vital Signs - 24 hr 01/29/25 12:07 01/29/25 12:12 01/29/25 12:13 Temperature 97.2 F L Pulse Rate 88 81 88 Respiratory Rate 16 16 14 Blood Pressure 122/89 122/89 Pulse Oximetry 99 99 99 Oxygen Delivery Room Air 01/29/25 12:15 01/29/25 12:17 01/29/25 12:54 Temperature Pulse Rate 79 80 84 Respiratory Rate 24 H 13 13 Blood Pressure 143/84 H Pulse Oximetry 98 98 98 Oxygen Delivery 01/29/25 13:00 01/29/25 13:20 01/29/25 13:21 Temperature Pulse Rate 87 83 85 Respiratory Rate 17 19 15 Blood Pressure 117/57 L 117/65 Pulse Oximetry 98 99 96 Oxygen Delivery 01/29/25 13:22 01/29/25 13:23 01/29/25 13:31 Temperature Pulse Rate 102 H 107 H Respiratory Rate 23 H 21 H Blood Pressure 138/85 Pulse Oximetry 98 Oxygen Delivery 01/29/25 13:33 01/29/25 13:35 01/29/25 13:35 Temperature Pulse Rate 85 82 105 H Respiratory Rate Blood Pressure 117/57 L 117/65 138/85 Pulse Oximetry Oxygen Delivery 01/29/25 13:43 01/29/25 14:00 01/29/25 14:38 Temperature Pulse Rate 87 88 76 Respiratory Rate 20 20 24 H Blood Pressure Pulse Oximetry Oxygen Delivery 01/29/25 14:45 01/29/25 15:00 Temperature Pulse Rate 83 86 Respiratory Rate 17 12 Blood Pressure Pulse Oximetry 100 Oxygen Delivery Exam Narrative: GENERAL: non-toxic appearing, in no acute distress. HEAD: Normocephalic, atraumatic. EYES: PERRLA. Conjunctivae clear. NOSE: Normal no drainage. THROAT: Pharynx clear, no exudate. NECK: Trachea midline. No adenopathy, no masses. RESPIRATORY: Airway patent, respirations nonlabored. Breath sounds diminished CARDIOVASCULAR: Regular rate and rhythm BREASTS: Defer GASTROINTESTINAL: Abdomen is soft and nontender. No organomegaly. Bowel sounds normal in all quadrants. GENITOURINARY: Defer MUSCULOSKELETAL: Moves all extremities. No gross deformities. SKIN: Warm, dry, normal color. NEURO: A&O X4. Speech clear. Forgetful PSYCHIATRIC: Normal interaction H&P: Results Labs Labs: Short CBC 01/29/25 Range/Units 12:25 WBC 8.3 (4.5-10.0) K/mm3 Hgb 12.9 (12.0-15.0) g/dL Hct 42.6 (37.0-47.0) % Plt Count 217 (150-375) k/mm3 BMP 01/29/25 12:25 Sodium 140 Potassium 4.5 Chloride 106 Carbon Dioxide 28 BUN 37 H Creatinine 2.26 H Glucose 92 Calcium 9.9 Cardiac Enzymes 01/29/25 01/29/25 Range/Units 12:25 16:18 Troponin I 0.013 0.013 (0.000-0.034) ng/mL Liver Function 01/29/25 Range/Units 12:25 Total Bilirubin 0.5 (0.2-1.3) mg/dL AST 31 (14-36) U/L ALT 19 (6-35) U/L Alkaline Phosphatase 97 (38-126) U/L Albumin 4.4 (3.5-5.1) g/dL Urine 01/29/25 Range/Units 13:31 Urine Color Yellow (Yellow) Urine Appearance Cloudy H (Clear) Urine pH 5.0 (5.0-9.0) Ur Specific Anna 1.021 (1.001-1.035) Urine Protein Negative (Negative) mg/dL Urine Glucose (UA) Negative (Negative) mg/dL Assessment and Plan Assessment and plan (1) Syncope: Qualifiers: Syncope type: unspecified Qualified Code(s): R55 - Syncope and collapse Code(s): R55 - Syncope and collapse Status: Acute Assessment and Plan: Patient presents to the ED via EMS post syncopal/near syncopal episode. Patient was returning from the bathroom at the [facility] when she mentioned feeling short of breath. She denies loss of consciousness but bystanders state she may have briefly lost consciousness. EKG sinus rhythm. Chest x-ray with no acute cardiopulmonary abnormalities. Troponin negative. Denies chest pain, shortness of breath. Differentials include vasovagal, orthostatic hypotension -1 L NS bolus in ED -orthostatic blood pressures ordered (2) Urinary tract infection: Qualifiers: Urinary tract infection type: site unspecified Hematuria presence: without hematuria Qualified Code(s): N39.0 - Urinary tract infection, site not specified Code(s): N39.0 - Urinary tract infection, site not specified Status: Acute Assessment and Plan: Patient denies any urinary symptoms stating ?I was not having any burning.? - UA with 2+ leukocyte esterase, 6-10 RBC, 6-10 WBC, 1+ bacteria. - UC pending - blood cultures pending - previous micro reviewed - started on Ceftriaxone on 01/29 (3) Acute kidney injury: Code(s): N17.9 - Acute kidney failure, unspecified Status: Acute Assessment and Plan: HAY on CKD. Etiology likely multifactorial in the setting of UTI, possible volume hypovolemia. -Cr 2.6 on admission (baseline Cr: 1.1-1.4) - UA with 2+ leukocyte esterase, 6-10 RBC, 6-10 WBC, 1+ bacteria. - s/p 1L of IVF - monitor I&Os. (4) Heart failure with reduced ejection fraction: Code(s): I50.20 - Unspecified systolic (congestive) heart failure Status: Chronic Assessment and Plan: Patient not in respiratory distress. Breath sounds diminished but no crackles heard. Chest x-ray not concerning for acute exacerbation - BNP 3090 - most recent echo 06/11/2022 demonstrates EF 35-40%, LA enlargement - currently on: Carvedilol, Lasix. Had been on Entresto in the past - monitor I&Os - trend renal function - 1 L NS given in ED - carefully balance fluid with concurrent HAY on CKD - continue home Lasix to prevent acute exacerbation in setting of elevated BNP. (5) Hypertension: Qualifiers: Hypertension type: primary hypertension Qualified Code(s): I10 - Essential (primary) hypertension Code(s): I10 - Essential (primary) hypertension Status: Chronic Assessment and Plan: Continue carvedilol (6) Dementia: Qualifiers: Dementia type: unspecified type Dementia severity: unspecified severity Dementia behavioral or psychological symptom: unspecified whether behavioral, psychotic, or mood disturbance or anxiety Qualified Code(s): F03.90 - Unspecified dementia, unspecified severity, without behavioral disturbance, psychotic disturbance, mood disturbance, and anxiety Code(s): F03.90 - Unspecified dementia, unspecified severity, without behavioral disturbance, psychotic disturbance, mood disturbance, and anxiety Status: Chronic Assessment and Plan: Continue Aricept and Namenda (7) Asthma: Qualifiers: Asthma severity: unspecified severity Asthma persistence: unspecified Asthma complication type: unspecified Qualified Code(s): J45.909 - Unspecified asthma, uncomplicated Code(s): J45.909 - Unspecified asthma, uncomplicated Status: Chronic Assessment and Plan: Not in acute exacerbation. -DuoNeb q.6 p.r.n. -Singulair daily (8) Insomnia: Qualifiers: Insomnia type: unspecified Qualified Code(s): G47.00 - Insomnia, unspecified Code(s): G47.00 - Insomnia, unspecified Status: Chronic Assessment and Plan: Patient states she ?never sleeps.? Long history of insomnia. -continue trazodone 50 mg p.o. HS Plan Diet: Heart healthy GI prophylaxis: NA DVT prophylaxis: SCDs lines/drains: PIV Fluids: 1 L NS bolus Code status: Full Quality VTE Prophylaxis VTE prophylaxis: mechanical ordered Hospitalist [facility] Advance Care Plan I have confirmed that the patient's Advanced Care Plan is present, code status is documented, or surrogate decision maker is listed in patient medical record.: Yes Medication Reconciliation I have utilized all available resources to obtain, update and review the patients current medications (includes all prescriptions, OTC, herbals, cannabis, and nutritional supplements).: Yes
--- NOTE | 2025-01-29 20:59 | ECG_ITS ---
Test Date: 2025-01-29 21:10:23 Measurements Intervals [place] Rate: 86 P: 86 [place]: 175 QRS: 17 QRSD: 100 T: 99 QT: 406 QTc: 487 Interpretive Statements SINUS RHYTHM WITH FREQUENT VENTRICULAR PREMATURE COMPLEXES POSSIBLE LEFT ATRIAL ENLARGEMENT [-0.1mV P-WAVE IN V1/V2] CONSIDER PREVIOUS SEPTAL MYOCARDIAL INFARCTION , PROBABLY OLD [40+ ms Q WAVE IN V1/V2] ABNORMAL ECG Compared to ECG 01/29/2025 15:33:35 PVCS ARE PRESENT Electronically Signed On 01-30-2025 07:33:26 [employer] by Gurinder Sevilla M.D.
[2025-01-29] MEDS: ESCITALOPRAM OXALATE 10 MG TABLET 20 MG PO (21:01)
[2025-01-29] MEDS: MEMANTINE 10 MG TABLET PO (21:50)
[2025-01-29] MEDS: ACETAMINOPHEN 325 MG TABLET 650 MG PO (21:50)
[2025-01-30] VITALS (10 sets, daily range): BP systolic 106–131; BP diastolic 50–76; PULSE 64–113; RESP 14–28; TEMP 36.6–36.9; O2SAT 96–100
[2025-01-30] MEDS: IPRATROPIUM 0.5 MG/ALBUTEROL SULFATE 2.5 MG (BASE) AMPUL.NEB 3 ML INHALATION ×3 (02:26→13:27)
[2025-01-30 05:13] LABS: Hematocrit 38.5 % (37.0-47.0); Hemoglobin 11.7 g/dL (12.0-15.0); Immature Granulocyte Percent A 0.6 % (0-0.5); Lymphocytes Absolute Auto 2.03 K/mm3 (0.9-3.2); Mean Corpuscular HGB Conc 30.4 g/dl (32-36); Mean Corpuscular Hemoglobin 27.4 pg (26-34); Mean Corpuscular Volume 90.2 fl (80-100); Nucleated Red Blood Cells Absolute Auto 0.000 K/mm3 (0.0-0.012); Nucleated Red Blood Cells Perc 0.0 % (0.0-0.2); Platelet Count Result 240 k/mm3 (150-375); Red Blood Count 4.27 M/mm3 (4.2-5.4); White Blood Count 8.3 K/mm3 (4.5-10.0)
[2025-01-30 05:38] LABS: Anion Gap 6 mmol/L (4-12); Blood Urea Nitrogen 33 mg/dL (7-17); Calcium 9.2 mg/dL (8.4-10.2); Carbon Dioxide 22 mmol/L (22-30); Chloride 111 mmol/L (98-107); Estimated Glomerular Filt Rate 32; Glucose 95 mg/dL (65-110); Potassium 4.2 mmol/L (3.4-5.0); Sodium 139 mmol/L (137-145)
--- NOTE | 2025-01-30 08:02 | P.PNIM_ITS ---
Progress Note: A&P Assessment and Plan (1) Syncope: Qualifiers: Syncope type: unspecified Qualified Code(s): R55 - Syncope and collapse Code(s): R55 - Syncope and collapse Status: Acute Assessment and Plan: Patient presents to the ED via EMS post syncopal/near syncopal episode. Patient was returning from the bathroom at the [facility] when she mentioned feeling short of breath. She denies loss of consciousness but bystanders state she may have briefly lost consciousness. EKG sinus rhythm. Chest x-ray with no acute cardiopulmonary abnormalities. Troponin negative. Denies chest pain, shortness of breath. Differentials include vasovagal, orthostatic hypotension -1 L NS bolus in ED -orthostatic blood pressures ordered (2) Urinary tract infection: Qualifiers: Hematuria presence: without hematuria Urinary tract infection type: site unspecified Qualified Code(s): N39.0 - Urinary tract infection, site not specified Code(s): N39.0 - Urinary tract infection, site not specified Status: Acute Assessment and Plan: Patient denies any urinary symptoms stating ?I was not having any burning.? - UA with 2+ leukocyte esterase, 6-10 RBC, 6-10 WBC, 1+ bacteria. - UC pending - blood cultures pending - previous micro reviewed - started on Ceftriaxone on 01/29 (3) Acute kidney injury: Code(s): N17.9 - Acute kidney failure, unspecified Status: Acute Assessment and Plan: HAY on CKD. Etiology likely multifactorial in the setting of UTI, possible volume hypovolemia. -Cr 2.6 on admission (baseline Cr: 1.1-1.4) - UA with 2+ leukocyte esterase, 6-10 RBC, 6-10 WBC, 1+ bacteria. - s/p 1L of IVF - monitor I&Os. (4) Heart failure with reduced ejection fraction: Code(s): I50.20 - Unspecified systolic (congestive) heart failure Status: Chronic Assessment and Plan: Patient not in respiratory distress. Breath sounds diminished but no crackles heard. Chest x-ray not concerning for acute exacerbation - BNP 3090 - most recent echo 06/11/2022 demonstrates EF 35-40%, LA enlargement - currently on: Carvedilol, Lasix. Had been on Entresto in the past - monitor I&Os - trend renal function - 1 L NS given in ED - carefully balance fluid with concurrent HAY on CKD - continue home Lasix to prevent acute exacerbation in setting of elevated BNP. (5) Hypertension: Qualifiers: Hypertension type: primary hypertension Qualified Code(s): I10 - Essential (primary) hypertension Code(s): I10 - Essential (primary) hypertension Status: Chronic Assessment and Plan: Continue carvedilol (6) Dementia: Qualifiers: Dementia type: unspecified type Dementia severity: unspecified severity Dementia behavioral or psychological symptom: unspecified whether behavioral, psychotic, or mood disturbance or anxiety Qualified Code(s): F03.90 - Unspecified dementia, unspecified severity, without behavioral disturbance, psychotic disturbance, mood disturbance, and anxiety Code(s): F03.90 - Unspecified dementia, unspecified severity, without behavioral disturbance, psychotic disturbance, mood disturbance, and anxiety Status: Chronic Assessment and Plan: Continue Aricept and Namenda (7) Asthma: Qualifiers: Asthma severity: unspecified severity Asthma persistence: unspecified Asthma complication type: unspecified Qualified Code(s): J45.909 - Unspecified asthma, uncomplicated Code(s): J45.909 - Unspecified asthma, uncomplicated Status: Chronic Assessment and Plan: Not in acute exacerbation. -DuoNeb q.6 p.r.n. -Singulair daily (8) Insomnia: Qualifiers: Insomnia type: unspecified Qualified Code(s): G47.00 - Insomnia, unspecified Code(s): G47.00 - Insomnia, unspecified Status: Chronic Assessment and Plan: Patient states she ?never sleeps.? Long history of insomnia. -continue trazodone 50 mg p.o. HS Plan Diet: Heart healthy GI prophylaxis: NA DVT prophylaxis: SCDs lines/drains: PIV Fluids: 1 L NS bolus Code status: Full Subjective Date/time seen: 01/30/25 08:02 Review of Systems Review of Systems: All systems reviewed & are unremarkable except as noted in HPI and below Exam Narrative: GENERAL: non-toxic appearing, in no acute distress. HEAD: Normocephalic, atraumatic. EYES: PERRLA. Conjunctivae clear. NOSE: Normal no drainage. THROAT: Pharynx clear, no exudate. NECK: Trachea midline. No adenopathy, no masses. RESPIRATORY: Airway patent, respirations nonlabored. Breath sounds diminished CARDIOVASCULAR: Regular rate and rhythm BREASTS: Defer GASTROINTESTINAL: Abdomen is soft and nontender. No organomegaly. Bowel sounds normal in all quadrants. GENITOURINARY: Defer MUSCULOSKELETAL: Moves all extremities. No gross deformities. SKIN: Warm, dry, normal color. NEURO: A&O X4. Speech clear. Forgetful PSYCHIATRIC: Normal interaction Objective Data Vital Signs Vital Signs: Vital Signs - 24 hr 01/29/25 12:07 01/29/25 12:12 01/29/25 12:13 Temperature 97.2 F L Pulse Rate 88 81 88 Respiratory Rate 16 16 14 Blood Pressure 122/89 122/89 Pulse Oximetry 99 99 99 Oxygen Delivery Room Air Fraction of Inspired Oxygen 01/29/25 12:15 01/29/25 12:17 01/29/25 12:54 Temperature Pulse Rate 79 80 84 Respiratory Rate 24 H 13 13 Blood Pressure 143/84 H Pulse Oximetry 98 98 98 Oxygen Delivery Fraction of Inspired Oxygen 01/29/25 13:00 01/29/25 13:20 01/29/25 13:21 Temperature Pulse Rate 87 83 85 Respiratory Rate 17 19 15 Blood Pressure 117/57 L 117/65 Pulse Oximetry 98 99 96 Oxygen Delivery Fraction of Inspired Oxygen 01/29/25 13:22 01/29/25 13:23 01/29/25 13:31 Temperature Pulse Rate 102 H 107 H Respiratory Rate 23 H 21 H Blood Pressure 138/85 Pulse Oximetry 98 Oxygen Delivery Fraction of Inspired Oxygen 01/29/25 13:33 01/29/25 13:35 01/29/25 13:35 Temperature Pulse Rate 85 82 105 H Respiratory Rate Blood Pressure 117/57 L 117/65 138/85 Pulse Oximetry Oxygen Delivery Fraction of Inspired Oxygen 01/29/25 13:43 01/29/25 14:00 01/29/25 14:38 Temperature Pulse Rate 87 88 76 Respiratory Rate 20 20 24 H Blood Pressure Pulse Oximetry Oxygen Delivery Fraction of Inspired Oxygen 01/29/25 14:45 01/29/25 15:00 01/29/25 20:00 Temperature Pulse Rate 83 86 81 Respiratory Rate 17 12 16 Blood Pressure Pulse Oximetry 100 99 Oxygen Delivery Room Air Fraction of Inspired Oxygen 21 01/29/25 20:09 01/29/25 20:12 01/29/25 20:24 Temperature Pulse Rate 86 86 90 Respiratory Rate 20 20 20 Blood Pressure Pulse Oximetry 98 Oxygen Delivery Room Air Fraction of Inspired Oxygen 21 01/29/25 21:38 01/29/25 21:50 01/30/25 02:27 Temperature 98.1 F Pulse Rate 81 81 113 H Respiratory Rate 16 20 Blood Pressure 126/67 Pulse Oximetry 99 Oxygen Delivery Fraction of Inspired Oxygen 01/30/25 02:43 01/30/25 05:00 01/30/25 05:00 Temperature 97.8 F Pulse Rate 105 H 76 76 Respiratory Rate 20 18 Blood Pressure 108/50 L 108/50 L Pulse Oximetry 98 Oxygen Delivery Fraction of Inspired Oxygen 01/30/25 05:02 01/30/25 05:05 Temperature Pulse Rate 90 96 Respiratory Rate Blood Pressure 119/75 131/76 Pulse Oximetry Oxygen Delivery Fraction of Inspired Oxygen Intake/Output Intake/Output: Intake & Output 01/27/25 01/28/25 01/29/25 01/30/25 23:59 23:59 23:59 23:59 Intake Total 1530 400 Balance 1530 400 Meds/Results Medications: Active Medications Generic Name Dose Route Start Last Admin Trade Name Freq PRN Reason Stop Dose Admin Acetaminophen 650 mg 01/29/25 14:04 01/29/25 21:50 Acetaminophen 325 Mg Tablet PO 650 mg Q4H PRN Administration Mild Pain (1-3) or Fever Albuterol/Ipratropium 3 ml 01/29/25 20:00 01/30/25 02:26 Ipratropium 0.5 Mg/Albuterol Sulfate 2.5 Mg (Base) Ampul.Neb 3 Ml INHALATION 3 ml Q6HRT IVONE Administration Aspirin 81 mg 01/30/25 09:00 Aspirin 81 Mg Enteric Tablet PO DAILY [facility] Carvedilol 3.125 mg 01/29/25 21:30 01/29/25 21:50 Carvedilol 3.125 Mg Tablet PO 3.125 mg Q12HR IVONE Administration Cholestyramine Resin 4 gm 01/30/25 09:00 Cholestyramine Light 4 Gm Powd.Pack PO DAILY [facility] Donepezil HCl 10 mg 01/30/25 09:00 Donepezil Hcl 10 Mg Tablet PO DAILY [facility] Ezetimibe 10 mg 01/30/25 09:00 Ezetimibe 10 Mg Tablet PO DAILY [facility] Escitalopram Oxalate 20 mg 01/29/25 18:50 01/29/25 21:01 Escitalopram Oxalate 10 Mg Tablet PO 20 mg DAILY [facility] Administration Fluticasone/Umeclidinium/Vilanterol 1 puff 01/30/25 09:00 Fluticasone/Umeclidin/Vilanter 200-62.5-25 Mcg Ellipta INHALATION DAILY [facility] Furosemide 20 mg 01/30/25 09:00 Furosemide 20 Mg Tablet BY MOUTH DAILY [facility] Ceftriaxone Sodium 1 gm/ 50 mls @ 100 mls/hr 01/30/25 09:00 Sodium Chloride IVPB Q24H [facility] Memantine 10 mg 01/29/25 21:35 01/29/25 21:50 Memantine 10 Mg Tablet PO 10 mg Q12HR [facility] Administration Montelukast Sodium 10 mg 01/30/25 09:00 Montelukast Sodium 10 Mg Tablet PO DAILY [facility] Ondansetron HCl 4 mg 01/29/25 14:04 Ondansetron Inj 4 Mg/2 Ml Vial IV PUSH Q4H PRN Nausea Potassium Chloride 10 meq 01/30/25 09:00 Potassium Chloride 10 Meq Er Tablet PO DAILY [facility] Trazodone HCl 50 mg 01/30/25 21:00 Trazodone Hcl 50 Mg Tablet BY MOUTH [facility] Vitamin D 25 mcg 01/30/25 09:00 Cholecalciferol (Vitamin D3) 25 Mcg (1,000 Units) Tablet PO DAILY [facility] Radiology Results: ITS Impressions Chest X-Ray 01/29/25 12:49 IMPRESSION: 1: NO ACUTE CARDIOPULMONARY DISEASE. Labs Labs: Laboratory Results - last 24 hr 01/29/25 01/29/25 01/29/25 12:25 12:47 13:31 WBC 8.3 RBC 4.71 Hgb 12.9 Hct 42.6 MCV 90.4 MCH 27.4 MCHC 30.3 L RDW 15.4 H Plt Count 217 MPV 10.7 H Immature Gran % (Auto) 0.4 Neut % (Auto) 70.3 Lymph % (Auto) 16.8 L [place] % (Auto) 7.1 Eos % (Auto) 4.6 H Baso % (Auto) 0.8 Lymph # (Auto) 1.39 [place] # (Auto) 0.6 Eos # (Auto) 0.4 H Baso # (Auto) 0.1 Abs Immat Gran (auto) 0.03 Absolute Neuts (auto) 5.8 Absolute Nucleated RBC 0.000 Nucleated RBC % 0.0 PT 12.9 INR 1.0 APTT 27.8 Puncture Site ABG pH ABG pCO2 ABG pO2 ABG PO2/FiO2 Ratio ABG HCO3 ABG O2 Saturation ABG O2 Content ABG Base Excess A-a Gradient Oxyhemoglobin Total Hemoglobin O2 Delivery Device O2 Liters/Min FiO2 Sodium 140 Potassium 4.5 Chloride 106 Carbon Dioxide 28 Anion Gap 6 BUN 37 H Creatinine 2.26 H Estim Creat Clear Calc Not Reportable Estimated GFR 20 L Glucose 92 Lactic Acid 1.2 Calcium 9.9 Magnesium 2.1 Total Bilirubin 0.5 AST 31 ALT 19 Alkaline Phosphatase 97 Troponin I 0.013 NT-Pro-B Natriuret Pep 3090 H Total Protein 7.5 Albumin 4.4 Urine Color Yellow Urine Appearance Cloudy H Urine pH 5.0 Ur Specific Fox 1.021 Urine Protein Negative Urine Glucose (UA) Negative Urine Ketones Negative Ur Blood (Man) Trace Urine Nitrate Negative Urine Bilirubin Negative Urine Urobilinogen 0.2 Leukocyte Esterase Rfl 2+ H Urine RBC 6-10 H Urine WBC 6-10 H Ur Squamous Epith Cells None seen Urine Bacteria 1+ H Urine Casts 0-2 Influenza A (RT-PCR) Negative Influenza B (RT-PCR) Negative RSV (RT-PCR) Negative SARS-CoV-2 RNA (RT-PCR) Negative 01/29/25 01/29/25 01/30/25 13:45 16:18 04:47 WBC 8.3 RBC 4.27 Hgb 11.7 L Hct 38.5 MCV 90.2 MCH 27.4 MCHC 30.4 L RDW 15.2 H Plt Count 240 MPV 11.1 H Immature Gran % (Auto) 0.6 H Neut % (Auto) 60.2 Lymph % (Auto) 24.4 [place] % (Auto) 8.8 H Eos % (Auto) 5.2 H Baso % (Auto) 0.8 Lymph # (Auto) 2.03 [place] # (Auto) 0.7 H Eos # (Auto) 0.4 H Baso # (Auto) 0.1 Abs Immat Gran (auto) 0.05 H Absolute Neuts (auto) 5.0 Absolute Nucleated RBC 0.000 Nucleated RBC % 0.0 PT INR APTT Puncture Site Right radial ABG pH 7.351 ABG pCO2 39.7 ABG pO2 80.5 ABG PO2/FiO2 Ratio 3.83 ABG HCO3 21.5 L ABG O2 Saturation 95.4 ABG O2 Content 16.4 ABG Base Excess -3.8 A-a Gradient 21.7 Oxyhemoglobin 94.7 Total Hemoglobin 12.3 O2 Delivery Device Not Reportable O2 Liters/Min Not Reportable FiO2 21 Sodium 139 Potassium 4.2 Chloride 111 H Carbon Dioxide 22 Anion Gap 6 BUN 33 H Creatinine 1.52 H Estim Creat Clear Calc Not Reportable Estimated GFR 32 L Glucose 95 Lactic Acid Calcium 9.2 Magnesium Total Bilirubin AST ALT Alkaline Phosphatase Troponin I 0.013 NT-Pro-B Natriuret Pep Total Protein Albumin Urine Color Urine Appearance Urine pH Ur Specific Fox Urine Protein Urine Glucose (UA) Urine Ketones Ur Blood (Man) Urine Nitrate Urine Bilirubin Urine Urobilinogen Leukocyte Esterase Rfl Urine RBC Urine WBC Ur Squamous Epith Cells Urine Bacteria Urine Casts Influenza A (RT-PCR) Influenza B (RT-PCR) RSV (RT-PCR) SARS-CoV-2 RNA (RT-PCR) Quality VTE Prophylaxis VTE prophylaxis: mechanical ordered
[2025-01-30] MEDS: CHOLESTYRAMINE LIGHT 4 GM POWD.PACK PO (08:36)
[2025-01-30] MEDS: EZETIMIBE 10 MG TABLET PO (08:37)
[2025-01-30] MEDS: POTASSIUM CHLORIDE 10 MEQ ER TABLET PO (08:37)
[2025-01-30] MEDS: FUROSEMIDE 20 MG TABLET BY MOUTH (08:38)
[2025-01-30] MEDS: MONTELUKAST SODIUM 10 MG TABLET PO (08:38)
[2025-01-30] MEDS: ESCITALOPRAM OXALATE 10 MG TABLET 20 MG PO (08:38)
[2025-01-30] MEDS: ASPIRIN 81 MG ENTERIC TABLET PO (08:38)
[2025-01-30] MEDS: CHOLECALCIFEROL (VITAMIN D3) 25 MCG (1,000 UNITS) TABLET PO (08:38)
[2025-01-30] MEDS: MEMANTINE 10 MG TABLET PO (08:38)
[2025-01-30] MEDS: cefTRIAXone 1 GM in SODIUM CHLORIDE 0.9% IV 50 ML 100 ML IVPB (08:38)
[2025-01-30] MEDS: DONEPEZIL HCL 10 MG TABLET PO (08:38)
[2025-01-30] MEDS: FLUTICASONE/UMECLIDIN/VILANTER 200-62.5-25 MCG ELLIPTA 1 PUFF INHALATION (13:33)
[2025-01-30 16:32] LABS: Anion Gap 3 mmol/L (4-12); Blood Urea Nitrogen 29 mg/dL (7-17); Calcium 9.1 mg/dL (8.4-10.2); Carbon Dioxide 24 mmol/L (22-30); Chloride 111 mmol/L (98-107); Estimated Glomerular Filt Rate 36; Glucose 103 mg/dL (65-110); Potassium 4.6 mmol/L (3.4-5.0); Sodium 138 mmol/L (137-145)
--- NOTE | 2025-01-30 16:47 | PM.DS ---
DS: Admitting Diagnosis Discharge Date 01/30/2025 Admitting Diagnosis syncope UTI HAY heart failure with reduced ejection fraction HTN Dementia Insomnia DS: Discharge Diagnosis Discharge Diagnosis (1) Syncope: Qualifiers: Syncope type: unspecified Qualified Code(s): R55 - Syncope and collapse Code(s): R55 - Syncope and collapse Status: Acute (2) Urinary tract infection: Qualifiers: Hematuria presence: without hematuria Urinary tract infection type: site unspecified Qualified Code(s): N39.0 - Urinary tract infection, site not specified Code(s): N39.0 - Urinary tract infection, site not specified Status: Acute (3) Acute kidney injury: Code(s): N17.9 - Acute kidney failure, unspecified Status: Acute (4) Heart failure with reduced ejection fraction: Code(s): I50.20 - Unspecified systolic (congestive) heart failure Status: Chronic (5) Hypertension: Qualifiers: Hypertension type: primary hypertension Qualified Code(s): I10 - Essential (primary) hypertension Code(s): I10 - Essential (primary) hypertension Status: Chronic (6) Dementia: Qualifiers: Dementia type: unspecified type Dementia severity: unspecified severity Dementia behavioral or psychological symptom: unspecified whether behavioral, psychotic, or mood disturbance or anxiety Qualified Code(s): F03.90 - Unspecified dementia, unspecified severity, without behavioral disturbance, psychotic disturbance, mood disturbance, and anxiety Code(s): F03.90 - Unspecified dementia, unspecified severity, without behavioral disturbance, psychotic disturbance, mood disturbance, and anxiety Status: Chronic (7) Asthma: Qualifiers: Asthma severity: unspecified severity Asthma persistence: unspecified Asthma complication type: unspecified Qualified Code(s): J45.909 - Unspecified asthma, uncomplicated Code(s): J45.909 - Unspecified asthma, uncomplicated Status: Chronic (8) Insomnia: Qualifiers: Insomnia type: unspecified Qualified Code(s): G47.00 - Insomnia, unspecified Code(s): G47.00 - Insomnia, unspecified Status: Chronic DS: Summary Hospital Course Reason for hospitalization: syncope Hospital Course: The patient is an 89-year-old female with a complex medical history including heart failure with reduced ejection fraction, chronic kidney disease stage 3, dementia, hypertension, coronary artery disease, asthma, and a history of breast cancer, who was admitted following a syncopal/near-syncopal episode at a [facility]. On admission, she was hemodynamically stable and afebrile, with laboratory findings notable for acute kidney injury (creatinine 2.26, BUN 37) on chronic kidney disease, and urinalysis suggestive of a urinary tract infection. BNP was elevated at 3090, but there was no evidence of acute heart failure exacerbation on exam or imaging. Troponin was negative, EKG showed sinus rhythm, and chest x-ray was unremarkable. She was started on intravenous fluids for presumed volume depletion and ceftriaxone for UTI. Her home medications, including heart failure and dementia regimens, were continued. Over the course of her hospitalization, the patient?s renal function improved significantly with supportive care, with creatinine decreasing to 1.38 and BUN to 29 by the following day. She remained hemodynamically stable, denied any further syncopal or presyncopal symptoms, and was eager to return home. At the time of discharge, her urine culture was still pending; she was transitioned to oral cefdinir 300 mg twice daily for 5 days to complete treatment for UTI. Arrangements were made for the urine culture results to be followed up by nursing staff after discharge. The patient was discharged home in stable condition, with instructions to continue her home medications and new antibiotic regimen, and to follow up with her primary care provider and specialists as previously scheduled Time Spent with Patient Time attestation: Total time spent providing and/or coordinating discharge services: 25 Minutes Exam Narrative: GENERAL: non-toxic appearing, in no acute distress. HEAD: Normocephalic, atraumatic. EYES: PERRLA. Conjunctivae clear. NOSE: Normal no drainage. NECK: Trachea midline RESPIRATORY: Airway patent, respirations nonlabored. Breath sounds diminished CARDIOVASCULAR: Regular rate and rhythm GASTROINTESTINAL: Abdomen is soft and nontender. No organomegaly. Bowel sounds normal in all quadrants. MUSCULOSKELETAL: Moves all extremities. No gross deformities. SKIN: Warm, dry, normal color. NEURO: A&O X4. Speech clear. Forgetful PSYCHIATRIC: Normal interaction DS: Data Data Completed and Pending Labs on day of discharge: Labs from last 24 hours 01/30/25 01/30/25 01/29/25 15:22 04:47 16:18 WBC 8.3 RBC 4.27 Hgb 11.7 L Hct 38.5 MCV 90.2 MCH 27.4 MCHC 30.4 L RDW 15.2 H Plt Count 240 MPV 11.1 H Immature Gran % (Auto) 0.6 H Neut % (Auto) 60.2 Lymph % (Auto) 24.4 [place] % (Auto) 8.8 H Eos % (Auto) 5.2 H Baso % (Auto) 0.8 Lymph # (Auto) 2.03 [place] # (Auto) 0.7 H Eos # (Auto) 0.4 H Baso # (Auto) 0.1 Abs Immat Gran (auto) 0.05 H Absolute Neuts (auto) 5.0 Absolute Nucleated RBC 0.000 Nucleated RBC % 0.0 Puncture Site ABG pH ABG pCO2 ABG pO2 ABG PO2/FiO2 Ratio ABG HCO3 ABG O2 Saturation ABG O2 Content ABG Base Excess A-a Gradient Oxyhemoglobin Total Hemoglobin FiO2 Sodium 138 139 Potassium 4.6 4.2 Chloride 111 H 111 H Carbon Dioxide 24 22 Anion Gap 3 L 6 BUN 29 H 33 H Creatinine 1.38 H 1.52 H Estim Creat Clear Calc Not Reportable Not Reportable Estimated GFR 36 L 32 L Glucose 103 95 Calcium 9.1 9.2 Troponin I 0.013 01/29/25 13:45 WBC RBC Hgb Hct MCV MCH MCHC RDW Plt Count MPV Immature Gran % (Auto) Neut % (Auto) Lymph % (Auto) [place] % (Auto) Eos % (Auto) Baso % (Auto) Lymph # (Auto) [place] # (Auto) Eos # (Auto) Baso # (Auto) Abs Immat Gran (auto) Absolute Neuts (auto) Absolute Nucleated RBC Nucleated RBC % Puncture Site Right radial ABG pH 7.351 ABG pCO2 39.7 ABG pO2 80.5 ABG PO2/FiO2 Ratio 3.83 ABG HCO3 21.5 L ABG O2 Saturation 95.4 ABG O2 Content 16.4 ABG Base Excess -3.8 A-a Gradient 21.7 Oxyhemoglobin 94.7 Total Hemoglobin 12.3 FiO2 21 Sodium Potassium Chloride Carbon Dioxide Anion Gap BUN Creatinine Estim Creat Clear Calc Estimated GFR Glucose Calcium Troponin I Imaging Radiologist's impression: Ordering Physician: Osei Palomo MD Date of Service: 01/29/25 Procedure(s): XR chest 2V Accession Number(s): [id number] cc: Osei Palomo MD; Anita Hawk APRN~ EXAMINATION: XR chest 2V 01/29/2025 12:44 INDICATION: Syncope PROCEDURE: 2 view chest COMPARISON: Comparison to multiple prior studies sequentially, with oldest reviewed study dated 12/03/2023. FINDINGS: The lungs are clear. The lungs are hyperinflated which is consistent with, but not diagnostic of chronic obstructive pulmonary disease. There is atherosclerosis of the aorta. There is a left breast implant. The cardiomediastinal silhouette is within normal limits. There are no pleural effusions. There is no pneumothorax suspected. IMPRESSION: 1: NO ACUTE CARDIOPULMONARY DISEASE. Reviewed, dictated and finalized at location O. NUE COORDINATOR Discharge Plan Discharge Attending physician on discharge: Rei Flores Consulting providers: Nuvia Armendariz; Tanya Sebastian; Gurinder Sevilla; Rm Long Discharging Clinician: Tanya Sebastian Patient Disposition: Home Activity: as tolerated Diet: as tolerated Patient Instructions: Antibiotic Form, Heart Failure (GEN) Patient Language: Persian Stand Alone Forms: General Discharge Information Follow-up/Referrals: Anita Hawk APRN [Primary Care Provider, Internal Medicine] Referral Note: call for an appointment to be seen within 1-2 weeks of discharge. Ask for them to check a BMP which monitors your electrolytes and kidney function. Discharge Medications: Continued aspirin 81 mg tablet,delayed release (DR/EC) 81 mg PO DAILY geriatric [id number] Tablet 1 tablet PO DAILY PreserVision AREDS [id number] capsule 1 cap PO BID albuterol sulfate [Ventolin HFA] 90 mcg/actuation HFA aerosol inhaler 1 inh inhalation Q8H PRN (Reason: shortness of breath or wheezing) Qty: 25.5 3RF (DME) Aerochamber MV Spacer See Rx Instructions .Route Qty: 1 0RF Rx Instructions: As directed ipratropium-albuterol 0.5 mg-3 mg(2.5 mg base)/3 mL solution for nebulization 3 ml inhalation Q6H PRN (Reason: shortness of breath or wheezing) Qty: 180 1RF (DME) nebulizers [facility] [place] See Rx Instructions .Route Qty: 1 0RF Rx Instructions: As directed (DME) nebulizer accessories Kit See Rx Instructions .Route Qty: 1 0RF Rx Instructions: As directed cholecalciferol (vitamin D3) [Vitamin D3] 25 mcg (1,000 unit) Tablet 25 mcg PO DAILY Hair,Skin and Nails 6,000 unit PO DAILY carvedilol [Coreg] 3.125 mg Tablet 3.125 mg PO Q12HR Qty: 60 0RF montelukast 10 mg tablet 10 mg PO DAILY Qty: 90 1RF Rx Instructions: TAKE 1 TABLET BY MOUTH EVERY DAY furosemide 20 mg tablet See Rx Instructions .ROUTE .COMPLEX Qty: 90 1RF Dose Instruction: TAKE 1 TABLET BY MOUTH EVERY DAY Rx Instructions: TAKE 1 TABLET BY MOUTH EVERY DAY escitalopram oxalate 20 mg tablet 20 mg PO DAILY Qty: 90 1RF No Action memantine 10 mg tablet PO BID Rexulti 1 mg tablet 1 mg PO DAILY Qty: 90 1RF brexpiprazole 0.5 mg (7)-1 mg (7) tablets in a dose pack 0.5 mg (7)- 1 mg (7) tablets,dose pack 0RF Trelegy Ellipta 200-62.5-25 mcg blister with device 1 inh inhalation DAILY Qty: 28 5RF levofloxacin 500 mg tablet 500 mg PO DAILY Qty: 7 0RF donepezil 5 mg tablet See Rx Instructions .ROUTE .COMPLEX Qty: 90 1RF Dose Instruction: TAKE 1 TABLET BY MOUTH DAILY FOR 1 MONTH, THEN INCREASE TO 2 TABLETS DAILY, MAY TAKE IN THE MORNING Rx Instructions: TAKE 1 TABLET BY MOUTH DAILY FOR 1 MONTH, THEN INCREASE TO 2 TABLETS DAILY, MAY TAKE IN THE MORNING Date of admission: 01/29/25 14:05 Primary Care Provider: Anita Hawk Admitting Provider: Andrea Lynn Attending physician on admission: Rei Flores Condition: Stable Quality VTE Prophylaxis VTE prophylaxis: mechanical ordered
--- NOTE | 2025-02-04 09:38 | PC.NURSE ---
spoke with pateints daughter. states they went to urgent care due to severe diarrhea related to antibiotics. urgent care instructed pt. to stop taking antibiotics. patient's family member states patient is severely confused, but has a UTI. RN instructed pt to return to ER of symptoms are worse but to follow up with PCP at 1130 02/04/25
== END 2025-01-30 18:30 | disposition home or self-care (01) ==
LOC: ANHED 14:11 → ANH3MEDSUR 16:28
PROVIDERS: Nurse Practitioner Adult Health; Admitting Provider Internal Medicine; Emergency Provider Emergency Medicine; PCP Nurse Practitioner Family; Visit Provider Internal Medicine
DX: R55 Syncope and collapse (principal); I12.9 Hypertensive chronic kidney disease with stage 1 through stage 4 chronic kidney disease, or unspecified chronic kidney disease; N18.30 Chronic kidney disease, stage 3 unspecified; N39.0 Urinary tract infection, site not specified; N17.9 Acute kidney failure, unspecified; I11.0 Hypertensive heart disease with heart failure; I50.20 Unspecified systolic (congestive) heart failure; F03.90 Unspecified dementia, unspecified severity, without behavioral disturbance, psychotic disturbance, mood disturbance, and anxiety; G47.00 Insomnia, unspecified; R94.31 Abnormal electrocardiogram [ECG] [EKG]; J45.909 Unspecified asthma, uncomplicated; I25.10 Atherosclerotic heart disease of native coronary artery without angina pectoris; F32.A Depression, unspecified; I35.0 Nonrheumatic aortic (valve) stenosis; K21.9 Gastro-esophageal reflux disease without esophagitis; E55.9 Vitamin D deficiency, unspecified; H35.30 Unspecified macular degeneration; R19.7 Diarrhea, unspecified; M19.90 Unspecified osteoarthritis, unspecified site; Z20.822 Contact with and (suspected) exposure to COVID-19; Z79.82 Long term (current) use of aspirin; Z79.51 Long term (current) use of inhaled steroids; Z85.3 Personal history of malignant neoplasm of breast; Z96.653 Presence of artificial knee joint, bilateral; Z90.12 Acquired absence of left breast and nipple; Z90.49 Acquired absence of other specified parts of digestive tract; Z90.710 Acquired absence of both cervix and uterus; Z81.8 Family history of other mental and behavioral disorders; Z80.0 Family history of malignant neoplasm of digestive organs; Z83.6 Family history of other diseases of the respiratory system; Z82.49 Family history of ischemic heart disease and other diseases of the circulatory system
CPT/HCPCS: 36415; 36600; 71046; 80048; 80053; 81001; 82805; 83605; 83735; 83880; 84484; 85018; 85025; 85610; 85730; 87086; 87637; 93005; 94640; 96361; 96365; 99285; A9270; G0378; J0696; J7030

== ENCOUNTER 2025-02-01 10:22 | Emergency (ER) | payer OTHER, SELFPAY ==
[2025-02-01 10:35] VITALS: BP 113/91; PULSE 108; RESP 16; TEMP 37; O2SAT 99
--- NOTE | 2025-02-01 11:01 | ED_ITS ---
HPI - General Adult General Chief complaint: Nausea/Vomiting/Diarrhea Stated complaint: severe diarrhea from medication Time Seen by Provider: 02/01/25 11:01 Source: patient, RN notes reviewed and old records reviewed Mode of arrival: ambulatory Limitations: no limitations History of Present Illness HPI narrative: 89 year old female accompanied by daughter with complaints of severe diarrhea after taking one dose of Cefdinir antibiotic. Daughter states that patient was recently hospitalized for syncopal episode and found to have a UTI and was treated with IV antibiotics in hospital and was discharged from Hospital on 01/30/2025 with prescription of Cefdinir for UTI. Daughter reports that they called doctors office and were told no appointment available and to go to the ED for new antibiotic. Patient does have history of past episodes of diarrhea and IBS. She states that she has no nausea and vomiting and is able to take fluids without difficulty. MD complaint: diarrhea Onset (ago): day(s) (01/31/2025) Severity: severe (diarrhea) Treatments prior to arrival: none Related Data Home Medications ?Medication ?Instructions ?Recorded ?Confirmed ?Last Taken ?Type aspirin 81 mg tablet,delayed 81 mg PO DAILY 01/28/20 1 03/31/24 01/28/25 History release geriatric tmpbmnbw-iqju-bljs 1 tablet PO DAILY 0 01/29/25 01/28/25 History Hair,Skin and Nails 6,000 unit PO DAILY 07/21/20 01/29/25 01/28/25 History cholecalciferol (vitamin D3) 25 25 mcg PO DAILY 01/29/25 01/28/25 History mcg (1,000 unit) tablet (Vitamin D3) vitamins A,C,A-qkzk-zuiixc 4,296 1 cap PO BID 10/07/21 01/29/25 01/28/25 History mcg-226 mg-90 mg capsule (PreserVision AREDS) Allergies Allergy/AdvReac Type Severity Reaction Status Date / Time Iodinated Contrast Media Allergy Severe Swelling Verified 02/01/25 10:58 of Lip/Tongue/Throat meperidine Allergy Intermediate Unknown Verified 02/01/25 10:58 Penicillins Allergy Intermediate Rash Verified 02/01/25 10:58 codeine AdvReac Mild Jittery Verified 02/01/25 10:58 Sulfa (Sulfonamide AdvReac Mild Nausea and Verified 02/01/25 10:58 Antibiotics) Vomiting Contrast Media Allergy Severe Swelling Uncoded 11/20/24 13:37 of Lip/Tongue/Throat Review of Systems Review of Systems: CONSTITUTIONAL: Denies fever, chills, or sweats. EYES: Denies visual changes, redness, or discharge. ENT: Denies rhinorrhea, congestion, sore throat, or otalgia. CARDIOVASCULAR: Denies chest pain, palpitations, or edema. RESPIRATORY: Denies cough or dyspnea. GASTROINTESTINAL: Denies abdominal pain,no nausea, no vomiting, + diarrhea severe. GENITOURINARY: Denies dysuria or hematuria. SKIN: Denies rash or itching. MUSCULOSKELETAL: Denies back pain, joint pain, or myalgia. NEUROLOGIC: Denies headache, numbness, or weakness. PSYCHIATRIC: positive for history of anxiety or depression. All systems reviewed & are unremarkable except as noted in HPI and below PMFSH Past Medical History Medical History (Updated 02/02/25 @ 00:00 by Background Daemon) Dementia Hypertension Chronic kidney disease, stage 3 Breast cancer Heart failure with reduced ejection fraction Coronary artery disease Depression Diverticulitis Aortic stenosis GERD with esophagitis Vitamin D deficiency, unspecified Macular degeneration Chronic diarrhea Adenomatous colon polyp Arthritis Surgical History Surgical History History of reduction surgery of right breast History of left mastectomy History of bilateral knee replacement History of surgical removal of ganglion cyst History of hysterectomy History of appendectomy History of cholecystectomy Family History Family History Mother Rectal cancer Schizophrenia Father Heart disease Emphysema lung Sibling COPD (chronic obstructive pulmonary disease) Social History Social History Social History: Surrogate decision maker: Karina Bautista, daughter. Status: Full code. Smoking status: Never smoker Second hand tobacco smoke exposure: No Alcohol intake: never Substance use: never Substance use type: does not use Lack of Transportation: No Lack of Food: Never True Current Housing: I Have Housing Concerned About Future Housing: No Difficulty Paying Gas/Electric Bills: No Difficulty Paying for Meds: No Currently Unemployed: No Education: Decline to Answer Difficulty w/ Childcare or Family Care: No Living arrangements: alone Occupation/Education: retired Gender identity (if verbalized by the patient): Female Sexual Orientation (if Verbalized by the Patient): Straight or Heterosexual Spiritual care concerns: No Agree to blood products: Yes Comments At time of signature, agree with nursing past medical, surgical, social and family history. There is no relevant family history pertinent to the presenting complaint Exam Narrative: GENERAL: Elderly-appearing, well-nourished, and in no acute distress. HEAD: Normocephalic, atraumatic. EYES: PERRLA and EOMI. ENT: Nares clear, no rhinorrhea or epistaxis. Mucous membranes moist. NECK: Supple.no lymphadenopathy CHEST: Clear to auscultation. No respiratory distress.SAO2 99% on room air HEART: Regular rate and rhythm. No murmur heard. Normal peripheral pulses. ABDOMEN: Soft, nontender on palpation, nondistended, hyper active bowel sounds. severe diarrhea reported after one dose of Cefdinir EXTREMITIES: Normal range of motion. No edema. SKIN: Warm, dry, no rash. NEURO: No focal deficits. Alert and oriented x3.does have history of dementia Course Course Emergency Course: Patient is aware of diagnosis, understands and agrees to treatment plan.? Anticipatory guidance given.? Patient agrees to follow-up as directed and is aware of reasons to seek care at the emergency department. Portions of this record may have been created with voice recognition software Level of Care: Express Care Visit Vital Signs Vital signs: Vital Signs Temperature 37.0 C 02/01/25 10:35 Pulse Rate 108 H 02/01/25 10:35 Respiratory Rate 16 02/01/25 10:35 Blood Pressure 113/91 H 02/01/25 10:35 Pulse Oximetry 99 02/01/25 10:35 Oxygen Delivery Room Air 02/01/25 10:35 Temperature 37.0 C 02/01/25 10:35 Pulse Rate 108 H 02/01/25 10:35 Respiratory Rate 16 02/01/25 10:35 Blood Pressure 113/91 H 02/01/25 10:35 Pulse Oximetry 99 02/01/25 10:35 Oxygen Delivery Room Air 02/01/25 10:35 Reviewed Medical Decision Making MDM Narrative Medical decision making narrative: Exam findings and imaging show no acute concerns or changes; patient is non- toxic appearing and is in no distress.? Patient is appropriate for outpatient treatment and follow-up. Reviewed culture report from urine done in hospital with no organism identified but mixed urogenital roopa [id number] units. Differential Diagnosis Differential Diagnosis: IBS, severe diarrhea related to antibiotic,dehydration Medical Records Medical records reviewed: Yes I reviewed the external patient's medical records. Vital Signs Vital Signs: Vital Signs Temperature 37.0 C 02/01/25 10:35 Pulse Rate 108 H 02/01/25 10:35 Respiratory Rate 16 02/01/25 10:35 Blood Pressure 113/91 H 02/01/25 10:35 Pulse Oximetry 99 02/01/25 10:35 Oxygen Delivery Room Air 02/01/25 10:35 Temperature 37.0 C 02/01/25 10:35 Pulse Rate 108 H 02/01/25 10:35 Respiratory Rate 16 02/01/25 10:35 Blood Pressure 113/91 H 02/01/25 10:35 Pulse Oximetry 99 02/01/25 10:35 Oxygen Delivery Room Air 02/01/25 10:35 reviewed Critical Care Time Critical Care Time Critical Care Time: No Discharge Plan Discharge Clinical Impression: Acute diarrhea Patient Disposition: Home Condition: Stable Instructions: Clear Liquid Diet (ED), Acute Diarrhea (ED) Additional Instructions: stop the antibiotic at this time drinks 6 glasses of water daily may also include Pedialyte for hydration Clear liquids for the next 8-10 hours, then advance to a bland diet as tolerated A bland diet can consist of--BRAT diet which is bananas, rice, applesauce, and toast Avoid fried, greasy, fatty, fried foods Avoid caffeine, nicotine, and alcohol Return to your regular diet in the next 3-4 days Gjme-qez-plklrcj Imodium for the diarrhea per package instructions Follow-up with her PCP if continued problems or uncontrolled pain if any concerns for dehydration go directly to the emergency room call your physician's office on Tuesday monitor for any fevers Patient Language: Greenlandic Prescriptions: No Action aspirin 81 mg tablet,delayed release (DR/EC) 81 mg PO DAILY geriatric iwvgbuvk-ptza-hbbx Tablet 1 tablet PO DAILY PreserVision AREDS 14,320-226-200 ssnq-se-nqzq capsule 1 cap PO BID albuterol sulfate [Ventolin HFA] 90 mcg/actuation HFA aerosol inhaler 1 inh inhalation Q8H PRN (Reason: shortness of breath or wheezing) Qty: 25.5 3RF (DME) Aerochamber MV Spacer See Rx Instructions .Route Qty: 1 0RF Rx Instructions: As directed Trelejustino Ellipta 200-62.5-25 mcg blister with device 1 inh inhalation DAILY Qty: 28 5RF potassium chloride 10 mEq tablet extended release 10 meq PO DAILY Qty: 90 1RF ezetimibe 10 mg tablet 10 mg PO DAILY Qty: 90 1RF ipratropium-albuterol 0.5 mg-3 mg(2.5 mg base)/3 mL solution for nebulization 3 ml inhalation Q6H PRN (Reason: shortness of breath or wheezing) Qty: 180 1RF (DME) nebulizers Misc See Rx Instructions .Route Qty: 1 0RF Rx Instructions: As directed (DME) nebulizer accessories Kit See Rx Instructions .Route Qty: 1 0RF Rx Instructions: As directed donepezil [Aricept] 5 mg tablet 5 mg PO DAILY Qty: 90 1RF Rx Instructions: after 1 month increase to 2 tablets daily. May be taken the morning cholecalciferol (vitamin D3) [Vitamin D3] 25 mcg (1,000 unit) Tablet 25 mcg PO DAILY Hair,Skin and Nails 6,000 unit PO DAILY carvedilol [Coreg] 3.125 mg Tablet 3.125 mg PO Q12HR Qty: 60 0RF cefdinir 300 mg capsule 300 mg PO Q12H Qty: 10 0RF Rx Instructions: start on 01/31/2025 in the morning cholestyramine (with sugar) [Questran] 4 gram powder 4 g PO DAILY Qty: 1134 0RF Rx Instructions: administer w/meal; avoid other meds within 1hr before or 4-6hr after dose montelukast 10 mg tablet 10 mg PO DAILY Qty: 90 1RF Rx Instructions: TAKE 1 TABLET BY MOUTH EVERY DAY furosemide 20 mg tablet See Rx Instructions .ROUTE .COMPLEX Qty: 90 1RF Dose Instruction: TAKE 1 TABLET BY MOUTH EVERY DAY Rx Instructions: TAKE 1 TABLET BY MOUTH EVERY DAY escitalopram oxalate 20 mg tablet 20 mg PO DAILY Qty: 90 1RF trazodone 50 mg tablet See Rx Instructions .ROUTE .COMPLEX Qty: 90 1RF Dose Instruction: TAKE 1 TABLET BY MOUTH EVERYDAY AT BEDTIME Rx Instructions: TAKE 1 TABLET BY MOUTH EVERYDAY AT BEDTIME memantine [Namenda] 10 mg tablet 10 mg PO BID Qty: 180 3RF Follow-up/Referrals: Yony Flores MD [Primary Care Provider, [facility]] Time of Disposition: 11:36 Quality [place] Coma Scale Eyes: Open Verbal: Oriented and Alert Motor: Follows Commands [place] Coma Total Score: 15
== END 2025-02-01 11:43 | disposition home or self-care (01) ==
PROVIDERS: Emergency Provider Registered Nurse; PCP Family Medicine
DX: R19.7 Diarrhea, unspecified (principal); I13.0 Hypertensive heart and chronic kidney disease with heart failure and stage 1 through stage 4 chronic kidney disease, or unspecified chronic kidney disease; N18.30 Chronic kidney disease, stage 3 unspecified; I50.9 Heart failure, unspecified; F03.90 Unspecified dementia, unspecified severity, without behavioral disturbance, psychotic disturbance, mood disturbance, and anxiety; I25.10 Atherosclerotic heart disease of native coronary artery without angina pectoris; I35.0 Nonrheumatic aortic (valve) stenosis; K21.00 Gastro-esophageal reflux disease with esophagitis, without bleeding; E55.9 Vitamin D deficiency, unspecified; H35.30 Unspecified macular degeneration; M19.90 Unspecified osteoarthritis, unspecified site; F32.A Depression, unspecified; Z85.3 Personal history of malignant neoplasm of breast; Z90.12 Acquired absence of left breast and nipple; Z96.653 Presence of artificial knee joint, bilateral; Z79.82 Long term (current) use of aspirin
CPT/HCPCS: 99211; G0463

== ENCOUNTER 2025-02-04 12:28 | Emergency (ER) | payer OTHER, SELFPAY ==
--- NOTE | ~2025-02-04 | XR_ITS ---
EXAMINATION: XR chest 2V, 02/04/2025 14:25 GLOBAL CMO HISTORY: weakness COMPARISON: No comparisons available. Technique: 2 views obtained. Findings: The lungs are clear, no effusion. No pneumothorax. Heart is normal size. Mediastinal and hilar contours are within normal limits. Bony thorax no acute abnormality. Impression: No acute cardiopulmonary abnormality. Reviewed, dictated and finalized at location P. [place] CMO Impression: No acute cardiopulmonary abnormality.
[2025-02-04 12:35] VITALS: BP 121/78; PULSE 72; RESP 16; TEMP 36.2; O2SAT 100
--- NOTE | 2025-02-04 13:36 | ECG_ITS ---
Test Date: 2025-02-04 13:42:07 Measurements Intervals [place] Rate: 77 P: 73 [place]: 158 QRS: 0 QRSD: 98 T: 71 QT: 401 QTc: 454 Interpretive Statements SINUS RHYTHM BORDERLINE ST-T WAVE ABNORMALITY- HIGH LATERAL LEADS BASELINE ARTIFACT- I, II, III, AVR, AVL, AVF BORDERLINE ECG Compared to ECG 01/29/2025 21:10:23 Ventricular premature complex(es) no longer present Electronically Signed On 02-04-2025 13:45:13 RFID SYSTEMS ENGINEER by Harsha Rossi D.O.
--- OUTSIDE RECORDS SUMMARY | 2025-02-04 13:38 | XMS_ITS | Encounter Summary ---
Author Organization [facility] Facility Care Team Providers Care Multi Purpose Machine Operator Name Role Phone Giorgio Hogue MD Primary Care Provider [phone] Doug Fong MD Primary Care Provider [phone] Yony Flores MD Primary Care Provider [phone] Encounter Details Date Type Department Care Team (Latest Contact Info) Description 05/05/2016 Orders Only [facility] ProviderDelmer MD [address] [place] [address] Social History Tobacco Use Types Packs/Day Years Used Date Smoking Tobacco: Never Comments Unknown Sex and Gender Information Value Date Recorded Sex Assigned at Not on file Legal Sex Female 8:30 PM SAND PLANT ATTENDANT Gender Identity Not on file Sexual Orientation Not on file documented as of this encounter Functional Status documented as of this encounter Plan of Treatment Not on file documented as of this encounter Procedures Procedure Name Priority Date/Time Associated Diagnosis Comments SCAN - LABS 05/05/2016 12:00 AM SAND PLANT ATTENDANT documented in this encounter Results * SCAN - LABS (05/05/2016 12:00 AM SAND PLANT ATTENDANT) Narrative 05/05/2016 12:00 AM SAND PLANT ATTENDANT Ordered by an unspecified provider. Historical Provider Final Res ult documented in this encounter Visit Diagnoses Not on filedocumented in this encounter Care Teams Multi Purpose Machine Operator Relationship Specialty Start Date End Date Giorgio Hogue MD [address] [place] [address] PCP - General 07/08/16 05/27/20 Doug Fong MD [address] [place] [address] PCP - General Internal Medicine 06/10/22 09/16/22 Yony Flores MD [address] [place] [address] PCP - General Family Practice 09/17/22 documented as of this encounter
--- OUTSIDE RECORDS SUMMARY | 2025-02-04 13:38 | XMS_ITS | Clinical Summary ---
Author Organization [facility] Address [address] [place] [address] Care Team Providers Care Pipefitter Welder Name Role Phone Unavailable Primary Care Provider [...]
--- OUTSIDE RECORDS SUMMARY | 2025-02-04 13:38 | XMS_ITS | Clinical Summary ---
Author Organization [facility] Address [address] [place] [address] [address] [place] [address] Phone Care Team Providers Care Senior Qa Analyst Name Role Phone Giorgio Hogue MD Primary Care Provider [phone] Robert Nguyen DO Unavailable [phone] Allergies Active Allergy Reactions Criticality Noted [...] Comments Blood Pressure 128/80 02/06/2015 1:10 PM TRANSMISSION SPECIALIST Pulse - - Temperature - - Respiratory Rate - - Oxygen Saturation - - Inhaled Oxygen Concentration - - Weight 86.5 kg (190 lb 9.6 oz) 02/06/2015 1:10 P M TRANSMISSION SPECIALIST Height 154.9 cm (5' 1) 02/06/2015 1:10 PM TRANSMISSION SPECIALIST Body Mass Index 36.01 02/06/2015 1:10 PM TRANSMISSION SPECIALIST Plan of Treatment Health Maintenance Due Date [...] ID:Not on file Type:Not on file Address: [address] [address] Care Teams Senior Qa Analyst Relationship Specialty Start Date End Date Giorgio Hogue MD [address] [place] [address] PCP - General Family Medicine 02/06/15 Robert Nguyen DO [address] [place] [address] Gastroenterology 05/01/15
--- OUTSIDE RECORDS SUMMARY | 2025-02-04 13:38 | XMS_ITS | Clinical Summary ---
Author Organization [facility] Address Pending sale [place] [address] Care Team Providers Care Barrow Worker Helper Name Role Phone Yony Flores MD Primary Care Provider [phone] Allergies Active Allergy Reactions Criticality Noted Date [...] total) by mouth daily Active vit D3-vit E-swkeezqvz-wmg s [id number] agzx-gaz-oh-mg tablet Take by mouth Active acetaminophen (TYLENOL) [...] 10 mg tabletIndicatio ns:Coronary artery disease involving [place] coronary artery of [place] heart without angina pectoris TAKE 1 TABLET [...] 4 months. Coronary artery disease invo lving [place] coronary artery of [place] heart without angina pectoris 05/18/2022 Mixed hyperlipidemia [...] check a chest x-ray, full PFTs at [facility] and sputum culture. I will give [...] Description 12/18/2024 2:00 PM CDT Office Visit [facility] Cardiology [address] [place] [address] Dilcia Aguilar NP Nonischemic cardiomyopathy (HCC); Chronic [...] on file Legal Sex Female 8:30 PM SILVERING DEPARTMENT SUPERVISOR Gender Identity Not on file Sexual Orientation Not on file Last Filed Vital Signs Vital Sign Reading Time Taken Comments Blood Pressure 116/64 12/18/2024 2:11 PM CDT Pulse 96 12/18/2024 2:11 PM CDT Temperature 36.2 C (97.2 F) 01/09/2024 10:03 AM SILVERING DEPARTMENT SUPERVISOR Respiratory Rate 18 01/09/2024 10:03 AM SILVERING DEPARTMENT SUPERVISOR Oxygen Saturation 96% 12/18/2024 2:11 PM [...] Final Result from Last 3 Months Insurance [facility] Care Teams Barrow Worker Helper Relationship Specialty Start Date End Date Yony Flores MD PCP - General Family Practice 09/17/22
--- OUTSIDE RECORDS SUMMARY | 2025-02-04 13:38 | XMS_ITS | Encounter Summary ---
Author Organization [facility] Address [address] [place] [address] Care Team Providers Care Um Specialist Name Role Phone Doug Fong MD Primary Care Provider [phone] Yony Flores MD Primary Care Provider [phone] Encounter Details Date Type Department Care Team (Late st Contact Info) Description 10/06/2021 Orders Only [facility] Health Information Management [address] [place] [address] Scanning, Provider Social History Tobacco Use Types Packs/Day Years Used Date Smoking Tobacco: Never Smokeless Tobacco: Never Alcohol Use Standard Drinks/Week Comments Not Currently 0 (1 standard drink = 0.6 oz pur e alcohol) Comments Unknown Sex and Gender Information Value Date Recorded Sex Assigned at Not on file Legal Sex Female 8:30 PM AUTOMATION SALES MANAGER Gender Identity Not on file Sexual Orientation Not on file documented as of this encounter Plan of Treatment Not on file documented as of this encounter Procedures Procedure Name Priority Date/Time Associated Diagnosis Comments SCAN - RADIOLOGY/IMAGING 10/06/2021 documented in this encounter Results * SCAN - RADIOLOGY/IMAGING (10/06/2021) Anatomical Region Laterality Modality Other us Provider Scanning Final Result documented in this encounter Visit Diagnoses Not on filedocumented in this encounter Care Teams Um Specialist Relationship Specialty Start Date End Date Doug Fong MD PCP - General Internal Medicine 06/10/22 09/16/22 Yony Flores MD PCP - General Family Practice 09/17/22 documented as of this encounter
--- OUTSIDE RECORDS SUMMARY | 2025-02-04 13:38 | XMS_ITS | Encounter Summary ---
Author Organization [facility] Facility Care Team Providers Care Bag Adjuster Name Role Phone Giorgio Hogue MD Primary Care Provider [phone] Doug Fong MD Primary Care Provider [phone] Yony Flores MD Primary Care Provider [phone] Encounter Details Date Type Department Care Team (Latest Contact Info) Description 03/04/2016 Orders Only [facility] ProviderDelmer MD [address] [place] [address] Social History Tobacco Use Types Packs/Day Years Used Date Smoking Tobacco: Never Assessed Comments Unknown Sex and Gender Information Value Date Recorded Sex Assigned at Not on file Legal Sex Female 8:30 PM CORPORATE GIVING MANAGER Gender Identity Not on file Sexual Orientation Not on file documented as of this encounter Functional Status documented as of this encounter Plan of Treatment Not on file documented as of this encounter Procedures Procedure Name Priority Date/Time Associated Diagnosis Comments CARDIOLOGY REPORT 03/04/2016 12: 00 AM CORPORATE GIVING MANAGER documented in this encounter Results * CARDIOLOGY REPORT (03/04/2016 12:00 AM CORPORATE GIVING MANAGER) Anatomical Region Laterality Modality Other Narrative 03/04/2016 12:00 AM CORPORATE GIVING MANAGER Ordered by an unspecified provider. us Historical Provider [facility] Final Result documented in this encounter Visit Diagnoses Not on filedocumented in this encounter Care Teams Bag Adjuster Relationship Specialty Start Date End Date Giorgio Hogue MD [address] [place] [address] PCP - General 07/08/16 05/27/20 Doug Fong MD [address] [place] [address] PCP - General Internal Medicine 06/10/22 09/16/22 Yony Flores MD [address] [place] [address] PCP - General Family Practice 09/17/22 documented as of this encounter
[2025-02-04 13:52] LABS: Hematocrit 40.1 % (37.0-47.0); Hemoglobin 12.4 g/dL (12.0-15.0); Immature Granulocyte Percent A 0.3 % (0-0.5); Lymphocytes Absolute Auto 1.59 K/mm3 (0.9-3.2); Mean Corpuscular HGB Conc 30.9 g/dl (32-36); Mean Corpuscular Hemoglobin 27.9 pg (26-34); Mean Corpuscular Volume 90.3 fl (80-100); Nucleated Red Blood Cells Absolute Auto 0.000 K/mm3 (0.0-0.012); Nucleated Red Blood Cells Perc 0.0 % (0.0-0.2); Platelet Count Result 188 k/mm3 (150-375); Red Blood Count 4.44 M/mm3 (4.2-5.4); White Blood Count 7.6 K/mm3 (4.5-10.0)
[2025-02-04 14:04] VITALS: PULSE 66
[2025-02-04 14:04] LABS: Alanine Aminotransferase 19 U/L (6-35); Albumin Level 4.1 g/dL (3.5-5.1); Alkaline Phosphatase 104 U/L (38-126); Anion Gap 4 mmol/L (4-12); Aspartate Amino Transferase 32 U/L (14-36); Bilirubin,Total 0.5 mg/dL (0.2-1.3); Blood Urea Nitrogen 22 mg/dL (7-17); Calcium 9.4 mg/dL (8.4-10.2); Carbon Dioxide 27 mmol/L (22-30); Chloride 109 mmol/L (98-107); Estimated Glomerular Filt Rate 39; Glucose 103 mg/dL (65-110); Potassium 4.3 mmol/L (3.4-5.0); Sodium 140 mmol/L (137-145); Total Protein 7.3 g/dL (6.3-8.2)
[2025-02-04 14:05] VITALS: BP 145/69; PULSE 70; RESP 14; O2SAT 96
[2025-02-04 14:29] LABS: Add Urine Microscopic? YES; Appearance Urine Clear (Clear); Glucose Urine UA Negative (Negative); Leukocyte Esterase Ur Negative LEU/UL (Negative); Need Manual Microscopic Reviewed; Nitrate Urine Negative (Negative); Specific Grav Ur 1.022 (1.001-1.035)
--- OUTSIDE RECORDS SUMMARY | 2025-02-04 14:56 | XMS_ITS | Clinical Summary ---
Author Organization [facility] Address [facility] [place] [address] Care Team Providers Care Printing Supervisor Name Role Phone Yony Flores MD Primary Care Provider [phone] Allergies Active Allergy Reactions Criticality Noted Date [...] total) by mouth daily Active vit D3-vit Y-biqdllapt-bby s [id number] iofu-azm-ir-mg tablet Take by mouth Active acetaminophen (TYLENOL) [...] 10 mg tabletIndicatio ns:Coronary artery disease involving [place] coronary artery of [place] heart without angina pectoris TAKE 1 TABLET [...] 4 months. Coronary artery disease invo lving [place] coronary artery of [place] heart without angina pectoris 05/18/2022 Mixed hyperlipidemia [...] check a chest x-ray, full PFTs at [facility] and sputum culture. I will give her [...] Description 12/18/2024 2:00 PM CDT Office Visit [facility] Medical Group Cardiology [address] [place] [address] Dilcia Aguilar NP Nonischemic cardiomyopathy (HCC); Chronic [...] on file Legal Sex Female 8:30 PM AG EQUIPMENT FIELD SERVICE TECHNICIAN Gender Identity Not on file Sexual Orientation Not on file Last Filed Vital Signs Vital Sign Reading Time Taken Comments Blood Pressure 116/64 12/18/2024 2:11 PM CDT Pulse 96 12/18/2024 2:11 PM CDT Temperature 36.2 C (97.2 F) 01/09/2024 10:03 AM AG EQUIPMENT FIELD SERVICE TECHNICIAN Respiratory Rate 18 01/09/2024 10:03 AM AG EQUIPMENT FIELD SERVICE TECHNICIAN Oxygen Saturation 96% 12/18/2024 2:11 PM CDT [...] Final Result from Last 3 Months Insurance [facility] Care Teams Printing Supervisor Relationship Specialty Start Date End Date Yony Flores MD PCP - General Family Practice 09/17/22
--- OUTSIDE RECORDS SUMMARY | 2025-02-04 14:56 | XMS_ITS | Encounter Summary ---
Author Organization [facility] Healthcare Address [address] [place] [address] Care Team Providers Care Concrete Finisher Name Role Phone Doug Fong MD Primary Care Provider [phone] Yony Flores MD Primary Care Provider [phone] Encounter Details Date Type Department Care Team (Late st Contact Info) Description 10/06/[address] [facility] [place] Information Management [address] [place] [address] Scanning, Provider Social History Tobacco Use Types Packs/Day Years Used Date Smoking Tobacco: Never Smokeless Tobacco: Never Alcohol Use Standard Drinks/Week Comments Not Currently 0 (1 standard drink = 0.6 oz pur e alcohol) Comments Unknown Sex and Gender Information Value Date Recorded Sex Assigned at Not on file Legal Sex Female 8:30 PM CURTAIN FITTER Gender Identity Not on file Sexual Orientation [...] on filedocumented in this encounter Care Teams Concrete Finisher Relationship Specialty Start Date End Date Doug Fong MD PCP - General Internal Medicine 06/10/22 09/16/22 Yony Flores MD PCP - General Family Practice 09/17/22 documented as of this encounter
--- OUTSIDE RECORDS SUMMARY | 2025-02-04 14:56 | XMS_ITS | Encounter Summary ---
Author Organization [facility] Facility Care Team Providers Care Pasteuriser Operator Name Role Phone Giorgio Hogue MD Primary Care Provider [phone] Doug Fong MD Primary Care Provider [phone] [phone] Yony Flores MD Primary Care Provider [phone] [phone] Encounter Details Date Type Department Care Team (Latest Contact Info) Description 03/04/2016 Orders Only [facility] CLINCONV ProviderDelmer MD [address] [place] [address] Social History Tobacco Use Types Packs/Day Years Used Date Smoking Tobacco: Never Assessed Comments Unknown Sex and Gender Information Value Date Recorded Sex Assigned at Not on file Legal Sex Female 8:30 PM BUNCH TRIMMER MOLD Gender Identity Not on file Sexual Orientation Not on file documented as of this encounter Functional Status documented as of this encounter Plan of Treatment Not on file documented as of this encounter Procedures Procedure Name Priority Date/Time Associated Diagnosis Comments CARDIOLOGY REPORT 03/04/2016 12: 00 AM BUNCH TRIMMER MOLD documented in this encounter Results * CARDIOLOGY REPORT (03/04/2016 12:00 AM BUNCH TRIMMER MOLD) Anatomical Region Laterality Modality Other Narrative 03/04/2016 12:00 AM BUNCH TRIMMER MOLD Ordered by an unspecified provider. us Historical Provider [facility] Final Result documented in this encounter Visit Diagnoses Not on filedocumented in this encounter Care Teams Pasteuriser Operator Relationship Specialty Start Date End Date Giorgio Hogue MD [address] [place] [address] PCP - General 07/08/16 05/27/20 Doug Fong MD [address] [place] [address] PCP - General Internal Medicine 06/10/22 09/16/22 Yony Flores MD [address] [place] [address] PCP - General Family Practice 09/17/22 documented as of this encounter
--- OUTSIDE RECORDS SUMMARY | 2025-02-04 14:56 | XMS_ITS | Clinical Summary ---
Author Organization [facility] [place] Address [address] [place] [address] [address] [place] [address] Phone Care Team Providers Care Welt Insole Channeler Name Role Phone Giorgio Hogue MD Primary Care Provider [phone]- [phone] Robert Nguyen DO Unavailable [phone] Allergies Active Allergy Reactions Criticality Noted [...] Comments Blood Pressure 128/80 02/06/2015 1:10 PM BOOKS BINDER Pulse - - Temperature - - Respiratory Rate - - Oxygen Saturation - - Inhaled Oxygen Concentration - - Weight 86.5 kg (190 lb 9.6 oz) 02/06/2015 1:10 P M BOOKS BINDER Height 154.9 cm (5' 1) 02/06/2015 1:10 PM BOOKS BINDER Body Mass Index 36.01 02/06/2015 1:10 PM BOOKS BINDER Plan of Treatment Health Maintenance Due Date [...] ID:Not on file Type:Not on file Address: [address] [address] Care Teams Welt Insole Channeler Relationship Specialty Start Date End Date Giorgio Hogue MD [address] [place] [address] PCP - General Family Medicine 02/06/15 Robert Nguyen DO [address] [place] [address] Gastroenterology 05/01/15
--- OUTSIDE RECORDS SUMMARY | 2025-02-04 14:56 | XMS_ITS | Clinical Summary ---
Author Organization [facility] Address [address] [place] [address] Care Team Providers Care Machine Binder Stripper Name Role Phone Unavailable Primary Care Provider [...]
--- OUTSIDE RECORDS SUMMARY | 2025-02-04 14:56 | XMS_ITS | Encounter Summary ---
Author Organization [facility] Facility Care Team Providers Care General Freight Agent Name Role Phone Giorgio Hogue MD Primary Care Provider [phone] Doug Fong MD Primary Care Provider [phone] Yony Flores MD Primary Care Provider [phone] [phone] Encounter Details Date Type Department Care Team (Latest Contact Info) Description 05/05/2016 Orders Only [facility] CLINCONV ProviderDelmer MD [address] [place] [address] Social History Tobacco Use Types Packs/Day Years Used Date Smoking Tobacco: Never Comments Unknown Sex and Gender Information Value Date Recorded Sex Assigned at Not on file Legal Sex Female 8:30 PM BRAKE REPAIRER RAILROAD Gender Identity Not on file Sexual Orientation Not on file documented as of this encounter Functional Status documented as of this encounter Plan of Treatment Not on file documented as of this encounter Procedures Procedure Name Priority Date/Time Associated Diagnosis Comments SCAN - LABS 05/05/2016 12:00 AM BRAKE REPAIRER RAILROAD documented in this encounter Results * SCAN - LABS (05/05/2016 12:00 AM BRAKE REPAIRER RAILROAD) Narrative 05/05/2016 12:00 AM BRAKE REPAIRER RAILROAD Ordered by an unspecified provider. Historical Provider Final Res ult documented in this encounter Visit Diagnoses Not on filedocumented in this encounter Care Teams General Freight Agent Relationship Specialty Start Date End Date Giorgio Hogue MD [address] [place] [address] PCP - General 07/08/16 05/27/20 Doug Fong MD [address] [place] [address] PCP - General Internal Medicine 06/10/22 09/16/22 Yony Flores MD [address] [place] [address] PCP - General Family Practice 09/17/22 documented as of this encounter
[2025-02-04 15:01] VITALS: BP 160/86; PULSE 78; RESP 21; O2SAT 98
--- NOTE | 2025-02-04 18:52 | ED.WEAKNESS ---
HPI - Weakness General Chief complaint: Weakness Stated complaint: sent by PCP, weak Time Seen by Provider: 02/04/25 13:42 History of Present Illness HPI Narrative: Patient presenting here with generalized weakness, had recently been treated for UTI. Denying any pain anywhere. Related Data Home Medications ?Medication ?Instructions ?Recorded ?Confirmed ?Last Taken ?Type aspirin 81 mg tablet,delayed 81 mg PO DAILY 01/28/20 01/29/25 01/28/25 History release geriatric yvyezsbp-midr-dzia 1 tablet PO DAILY 01/28/20 01/29/25 01/28/25 History Hair,Skin and Nails 6,000 unit PO DAILY 07/21/20 01/29/25 01/28/25 History cholecalciferol (vitamin D3) 25 25 mcg PO DAILY 07/21/20 01/29/25 01/28/25 History mcg (1,000 unit) tablet (Vitamin D3) vitamins A,C,T-nzei-ipoewm 4,296 1 cap PO BID 10/07/21 01/29/25 01/28/25 History mcg-226 mg-90 mg capsule (PreserVision AREDS) Allergies Allergy/AdvReac Type Severity Reaction Status Date / Time Iodinated Contrast Media Allergy Severe Swelling Verified 02/04/25 12:29 of Lip/Tongue/Throat meperidine Allergy Intermediate Unknown Verified 02/04/25 12:29 Penicillins Allergy Intermediate Rash Verified 02/04/25 12:29 cefdinir AdvReac Severe Diarrhea Verified 02/04/25 12:29 codeine AdvReac Mild Jittery Verified 02/04/25 12:29 Sulfa (Sulfonamide AdvReac Mild Nausea and Verified 02/04/25 12:29 Antibiotics) Vomiting Contrast Media Allergy Severe Swelling Uncoded 02/04/25 11:26 of Lip/Tongue/Throat Review of Systems Review of Systems: All systems reviewed & are unremarkable except as noted in HPI and below PMFSH Past Medical History Medical History Dementia Hypertension Chronic kidney disease, stage 3 Breast cancer Heart failure with reduced ejection fraction Coronary artery disease Depression Diverticulitis Aortic stenosis GERD with esophagitis Vitamin D deficiency, unspecified Macular degeneration Chronic diarrhea Adenomatous colon polyp Arthritis Surgical History Surgical History History of reduction surgery of right breast History of left mastectomy History of bilateral knee replacement History of surgical removal of ganglion cyst History of hysterectomy History of appendectomy History of cholecystectomy Family History Family History Mother Rectal cancer Schizophrenia Father Heart disease Emphysema lung Sibling COPD (chronic obstructive pulmonary disease) Social History Social History Social History: Surrogate decision maker: Karina Bautista, daughter. Status: Full code. Smoking status: Never smoker Second hand tobacco smoke exposure: No Alcohol intake: never Substance use: never Substance use type: does not use Lack of Transportation: No Lack of Food: Never True Current Housing: I Have Housing Concerned About Future Housing: No Difficulty Paying Gas/Electric Bills: No Difficulty Paying for Meds: No Currently Unemployed: No Education: Decline to Answer Difficulty w/ Childcare or Family Care: No Living arrangements: alone Occupation/Education: retired Gender identity (if verbalized by the patient): Female Sexual Orientation (if Verbalized by the Patient): Straight or Heterosexual Spiritual care concerns: No Agree to blood products: Yes Exam Narrative: EXAMINATION OF ORGAN SYSTEMS/BODY AREAS: Constitutional: Vital signs per nursing GENERAL:[No acute distress, non-toxic appearing.] HEAD: Normal with no signs of head trauma. EYES: EOMI, conjunctiva normal ENT: Hearing grossly intact LUNGS: Nonlabored breathing. HEART: [Regular rate and rhythm] ABD: [Soft], [nontender to palpation] EXT: Normal range of motion SKIN: [No rashes or lesions.] NEURO: [Alert and oriented x 3. No sensory or motor deficits to any extremity, speaking with clear speech, no facial droop] PSYCH: Normal affect Course Vital Signs Vital signs: Vital Signs Temperature 97.2 F L 02/04/25 12:35 Pulse Rate 72 02/04/25 12:35 Respiratory Rate 16 02/04/25 12:35 Blood Pressure 121/78 02/04/25 12:35 Pulse Oximetry 100 02/04/25 12:35 Oxygen Delivery Room Air 02/04/25 12:35 Temperature 97.2 F L 02/04/25 12:35 Pulse Rate 78 02/04/25 15:01 Respiratory Rate 21 H 02/04/25 15:01 Blood Pressure 160/86 H 02/04/25 15:01 Pulse Oximetry 98 02/04/25 15:01 Oxygen Delivery Room Air 02/04/25 12:35 MDM MDM Narrative Medical decision making narrative: Patient presents here to get checked out since she has not been feeling very well since she was diagnosed with a UTI and finished antibiotics. She is well-appearing here, no distress, broad workup initiated EKG - 12-Lead: Performed at 1342. Interpreted by me. [Sinus rhythm]. Rate 77. [Normal] axis. NJ-interval [normal]. QRS duration [normal]. QTc [normal]. [No ST segment elevation or depression]. [T-wave normal]. Impression: No EKG evidence of acute ischemia or dysrhythmia. Chest x-ray is clear. UTI has resolved. Labs are within acceptable limits, baseline for patient Discussed all findings with patient, she would like to go home and is agreeable to outpatient follow-up with return precautions Differential Diagnosis Differential Diagnosis: Infection, arrhythmia, electrolyte abnormality, etc. Lab Data 02/04/25 13:48 02/04/25 13:48 Labs: Lab Results 02/04/25 02/04/25 Range/Units 13:48 14:02 WBC 7.6 (4.5-10.0) K/mm3 RBC 4.44 (4.2-5.4) M/mm3 Hgb 12.4 (12.0-15.0) g/dL Hct 40.1 (37.0-47.0) % MCV 90.3 (80-100) fl MCH 27.9 (26-34) pg MCHC 30.9 L (32-36) g/dl RDW 15.3 H (11.5-14.5) % Plt Count 188 (150-375) k/mm3 MPV 10.7 H (7.4-10.4) fl Immature Gran % (Auto) 0.3 (0-0.5) % Neut % (Auto) 68.1 (45.5-73.1) % Lymph % (Auto) 20.9 (18.3-44.2) % [place] % (Auto) 6.2 (2.6-8.5) % Eos % (Auto) 3.8 (0-4.4) % Baso % (Auto) 0.7 (0.2-1.2) % Lymph # (Auto) 1.59 (0.9-3.2) K/mm3 [place] # (Auto) 0.5 (0.1-0.6) K/mm3 Eos # (Auto) 0.3 (0-0.3) K/mm3 Baso # (Auto) 0.1 (0.0-0.1) K/mm3 Abs Immat Gran (auto) 0.02 (0.00-0.031) K/mm3 Absolute Neuts (auto) 5.2 (1.3-6.7) K/mm3 Absolute Nucleated RBC 0.000 (0.0-0.012) K/mm3 Nucleated RBC % 0.0 (0.0-0.2) % Sodium 140 (137-145) mmol/L Potassium 4.3 (3.4-5.0) mmol/L Chloride 109 H (98-107) mmol/L Carbon Dioxide 27 (22-30) mmol/L Anion Gap 4 (4-12) mmol/L BUN 22 H (7-17) mg/dL Creatinine 1.28 H (0.7-1.0) mg/dL Estim Creat Clear Calc Not Reportable Estimated GFR 39 L (59 - ) Glucose 103 (65-110) mg/dL Calcium 9.4 (8.4-10.2) mg/dL Total Bilirubin 0.5 (0.2-1.3) mg/dL AST 32 (14-36) U/L ALT 19 (6-35) U/L Alkaline Phosphatase 104 (38-126) U/L Total Protein 7.3 (6.3-8.2) g/dL Albumin 4.1 (3.5-5.1) g/dL Urine Color Dark yellow (Yellow) Urine Appearance Clear (Clear) Urine pH 5.0 (5.0-9.0) Ur Specific [place] 1.022 (1.001-1.035) Urine Protein Trace (Negative) mg/dL Urine Glucose (UA) Negative (Negative) mg/dL Urine Ketones Trace H (Negative) mg/dL Ur Blood (Man) Negative (Negative) Urine Nitrate Negative (Negative) Urine Bilirubin Negative (Negative) Urine Urobilinogen 0.2 (<2.0) mg/dL Add Ur Microanalysis Reviewed Leukocyte Esterase Rfl Negative (Negative) ANETTE/UL Urine RBC 0-2 (0-2) /hpf Urine WBC 0-5 (0-3) /hpf Ur Squamous Epith Cells None seen (Few) /hpf Urine Bacteria None seen /hpf Urine Casts 6-10 Hyaline Casts Present (None) /lpf Imaging Data Radiologist's impression: ITS Impressions Chest X-Ray 02/04/25 14:34 Impression: No acute cardiopulmonary abnormality. Discharge Plan Discharge Clinical Impression: Generalized weakness Patient Disposition: Home Condition: Stable Additional Instructions: Your labs today looked normal, you UTI has resolved. You can follow-up with your primary care doctor and come back for any further issues. Patient Language: Swedish Prescriptions: No Action aspirin 81 mg tablet,delayed release (DR/EC) 81 mg PO DAILY geriatric rnaghhng-joqp-jcxw Tablet 1 tablet PO DAILY PreserVision AREDS 14,320-226-200 hniu-ak-zipy capsule 1 cap PO BID albuterol sulfate [Ventolin HFA] 90 mcg/actuation HFA aerosol inhaler 1 inh inhalation Q8H PRN (Reason: shortness of breath or wheezing) Qty: 25.5 3RF (DME) Aerochamber MV Spacer See Rx Instructions .Route Qty: 1 0RF Rx Instructions: As directed Trelegy Ellipta 200-62.5-25 mcg blister with device 1 inh inhalation DAILY Qty: 28 5RF ezetimibe 10 mg tablet 10 mg PO DAILY Qty: 90 1RF ipratropium-albuterol 0.5 mg-3 mg(2.5 mg base)/3 mL solution for nebulization 3 ml inhalation Q6H PRN (Reason: shortness of breath or wheezing) Qty: 180 1RF (DME) nebulizers Misc See Rx Instructions .Route Qty: 1 0RF Rx Instructions: As directed (DME) nebulizer accessories Kit See Rx Instructions .Route Qty: 1 0RF Rx Instructions: As directed donepezil [Aricept] 5 mg tablet 5 mg PO DAILY Qty: 90 1RF Rx Instructions: after 1 month increase to 2 tablets daily. May be taken the morning cholecalciferol (vitamin D3) [Vitamin D3] 25 mcg (1,000 unit) Tablet 25 mcg PO DAILY Hair,Skin and Nails 6,000 unit PO DAILY carvedilol [Coreg] 3.125 mg Tablet 3.125 mg PO Q12HR Qty: 60 0RF cholestyramine (with sugar) [Questran] 4 gram powder 4 g PO DAILY Qty: 1134 0RF Rx Instructions: administer w/meal; avoid other meds within 1hr before or 4-6hr after dose montelukast 10 mg tablet 10 mg PO DAILY Qty: 90 1RF Rx Instructions: TAKE 1 TABLET BY MOUTH EVERY DAY furosemide 20 mg tablet See Rx Instructions .ROUTE .COMPLEX Qty: 90 1RF Dose Instruction: TAKE 1 TABLET BY MOUTH EVERY DAY Rx Instructions: TAKE 1 TABLET BY MOUTH EVERY DAY escitalopram oxalate 20 mg tablet 20 mg PO DAILY Qty: 90 1RF trazodone 50 mg tablet See Rx Instructions .ROUTE .COMPLEX Qty: 90 1RF Dose Instruction: TAKE 1 TABLET BY MOUTH EVERYDAY AT BEDTIME Rx Instructions: TAKE 1 TABLET BY MOUTH EVERYDAY AT BEDTIME memantine [Namenda] 10 mg tablet 10 mg PO BID Qty: 180 3RF Follow-up/Referrals: Anita Hawk APRN [Primary Care Provider, Internal Medicine]
== END 2025-02-04 15:17 | disposition home or self-care (01) ==
PROVIDERS: Emergency Provider Emergency Medicine; PCP Nurse Practitioner Family
DX: R53.1 Weakness (principal); F03.90 Unspecified dementia, unspecified severity, without behavioral disturbance, psychotic disturbance, mood disturbance, and anxiety; I13.0 Hypertensive heart and chronic kidney disease with heart failure and stage 1 through stage 4 chronic kidney disease, or unspecified chronic kidney disease; N18.30 Chronic kidney disease, stage 3 unspecified; I50.9 Heart failure, unspecified; I25.10 Atherosclerotic heart disease of native coronary artery without angina pectoris; F32.A Depression, unspecified; K21.9 Gastro-esophageal reflux disease without esophagitis; M19.90 Unspecified osteoarthritis, unspecified site
CPT/HCPCS: 36415; 71046; 80053; 81001; 85025; 93005; 99284

== ENCOUNTER 2025-02-06 09:53 | Outpatient (CLI) | payer OTHER, SELFPAY ==
--- NOTE | ~2025-02-06 | CT_ITS ---
EXAMINATION: CT brain wo con DATE: 02/06/2025 11:04 INDICATION: Disorientation, unspecified. TECHNIQUE: Computed tomography (CT) of the head was performed without intravenous contrast. The mA was adjusted according to patient size. Iterative reconstruction technique was employed. The dose-length product was 605.33 mGy-cm. COMPARISON: Head CT 12/13/2023 FINDINGS: There are scattered areas of low attenuation in the cerebral white matter, which is within normal limits for the patient's age. There is no intracranial hemorrhage, acute infarction, or abnormal intracranial mass lesion. The ventricles are normal in size. There are likely changes of ocular lens replacement surgeries. There is mucosal thickening in the paranasal sinuses. The mastoid air cells are normal. IMPRESSION: 1. Normal aging brain. Reviewed, dictated and finalized at location E. RONMENTAL SAFETY SPECIALIST IMPRESSION: 1. Normal aging brain.
--- OUTSIDE RECORDS SUMMARY | 2025-02-06 10:59 | XMS_ITS | Clinical Summary ---
Author Organization [facility] Address [facility] [place] [address] Care Team Providers Care Unit Clerk Name Role Phone Yony Flores MD Primary Care Provider [phone] [phone] Allergies Active Allergy Reactions Criticality Noted Date [...] total) by mouth daily Active vit D3-vit E-evlqhxcxg-dgq s [phone] tmfn-azu-lh-mg tablet Take by mouth Active acetaminophen (TYLENOL) [...] 10 mg tabletIndicatio ns:Coronary artery disease involving iroquois coronary artery of iroquois heart without angina pectoris TAKE 1 TABLET [...] 4 months. Coronary artery disease invo lving iroquois coronary artery of iroquois heart without angina pectoris 05/18/2022 Mixed hyperlipidemia [...] Description 12/18/2024 2:00 PM CDT Office Visit [facility] [address] [place] [address] Dilcia Aguilar NP Nonischemic cardiomyopathy (HCC); Chronic [...] on file Legal Sex Female 8:30 PM DERRICK MAN Gender Identity Not on file Sexual Orientation Not on file Last Filed Vital Signs Vital Sign Reading Time Taken Comments Blood Pressure 116/64 12/18/2024 2:11 PM CDT Pulse 96 12/18/2024 2:11 PM CDT Temperature 36.2 C (97.2 F) 01/09/2024 10:03 AM DERRICK MAN Respiratory Rate 18 01/09/2024 10:03 AM DERRICK MAN Oxygen Saturation 96% 12/18/2024 2:11 PM CDT [...] Final Result from Last 3 Months Insurance [facility] Care Teams Unit Clerk Relationship Specialty Start Date End Date Yony Flores MD PCP - General Family Practice 09/17/22
--- OUTSIDE RECORDS SUMMARY | 2025-02-06 10:59 | XMS_ITS | Encounter Summary ---
Author Organization [facility] Facility Care Team Providers Care Senior Service Aide Name Role Phone Giorgio Hogue MD Primary Care Provider [phone] Doug Fong MD Primary Care Provider [phone] Yony Flores MD Primary Care Provider [phone] Encounter Details Date Type Department Care Team (Latest Contact Info) Description 05/05/2016 Orders Only [facility] CLINCONV ProviderDelmer MD [address] [place] [address] Social History Tobacco Use Types Packs/Day Years Used Date Smoking Tobacco: Never Comments Unknown Sex and Gender Information Value Date Recorded Sex Assigned at Not on file Legal Sex Female 8:30 PM DIRECTOR TALENT MANAGEMENT Gender Identity Not on file Sexual Orientation Not on file documented as of this encounter Functional Status documented as of this encounter Plan of Treatment Not on file documented as of this encounter Procedures Procedure Name Priority Date/Time Associated Diagnosis Comments SCAN - LABS 05/05/2016 12:00 AM DIRECTOR TALENT MANAGEMENT documented in this encounter Results * SCAN - LABS (05/05/2016 12:00 AM DIRECTOR TALENT MANAGEMENT) Narrative 05/05/2016 12:00 AM DIRECTOR TALENT MANAGEMENT Ordered by an unspecified provider. Historical Provider Final Res ult documented in this encounter Visit Diagnoses Not on filedocumented in this encounter Care Teams Senior Service Aide Relationship Specialty Start Date End Date Giorgio Hogue MD [address] [place] [address] PCP - General 07/08/16 05/27/20 Doug Fong MD [address] [place] [address] PCP - General Internal Medicine 06/10/22 09/16/22 Yony Flores MD [address] [place] [address] PCP - General Family Practice 09/17/22 documented as of this encounter
--- OUTSIDE RECORDS SUMMARY | 2025-02-06 10:59 | XMS_ITS | Encounter Summary ---
Author Organization [facility] Address [address] [place] [address] Care Team Providers Care Refrigeration Engine Operator Name Role Phone Doug Fong MD Primary Care Provider [phone] Yony Flores MD Primary Care Provider [phone] Encounter Details Date Type Department Care Team (Late st Contact Info) Description 10/06/2021 Orders Only [facility] [place] [place] Health Information Management [address] [place] [address] Scanning, Provider Social History Tobacco Use Types Packs/Day Years Used Date Smoking Tobacco: Never Smokeless Tobacco: Never Alcohol Use Standard Drinks/Week Comments Not Currently 0 (1 standard drink = 0.6 oz pur e alcohol) Comments Unknown Sex and Gender Information Value Date Recorded Sex Assigned at Not on file Legal Sex Female 8:30 PM INSIDE STEWARD/STEWARDESS Gender Identity Not on file Sexual Orientation Not on file documented as of this encounter Functional Status * BP Location Answer Date of Assessment Author Right arm 12/18/2024 2:11 PM ISAT Sussy Aburto MA * BP Location Answer Date of Assessment Author Right arm 12/18/2024 2:11 PM ISAT Sussy Aburto MA documented as of this encounter Plan of Treatment Not on file documented as of this encounter Procedures Procedure Name Priority Date/Time Associated Diagnosis Comments SCAN - RADIOLOGY/IMAGING 10/06/2021 documented in this encounter Results * SCAN - RADIOLOGY/IMAGING (10/06/2021) Anatomical Region Laterality Modality Other us Provider Scanning Final Result documented in this encounter Visit Diagnoses Not on filedocumented in this encounter Care Teams Refrigeration Engine Operator Relationship Specialty Start Date End Date Doug Fong MD PCP - General Internal Medicine 06/10/22 09/16/22 Yony Flores MD PCP - General Family Practice 09/17/22 documented as of this encounter
--- OUTSIDE RECORDS SUMMARY | 2025-02-06 10:59 | XMS_ITS | Encounter Summary ---
Author Organization [facility] Care Team Providers Care Business Services Vice President Name Role Phone Giorgio Hogue MD Primary Care Provider [phone] Doug Fong MD Primary Care Provider [phone] Yony Flores MD Primary Care Provider [phone] Encounter Details Date Type Department Care Team (Latest Contact Info) Description 03/04/2016 Orders Only [facility] CLINCONV ProviderDelmer MD [address] [place] [address] Social History Tobacco Use Types Packs/Day Years Used Date Smoking Tobacco: Never Assessed Comments Unknown Sex and Gender Information Value Date Recorded Sex Assigned at Not on file Legal Sex Female 8:30 PM MAJOR ACCOUNT MANAGER Gender Identity Not on file Sexual Orientation Not on file documented as of this encounter Functional Status documented as of this encounter Plan of Treatment Not on file documented as of this encounter Procedures Procedure Name Priority Date/Time Associated Diagnosis Comments CARDIOLOGY REPORT 03/04/2016 12: 00 AM MAJOR ACCOUNT MANAGER documented in this encounter Results * CARDIOLOGY REPORT (03/04/2016 12:00 AM MAJOR ACCOUNT MANAGER) Anatomical Region Laterality Modality Other Narrative 03/04/2016 12:00 AM MAJOR ACCOUNT MANAGER Ordered by an unspecified provider. us Historical Provider CV CARDIAC SERVICES [facility] Final Result documented in this encounter Visit Diagnoses Not on filedocumented in this encounter Care Teams Business Services Vice President Relationship Specialty Start Date End Date Giorgio Hogue MD [address] [place] [address] PCP - General 07/08/16 05/27/20 Doug Fong MD [address] [place] [address] PCP - General Internal Medicine 06/10/22 09/16/22 Yony Flores MD [address] [place] [address] PCP - General Family Practice 09/17/22 documented as of this encounter
--- OUTSIDE RECORDS SUMMARY | 2025-02-06 10:59 | XMS_ITS | Clinical Summary ---
Author Organization [facility] [place] Address PHYSICIAN [facility] [address] [place] [address] [address] [place] [address] Phone Care Team Providers Care Catering Director Name Role Phone Giorgio Hogue MD Primary Care Provider [phone] Robert Nguyen DO Unavailable [phone] Allergies Active Allergy Reactions Criticality Noted [...] Comments Blood Pressure 128/80 02/06/2015 1:10 PM RIM FIRE CHARGER OPERATOR Pulse - - Temperature - - Respiratory Rate - - Oxygen Saturation - - Inhaled Oxygen Concentration - - Weight 86.5 kg (190 lb 9.6 oz) 02/06/2015 1:10 PM RIM FIRE CHARGER OPERATOR Height 154.9 cm (5' 1) 02/06/2015 1:10 PM RIM FIRE CHARGER OPERATOR Body Mass Index 36.01 02/06/2015 1:10 PM RIM FIRE CHARGER OPERATOR Plan of Treatment Health Maintenance Due Date Last Done Comments Hepatitis C Virus (HCV) Screening 1935 TdaP Immunization 1935 Mammogram 1945 Respiratory Syncytial Virus (RSV) Immunization (Adult) (1 - 1-dose 75+ series) 10/05/2011 Zoster Immunization (2 of 3) 04/27/2013 03/02/2013 Medicare Initial AWV G0438 03/07/2015 Pneumococcal Immunization (5 0+ years) (2 of 2 - PCV20 or PCV21) 12/26/2020 12/27/2019 Influenza Immunization (#1) 11/05/2024/03/2020, 12/27/2019, 12/19/2013 SARS-COV-2 Immunization (3 - season) [...] ID:Not on file Type:Not on file Address: [address] [address] Care Teams Catering Director Relationship Specialty Start Date End Date Giorgio Hogue MD [address] [place] [id number] PCP - General Family Medicine 02/06/15 Robert Nguyen DO [address] [place] [id number] Gastroenterology 05/01/15
--- OUTSIDE RECORDS SUMMARY | 2025-02-06 10:59 | XMS_ITS | Clinical Summary ---
Author Organization [facility] Address [address] [place] [id number] Care Team Providers Care Coffee Maker Servicer Name Role Phone Unavailable Primary Care Provider [...]
== END 2025-02-06 09:54 | disposition home or self-care (01) ==
PROVIDERS: PCP Nurse Practitioner Family; Visit Provider Nurse Practitioner Family
DX: R41.0 Disorientation, unspecified (principal)
CPT/HCPCS: 70450